=== PATIENT | male | born 1945 | race Caucasian/White ===

== ENCOUNTER 2016-02-04 08:58 | Outpatient (RCR) | payer MEDICARE, OTHER ==
--- OUTSIDE RECORDS SUMMARY | 2016-01-24 09:27 | XMS REPORT | Continuity of Care Document ---
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 Medications Medication Dose Route Sig Days/Qty Instructions Order Date Discontinued Date Status Omeprazole 20 Mg PO DAILY 07/16/13 Active Promethazine Hcl 1 Tab PO FOUR TIMES DAILY PRN NAUSEA/VOMITING 10 Qty 07/16/13 Active Social History Social History Problem Response Recorded Date/Time Alcohol Use Occasionally Uses 07/16/2013 8:17am Recreational Drug Use No 07/16/2013 8:17am Recent Foreign Travel No 07/16/2013 8:17am Hospital Discharge Instructions No hospital discharge instructions. Plan of Care No plan of care. Functional Status No functional status results. Allergies, Adverse Reactions, Alerts Allergen Type Severity Reaction Status Last Updated No Known Drug Allergies Active 01/06/11 Immunizations No immunization records. Vital Signs No known vital signs results. Results Laboratory Results Test Name Result Units Flags Reference Collection Date/Time Result Date/ Time Comments White Blood Count 4.0 10^3/uL L 4.3-11.0 03/14/2014 10:am 03/14/2014 10 :43am Red Blood Count 4.44 10^6/uL 4.35-5.85 03/14/2014 10:am 03/14/2014 10 :43am Hemoglobin 14.8 G/DL 13.3-17.7 03/14/2014 10:03/14/2014 10:43am Hematocrit 42 % 40-54 03/14/2014 10:03/14/2014 10:43am Mean Corpuscular Volume 94 FL 80-99 03/14/2014 10:03/14/2014 10: 43am Mean Corpuscular Hemoglobin 33 PG 25-34 03/14/2014 10:03/14/2014 10:43am Mean Corpuscular Hemoglobin Concent 36 G/DL 32-36 03/14/2014 10: 10:43am Red Cell Distribution Width 14.8 % H 10.0-14.5 03/14/2014 10:am 2013 10:43am Platelet Count 94 10^3/uL L 130-400 03/14/2014 10:03/14/2014 10: 43am Mean Platelet Volume 8.9 FL 7.4-10.4 03/14/2014 10:03/14/2014 10: 43am Neutrophils (%) (Auto) 68 % 42-75 03/14/2014 10:03/14/2014 10: 43am Lymphocytes (%) (Auto) 21 % 12-44 03/14/2014 10:03/14/2014 10: 43am Monocytes (%) (Auto) 10 % 0-12 03/14/2014 10:03/14/2014 10:43am Eosinophils (%) (Auto) 1 % 0-10 03/14/2014 10:03/14/2014 10:43am Basophils (%) (Auto) 0 % 0-10 03/14/2014 10:03/14/2014 10:43am Neutrophils # (Auto) 2.7 X 10^3 1.8-7.8 03/14/2014 10:am 03/14/2014 10:43am Lymphocytes # (Auto) 0.8 X 10^3 L 1.0-4.0 03/14/2014 10:22am 03/14/2014 10:43am Monocytes # (Auto) 0.4 X 10^3 0.0-1.0 03/14/2014 10:22am 03/14/2014 10: 43am Eosinophils # (Auto) 0.1 10^3/uL 0.0-0.3 03/14/2014 10:22am 03/14/2014 10:43am Basophils # (Auto) 0.0 10^3/uL 0.0-0.1 03/14/2014 10:22am 03/14/2014 10 :43am Sodium Level 142 MMOL/L 135-145 02/09/2014 9:20am 02/09/2014 10:01am Potassium Level 3.9 MMOL/L 3.6-5.0 02/09/2014 9:20am 02/09/2014 10: 01am Chloride Level 110 MMOL/L H 98-107 02/09/2014 9:20am 02/09/2014 10:01am Carbon Dioxide Level 23 MMOL/L 21-32 02/09/2014 9:20am 02/09/2014 10: 01am Blood Urea Nitrogen 13 MG/DL 7-18 02/09/2014 9:20am 02/09/2014 10:01am Creatinine 0.98 MG/DL 0.60-1.30 02/09/2014 9:20am 02/09/2014 10:01am BUN/Creatinine Ratio 13 02/09/2014 9:20am 02/09/2014 10:01am Estimat Glomerular Filtration Rate > 60 02/09/2014 9:20am 2013 10:01am GFR INTERPRETIVE DATA UNITS FOR ESTIMATED GFR (eGFR): mL/min/1.73 M2 REFERENCE RANGE FOR ESTIMATED GFR (eGFR) eGFR NORMAL eGFR >60 MODERATELY DECREASED eGFR 30-59 SEVERLY DECREASED eGFR 15-29 KIDNEY FAILURE <15 (OR DIALYSIS) Glucose Level 110 MG/DL H 70-105 02/09/2014 9:20am 02/09/2014 10:01am Calcium Level 8.7 MG/DL 8.5-10.1 02/09/2014 9:20am 02/09/2014 10:01am Total Bilirubin 1.4 MG/DL H 0.1-1.0 02/09/2014 9:20am 02/09/2014 10:01am Alkaline Phosphatase 62 U/L 40-136 02/09/2014 9:20am 02/09/2014 10: 01am Aspartate Amino Transf (AST/SGOT) 18 U/L 5-34 02/09/2014 9:20am 2013 10:01am Alanine Aminotransferase (ALT/SGPT) 14 U/L 0-55 02/09/2014 9:20am 02/09 10:01am Total Protein 7.1 G/DL 6.4-8.2 02/09/2014 9:20am 02/09/2014 10:01am Albumin 4.4 G/DL 3.2-4.5 02/09/2014 9:20am 02/09/2014 10:01am Ferritin 93 NG/ML 25-300 03/14/2014 10:22am 03/15/2014 7:01am Procedures No known history of procedures. Encounters Encounter Location Date/Time Discharged Recurring [facility] 03/14/14 10:00am
[2016-01-24 09:38] LABS: BASOPHILS % (AUTO) 0 % (0-10); EOSINOPHILS # (AUTO) 0.1 10^3/uL (0.0-0.3); EOSINOPHILS % (AUTO) 3 % (0-10); LYMPHOCYTES # (AUTO) 0.7 X 10^3 (1.0-4.0); LYMPHOCYTES % (AUTO) 24 % (12-44); MEAN CORPUSCULAR HEMOGLOBIN 27 PG (25-34); MEAN CORPUSCULAR HGB CONC 33 G/DL (32-36); MEAN CORPUSCULAR VOLUME 85 FL (80-99); MONOCYTES # (AUTO) 0.3 X 10^3 (0.0-1.0); MONOCYTES % (AUTO) 10 % (0-12); NEUTROPHILS # (AUTO) 1.8 X 10^3 (1.8-7.8); NEUTROPHILS % (AUTO) 63 % (42-75); PLATELET COUNT 115 10^3/uL (130-400); RED BLOOD COUNT 4.08 10^6/uL (4.35-5.85); RED CELL DISTRIBUTION WIDTH 13.4 % (10.0-14.5); WHITE BLOOD COUNT 2.9 10^3/uL (4.3-11.0)
[2016-01-24 10:10] LABS: ALANINE AMINOTRANSFERASE 17 U/L (0-55); ANION GAP 8 MMOL/L (5-14); ASPARTATE AMINO TRANSFERASE 14 U/L (5-34); BILIRUBIN,TOTAL 0.8 MG/DL (0.1-1.0); BLOOD UREA NITROGEN 15 MG/DL (7-18); BUN/CREATININE RATIO 15; CALCIUM 8.8 MG/DL (8.5-10.1); CARBON DIOXIDE 26 MMOL/L (21-32); CHLORIDE 109 MMOL/L (98-107); CREATININE SERUM 1.03 MG/DL (0.60-1.30); GFR ESTIMATED > 60; GLUCOSE 143 MG/DL (70-105); POTASSIUM 4.4 MMOL/L (3.6-5.0); SODIUM 143 MMOL/L (135-145); TOTAL PROTEIN 6.2 G/DL (6.4-8.2)
[~2016-02-04 08:58] MED LIST: FERRIC CARBOXYMALTOSE (CANCER) 750 MG in NS (IVPB) CANCER CENTER 250 ML IV SCH; OMEP20TA2 PO; PRM25T PO
== END 2016-04-23 | disposition home or self-care (01) ==
LOC: ONC 08:58
PROVIDERS: ATTEND Internal Medicine Hematology & Oncology
DX: C85.90 Non-Hodgkin lymphoma, unspecified, unspecified site (principal); I78.0 Hereditary hemorrhagic telangiectasia; D50.8 Other iron deficiency anemias; D69.6 Thrombocytopenia, unspecified; Z79.899 Other long term (current) drug therapy
CPT/HCPCS: 36415; 80053; 82728; 85025; 96365; 99213

== ENCOUNTER 2016-05-05 10:21 | Outpatient (RCR) | payer MEDICARE, OTHER ==
--- OUTSIDE RECORDS SUMMARY | 2016-04-24 09:19 | XMS REPORT | Continuity of Care Document ---
Author Author [facility] Organization [facility] Address Unknown Phone Unavailable Care Team Providers Care Development Technologist Name Role Phone BRIAN SÁNCHEZ DO PCP Insurance Providers Payer Name Policy Number Subscriber Name Relationship Wps Medicare [id number] Darci Mistry 18 Self / Same As Patient Enter Insurance Name [id number] Darci Mistry 18 Self / Same As Patient Advance Directives Directive Response Recorded Date/Time Advance Directives Yes 02/08/15 5:16pm Health Care Power of Triage Clinician No 02/08/15 5:16pm Organ Donor No 02/08/15 5:16pm Problems Active Problems Medical Problem Onset Date Status Well adult exam Unknown Acute Medications Current Home Medications Medication Dose Units Route Directions Days/Qty Instructions Start Date Omeprazole 20 Mg 20 Mg Oral Daily 07/16/13 Promethazine Hcl 25 Mg 1 Tab Oral Four Times Daily as needed for Nausea/ Vomiting 10 07/16/13 Social History Social History Problem Response Recorded Date/Time Alcohol Use Occasionally Uses 02/08/2015 5:16pm Recreational Drug Use No 02/08/2015 5:16pm Recent Foreign Travel No 07/16/2013 8:17am Hospital Discharge Instructions No hospital discharge instructions. Plan of Care Prescriptions See Medication Section Functional Status No functional status results. Allergies, Adverse Reactions, Alerts No known allergies. Immunizations No immunization records. Vital Signs No known vital signs results. Results Laboratory Results Test Name Result Units Flags Reference Collection Date/Time Result Date/ Time Comments White Blood Count 2.9 10^3/uL L 4.3-11.0 01/24/2016 9:35am 01/24/2016 9: 39am Red Blood Count 4.08 10^6/uL L 4.35-5.85 01/24/2016 9:35am 01/24/2016 9: 39am Hemoglobin 11.2 G/DL L 13.3-17.7 01/24/2016 9:35am 01/24/2016 9:39am Hematocrit 35 % L 40-54 01/24/2016 9:35am 01/24/2016 9:39am Mean Corpuscular Volume 85 FL 80-99 01/24/2016 9:35am 01/24/2016 9: 39am Mean Corpuscular Hemoglobin 27 PG 25-34 01/24/2016 9:35am 01/24/2016 9: 39am Mean Corpuscular Hemoglobin Concent 33 G/DL 32-36 01/24/2016 9:35am 05/2015 9:39am Red Cell Distribution Width 13.4 % 10.0-14.5 01/24/2016 9:35am 2015 9:39am Platelet Count 115 10^3/uL L 130-400 01/24/2016 9:35am 01/24/2016 9:39am Mean Platelet Volume 9.0 FL 7.4-10.4 01/24/2016 9:35am 01/24/2016 9: 39am Neutrophils (%) (Auto) 63 % 42-75 01/24/2016 9:35am 01/24/2016 9:39am Lymphocytes (%) (Auto) 24 % 12-44 01/24/2016 9:35am 01/24/2016 9:39am Monocytes (%) (Auto) 10 % 0-12 01/24/2016 9:35am 01/24/2016 9:39am Eosinophils (%) (Auto) 3 % 0-10 01/24/2016 9:35am 01/24/2016 9:39am Basophils (%) (Auto) 0 % 0-10 01/24/2016 9:35am 01/24/2016 9:39am Neutrophils # (Auto) 1.8 X 10^3 1.8-7.8 01/24/2016 9:35am 01/24/2016 9: 39am Lymphocytes # (Auto) 0.7 X 10^3 L 1.0-4.0 01/24/2016 9:35am 01/24/2016 9: 39am Monocytes # (Auto) 0.3 X 10^3 0.0-1.0 01/24/2016 9:35am 01/24/2016 9: 39am Eosinophils # (Auto) 0.1 10^3/uL 0.0-0.3 01/24/2016 9:35am 01/24/2016 9 :39am Basophils # (Auto) 0.0 10^3/uL 0.0-0.1 01/24/2016 9:35am 01/24/2016 9: 39am Sodium Level 143 MMOL/L 135-145 01/24/2016 9:35am 01/24/2016 10:14am Potassium Level 4.4 MMOL/L 3.6-5.0 01/24/2016 9:35am 01/24/2016 10: 14am Chloride Level 109 MMOL/L H 98-107 01/24/2016 9:35am 01/24/2016 10:14am Carbon Dioxide Level 26 MMOL/L 21-32 01/24/2016 9:35am 01/24/2016 10: 14am Anion Gap 8 MMOL/L 5-14 01/24/2016 9:35am 01/24/2016 10:14am Blood Urea Nitrogen 15 MG/DL 7-18 01/24/2016 9:35am 01/24/2016 10:14am Creatinine 1.03 MG/DL 0.60-1.30 01/24/2016 9:35am 01/24/2016 10:14am BUN/Creatinine Ratio 15 01/24/2016 9:35am 01/24/2016 10:14am Estimat Glomerular Filtration Rate > 60 01/24/2016 9:35am 2015 10:14am GFR INTERPRETIVE DATA UNITS FOR ESTIMATED GFR (eGFR): mL/min/1.73 M2 REFERENCE RANGE FOR ESTIMATED GFR (eGFR) eGFR NORMAL eGFR >60 MODERATELY DECREASED eGFR 30-59 SEVERLY DECREASED eGFR 15-29 KIDNEY FAILURE <15 (OR DIALYSIS) Glucose Level 143 MG/DL H 70-105 01/24/2016 9:35am 01/24/2016 10:14am Calcium Level 8.8 MG/DL 8.5-10.1 01/24/2016 9:35am 01/24/2016 10:14am Total Bilirubin 0.8 MG/DL 0.1-1.0 01/24/2016 9:35am 01/24/2016 10:14am Alkaline Phosphatase 62 U/L 40-136 01/24/2016 9:35am 01/24/2016 10: 14am Aspartate Amino Transf (AST/SGOT) 14 U/L 5-34 01/24/2016 9:35am 2015 10:14am Alanine Aminotransferase (ALT/SGPT) 17 U/L 0-55 01/24/2016 9:35am 01/23 10:14am Total Protein 6.2 G/DL L 6.4-8.2 01/24/2016 9:35am 01/24/2016 10:14am Albumin 4.0 G/DL 3.2-4.5 01/24/2016 9:35am 01/24/2016 10:14am Ferritin 13 L NG/ML 25-300 01/24/2016 9:35am 01/25/2016 7:21am Procedures No known history of procedures. Encounters Encounter Location Arrival/Admit Date Discharge/Depart Date Attending Provider Discharged Recurring [facility] 02/04/16 8:58am 11:59pm LAURA MCWILLIAMS
[2016-04-24 09:34] LABS: BASOPHILS % (AUTO) 0 % (0-10); EOSINOPHILS # (AUTO) 0.1 10^3/uL (0.0-0.3); EOSINOPHILS % (AUTO) 2 % (0-10); LYMPHOCYTES # (AUTO) 0.6 X 10^3 (1.0-4.0); LYMPHOCYTES % (AUTO) 20 % (12-44); MEAN CORPUSCULAR HEMOGLOBIN 27 PG (25-34); MEAN CORPUSCULAR HGB CONC 33 G/DL (32-36); MEAN CORPUSCULAR VOLUME 84 FL (80-99); MEAN PLATELET VOLUME 9.3 FL (7.4-10.4); MONOCYTES # (AUTO) 0.2 X 10^3 (0.0-1.0); MONOCYTES % (AUTO) 6 % (0-12); NEUTROPHILS % (AUTO) 72 % (42-75); PLATELET COUNT 121 10^3/uL (130-400); RED BLOOD COUNT 4.05 10^6/uL (4.35-5.85); RED CELL DISTRIBUTION WIDTH 14.4 % (10.0-14.5); WHITE BLOOD COUNT 2.8 10^3/uL (4.3-11.0)
[2016-04-24 10:15] LABS: ALANINE AMINOTRANSFERASE 16 U/L (0-55); ALBUMIN 4.1 G/DL (3.2-4.5); ANION GAP 9 MMOL/L (5-14); ASPARTATE AMINO TRANSFERASE 24 U/L (5-34); BLOOD UREA NITROGEN 14 MG/DL (7-18); BUN/CREATININE RATIO 13; CALCIUM 8.5 MG/DL (8.5-10.1); CARBON DIOXIDE 24 MMOL/L (21-32); CHLORIDE 108 MMOL/L (98-107); CREATININE SERUM 1.11 MG/DL (0.60-1.30); GFR ESTIMATED > 60; GLUCOSE 153 MG/DL (70-105); LACTATE DEHYDROGENASE 260 U/L (125-220); SODIUM 141 MMOL/L (135-145); TOTAL PROTEIN 6.5 G/DL (6.4-8.2)
[2016-04-24 10:18] LABS: POTASSIUM 4.2 MMOL/L (3.6-5.0)
== END 2016-07-23 | disposition home or self-care (01) ==
LOC: ONC 10:21
PROVIDERS: ATTEND Internal Medicine Hematology & Oncology
DX: C85.90 Non-Hodgkin lymphoma, unspecified, unspecified site (principal); I78.0 Hereditary hemorrhagic telangiectasia; D50.8 Other iron deficiency anemias; D69.6 Thrombocytopenia, unspecified; Z79.899 Other long term (current) drug therapy
CPT/HCPCS: 36415; 80053; 82728; 83615; 85025; 96365; 99213

== ENCOUNTER → 2016-07-30 | Outpatient (CLI) | payer MEDICARE, OTHER ==
[~2016-07-30] MED LIST changes: -FERRIC CARBOXYMALTOSE (CANCER) 750 MG in NS (IVPB) CANCER CENTER 250 ML IV SCH
--- NOTE | 2016-07-31 07:15 | ECHOCARDIOGRAPHY REPORT ---
DATE OF SERVICE: 07/30/2016 TWO-DIMENSIONAL ECHOCARDIOGRAM REFERRING PHYSICIAN: Dr. Ballesteros MEASUREMENT: LVID end diastolic 4.4. IVS thickness 1.3. LVPW thickness 1.3. Left atrial diameter 3.2. Ejection fraction 60%. FINDINGS: 1. Technical quality is good. 2. The left ventricle is normal in size with mild left ventricular hypertrophy noted diffusely. Systolic function appeared to be normal, estimated ejection fraction is 60%. 3. The left atrium is normal in size. No clot or thrombus were seen within the left atrium. 4. The right atrium and right ventricle are normal in size. No clot or thrombus were seen within the right side. 5. Mitral valve is normal in morphology with mild mitral regurgitation noted by color Doppler flow. No mitral valve prolapse. No mitral valve stenosis. 6. Aortic valve is trileaflet with normal opening and closing pattern. No significant aortic stenosis or regurgitation was seen. 7. Tricuspid valve is normal in morphology with mild tricuspid regurgitation noted by color Doppler flow. Doppler across the tricuspid valve estimated pulmonary artery pressure of 17+ right atrial pressure. 8. Pulmonic valve is functioning normally. 9. No pericardial effusion. IN CONCLUSION: 1. Normal left ventricular size and systolic function, estimated ejection fraction is 60%. 2. Mild mitral and tricuspid regurgitation. 3. Estimated pulmonary artery pressure of 25 mmHg. Job ID: [id number] DocumentID: [id number] Dictated Date: 07/30/2016 14:46:25 Supervisor [employer] Date: 07/30/2016 15:28:12 Dictated By: VIDAL BELTRAN MD
== END ==
LOC: CARD 13:15
PROVIDERS: ATTEND Internal Medicine Cardiovascular Disease
DX: R00.2 Palpitations (principal); C85.90 Non-Hodgkin lymphoma, unspecified, unspecified site; D50.0 Iron deficiency anemia secondary to blood loss (chronic); K21.9 Gastro-esophageal reflux disease without esophagitis; R11.0 Nausea; E66.9 Obesity, unspecified
CPT/HCPCS: 93017; 93306

== ENCOUNTER 2016-08-01 09:31 | Outpatient (RCR) | payer MEDICARE, OTHER ==
[2016-07-24 09:41] LABS: BASOPHILS % (AUTO) 0 % (0-10); EOSINOPHILS # (AUTO) 0.1 10^3/uL (0.0-0.3); EOSINOPHILS % (AUTO) 2 % (0-10); LYMPHOCYTES # (AUTO) 0.5 X 10^3 (1.0-4.0); LYMPHOCYTES % (AUTO) 19 % (12-44); MEAN CORPUSCULAR HEMOGLOBIN 24 PG (25-34); MEAN CORPUSCULAR HGB CONC 30 G/DL (32-36); MEAN CORPUSCULAR VOLUME 80 FL (80-99); MEAN PLATELET VOLUME 9.1 FL (7.4-10.4); MONOCYTES # (AUTO) 0.2 X 10^3 (0.0-1.0); MONOCYTES % (AUTO) 8 % (0-12); NEUTROPHILS # (AUTO) 1.8 X 10^3 (1.8-7.8); NEUTROPHILS % (AUTO) 71 % (42-75); PLATELET COUNT 121 10^3/uL (130-400); RED CELL DISTRIBUTION WIDTH 15.2 % (10.0-14.5); WHITE BLOOD COUNT 2.5 10^3/uL (4.3-11.0)
[2016-07-24 10:26] LABS: ALANINE AMINOTRANSFERASE 12 U/L (0-55); ALBUMIN 4.2 G/DL (3.2-4.5); ANION GAP 6 MMOL/L (5-14); ASPARTATE AMINO TRANSFERASE 15 U/L (5-34); BILIRUBIN,TOTAL 0.9 MG/DL (0.1-1.0); BLOOD UREA NITROGEN 12 MG/DL (7-18); BUN/CREATININE RATIO 11; CALCIUM 8.8 MG/DL (8.5-10.1); CARBON DIOXIDE 28 MMOL/L (21-32); CHLORIDE 109 MMOL/L (98-107); CREATININE SERUM 1.08 MG/DL (0.60-1.30); GFR ESTIMATED > 60; GLUCOSE 139 MG/DL (70-105); LACTATE DEHYDROGENASE 152 U/L (125-220); SODIUM 143 MMOL/L (135-145); TOTAL PROTEIN 6.4 G/DL (6.4-8.2)
[~2016-08-01 09:31] MED LIST changes: +FERRIC CARBOXYMALTOSE (CANCER) 750 MG in NS (IVPB) CANCER CENTER 250 ML IV SCH
== END 2016-10-22 | disposition home or self-care (01) ==
LOC: ONC 09:31
PROVIDERS: ATTEND Internal Medicine Hematology & Oncology
DX: C85.90 Non-Hodgkin lymphoma, unspecified, unspecified site (principal); I78.0 Hereditary hemorrhagic telangiectasia; D50.8 Other iron deficiency anemias; D69.6 Thrombocytopenia, unspecified; Z79.899 Other long term (current) drug therapy
CPT/HCPCS: 36415; 80053; 82728; 83615; 85025; 96365; 99213

== ENCOUNTER 2016-12-18 08:41 | Outpatient (RCR) | payer MEDICARE, OTHER ==
[2016-11-06 10:25] LABS: BASOPHILS % (AUTO) 0 % (0-10); EOSINOPHILS # (AUTO) 0.1 10^3/uL (0.0-0.3); EOSINOPHILS % (AUTO) 4 % (0-10); LYMPHOCYTES # (AUTO) 0.6 X 10^3 (1.0-4.0); LYMPHOCYTES % (AUTO) 19 % (12-44); MEAN CORPUSCULAR HEMOGLOBIN 28 PG (25-34); MEAN CORPUSCULAR HGB CONC 33 G/DL (32-36); MEAN CORPUSCULAR VOLUME 83 FL (80-99); MEAN PLATELET VOLUME 8.6 FL (7.4-10.4); MONOCYTES # (AUTO) 0.4 X 10^3 (0.0-1.0); MONOCYTES % (AUTO) 13 % (0-12); NEUTROPHILS # (AUTO) 2.2 X 10^3 (1.8-7.8); NEUTROPHILS % (AUTO) 65 % (42-75); PLATELET COUNT 93 10^3/uL (130-400); RED BLOOD COUNT 4.55 10^6/uL (4.35-5.85); RED CELL DISTRIBUTION WIDTH 14.3 % (10.0-14.5); WHITE BLOOD COUNT 3.4 10^3/uL (4.3-11.0)
[2016-11-06 11:00] LABS: ALANINE AMINOTRANSFERASE 17 U/L (0-55); ANION GAP 7 MMOL/L (5-14); ASPARTATE AMINO TRANSFERASE 21 U/L (5-34); BILIRUBIN,TOTAL 1.1 MG/DL (0.1-1.0); BLOOD UREA NITROGEN 13 MG/DL (7-18); BUN/CREATININE RATIO 12; CARBON DIOXIDE 29 MMOL/L (21-32); CHLORIDE 104 MMOL/L (98-107); CREATININE SERUM 1.12 MG/DL (0.60-1.30); GFR ESTIMATED > 60; GLUCOSE 101 MG/DL (70-105); POTASSIUM 4.3 MMOL/L (3.6-5.0); SODIUM 140 MMOL/L (135-145); TOTAL PROTEIN 6.6 GM/DL (6.4-8.2)
[2016-12-18 08:57] LABS: BASOPHILS % (AUTO) 0 % (0-10); EOSINOPHILS # (AUTO) 0.1 10^3/uL (0.0-0.3); EOSINOPHILS % (AUTO) 2 % (0-10); LYMPHOCYTES # (AUTO) 0.7 X 10^3 (1.0-4.0); LYMPHOCYTES % (AUTO) 17 % (12-44); MEAN CORPUSCULAR HEMOGLOBIN 30 PG (25-34); MEAN CORPUSCULAR HGB CONC 35 G/DL (32-36); MEAN CORPUSCULAR VOLUME 88 FL (80-99); MEAN PLATELET VOLUME 9.2 FL (7.4-10.4); MONOCYTES # (AUTO) 0.3 X 10^3 (0.0-1.0); MONOCYTES % (AUTO) 8 % (0-12); NEUTROPHILS # (AUTO) 2.8 X 10^3 (1.8-7.8); NEUTROPHILS % (AUTO) 72 % (42-75); PLATELET COUNT 85 10^3/uL (130-400); RED BLOOD COUNT 4.96 10^6/uL (4.35-5.85); RED CELL DISTRIBUTION WIDTH 19.4 % (10.0-14.5); WHITE BLOOD COUNT 3.9 10^3/uL (4.3-11.0)
== END 2016-12-20 | disposition home or self-care (01) ==
LOC: ONC 08:41
PROVIDERS: ATTEND Internal Medicine Hematology & Oncology
DX: C85.90 Non-Hodgkin lymphoma, unspecified, unspecified site (principal); I78.0 Hereditary hemorrhagic telangiectasia; D50.8 Other iron deficiency anemias; D69.6 Thrombocytopenia, unspecified; Z79.899 Other long term (current) drug therapy
CPT/HCPCS: 36415; 80053; 82728; 85025; 96365; 99213

== ENCOUNTER 2017-04-21 08:55 | Outpatient (RCR) | payer MEDICARE, OTHER ==
[2017-04-01 10:21] LABS: BASOPHILS % (AUTO) 0 % (0-10); EOSINOPHILS # (AUTO) 0.1 10^3/uL (0.0-0.3); EOSINOPHILS % (AUTO) 1 % (0-10); HEMATOCRIT 38 % (40-54); HEMOGLOBIN 12.8 G/DL (13.3-17.7); LYMPHOCYTES # (AUTO) 0.7 X 10^3 (1.0-4.0); LYMPHOCYTES % (AUTO) 15 % (12-44); MEAN CORPUSCULAR HEMOGLOBIN 29 PG (25-34); MEAN CORPUSCULAR HGB CONC 34 G/DL (32-36); MEAN CORPUSCULAR VOLUME 85 FL (80-99); MEAN PLATELET VOLUME 9.6 FL (7.4-10.4); MONOCYTES # (AUTO) 0.4 X 10^3 (0.0-1.0); MONOCYTES % (AUTO) 9 % (0-12); NEUTROPHILS # (AUTO) 3.3 X 10^3 (1.8-7.8); NEUTROPHILS % (AUTO) 75 % (42-75); PLATELET COUNT 121 10^3/uL (130-400); RED BLOOD COUNT 4.42 10^6/uL (4.35-5.85); WHITE BLOOD COUNT 4.4 10^3/uL (4.3-11.0)
== END 2017-05-17 | disposition home or self-care (01) ==
LOC: ONC 08:55
PROVIDERS: ATTEND Internal Medicine Hematology & Oncology
DX: C85.90 Non-Hodgkin lymphoma, unspecified, unspecified site (principal); I78.0 Hereditary hemorrhagic telangiectasia; D50.8 Other iron deficiency anemias; D69.6 Thrombocytopenia, unspecified; Z79.899 Other long term (current) drug therapy
CPT/HCPCS: 82728; 85025; 96365; 99213

== ENCOUNTER → 2017-06-09 | Outpatient (CLI) | payer MEDICARE, OTHER ==
[~2017-06-09] MED LIST changes: -FERRIC CARBOXYMALTOSE (CANCER) 750 MG in NS (IVPB) CANCER CENTER 250 ML IV SCH
--- NOTE | 2017-06-09 13:14 | Diagnostic Imaging Report ---
PROCEDURE: MRI lumbar spine. TECHNIQUE: Multiplanar, multisequence MRI of the lumbar spine was performed without contrast. INDICATION: Back pain. COMPARISON: Comparison made with prior examination from 08/17/2013. FINDINGS: There are postsurgical changes of an L5-S1 posterior instrumentation with bilateral pedicle screws and rods. There is grade 2 spondylolisthesis of L5 on S1. The vertebral body heights are well-maintained. Conus medullaris is seen at L1 and is normal in appearance. T11-12 disc is unremarkable. T12-L1 disc is unremarkable. L1-2 and L2-3: There is slight loss of disc height and signal intensity and mild annular bulging. There is some facet disease. There is mild central spinal stenosis. There is [id number] bilateral neural foraminal encroachment. The L3-4 disc is normal in height, signal intensity and morphology. There is some facet disease at this level. At L4-5, there is no disc extrusion. There appears to be mild bilateral neural foraminal encroachment. There has been a laminectomy at L5. Spinal canal is adequately decompressed. There does appear to be moderately severe spinal stenosis bilaterally right greater than left. There is no new focal disc extrusion. The abdominal aorta is nonaneurysmal. There is a large cyst in the right kidney. IMPRESSION: 1. Diffuse lumbar spondylosis and multilevel degenerative disc disease as detailed above. 2. Postsurgical changes at L5-S1. 3. Right renal cyst. 4. There is slight loss of disc height and signal intensity and mild hypertrophic degenerative facet disease. There is moderate bilateral neural foraminal encroachment. Dictated by: Dictated on workstation # [id number]
== END ==
LOC: RAD 11:11
PROVIDERS: ATTEND Physician Assistant
DX: M48.061 Spinal stenosis, lumbar region without neurogenic claudication (principal); M47.816 Spondylosis without myelopathy or radiculopathy, lumbar region; M43.17 Spondylolisthesis, lumbosacral region; M51.26 Other intervertebral disc displacement, lumbar region; N28.1 Cyst of kidney, acquired; Z98.1 Arthrodesis status; Z98.890 Other specified postprocedural states
CPT/HCPCS: 72148

== ENCOUNTER 2017-09-22 08:51 | Outpatient (RCR) | payer MEDICARE, OTHER ==
[~2017-09-22 08:51] MED LIST changes: +FERRIC CARBOXYMALTOSE (CANCER) 750 MG in NS (IVPB) CANCER CENTER 250 ML IV SCH
[2017-12-07 09:03] LABS: BASOPHILS % (AUTO) 0 % (0-10); EOSINOPHILS # (AUTO) 0.1 10^3/uL (0.0-0.3); EOSINOPHILS % (AUTO) 2 % (0-10); HEMATOCRIT 33 % (40-54); HEMOGLOBIN 10.8 G/DL (13.3-17.7); LYMPHOCYTES # (AUTO) 0.6 X 10^3 (1.0-4.0); LYMPHOCYTES % (AUTO) 17 % (12-44); MEAN CORPUSCULAR HEMOGLOBIN 26 PG (25-34); MEAN CORPUSCULAR HGB CONC 33 G/DL (32-36); MEAN CORPUSCULAR VOLUME 79 FL (80-99); MONOCYTES # (AUTO) 0.4 X 10^3 (0.0-1.0); MONOCYTES % (AUTO) 10 % (0-12); NEUTROPHILS # (AUTO) 2.5 X 10^3 (1.8-7.8); NEUTROPHILS % (AUTO) 71 % (42-75); PLATELET COUNT 129 10^3/uL (130-400); RED BLOOD COUNT 4.19 10^6/uL (4.35-5.85); RED CELL DISTRIBUTION WIDTH 14.5 % (10.0-14.5); WHITE BLOOD COUNT 3.5 10^3/uL (4.3-11.0)
[2017-12-07 09:26] LABS: ALANINE AMINOTRANSFERASE 12 U/L (0-55); ALBUMIN 4.2 GM/DL (3.2-4.5); ALKALINE PHOSPHATASE 66 U/L (40-136); BUN/CREATININE RATIO 11; CALCIUM 8.8 MG/DL (8.5-10.1); CARBON DIOXIDE 26 MMOL/L (21-32); CHLORIDE 107 MMOL/L (98-107); CREATININE SERUM 0.96 MG/DL (0.60-1.30); GFR ESTIMATED > 60; GLUCOSE 104 MG/DL (70-105); POTASSIUM 4.5 MMOL/L (3.6-5.0); SODIUM 138 MMOL/L (135-145); TOTAL PROTEIN 6.1 GM/DL (6.4-8.2)
== END 2017-12-07 08:59 | disposition home or self-care (01) ==
LOC: ONC 08:51
PROVIDERS: ATTEND Internal Medicine Hematology & Oncology
DX: C85.90 Non-Hodgkin lymphoma, unspecified, unspecified site (principal); I78.0 Hereditary hemorrhagic telangiectasia; D50.8 Other iron deficiency anemias; D69.6 Thrombocytopenia, unspecified; Z79.899 Other long term (current) drug therapy
CPT/HCPCS: 36415; 80053; 82728; 83615; 85025; 96365

== ENCOUNTER 2017-12-07 09:09 | Outpatient (RCR) | payer MEDICARE, OTHER ==
[~2017-12-07 09:09] MED LIST changes: -FERRIC CARBOXYMALTOSE (CANCER) 750 MG in NS (IVPB) CANCER CENTER 250 ML IV SCH
== END 2017-12-10 16:16 | disposition home or self-care (01) ==
LOC: ONC 09:09
PROVIDERS: ATTEND Internal Medicine Hematology & Oncology
DX: C85.90 Non-Hodgkin lymphoma, unspecified, unspecified site (principal); I78.0 Hereditary hemorrhagic telangiectasia; D50.8 Other iron deficiency anemias; D69.6 Thrombocytopenia, unspecified; Z79.899 Other long term (current) drug therapy

== ENCOUNTER 2017-12-18 08:48 | Outpatient (RCR) | payer MEDICARE, OTHER ==
[~2017-12-18 08:48] MED LIST changes: +FERRIC CARBOXYMALTOSE (CANCER) 750 MG in NS (IVPB) CANCER CENTER 250 ML IV SCH
== END 2017-12-20 | disposition home or self-care (01) ==
LOC: ONC 08:48
PROVIDERS: ATTEND Internal Medicine Hematology & Oncology
DX: C85.90 Non-Hodgkin lymphoma, unspecified, unspecified site (principal); I78.0 Hereditary hemorrhagic telangiectasia; D50.8 Other iron deficiency anemias; D69.6 Thrombocytopenia, unspecified; Z79.899 Other long term (current) drug therapy
CPT/HCPCS: 96365

== ENCOUNTER 2018-04-08 11:00 | Outpatient (RCR) | payer MEDICARE, OTHER ==
[2018-03-08 09:24] LABS: BASOPHILS % (AUTO) 0 % (0-10); EOSINOPHILS # (AUTO) 0.1 10^3/uL (0.0-0.3); EOSINOPHILS % (AUTO) 3 % (0-10); HEMATOCRIT 36 % (40-54); HEMOGLOBIN 11.9 G/DL (13.3-17.7); LYMPHOCYTES # (AUTO) 0.6 X 10^3 (1.0-4.0); LYMPHOCYTES % (AUTO) 17 % (12-44); MEAN CORPUSCULAR HEMOGLOBIN 27 PG (25-34); MEAN CORPUSCULAR HGB CONC 33 G/DL (32-36); MEAN CORPUSCULAR VOLUME 83 FL (80-99); MEAN PLATELET VOLUME 9.6 FL (7.4-10.4); MONOCYTES # (AUTO) 0.4 X 10^3 (0.0-1.0); MONOCYTES % (AUTO) 12 % (0-12); NEUTROPHILS # (AUTO) 2.2 X 10^3 (1.8-7.8); NEUTROPHILS % (AUTO) 68 % (42-75); PLATELET COUNT 123 10^3/uL (130-400); RED CELL DISTRIBUTION WIDTH 14.7 % (10.0-14.5); WHITE BLOOD COUNT 3.2 10^3/uL (4.3-11.0)
[2018-03-08 09:45] LABS: ALANINE AMINOTRANSFERASE 14 U/L (0-55); ALBUMIN 4.4 GM/DL (3.2-4.5); ALKALINE PHOSPHATASE 75 U/L (40-136); BILIRUBIN,TOTAL 1.1 MG/DL (0.1-1.0); BUN/CREATININE RATIO 13; CALCIUM 9.1 MG/DL (8.5-10.1); CARBON DIOXIDE 25 MMOL/L (21-32); CHLORIDE 106 MMOL/L (98-107); CREATININE SERUM 1.02 MG/DL (0.60-1.30); GFR ESTIMATED > 60; GLUCOSE 102 MG/DL (70-105); SODIUM 141 MMOL/L (135-145); TOTAL PROTEIN 6.9 GM/DL (6.4-8.2)
[2018-04-08 11:30] LABS: BUN/CREATININE RATIO 11; CALCIUM 8.7 MG/DL (8.5-10.1); CARBON DIOXIDE 27 MMOL/L (21-32); CHLORIDE 105 MMOL/L (98-107); CREATININE SERUM 1.02 MG/DL (0.60-1.30); GFR ESTIMATED > 60; GLUCOSE 74 MG/DL (70-105); SODIUM 139 MMOL/L (135-145)
== END 2018-06-06 | disposition home or self-care (01) ==
LOC: ONC 11:00
PROVIDERS: ATTEND Internal Medicine Hematology & Oncology
DX: C85.90 Non-Hodgkin lymphoma, unspecified, unspecified site (principal); I78.0 Hereditary hemorrhagic telangiectasia; D50.8 Other iron deficiency anemias; D69.6 Thrombocytopenia, unspecified; Z79.899 Other long term (current) drug therapy
CPT/HCPCS: 36415; 80048; 80053; 82728; 83615; 85025; 96365

== ENCOUNTER → 2018-04-29 | Outpatient (CLI) | payer MEDICARE, OTHER ==
[~2018-04-29] MED LIST changes: +BARIUM SUSPENSION 2.1% (VANILLA SILQ) 450 ML PO ONE; -FERRIC CARBOXYMALTOSE (CANCER) 750 MG in NS (IVPB) CANCER CENTER 250 ML IV SCH; +IOHEXOL 350 MG/ML 100 ML (OMNIPAQUE 350) VIAL IV ONE; +NS 100 ML (IVPB) BAG IV ONE; +RECEIVED CONTRAST (Hold Metformin) IV SCH
--- NOTE | 2018-04-29 13:03 | Diagnostic Imaging Report ---
INDICATION: Anemia, history of myeloproliferative disorder. TECHNIQUE: CT chest, abdomen, and pelvis obtained with IV contrast bolus. COMPARISON: Comparison made to prior study of 12/31/2010. CT chest findings: There were no enlarged mediastinal or hilar nodes. There is a calcified granuloma in the right hilum, unchanged from the prior study. There is no pleural or pericardial fluid. There are no enlarged axillary nodes or chest wall lesions. Bony windows in the chest were unremarkable. Lung parenchymal windows demonstrate a calcified granuloma in the right upper lobe which is unchanged compared to the previous study. There is no new nodule or infiltrate in the lung parenchyma. CT abdomen and pelvis findings: The liver shows no focal lesions. The gallbladder appears unremarkable except for a questionable tiny stone in the gallbladder neck. The spleen was not enlarged and shows a few scattered calcified granuloma but no discrete mass lesion. The adrenals and pancreas appear normal. Kidneys bilaterally showed no hydronephrosis. There are multiple cysts in the right kidney, the largest of which measured about 5.7 cm, slightly larger than on 12/31/2010. There is no ascites or abnormal fluid collection. There is some increased density in the mesenteric fat which appeared similar on the prior study, may be due to post-treatment change. There are few scattered mildly prominent lymph nodes in the mesentery which also appeared similar on the prior study, the largest node measured about 2.3 x 1.2 cm. Visualized bowel loops demonstrate uncomplicated sigmoid diverticula. There is no sign of bowel obstruction or focal bowel wall thickening. Bony windows demonstrate degenerative changes in both hips and postsurgical changes in the lower lumbar spine. There are degenerative changes in the SI joints. IMPRESSION: 1. CT chest demonstrates old granulomatous changes with no acute abnormality or acute change from 12/31/2010. 2. CT abdomen and pelvis demonstrates increased density in the mesenteric fat which may due to post-treatment change but is unchanged compared to the previous study. There are a few scattered mildly prominent lymph nodes in the mesentery which also appeared similar on the prior study. There is no definite new lesion. There are uncomplicated sigmoid diverticula. There are cysts in the right kidney, the largest being slightly increased in size compared to the prior study. There is a questionable tiny stone in the gallbladder neck. Dictated by: Dictated on workstation # [id number]
--- NOTE | 2018-04-29 16:20 | Diagnostic Imaging Report ---
INDICATION: Chronic back pain. Patient also has history of myeloproliferative disorder. TECHNIQUE: Patient was administered 26.6 mCi of technetium-99m MDP intravenously, and whole body imaging was performed after a three-hour delay. COMPARISON: No prior studies are available for comparison. FINDINGS: Normal uptake of activity by the axial and appendicular skeleton is seen. There is uptake by both kidneys with excretion into the urinary bladder. Photopenia over the left knee is noted consistent with patient's known left total knee replacement. No abnormal foci of tracer accumulation are seen to suggest osseous metastatic disease. IMPRESSION: No scintigraphic evidence of osseous metastatic disease. Dictated by: Dictated on workstation # [id number]
== END ==
LOC: RAD 10:07
PROVIDERS: ATTEND Nurse Practitioner Adult Health
DX: Z01.89 Encounter for other specified special examinations (principal); C85.90 Non-Hodgkin lymphoma, unspecified, unspecified site; M54.5 Low back pain; M25.559 Pain in unspecified hip; D64.9 Anemia, unspecified
CPT/HCPCS: 71260; 74177; 78306

== ENCOUNTER 2018-06-17 09:01 | Outpatient (RCR) | payer MEDICARE, OTHER ==
[2018-06-07 09:10] LABS: BASOPHILS % (AUTO) 0 % (0-10); EOSINOPHILS # (AUTO) 0.1 10^3/uL (0.0-0.3); EOSINOPHILS % (AUTO) 2 % (0-10); HEMATOCRIT 29 % (40-54); HEMOGLOBIN 8.5 G/DL (13.3-17.7); LYMPHOCYTES # (AUTO) 0.5 X 10^3 (1.0-4.0); LYMPHOCYTES % (AUTO) 19 % (12-44); MEAN CORPUSCULAR HEMOGLOBIN 22 PG (25-34); MEAN CORPUSCULAR HGB CONC 30 G/DL (32-36); MEAN CORPUSCULAR VOLUME 73 FL (80-99); MEAN PLATELET VOLUME 10.8 FL (7.4-10.4); MONOCYTES # (AUTO) 0.2 X 10^3 (0.0-1.0); MONOCYTES % (AUTO) 10 % (0-12); NEUTROPHILS # (AUTO) 1.6 X 10^3 (1.8-7.8); NEUTROPHILS % (AUTO) 69 % (42-75); PLATELET COUNT 120 10^3/uL (130-400); RED CELL DISTRIBUTION WIDTH 16.8 % (10.0-14.5); WHITE BLOOD COUNT 2.4 10^3/uL (4.3-11.0)
[2018-06-07 09:31] LABS: ALANINE AMINOTRANSFERASE 13 U/L (0-55); ALBUMIN 4.3 GM/DL (3.2-4.5); ALKALINE PHOSPHATASE 58 U/L (40-136); BILIRUBIN,TOTAL 1.1 MG/DL (0.1-1.0); BUN/CREATININE RATIO 14; CALCIUM 8.9 MG/DL (8.5-10.1); CARBON DIOXIDE 24 MMOL/L (21-32); CHLORIDE 106 MMOL/L (98-107); CREATININE SERUM 1.02 MG/DL (0.60-1.30); GFR ESTIMATED > 60; GLUCOSE 96 MG/DL (70-105); POTASSIUM 3.9 MMOL/L (3.6-5.0); SODIUM 139 MMOL/L (135-145); TOTAL PROTEIN 6.4 GM/DL (6.4-8.2)
[~2018-06-17 09:01] MED LIST changes: -BARIUM SUSPENSION 2.1% (VANILLA SILQ) 450 ML PO ONE; +FERRIC CARBOXYMALTOSE (CANCER) 750 MG in NS (IVPB) CANCER CENTER 250 ML IV SCH; -IOHEXOL 350 MG/ML 100 ML (OMNIPAQUE 350) VIAL IV ONE; -NS 100 ML (IVPB) BAG IV ONE; -RECEIVED CONTRAST (Hold Metformin) IV SCH
[2018-08-09] MEDS ORDERED: ESCI5TAB12 PO (13:19)
[2018-08-09] MEDS ORDERED: MULT-1056 PO (13:19)
[2018-08-09] MEDS ORDERED: HYDR25TA4 PO (13:19)
[2018-08-09] MEDS ORDERED: CHOL10003 PO (13:19)
[2018-08-09] MEDS ORDERED: ESCI10TA55 PO (13:19)
== END 2018-09-05 | disposition home or self-care (01) ==
LOC: ONC 09:01
PROVIDERS: ATTEND Internal Medicine Hematology & Oncology
DX: C85.90 Non-Hodgkin lymphoma, unspecified, unspecified site (principal); I78.0 Hereditary hemorrhagic telangiectasia; D50.8 Other iron deficiency anemias; D69.6 Thrombocytopenia, unspecified; Z79.899 Other long term (current) drug therapy
CPT/HCPCS: 36415; 80053; 82728; 83615; 85025; 96365

== ENCOUNTER 2018-08-09 07:05 | Outpatient (CLI) | payer MEDICARE, OTHER ==
[~2018-08-09] VITALS: Ht 177.8 cm; Wt 86.6 kg
[~2018-08-09 07:05] MED LIST changes: -FERRIC CARBOXYMALTOSE (CANCER) 750 MG in NS (IVPB) CANCER CENTER 250 ML IV SCH
[2018-08-09] MEDS ORDERED: HYDR25TA4 PO (13:19)
[2018-08-09] MEDS ORDERED: CHOL10003 PO (13:19)
[2018-08-09] MEDS ORDERED: ESCI10TA55 PO (13:19)
[2018-08-09] MEDS ORDERED: ESCI5TAB12 PO (13:19)
[2018-08-09] MEDS ORDERED: MULT-1056 PO (13:19)
== END 2018-08-09 13:21 | disposition home or self-care (01) ==
LOC: PREOP 07:05
PROVIDERS: ATTEND Surgery
DX: Z01.818 Encounter for other preprocedural examination (principal)

== ENCOUNTER 2018-08-11 09:37 | Day surgery (SDC) | payer MEDICARE, OTHER ==
[~2018-08-11] VITALS: Ht 177.8 cm; Wt 86.6 kg
[~2018-08-11 09:37] MED LIST changes: +CHOL10003 PO; +ESCI10TA55 PO; +ESCI5TAB12 PO; +HYDR25TA4 PO; +MULT-1056 PO; +NS IV 500 ML 500 ML ONE
--- OUTSIDE RECORDS SUMMARY | 2018-08-11 09:43 | XMS REPORT | Continuity of Care Document ---
Author Organization Unknown Address Unknown Allergies Active Description Code Type Severity Reaction Onset Reported/Identified Relationship to Patient Clinical Status Yes No Known Drug Allergies [id number] Drug Allergy Unknown N/A 01/06/2011 Medications There is no data. 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 LAURA MCWILLIAMS Ot Z79.899 OTHER GROUP HOME (CURRENT) DRUG THERAPY 07/07/2012 Ot 202.80 OTH LYMPHOMAS EXTRANODAL SOLID ORGAN U 07/07/2012 Ot 280.9 IRON DEFIC ANEMIA NOS 07/07/2012 Ot 284.19 OTHER PANCYTOPENIA 07/07/2012 Ot 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 07/07/2012 Ot 585.3 CHRONIC KIDNEY DISEASE, STAGE III (MODER 10/12/2012 LAURA MCWILLIAMS Ot 238.79 OTHER LYMPHATIC AND HEMATOPOIETIC TISSUE 10/12/2012 LAURA MCWILLIAMS Ot 280.9 IRON DEFIC ANEMIA NOS 01/11/2013 LAURA MCWILLIAMS Ot 238.79 OTHER LYMPHATIC AND HEMATOPOIETIC TISSUE 01/11/2013 LAURA MCWILLIAMS Ot 280.9 IRON DEFIC ANEMIA NOS 04/19/2013 LAURA MCWILLIAMS Ot 238.79 OTHER LYMPHATIC AND HEMATOPOIETIC TISSUE 04/19/2013 LAURA MCWILLIAMS Ot 280.9 IRON DEFIC ANEMIA NOS 07/16/2013 ARMINDA MIRAMONTES, PATTI Garvin Ot 558.9 NONINF GASTROENTERIT NEC 07/16/2013 PATTI HILLIARD MD Ot 787.01 NAUSEA WITH VOMITING 07/31/2013 OJ, BOBAN N Ot 238.79 OTHER LYMPHATIC AND HEMATOPOIETIC TISSUE 07/31/2013 OJ, BOBAN N Ot 280.9 IRON DEFIC ANEMIA NOS 07/31/2013 OJ, BOBAN N Ot V58.69 OTH MED,LT,CURRENT USE 11/01/2013 OJ, BOBAN N Ot 238.79 OTHER LYMPHATIC AND HEMATOPOIETIC TISSUE 11/01/2013 OJ, BOBAN N Ot 280.9 IRON DEFIC ANEMIA NOS 11/01/2013 OJ BOBAN N Ot V58.69 OTH MED,LT,CURRENT USE 01/31/2014 OJ, BOBAN N Ot 238.79 OTHER LYMPHATIC AND HEMATOPOIETIC TISSUE 01/31/2014 OJ, BOBAN N Ot 280.9 IRON DEFIC ANEMIA NOS 01/31/2014 OJ, BOBAN N Ot V58.69 OTH MED,LT,CURRENT USE 02/02/2014 OJ, BOBAN N Ot 238.79 02/02/2014 OJ, BOBAN N Ot 280.9 02/02/2014 OJ, BOBAN N Ot V58.69 02/02/2014 OJ, BOBAN N Ot 238.79 02/02/2014 OJ, BOBAN N Ot 280.9 02/02/2014 OJ, BOBAN N Ot V58.69 02/03/2014 OJ, BOBAN N Ot 238.79 02/03/2014 OJ, BOBAN N Ot 280.9 02/03/2014 OJ, BOBAN N Ot V58.69 02/23/2014 TYOA ALLISON TUTORIAL LABORATORY SUPERVISOR Ot 238.79 02/23/2014 TOYA ALLISON TUTORIAL LABORATORY SUPERVISOR Ot 280.9 02/23/2014 TOYA ALLISON TUTORIAL LABORATORY SUPERVISOR Ot V58.69 04/20/2014 OJ, BOBAN N Ot 238.79 04/20/2014 OJ, BOBAN N Ot 280.9 04/20/2014 OJ, BOBAN N Ot V58.69 05/03/2014 OJ, BOBAN N Ot 238.79 OTHER LYMPHATIC AND HEMATOPOIETIC TISSUE 05/03/2014 OJ, BOBAN N Ot 280.9 IRON DEFIC ANEMIA NOS 05/03/2014 OJ BOBAN N Ot V58.69 OTH MED,LT,CURRENT USE 05/04/2014 OJ, BOBAN N Ot 238.79 05/04/2014 OJ, BOBAN N Ot 280.9 05/04/2014 OJ, BOBAN N Ot V58.69 05/04/2014 OJ, BOBAN N Ot 238.79 05/04/2014 OJ, BOBAN N Ot 280.9 05/04/2014 OJ, BOBAN N Ot V58.69 05/04/2014 OJ, BOBAN N Ot 238.79 05/04/2014 OJ, BOBAN N Ot 280.9 05/04/2014 OJ, BOBAN N Ot V58.69 05/05/2014 OJ, BOBAN N Ot 238.79 05/05/2014 OJ, BOBAN N Ot 280.9 05/05/2014 OJ, BOBAN N Ot V58.69 05/17/2014 ORENDER DO, BRIAN S Ot 272.4 05/17/2014 [facility] Ot 780.79 05/17/2014 [facility] S Ot 790.29 05/17/2014 OREND DO, BRIAN S Ot V72.62 05/17/2014 OREND DO, BRIAN S Ot 272.4 05/17/2014 ORENDER DO, BRIAN S Ot 780.79 05/17/2014 [facility] S Ot 790.29 05/17/2014 ORENDER DO, BRIAN S Ot V72.62 05/17/2014 ORENDER DO, BRIAN S Ot 272.4 05/17/2014 ORENDER DO, BRIAN S Ot 780.79 05/17/2014 [facility] S Ot 790.29 05/17/2014 [facility]RIAN S Ot V72.62 08/02/2014 OJ, BOBAN N Ot 238.79 OTHER LYMPHATIC AND HEMATOPOIETIC TISSUE 08/02/2014 OJ, BOBAN N Ot 280.9 IRON DEFIC ANEMIA NOS 08/02/2014 ELHAM MCWILLIAMSAN N Ot V58.69 OTH MED,LT,CURRENT USE 08/03/2014 OJ, BOBAN N Ot 238.79 08/03/2014 OJ, BOBAN N Ot 280.9 08/03/2014 OJ, BOBAN N Ot V58.69 08/04/2014 LAURA MCWILLIAMS N Ot 238.79 08/04/2014 LAURA MCWILLIAMS N Ot 280.9 08/04/2014 OJLAURA DIAMOND N Ot V58.69 08/04/2014 OJ BOBAN N Ot 238.79 08/04/2014 OJ BOBAN N Ot 280.9 08/04/2014 OJ, BOBAN N Ot V58.69 08/21/2014 ALLISONTOYA Walls S TUTORIAL LABORATORY SUPERVISOR Ot 238.79 08/21/2014 TOYA ALLISON S TUTORIAL LABORATORY SUPERVISOR Ot 280.9 08/21/2014 TOYA ALLISON S TUTORIAL LABORATORY SUPERVISOR Ot V58.69 11/01/2014 LAURA MCWILLIAMS N Ot 238.79 OTHER LYMPHATIC AND HEMATOPOIETIC TISSUE 11/01/2014 LAURA MCWILLIAMS N Ot 280.9 IRON DEFIC ANEMIA NOS 11/01/2014 LAURA MCWILLIAMS N Ot V58.69 OTH MED,LT,CURRENT USE 11/07/2014 TOYA ALLISON S TUTORIAL LABORATORY SUPERVISOR Ot 202.80 11/07/2014 TOYA ALLISON S TUTORIAL LABORATORY SUPERVISOR Ot 280.9 11/07/2014 TOYA ALLISON S TUTORIAL LABORATORY SUPERVISOR Ot 448.0 11/07/2014 ALLISONTOYA Walls S TUTORIAL LABORATORY SUPERVISOR Ot V58.69 11/17/2014 TOYA ALLISON S TUTORIAL LABORATORY SUPERVISOR Ot 202.80 11/17/2014 ALLISONTOYA Walls S TUTORIAL LABORATORY SUPERVISOR Ot 280.9 11/17/2014 ALLISON, JONATHANBRENDA S TUTORIAL LABORATORY SUPERVISOR Ot 448.0 11/17/2014 ALLISONTOYA Walls S TUTORIAL LABORATORY SUPERVISOR Ot V58.69 02/08/2015 ALEJANDRO LOCKHART Ot I78.8 OTHER DISEASES OF CAPILLARIES 02/08/2015 ALEJANDRO LOCKHART Ot R03.0 ELEVATED BLOOD-PRESSURE READING, W/O SANDRO 02/08/2015 ALEJANDRO LOCKHART Ot R04.0 EPISTAXIS 02/08/2015 ALEJANDRO LOCKHART Ot Z96.652 PRESENCE OF LEFT ARTIFICIAL KNEE JOINT 03/09/2015 LAURA MCWILLIAMS N Ot 238.79 03/09/2015 LAURA MCWILLIAMS N Ot 280.9 03/09/2015 LAURA MCWILLIAMS N Ot V58.69 04/03/2015 LAURA MCWILLIAMS N Ot C85.90 04/03/2015 LAURA MCWILLIAMS N Ot D50.8 04/03/2015 LAURA MCWILLIAMS N Ot D69.6 04/03/2015 LAURA MCWILLIAMS N Ot I78.0 04/03/2015 LAURA MCWILLIAMS N Ot Z79.899 04/24/2015 LAURA MCWILLIAMS N Ot C85.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, UNSPECIFIED, UNSPE 04/24/2015 LAURA MCWILLIAMS Ot D50.8 OTHER IRON DEFICIENCY ANEMIAS 04/24/2015 LAURA MCWILLIAMS N Ot D69.6 THROMBOCYTOPENIA, UNSPECIFIED 04/24/2015 LAURA MCWILLIAMS Ot 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 04/24/2015 LAURA MCWILLIAMS N Ot Z79.899 OTHER GROUP HOME (CURRENT) DRUG THERAPY 05/25/2015 LAURA MCWILLIAMS N Ot C85.90 05/25/2015 LAURA MCWILLIAMS N Ot D50.8 05/25/2015 LAURA MCWILLIAMS N Ot D69.6 05/25/2015 LAURA MCWILLIAMS N Ot I78.0 05/25/2015 LAURA MCWILLIAMS N Ot Z79.899 06/18/2015 TYOA ALLISON TUTORIAL LABORATORY SUPERVISOR Ot C85.90 06/18/2015 TOYA ALLISON S TUTORIAL LABORATORY SUPERVISOR Ot D50.8 06/18/2015 TYOA ALLISON S TUTORIAL LABORATORY SUPERVISOR Ot D69.6 06/18/2015 TOYA ALLISON S TUTORIAL LABORATORY SUPERVISOR Ot I78.0 06/18/2015 TOYA ALLISON S TUTORIAL LABORATORY SUPERVISOR Ot Z79.899 06/25/2015 TOYA ALLISON S TUTORIAL LABORATORY SUPERVISOR Ot C85.90 06/25/2015 TOYA ALLISON S TUTORIAL LABORATORY SUPERVISOR Ot D50.8 06/25/2015 TOYA ALLISON S TUTORIAL LABORATORY SUPERVISOR Ot D69.6 06/25/2015 TOYA ALLISON TUTORIAL LABORATORY SUPERVISOR Ot I78.0 06/25/2015 TOYA ALLISON S TUTORIAL LABORATORY SUPERVISOR Ot Z79.899 08/22/2015 LAURA MCWILLIAMS N Ot C85.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, UNSPECIFIED, UNSPE 08/22/2015 LAURA MCWILLIAMS N Ot D50.8 OTHER IRON DEFICIENCY ANEMIAS 08/22/2015 LAURA MCWILLIAMS N Ot D69.6 THROMBOCYTOPENIA, UNSPECIFIED 08/22/2015 OJLAURA N Ot 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 08/22/2015 OJ BOBAN N Ot 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 08/22/2015 TOYA ALLISON TUTORIAL LABORATORY SUPERVISOR Ot C85.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, UNSPECIFIED, UNSPE 08/22/2015 TOYA ALLISON S TUTORIAL LABORATORY SUPERVISOR Ot D50.8 OTHER IRON DEFICIENCY ANEMIAS 08/22/2015 TOYA ALLISON S TUTORIAL LABORATORY SUPERVISOR Ot D69.6 THROMBOCYTOPENIA, UNSPECIFIED 08/22/2015 TOYA ALLISON TUTORIAL LABORATORY SUPERVISOR Ot 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 08/22/2015 ALLISONTOYA Walls S TUTORIAL LABORATORY SUPERVISOR Ot Z79.899 OTHER GROUP HOME (CURRENT) DRUG THERAPY 08/29/2015 OJLAURA DIAMOND N Ot C85.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, UNSPECIFIED, UNSPE 08/29/2015 OJ, BOBAN N Ot D50.8 OTHER IRON DEFICIENCY ANEMIAS 08/29/2015 OJ, BOBAN N Ot D69.6 THROMBOCYTOPENIA, UNSPECIFIED 08/29/2015 OJ, BOBAN N Ot 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 08/29/2015 OJ, BOBAN N Ot 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 09/20/2015 OJ, BOBAN N Ot C85.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, UNSPECIFIED, UNSPE 09/20/2015 OJ, BOBAN N Ot D50.8 OTHER IRON DEFICIENCY ANEMIAS 09/20/2015 OJ BOBAN N Ot D69.6 THROMBOCYTOPENIA, UNSPECIFIED 09/20/2015 OJ, BOBELVIRA N Ot 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 09/20/2015 OJ, BOBAN N Ot Z79.899 OTHER GROUP HOME (CURRENT) DRUG THERAPY 09/21/2015 OJ, BOBAN N Ot C85.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, UNSPECIFIED, UNSPE 09/21/2015 OJ, BOBAN N Ot D50.8 OTHER IRON DEFICIENCY ANEMIAS 09/21/2015 OJ, BOBAN N Ot D69.6 THROMBOCYTOPENIA, UNSPECIFIED 09/21/2015 OJ, BOBAN N Ot 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 09/21/2015 OJ, BOBAN N Ot 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 10/02/2015 OJ, BOBAN N Ot C85.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, UNSPECIFIED, UNSPE 10/02/2015 OJ, BOBAN N Ot D50.8 OTHER IRON DEFICIENCY ANEMIAS 10/02/2015 OJ, BOBAN N Ot D69.6 THROMBOCYTOPENIA, UNSPECIFIED 10/02/2015 OJ, BOBAN N Ot 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 10/02/2015 OJ, BOBAN N Ot 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 12/19/2015 OJ, BOBAN N Ot C85.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, UNSPECIFIED, UNSPE 12/19/2015 OJ, BOBAN N Ot D50.8 OTHER IRON DEFICIENCY ANEMIAS 12/19/2015 OJ, BOBAN N Ot D69.6 THROMBOCYTOPENIA, UNSPECIFIED 12/19/2015 OJ, BOBAN N Ot 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 12/19/2015 OJ, BOBAN N Ot 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 12/20/2015 OJ, BOBAN N Ot C85.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, UNSPECIFIED, UNSPE 12/20/2015 OJ, BOBAN N Ot D50.8 OTHER IRON DEFICIENCY ANEMIAS 12/20/2015 OJ, BOBAN N Ot D69.6 THROMBOCYTOPENIA, UNSPECIFIED 12/20/2015 OJ, BOBAN N Ot 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 12/20/2015 OJ, BOBAN N Ot 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 03/25/2016 OJ, BOBAN N Ot C85.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, UNSPECIFIED, UNSPE 03/25/2016 OJ, BOBAN N Ot D50.8 OTHER IRON DEFICIENCY ANEMIAS 03/25/2016 OJ, BOBAN N Ot D69.6 THROMBOCYTOPENIA, UNSPECIFIED 03/25/2016 OJ, BOBAN N Ot 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 03/25/2016 OJ, BOBAN N Ot 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 04/23/2016 OJ, BOBAN N Ot C85.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, UNSPECIFIED, UNSPE 04/23/2016 OJ, BOBAN N Ot D50.8 OTHER IRON DEFICIENCY ANEMIAS 04/23/2016 OJ, BOBAN N Ot D69.6 THROMBOCYTOPENIA, UNSPECIFIED 04/23/2016 OJ, BOBAN N Ot 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 04/23/2016 OJ, BOBAN N Ot 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 04/24/2016 OJ, BOBAN N Ot C85.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, UNSPECIFIED, UNSPE 04/24/2016 OJ, BOBAN N Ot D50.8 OTHER IRON DEFICIENCY ANEMIAS 04/24/2016 OJ, BOBAN N Ot D69.6 THROMBOCYTOPENIA, UNSPECIFIED 04/24/2016 OJ, BOBAN N Ot 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 04/24/2016 OJ, BOBAN N Ot 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 04/25/2016 OJ, BOBAN N Ot C85.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, UNSPECIFIED, UNSPE 04/25/2016 OJ, BOBAN N Ot D50.8 OTHER IRON DEFICIENCY ANEMIAS 04/25/2016 OJ, BOBAN N Ot D69.6 THROMBOCYTOPENIA, UNSPECIFIED 04/25/2016 OJ, BOBAN N Ot 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 04/25/2016 OJ, BOBAN N Ot Z79.899 OTHER GROUP HOME (CURRENT) DRUG THERAPY 06/23/2016 OJ, BOBAN N Ot C85.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, UNSPECIFIED, UNSPE 06/23/2016 OJ, BOBAN N Ot D50.8 OTHER IRON DEFICIENCY ANEMIAS 06/23/2016 OJ, BOBAN N Ot D69.6 THROMBOCYTOPENIA, UNSPECIFIED 06/23/2016 OJ, BOBAN N Ot 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 06/23/2016 OJ, BOBAN N Ot 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 07/23/2016 OJ, BOBAN N Ot C85.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, UNSPECIFIED, UNSPE 07/23/2016 OJ, BOBAN N Ot D50.8 OTHER IRON DEFICIENCY ANEMIAS 07/23/2016 OJ, BOBAN N Ot D69.6 THROMBOCYTOPENIA, UNSPECIFIED 07/23/2016 OJ, BOBAN N Ot 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 07/23/2016 OJ, BOBAN N Ot Z79.899 OTHER GROUP HOME (CURRENT) DRUG THERAPY 07/24/2016 LAURA MCWILLIAMS N Ot C85.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, UNSPECIFIED, UNSPE 07/24/2016 LAURA MCWILLIAMS N Ot D50.8 OTHER IRON DEFICIENCY ANEMIAS 07/24/2016 LAURA MCWILLIAMS N Ot D69.6 THROMBOCYTOPENIA, UNSPECIFIED 07/24/2016 LAURA MCWILLIAMS N Ot 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 07/24/2016 LAURA MCWILLIAMS N Ot Z79.899 OTHER GROUP HOME (CURRENT) DRUG THERAPY 07/25/2016 LAURA MCWILLIAMS N Ot C85.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, UNSPECIFIED, UNSPE 07/25/2016 LAURA MCWILLIAMS N Ot D50.8 OTHER IRON DEFICIENCY ANEMIAS 07/25/2016 LAURA MCWILLIAMS N Ot D69.6 THROMBOCYTOPENIA, UNSPECIFIED 07/25/2016 LAURA MCWILLIAMS Ot 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 07/25/2016 LAURA MCWILLIAMS N Ot 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 07/28/2016 VIDAL BELTRAN MD Ot R00.2 PALPITATIONS 07/28/2016 VIDAL BELTRAN MD Ot R00.2 PALPITATIONS 07/29/2016 VIDAL BELTRAN MD Ot R00.2 PALPITATIONS 07/31/2016 VIDAL BELTRAN MD Ot C85.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, UNSPECIFIED, UNSPE 07/31/2016 VIDAL BELTRAN MD Ot D50.0 IRON DEFICIENCY ANEMIA SECONDARY TO BLOO 07/31/2016 VIDAL BELTRAN MD Ot E66.9 OBESITY, UNSPECIFIED 07/31/2016 VIDAL BELTRAN MD Ot K21.9 GASTRO-ESOPHAGEAL REFLUX DISEASE WITHOUT 07/31/2016 VIDAL BELTRAN MD Ot R00.2 PALPITATIONS 07/31/2016 VIDAL BELTRAN MD Ot R11.0 NAUSEA 07/31/2016 VIDAL BELTRAN MD Ot C85.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, UNSPECIFIED, UNSPE 07/31/2016 VIDAL BELTRAN MD Ot D50.0 IRON DEFICIENCY ANEMIA SECONDARY TO BLOO 07/31/2016 VIDAL BELTRAN MD Ot E66.9 OBESITY, UNSPECIFIED 07/31/2016 VIDAL BELTRAN MD Ot K21.9 GASTRO-ESOPHAGEAL REFLUX DISEASE WITHOUT 07/31/2016 VIDAL BELTRAN MD Ot R00.2 PALPITATIONS 07/31/2016 VIDAL BELTRAN MD Ot R11.0 NAUSEA 07/31/2016 VIDAL BELTRAN MD Ot C85.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, UNSPECIFIED, UNSPE 07/31/2016 VIDAL BELTRAN MD Ot D50.0 IRON DEFICIENCY ANEMIA SECONDARY TO BLOO 07/31/2016 VIDAL BELTRAN MD Ot E66.9 OBESITY, UNSPECIFIED 07/31/2016 VIDAL BELTRAN MD Ot K21.9 GASTRO-ESOPHAGEAL REFLUX DISEASE WITHOUT 07/31/2016 VIDAL BELTRAN MD Ot R00.2 PALPITATIONS 07/31/2016 VIDAL BELTRAN MD Ot R11.0 NAUSEA 08/05/2016 VIDAL BELTRAN MD Ot C85.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, UNSPECIFIED, UNSPE 08/05/2016 VIDAL BELTRAN MD Ot D50.0 IRON DEFICIENCY ANEMIA SECONDARY TO BLOO 08/05/2016 VIDAL BELTRAN MD Ot E66.9 OBESITY, UNSPECIFIED 08/05/2016 VIDAL BELTRAN MD Ot K21.9 GASTRO-ESOPHAGEAL REFLUX DISEASE WITHOUT 08/05/2016 VIDAL BELTRAN MD Ot R00.2 PALPITATIONS 08/05/2016 VIDAL BELTRAN MD Ot R11.0 NAUSEA 09/01/2016 VIDAL BELTRAN MD Ot C85.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, UNSPECIFIED, UNSPE 09/01/2016 VIDAL BELTRAN MD Ot D50.0 IRON DEFICIENCY ANEMIA SECONDARY TO BLOO 09/01/2016 VIDAL BELTRAN MD Ot E66.9 OBESITY, UNSPECIFIED 09/01/2016 VIDAL BELTRAN MD Ot K21.9 GASTRO-ESOPHAGEAL REFLUX DISEASE WITHOUT 09/01/2016 VIDAL BELTRAN MD Ot R00.2 PALPITATIONS 09/01/2016 VIDAL BELTRAN MD Ot R11.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 09/18/2016 OJ, BOBAN N Ot Z79.899 OTHER GROUP HOME (CURRENT) DRUG THERAPY 10/22/2016 OJ, BOBAN N Ot C85.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, UNSPECIFIED, UNSPE 10/22/2016 OJ, BOBAN N Ot D50.8 OTHER IRON DEFICIENCY ANEMIAS 10/22/2016 OJ, BOBAN N Ot D69.6 THROMBOCYTOPENIA, UNSPECIFIED 10/22/2016 OJ, BOBAN N Ot 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 10/22/2016 OJ, BOBAN N Ot Z79.899 OTHER GROUP HOME (CURRENT) DRUG THERAPY 11/04/2016 OJ, BOBAN N Ot C85.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, UNSPECIFIED, UNSPE 11/04/2016 OJ, BOBAN N Ot D50.8 OTHER IRON DEFICIENCY ANEMIAS 11/04/2016 OJ, BOBAN N Ot D69.6 THROMBOCYTOPENIA, UNSPECIFIED 11/04/2016 OJ, BOBAN N Ot 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 11/04/2016 OJ, BOBAN N Ot Z79.899 OTHER GROUP HOME (CURRENT) DRUG THERAPY 11/07/2016 OJ, BOBAN N Ot C85.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, UNSPECIFIED, UNSPE 11/07/2016 OJ, BOBAN N Ot D50.8 OTHER IRON DEFICIENCY ANEMIAS 11/07/2016 OJ, BOBAN N Ot D69.6 THROMBOCYTOPENIA, UNSPECIFIED 11/07/2016 OJ, BOBAN N Ot 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 11/07/2016 OJ, BOBAN N Ot Z79.899 OTHER GROUP HOME (CURRENT) DRUG THERAPY 12/12/2016 OJ, BOBAN N Ot C85.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, UNSPECIFIED, UNSPE 12/12/2016 OJ, BOBAN N Ot D50.8 OTHER IRON DEFICIENCY ANEMIAS 12/12/2016 OJ, BOBAN N Ot D69.6 THROMBOCYTOPENIA, UNSPECIFIED 12/12/2016 OJ, BOBAN N Ot 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 12/12/2016 OJ, BOBAN N Ot 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 12/20/2016 OJ, BOBAN N Ot C85.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, UNSPECIFIED, UNSPE 12/20/2016 OJ, BOBAN N Ot D50.8 OTHER IRON DEFICIENCY ANEMIAS 12/20/2016 OJ, BOBAN N Ot D69.6 THROMBOCYTOPENIA, UNSPECIFIED 12/20/2016 OJ, BOBAN N Ot 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 12/20/2016 OJ, BOBAN N Ot 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 02/17/2017 OJ, BOBAN N Ot C85.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, UNSPECIFIED, UNSPE 02/17/2017 OJ, BOBAN N Ot D50.8 OTHER IRON DEFICIENCY ANEMIAS 02/17/2017 OJ, BOBAN N Ot D69.6 THROMBOCYTOPENIA, UNSPECIFIED 02/17/2017 OJ, BOBAN N Ot 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 02/17/2017 OJ, BOBAN N Ot 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 03/17/2017 OJ, BOBAN N Ot C85.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, UNSPECIFIED, UNSPE 03/17/2017 OJ, BOBAN N Ot D50.8 OTHER IRON DEFICIENCY ANEMIAS 03/17/2017 OJ, BOBAN N Ot D69.6 THROMBOCYTOPENIA, UNSPECIFIED 03/17/2017 OJ, BOBAN N Ot 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 03/17/2017 OJ, BOBAN N Ot 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 05/15/2017 OJ, BOBAN N Ot C85.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, UNSPECIFIED, UNSPE 05/15/2017 OJ, BOBAN N Ot D50.8 OTHER IRON DEFICIENCY ANEMIAS 05/15/2017 OJ, BOBAN N Ot D69.6 THROMBOCYTOPENIA, UNSPECIFIED 05/15/2017 OJ, BOBAN N Ot 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 05/15/2017 OJ, BOBAN N Ot 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 05/17/2017 OJ, BOBAN N Ot C85.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, UNSPECIFIED, UNSPE 05/17/2017 OJ, BOBAN N Ot D50.8 OTHER IRON DEFICIENCY ANEMIAS 05/17/2017 OJ, ELHAMAN N Ot D69.6 THROMBOCYTOPENIA, UNSPECIFIED 05/17/2017 OJLAURA DIAMOND N Ot 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 05/17/2017 OJ, BOBAN N Ot 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 05/18/2017 OJLAURA DIAMOND N Ot C85.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, UNSPECIFIED, UNSPE 05/18/2017 OJ, BOBAN N Ot D50.8 OTHER IRON DEFICIENCY ANEMIAS 05/18/2017 OJ, ELHAMAN N Ot D69.6 THROMBOCYTOPENIA, UNSPECIFIED 05/18/2017 OJ, ELHAMAN N Ot 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 05/18/2017 OJ, BOBAN N Ot 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 06/10/2017 GUANACO CHAN Ot M43.17 SPONDYLOLISTHESIS, LUMBOSACRAL REGION 06/10/2017 GUANACO CHAN Ot M47.816 SPONDYLOSIS W/O MYELOPATHY OR RADICULOPA 06/10/2017 GUANACO CHAN Ot M48.061 SPINAL STENOSIS, LUMBAR REGION WITHOUT N 06/10/2017 GUANACO CHAN Ot M51.26 OTHER INTERVERTEBRAL DISC DISPLACEMENT, 06/10/2017 GUANACO CHAN Ot N28.1 CYST OF KIDNEY, ACQUIRED 06/10/2017 GUANACO CHAN Ot Z98.1 ARTHRODESIS STATUS 06/10/2017 GUANACO CHAN Ot Z98.890 OTHER SPECIFIED POSTPROCEDURAL STATES 06/17/2017 OJLAURA DIAMOND N Ot C85.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, UNSPECIFIED, UNSPE 06/17/2017 LAURA MCWILLIAMS N Ot D50.8 OTHER IRON DEFICIENCY ANEMIAS 06/17/2017 LAURA MCWILLIAMS N Ot D69.6 THROMBOCYTOPENIA, UNSPECIFIED 06/17/2017 OJ, BOBELVIRA N Ot 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 06/17/2017 OJ, BOBAN N Ot Z79.899 OTHER GROUP HOME (CURRENT) DRUG THERAPY 07/15/2017 OJ, BOBAN N Ot C85.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, UNSPECIFIED, UNSPE 07/15/2017 OJ, BOBAN N Ot D50.8 OTHER IRON DEFICIENCY ANEMIAS 07/15/2017 OJ, BOBAN N Ot D69.6 THROMBOCYTOPENIA, UNSPECIFIED 07/15/2017 OJ, BOBAN N Ot 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 07/15/2017 OJ, BOBAN N Ot 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 09/14/2017 OJ, BOBAN N Ot C85.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, UNSPECIFIED, UNSPE 09/14/2017 OJ, BOBAN N Ot D50.8 OTHER IRON DEFICIENCY ANEMIAS 09/14/2017 OJ, BOBAN N Ot D69.6 THROMBOCYTOPENIA, UNSPECIFIED 09/14/2017 OJ, BOBAN N Ot 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 09/14/2017 OJ, BOBAN N Ot 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 09/15/2017 OJ, BOBAN N Ot C85.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, UNSPECIFIED, UNSPE 09/15/2017 OJ, BOBAN N Ot D50.8 OTHER IRON DEFICIENCY ANEMIAS 09/15/2017 OJ, BOBAN N Ot D69.6 THROMBOCYTOPENIA, UNSPECIFIED 09/15/2017 JO, BOBAN N Ot 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 09/15/2017 OJ, BOBAN N Ot Z79.899 OTHER GROUP HOME (CURRENT) DRUG THERAPY 10/11/2017 OJ, BOBAN N Ot C85.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, UNSPECIFIED, UNSPE 10/11/2017 OJ, BOBAN N Ot D50.8 OTHER IRON DEFICIENCY ANEMIAS 10/11/2017 OJ, BOBAN N Ot D69.6 THROMBOCYTOPENIA, UNSPECIFIED 10/11/2017 OJ, BOBAN N Ot 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 10/11/2017 OJ, BOBAN N Ot Z79.899 OTHER GROUP HOME (CURRENT) DRUG THERAPY 12/07/2017 OJ, BOBAN N Ot C85.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, UNSPECIFIED, UNSPE 12/07/2017 OJ, BOBAN N Ot D50.8 OTHER IRON DEFICIENCY ANEMIAS 12/07/2017 OJ, BOBAN N Ot D69.6 THROMBOCYTOPENIA, UNSPECIFIED 12/07/2017 OJ, BOBAN N Ot 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 12/07/2017 LAURA MCWILLIAMS N Ot 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 12/08/2017 LAURA MCWILLIAMS N Ot C85.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, UNSPECIFIED, UNSPE 12/08/2017 LAURA MCWILLIAMS N Ot D50.8 OTHER IRON DEFICIENCY ANEMIAS 12/08/2017 LAURA MCWILLIAMS N Ot D69.6 THROMBOCYTOPENIA, UNSPECIFIED 12/08/2017 LAURA MCWILLIAMS N Ot 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 12/08/2017 LAURA MCWILLIAMS N Ot Z79.899 OTHER GROUP HOME (CURRENT) DRUG THERAPY 12/10/2017 LAURA MCWILLIAMS N Ot C85.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, UNSPECIFIED, UNSPE 12/10/2017 LAURA MCWILLIAMS N Ot D50.8 OTHER IRON DEFICIENCY ANEMIAS 12/10/2017 LAURA MCWILLIAMS N Ot D69.6 THROMBOCYTOPENIA, UNSPECIFIED 12/10/2017 LAURA MCWILLIAMS N Ot 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 12/10/2017 LAURA MCWILLIAMS N Ot 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 12/10/2017 MICHELLE MIRAMONTES, PATSY Ot C85.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, UNSPECIFIED, UNSPE 12/10/2017 MICHELLE MIRAMONTES, PATSY Ot D50.8 OTHER IRON DEFICIENCY ANEMIAS 12/10/2017 MICHELLE MIRAMONTES, PATSY Ot D69.6 THROMBOCYTOPENIA, UNSPECIFIED 12/10/2017 MICHELLE MIRAMONTES, PATSY Ot 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 12/10/2017 MICHELLE MIRAMONTES, PATSY Ot 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 12/10/2017 TOYA ALLISON TUTORIAL LABORATORY SUPERVISOR Ot 202.80 OTH LYMPHOMAS EXTRANODAL SOLID ORGAN U 12/10/2017 TOYA ALLISON TUTORIAL LABORATORY SUPERVISOR Ot 280.9 IRON DEFIC ANEMIA NOS 12/10/2017 TOYA ALLISON TUTORIAL LABORATORY SUPERVISOR Ot 284.19 OTHER PANCYTOPENIA 12/10/2017 TOYA ALLISON TUTORIAL LABORATORY SUPERVISOR Ot 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 12/10/2017 TOYA ALLISON TUTORIAL LABORATORY SUPERVISOR Ot 585.3 CHRONIC KIDNEY DISEASE, STAGE III (MODER 12/10/2017 TOYA ALLISON TUTORIAL LABORATORY SUPERVISOR Ot 202.80 OTH LYMPHOMAS EXTRANODAL SOLID ORGAN U 12/10/2017 TOYA ALLISON TUTORIAL LABORATORY SUPERVISOR Ot 280.9 IRON DEFIC ANEMIA NOS 12/10/2017 TOYA ALLISON TUTORIAL LABORATORY SUPERVISOR Ot 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 12/10/2017 TOYA ALLISON TUTORIAL LABORATORY SUPERVISOR Ot V58.69 OTH MED,LT,CURRENT USE 12/10/2017 ORENDER DO, BRIAN S Ot 722.52 LUMB/LUMBOSAC DISC DEGEN 12/10/2017 ORENDER DO, BRIAN S Ot 756.12 SPONDYLOLISTHESIS 12/10/2017 ORENDER DO, BRIAN S Ot 787.02 NAUSEA ALONE 12/10/2017 ORENDER DO, BRIAN S Ot 789.00 ABDOMINAL PAIN, UNSPECIFIED SITE 12/10/2017 ORENDER DO, BRIAN S Ot V45.4 ARTHRODESIS STATUS 12/10/2017 TOYA ALLISON TUTORIAL LABORATORY SUPERVISOR Ot 202.80 OTH LYMPHOMAS EXTRANODAL SOLID ORGAN U 12/10/2017 TOYA ALLISON TUTORIAL LABORATORY SUPERVISOR Ot 280.9 IRON DEFIC ANEMIA NOS 12/10/2017 TOYA ALLISONP Ot 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 12/10/2017 TOYA ALLISON Ot V58.69 OTH MED,LT,CURRENT USE 12/10/2017 TOYA ALLISON TUTORIAL LABORATORY SUPERVISOR Ot 238.79 OTHER LYMPHATIC AND HEMATOPOIETIC TISSUE 12/10/2017 TOYA ALLISON TUTORIAL LABORATORY SUPERVISOR Ot 280.9 IRON DEFIC ANEMIA NOS 12/10/2017 TOYA ALLISON TUTORIAL LABORATORY SUPERVISOR Ot V58.69 OTH MED,LT,CURRENT USE 12/10/2017 ORENDER DO, BRIAN S Ot 272.4 HYPERLIPIDEMIA NEC/NOS 12/10/2017 ORENDER DO, BRIAN S Ot 780.79 OTH MALAISE FATIGUE 12/10/2017 YAHAIRANDER DO, BRIAN S Ot 790.29 OTHER ABNORMAL GLUCOSE 12/10/2017 YAHAIRANDER DO, BRIAN S Ot V72.62 LAB EXAM ORDERED PART OF A ROUTINE GE 12/10/2017 TOYA ALLISON TUTORIAL LABORATORY SUPERVISOR Ot 238.79 OTHER LYMPHATIC AND HEMATOPOIETIC TISSUE 12/10/2017 TOYA ALLISON TUTORIAL LABORATORY SUPERVISOR Ot 280.9 IRON DEFIC ANEMIA NOS 12/10/2017 TOYA ALLISON TUTORIAL LABORATORY SUPERVISOR Ot V58.69 OTH MED,LT,CURRENT USE 12/10/2017 TOYA ALLISON TUTORIAL LABORATORY SUPERVISOR Ot 202.80 OTH LYMPHOMAS EXTRANODAL SOLID ORGAN U 12/10/2017 TOYA ALLISON TUTORIAL LABORATORY SUPERVISOR Ot 280.9 IRON DEFIC ANEMIA NOS 12/10/2017 TOYA ALLISON TUTORIAL LABORATORY SUPERVISOR Ot 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 12/10/2017 TOYA ALLISON TUTORIAL LABORATORY SUPERVISOR Ot V58.69 OTH MED,LT,CURRENT USE 12/10/2017 TOYA ALLISON TUTORIAL LABORATORY SUPERVISOR Ot C85.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, UNSPECIFIED, UNSPE 12/10/2017 TOYA ALLISON TUTORIAL LABORATORY SUPERVISOR Ot D50.8 OTHER IRON DEFICIENCY ANEMIAS 12/10/2017 TOYA ALLISON TUTORIAL LABORATORY SUPERVISOR Ot D69.6 THROMBOCYTOPENIA, UNSPECIFIED 12/10/2017 TOYA ALLISON TUTORIAL LABORATORY SUPERVISOR Ot 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 12/10/2017 TOYA ALLISON TUTORIAL LABORATORY SUPERVISOR Ot Z79.899 OTHER GROUP HOME (CURRENT) DRUG THERAPY 12/10/2017 LAURA MCWILLIAMS Ot C85.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, UNSPECIFIED, UNSPE 12/10/2017 LAURA MCWILLIAMS Ot D50.8 OTHER IRON DEFICIENCY ANEMIAS 12/10/2017 LAURA MCWILLIAMS Ot D69.6 THROMBOCYTOPENIA, UNSPECIFIED 12/10/2017 OJLAURA Ot 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 12/10/2017 LAURA MCWILLIAMS Ot 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 12/10/2017 VIDAL BELTRAN MD Ot C85.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, UNSPECIFIED, UNSPE 12/10/2017 VIDAL BELTRAN MD Ot D50.0 IRON DEFICIENCY ANEMIA SECONDARY TO BLOO 12/10/2017 VIDAL BELTRAN MD Ot E66.9 OBESITY, UNSPECIFIED 12/10/2017 VIDAL BELTRAN MD Ot K21.9 GASTRO-ESOPHAGEAL REFLUX DISEASE WITHOUT 12/10/2017 VIDAL BELTRAN MD Ot R00.2 PALPITATIONS 12/10/2017 VIDAL BELTRAN MD Ot R11.0 NAUSEA 12/10/2017 BILLY ANNA GUANACO Dimas Ot M43.17 SPONDYLOLISTHESIS, LUMBOSACRAL REGION 12/10/2017 BILLY ANNA GUANACO Dimas Ot M47.816 SPONDYLOSIS W/O MYELOPATHY OR RADICULOPA 12/10/2017 BILLY ANNA GUANACO Dimas Ot M48.061 SPINAL STENOSIS, LUMBAR REGION WITHOUT N 12/10/2017 BILLY ANNA GUANACO Dimas Ot M51.26 OTHER INTERVERTEBRAL DISC DISPLACEMENT, 12/10/2017 BILLY ANNA GUANACO Judie Ot N28.1 CYST OF KIDNEY, ACQUIRED 12/10/2017 BILLY ANNA GUANACO Dimas Ot Z98.1 ARTHRODESIS STATUS 12/10/2017 BILLY ANNA GUANACO Judie Ot Z98.890 OTHER SPECIFIED POSTPROCEDURAL STATES 12/10/2017 PATSY MARTINEZ MD Ot C85.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, UNSPECIFIED, UNSPE 12/10/2017 PATSY MARTINEZ MD Ot D50.8 OTHER IRON DEFICIENCY ANEMIAS 12/10/2017 PATSY MARTINEZ MD Ot D69.6 THROMBOCYTOPENIA, UNSPECIFIED 12/10/2017 PATSY MARTINEZ MD Ot 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 12/10/2017 PATSY MARTINEZ MD Ot Z79.899 OTHER GROUP HOME (CURRENT) DRUG THERAPY 12/15/2017 PATSY MARTINEZ MD Ot C85.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, UNSPECIFIED, UNSPE 12/15/2017 PATSY MARTINEZ MD Ot D50.8 OTHER IRON DEFICIENCY ANEMIAS 12/15/2017 PATSY MARTINEZ MD Ot D69.6 THROMBOCYTOPENIA, UNSPECIFIED 12/15/2017 PATSY MARTINEZ MD Ot 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 12/15/2017 PATSY MARTINEZ MD Ot 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 12/20/2017 PATSY MARTINEZ MD Ot C85.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, UNSPECIFIED, UNSPE 12/20/2017 PATSY MARTINEZ MD Ot D50.8 OTHER IRON DEFICIENCY ANEMIAS 12/20/2017 PATSY MARTINEZ MD Ot D69.6 THROMBOCYTOPENIA, UNSPECIFIED 12/20/2017 PATSY MARTINEZ MD Ot 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 12/20/2017 PATSY MARTINEZ MD Ot 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 12/22/2017 PATSY MARTINEZ MD Ot C85.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, UNSPECIFIED, UNSPE 12/22/2017 MICHELLE MIRAMONTES, PATSY Ot D50.8 OTHER IRON DEFICIENCY ANEMIAS 12/22/2017 MICHELLE MIRAMONTES, PATSY Ot D69.6 THROMBOCYTOPENIA, UNSPECIFIED 12/22/2017 MICHELLE MIRAMONTES, PATSY Ot 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 12/22/2017 MICHELLE MIRAMONTES, PATSY Ot 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 12/26/2017 MICHELLE MIRAMONTES, PATSY Ot C85.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, UNSPECIFIED, UNSPE 12/26/2017 MICHELLE MIRAMONTES, PATSY Ot D50.8 OTHER IRON DEFICIENCY ANEMIAS 12/26/2017 MICHELLE MIRAMONTES, PATSY Ot D69.6 THROMBOCYTOPENIA, UNSPECIFIED 12/26/2017 MICHELLE MIRAMONTES, PATSY Ot 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 12/26/2017 MICHELLE MIRAMONTES, PATSY Ot 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 04/19/2018 LAURA MCWILLIAMS N Ot C85.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, UNSPECIFIED, UNSPE 04/19/2018 OJLAURA N Ot D50.8 OTHER IRON DEFICIENCY ANEMIAS 04/19/2018 OJ, LAURA N Ot D69.6 THROMBOCYTOPENIA, UNSPECIFIED 04/19/2018 OJ LAURA N Ot 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 04/19/2018 OJLAURA N Ot 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 04/30/2018 TOYA ALLISON TUTORIAL LABORATORY SUPERVISOR Ot C85.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, UNSPECIFIED, UNSPE 04/30/2018 TOYA ALLISON TUTORIAL LABORATORY SUPERVISOR Ot D64.9 ANEMIA, UNSPECIFIED 04/30/2018 TOYA ALLISON TUTORIAL LABORATORY SUPERVISOR Ot M25.559 PAIN IN UNSPECIFIED HIP 04/30/2018 TOYA ALLISON TUTORIAL LABORATORY SUPERVISOR Ot M54.5 LOW BACK PAIN 04/30/2018 TOYA ALLISON TUTORIAL LABORATORY SUPERVISOR Ot Z01.89 ENCOUNTER FOR OTHER SPECIFIED SPECIAL EX 05/24/2018 TOYA ALLISON TUTORIAL LABORATORY SUPERVISOR Ot C85.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, UNSPECIFIED, UNSPE 05/24/2018 TOYA ALLISON TUTORIAL LABORATORY SUPERVISOR Ot D64.9 ANEMIA, UNSPECIFIED 05/24/2018 TOYA ALLISON TUTORIAL LABORATORY SUPERVISOR Ot M25.559 PAIN IN UNSPECIFIED HIP 05/24/2018 TOYA ALLISON TUTORIAL LABORATORY SUPERVISOR Ot M54.5 LOW BACK PAIN 05/24/2018 TOYA ALLISON TUTORIAL LABORATORY SUPERVISOR Ot Z01.89 ENCOUNTER FOR OTHER SPECIFIED SPECIAL EX 06/06/2018 OJ, BOBAN N Ot C85.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, UNSPECIFIED, UNSPE 06/06/2018 OJ, BOBAN N Ot D50.8 OTHER IRON DEFICIENCY ANEMIAS 06/06/2018 OJ, BOBAN N Ot D69.6 THROMBOCYTOPENIA, UNSPECIFIED 06/06/2018 OJ, BOBAN N Ot 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 06/06/2018 OJ, BOBAN N Ot 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 06/07/2018 OJ, BOBAN N Ot C85.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, UNSPECIFIED, UNSPE 06/07/2018 OJ, BOBAN N Ot D50.8 OTHER IRON DEFICIENCY ANEMIAS 06/07/2018 OJ, BOBAN N Ot D69.6 THROMBOCYTOPENIA, UNSPECIFIED 06/07/2018 OJ, BOBAN N Ot 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 06/07/2018 OJ, BOBAN N Ot 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 06/08/2018 OJ, BOBAN N Ot C85.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, UNSPECIFIED, UNSPE 06/08/2018 OJ, BOBAN N Ot D50.8 OTHER IRON DEFICIENCY ANEMIAS 06/08/2018 OJ, BOBAN N Ot D69.6 THROMBOCYTOPENIA, UNSPECIFIED 06/08/2018 OJ, BOBAN N Ot 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 Results There is no data. Encounters ACCT No. Visit Date/Time Discharge Status Pt. Type Provider Facility Loc./Unit Complaint [id number] 08/09/2018 07:05:00 08/09/2018 13:21:00 DIS Outpatient LUIS CARLOS OBRIEN MD Via [facility] PREOP COLONOSCOPY [id number] 06/17/2018 09:01:00 06/17/2018 23:59:59 CLS Outpatient LAURA MCWILLIAMS [facility] ONC [id number] 04/08/2018 11:00:00 06/06/2018 00:01:00 DIS Outpatient LAURA MCWILLIAMS [facility] ONC [id number] 04/29/2018 10:07:00 04/29/2018 23:59:59 CLS Outpatient TOYA ALLISON [facility] RAD IMAGING STUDY TO RESTAGE NEOPLASM [id number] 12/18/2017 08:48:00 12/20/2017 00:01:00 DIS Outpatient PATSY MARTINEZ MD [facility] ONC [id number] 12/07/2017 09:09:00 12/10/2017 16:16:00 DIS Outpatient LAURA MCWILLIAMS [facility] ONC [id number] 09/22/2017 08:51:00 12/07/2017 08:59:00 DIS Outpatient LAURA MCWILLIAMS [facility] ONC [id number] 09/14/2017 08:20:00 09/14/2017 00:01:00 DIS Outpatient LAURA MCWILLIAMS [facility] ONC [id number] 06/09/2017 11:11:00 06/09/2017 23:59:59 CLS Outpatient GUANACO CHAN [facility] RAD BACK PAIN [id number] 04/21/2017 08:55:00 05/17/2017 00:01:00 DIS Outpatient LAURA MCWILLIAMS [facility] ONC [id number] 12/18/2016 08:41:00 12/20/2016 00:01:00 DIS Outpatient LAURA MCWILLIAMS [facility] ONC [id number] 08/01/2016 09:31:00 10/22/2016 00:01:00 DIS Outpatient LAURA MCWILLIAMS [facility] ONC [id number] 07/30/2016 13:15:00 07/30/2016 23:59:59 CLS Outpatient VIDAL BELTRAN MD [facility] CARD PALPITATION,NON-HODGKINS LYMPHOMA,GERD, R00.2 [id number] 05/05/2016 10:21:00 07/23/2016 00:01:00 DIS Outpatient LAURA MCWILLIAMS [facility] ONC [id number] 02/04/2016 08:58:00 04/23/2016 00:01:00 DIS Outpatient LAURA MCWILLIAMS [facility] ONC [id number] 12/20/2015 00:08:00 12/20/2015 23:59:59 CLS Preadmit LAURA MCWILLIAMS [facility] ONC [id number] 10/25/2015 09:05:00 12/19/2015 00:01:00 DIS Outpatient LAURA MCWILLIAMS [facility] ONC [id number] 06/04/2015 09:27:00 08/22/2015 00:01:00 DIS Outpatient LAURA MCWILLIAMS [facility] ONC [id number] 05/28/2015 08:49:00 05/28/2015 23:59:59 CLS Outpatient TOYA ALLISON [facility] ONC [id number] 03/06/2015 10:15:00 03/06/2015 23:59:59 CLS Outpatient LAURA MCWILLIAMS [facility] ONC [id number] 02/08/2015 17:04:00 02/08/2015 19:42:00 DIS Emergency ALEJANDRO LOCKHART [facility] ER HI BP W/NOSE BLEED [id number] 10/31/2014 08:28:00 11/01/2014 00:01:00 DIS Outpatient LAURA MCWILLIAMS [facility] ONC [id number] 10/24/2014 13:47:00 10/24/2014 23:59:59 CLS Outpatient TOYA ALLISON TUTORIAL LABORATORY SUPERVISOR [facility] ONC [id number] 07/27/2014 11:04:00 08/02/2014 00:01:00 DIS Outpatient LAURA MCWILLIAMS [facility] ONC [id number] 07/24/2014 10:21:00 07/24/2014 23:59:59 CLS Outpatient TOYA ALLISON TUTORIAL LABORATORY SUPERVISOR [facility] ONC [id number] 05/10/2014 09:55:00 05/10/2014 23:59:59 CLS Outpatient YAHAIRANDER THOMAS CARBRIAN S [facility] LAB [id number] 03/14/2014 10:00:00 05/03/2014 00:01:00 DIS Outpatient LAURA MCWILLIAMS [facility] ONC [id number] 02/02/2014 09:34:00 02/02/2014 23:59:59 CLS Outpatient TOYA ALLISON TUTORIAL LABORATORY SUPERVISOR [facility] ONC [id number] 01/26/2014 09:38:00 01/31/2014 00:01:00 DIS Outpatient LAURA MCWILLIAMS [facility] ONC [id number] 11/02/2013 09:53:00 11/02/2013 23:59:59 CLS Outpatient TOYA ALLISON TUTORIAL LABORATORY SUPERVISOR [facility] ONC [id number] 10/27/2013 09:19:00 11/01/2013 00:01:00 DIS Outpatient LAURA MCWILLIAMS [facility] ONC [id number] 08/17/2013 06:58:00 08/17/2013 23:59:59 CLS Outpatient YAHAIRANDER DOSHIVABRIAN S [facility] RAD ABD PAIN,NAUSEA,DJD LUMBAR [id number] 08/03/2013 10:20:00 08/03/2013 23:59:59 CLS Outpatient TOYA ALLIOSN TUTORIAL LABORATORY SUPERVISOR [facility] ONC [id number] 07/25/2013 09:35:00 07/31/2013 00:01:00 DIS Outpatient LAURA MCWILLIAMS [facility] ONC [id number] 07/16/2013 08:03:00 07/16/2013 09:40:00 DIS Emergency PATTI HILLIARD MD [facility] ER ABD PAIN NAUSEA [id number] 03/14/2013 14:29:00 04/19/2013 00:01:00 DIS Outpatient LAURA MCWILLIAMS [facility] ONC [id number] 01/25/2013 09:31:00 01/25/2013 23:59:59 CLS Outpatient TOYA ALLISON [facility] ONC [id number] 11/03/2012 09:22:00 01/11/2013 00:01:00 DIS Outpatient LAURA MCWILLIAMS [facility] ONC [id number] 10/11/2012 08:51:00 10/12/2012 00:01:00 DIS Outpatient LAURA MCWILLIAMS [facility] ONC [id number] 08/11/2018 11:00:00 PEN Preadmit LUIS CARLOS OBRIEN MD [facility] ENDO SCREENING/HX POLYPS [id number] 07/07/2012 13:19:00 Document Registration [email or web address] 10/31/2014 08:29:15 ACT Document Registration
[2018-08-11] MEDS ORDERED: NS IV 500 ML 500 ML IV PRN (09:47)
[2018-08-11] MEDS ORDERED: MIDAZOLAM 2 MG/2 ML (VERSED) VIAL IVP ONE (10:00)
[2018-08-11] MEDS ORDERED: fentaNYL INJECTION 100 MCG/2 ML AMP IVP ONE (10:00)
[2018-08-11] MEDS ORDERED: LIDOCAINE JELLY 2% 6 ML SYRINGE MM PRN (10:00)
[2018-08-11 10:13] VITALS: BP 165/76
--- NOTE | 2018-08-11 10:44 | Discharge Inst-Surgical ---
D/C Lap Instructions-MICAH Follow Up Activity as tolerated High Fiber Diet 25g or more per day Avoid Alcohol, Caffeine, Spicy Goff and Acid foods. Drink 64 fluid oz or more of fluids per day. Symptoms to Report: Fever over 101 degree F, Nausea/Vomiting If any problems/questions: Contact your physician or go to Emergency Room LUIS CARLOS OBRIEN MD August 11, 2018 10:44
[2018-08-11] MEDS ORDERED: ACETAMINOPHEN 325 MG TABLET PO PRN (10:45)
[2018-08-11] MEDS ORDERED: HYDROcodone/APAP 5 MG/325 MG (LORTAB) TAB PO PRN (10:45)
[2018-08-11] MEDS ORDERED: morphine INJ 10 MG/ML 1ML (SYR OR VIAL) IV PRN (10:45)
[2018-08-11] MEDS ORDERED: ONDANSETRON 4 MG/2 ML (SDV) Z0FRAN IV PRN (10:45)
--- NOTE | 2018-08-11 11:19 | Conscious Sedation/ASA ---
Conscious Sedation Pre-Proced Time 11:00 ASA Score 2 For ASA 3 and 4: Consider anesthesia and medical clearance. Also, for patients with a history of failed moderate sedation consider anesthesia. Airway Lungs Heart ASA score ASA 1: a normal healthy patient ASA 2: a patient with a mild systemic disease (mid diabetes, controlled hypertension, obesity ASA 3: a patient with a severe systemic disease that limits activity (angina, COPD, prior Myocardial infarction) ASA 4: a patient with an incapacitating disease that is a constant threat to life (CHF, renal failure) ASA 5: a moribund patient not expected to survive 24 hrs. (ruptured aneurysm) ASA 6: a declared brain- patient whose organs are being harvested. For emergent operations, add the letter E after the classification Mallampati Classification Grade 2 Sedation Plan Analgesia, Amnesia, Plan communicated to team members, Discussed options with patient/fam, Discussed risks with patient/fam The patient is an appropriate candidate to undergo the planned procedure, sedation, and anesthesia. The patient immediately re-assessed prior to indication. LUIS CARLOS OBRIEN MD August 11, 2018 11:19
--- NOTE | 2018-08-11 11:20 | Progress Note-Pre Operative ---
Pre-Operative Progress Note H&P Reviewed The H&P was reviewed, patient examined and no changes noted. Date Seen by Provider: August 11, 2018 Time Seen by Provider: 11:00 Date H&P Reviewed: August 11, 2018 Time H&P Reviewed: 11:00 Pre-Operative Diagnosis: hx polyp, wt loss LUIS CARLOS OBRIEN MD August 11, 2018 11:19
[2018-08-11] MEDS ORDERED: fentaNYL INJECTION 100 MCG/2 ML AMP ONE (11:22)
[2018-08-11] MEDS ORDERED: MIDAZOLAM 2 MG/2 ML (VERSED) VIAL ONE ×4 (11:22→12:42)
[2018-08-11] MEDS ORDERED: LIDOCAINE JELLY 2% 6 ML SYRINGE ONE (11:23)
[2018-08-11 13:05] VITALS: BP 105/57
--- NOTE | 2018-08-11 13:09 | Progress Note-Post Operative ---
Post-Operative Progess Note Surgeon (s)/Voice And Data Technician (s) Surgeon LUIS CARLOS OBRIEN MD Voice And Data Technician: none Pre-Operative Diagnosis hx polyp, wt loss Post-Operative Diagnosis chronic stage 2 ext and int hemorrhoids, mild-mod sigmoid diverticulosis. Procedure & Operative Findings Date of Procedure 08/11/18 Procedure Performed/Findings colonoscopy Anesthesia Type cs Estimated Blood Loss Estimated blood loss (mL): none Specimens/Packing Specimens Removed none LUIS CARLOS OBRIEN MD August 11, 2018 13:09
[2018-08-11 13:35] VITALS: BP 161/77
--- NOTE | 2018-08-11 16:11 | OPERATIVE REPORT ---
DATE OF SERVICE: 08/11/2018 ATTENDING PRIMARY CARE PHYSICIAN: Dr. Ballesteros. PREOPERATIVE DIAGNOSIS: History of colon polyp, weight loss. POSTOPERATIVE DIAGNOSES: Chronic stage II external and internal hemorrhoids, mild to moderate sigmoid diverticulosis. Remainder of the colon was normal. There were no polyps or any neoplasms identified as well as no hemangiomas or AV malformations. PROCEDURE: Colonoscopy. SURGEON: Luis Carlos Obrien MD ANESTHESIA: Conscious sedation. ESTIMATED BLOOD LOSS: Minimal. FINDINGS: Chronic stage II external and internal hemorrhoids, mild to moderate sigmoid diverticulosis. Remainder of the colon was normal. There were no polyps or any neoplasms identified as well as no hemangiomas or AV malformations. DISPOSITION: The patient tolerated the procedure well. INDICATIONS: The patient is a 73-year-old male known to us. In 2014, we had seen him for gastroesophageal reflux disease as well as history of polyps. At that time, his last endoscopies were done in 2011 by another surgeon and a very small polyp was identified in the transverse colon, which was benign and inflammatory polyp. The EGD showed mild gastritis as well as a chronic reflux esophagitis. He was referred over to us for weight loss of approximately 50 pounds; however, states that he has been exercising 2 times a week for 1 hour. 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 He does not report any red blood per rectum nor any dark tarry stools. He also does not report any recurrent issues with reflux. DESCRIPTION OF PROCEDURE: The patient was brought to the endoscopy suite, laid in the left lateral decubitus position. After adequate IV pain and sedating medications and conscious sedation anesthesia, a digital rectal examination was performed. Mild stage II chronic external and internal hemorrhoids were identified, which are not actively edematous nor inflamed and no bleeding. Normal sphincter tone was felt and there were no palpable masses. Prostate gland was palpable and appeared normal. The endoscope was then intubated and the anus and rectum was gently insufflated. The endoscope was then advanced to the valves of [place] of the rectum with no polyps or any neoplasms identified. We then proceeded through the sigmoid colon where mild to moderate sigmoid diverticulosis was identified. There were no mucosal inflammatory changes to indicate any active diverticulitis. The endoscope was then advanced to the remainder of the descending, transverse, ascending colon and cecum. These segments were normal. There were no hemangiomas or AV malformations identified throughout the colon or rectum or as well as no active bleeding sources. The endoscope was then slowly withdrawn while taking a second look and suctioning of residual air with no additional findings. The patient tolerated the procedure well. No polyps were identified, only diverticulosis and our recommendation is to proceed with a high fiber diet with at least 30 grams of fiber per day to promote soft stools on a daily basis. No polyps were identified and he does not have any family history of colon cancer and he may wait another 10 years; however, sooner if he becomes symptomatic. Job ID: [id number] DocumentID: [id number] Dictated Date: 08/11/2018 12:56:48 Shredding Floor Equipment Operator Date: 08/11/2018 16:10:49 Dictated By: LUIS CARLOS OBRIEN MD
== END 2018-08-11 13:45 | disposition home or self-care (01) ==
LOC: ENDO 09:37
PROVIDERS: ATTEND Surgery
DX: Z12.11 Encounter for screening for malignant neoplasm of colon (principal); K57.30 Diverticulosis of large intestine without perforation or abscess without bleeding; K64.1 Second degree hemorrhoids; K21.9 Gastro-esophageal reflux disease without esophagitis; Z86.010 Personal history of colon polyps; Z79.899 Other long term (current) drug therapy

== ENCOUNTER 2018-12-07 08:45 | Outpatient (RCR) | payer MEDICARE, OTHER ==
[2018-09-13 11:47] LABS: BASOPHILS % (AUTO) 0 % (0-10); EOSINOPHILS # (AUTO) 0.1 10^3/uL (0.0-0.3); EOSINOPHILS % (AUTO) 2 % (0-10); HEMATOCRIT 39 % (40-54); HEMOGLOBIN 13.9 G/DL (13.3-17.7); LYMPHOCYTES # (AUTO) 0.7 X 10^3 (1.0-4.0); LYMPHOCYTES % (AUTO) 15 % (12-44); MEAN CORPUSCULAR HEMOGLOBIN 30 PG (25-34); MEAN CORPUSCULAR HGB CONC 36 G/DL (32-36); MEAN CORPUSCULAR VOLUME 84 FL (80-99); MEAN PLATELET VOLUME 8.1 FL (7.4-10.4); MONOCYTES # (AUTO) 0.6 X 10^3 (0.0-1.0); MONOCYTES % (AUTO) 12 % (0-12); NEUTROPHILS # (AUTO) 3.6 X 10^3 (1.8-7.8); NEUTROPHILS % (AUTO) 72 % (42-75); PLATELET COUNT 131 10^3/uL (130-400); RED CELL DISTRIBUTION WIDTH 14.6 % (10.0-14.5); WHITE BLOOD COUNT 5.1 10^3/uL (4.3-11.0)
[2018-09-13 12:09] LABS: ALANINE AMINOTRANSFERASE 16 U/L (0-55); ALBUMIN 4.5 GM/DL (3.2-4.5); ALKALINE PHOSPHATASE 66 U/L (40-136); BILIRUBIN,TOTAL 1.4 MG/DL (0.1-1.0); BUN/CREATININE RATIO 13; CALCIUM 9.4 MG/DL (8.5-10.1); CARBON DIOXIDE 25 MMOL/L (21-32); CHLORIDE 98 MMOL/L (98-107); CREATININE SERUM 0.87 MG/DL (0.60-1.30); GFR ESTIMATED > 60; GLUCOSE 97 MG/DL (70-105); POTASSIUM 3.6 MMOL/L (3.6-5.0); SODIUM 132 MMOL/L (135-145); TOTAL PROTEIN 6.8 GM/DL (6.4-8.2)
[2018-11-02 09:21] LABS: BASOPHILS % (AUTO) 0 % (0-10); EOSINOPHILS # (AUTO) 0.1 10^3/uL (0.0-0.3); EOSINOPHILS % (AUTO) 2 % (0-10); HEMATOCRIT 38 % (40-54); HEMOGLOBIN 13.3 G/DL (13.3-17.7); LYMPHOCYTES # (AUTO) 0.7 X 10^3 (1.0-4.0); LYMPHOCYTES % (AUTO) 22 % (12-44); MEAN CORPUSCULAR HEMOGLOBIN 28 PG (25-34); MEAN CORPUSCULAR HGB CONC 35 G/DL (32-36); MEAN CORPUSCULAR VOLUME 81 FL (80-99); MONOCYTES # (AUTO) 0.3 X 10^3 (0.0-1.0); MONOCYTES % (AUTO) 10 % (0-12); NEUTROPHILS # (AUTO) 2.2 X 10^3 (1.8-7.8); NEUTROPHILS % (AUTO) 66 % (42-75); PLATELET COUNT 112 10^3/uL (130-400); WHITE BLOOD COUNT 3.3 10^3/uL (4.3-11.0)
[2018-11-23 11:14] LABS: BASOPHILS % (AUTO) 0 % (0-10); EOSINOPHILS % (AUTO) 1 % (0-10); HEMATOCRIT 39 % (40-54); HEMOGLOBIN 13.6 G/DL (13.3-17.7); LYMPHOCYTES # (AUTO) 0.5 X 10^3 (1.0-4.0); LYMPHOCYTES % (AUTO) 12 % (12-44); MEAN CORPUSCULAR HEMOGLOBIN 28 PG (25-34); MEAN CORPUSCULAR HGB CONC 35 G/DL (32-36); MEAN CORPUSCULAR VOLUME 79 FL (80-99); MEAN PLATELET VOLUME 9.1 FL (7.4-10.4); MONOCYTES # (AUTO) 0.3 X 10^3 (0.0-1.0); MONOCYTES % (AUTO) 7 % (0-12); NEUTROPHILS # (AUTO) 3.4 X 10^3 (1.8-7.8); NEUTROPHILS % (AUTO) 80 % (42-75); PLATELET COUNT 111 10^3/uL (130-400); RED CELL DISTRIBUTION WIDTH 13.2 % (10.0-14.5); WHITE BLOOD COUNT 4.2 10^3/uL (4.3-11.0)
[~2018-12-07 08:45] MED LIST changes: +FERRIC CARBOXYMALTOSE (CANCER) 750 MG in NS (IVPB) CANCER CENTER 250 ML IV SCH; -NS IV 500 ML 500 ML ONE
[2018-12-07 09:12] LABS: BASOPHILS % (AUTO) 0 % (0-10); EOSINOPHILS % (AUTO) 1 % (0-10); HEMATOCRIT 39 % (40-54); HEMOGLOBIN 14.5 G/DL (13.3-17.7); LYMPHOCYTES # (AUTO) 0.5 X 10^3 (1.0-4.0); LYMPHOCYTES % (AUTO) 11 % (12-44); MEAN CORPUSCULAR HEMOGLOBIN 29 PG (25-34); MEAN CORPUSCULAR HGB CONC 38 G/DL (32-36); MEAN CORPUSCULAR VOLUME 77 FL (80-99); MEAN PLATELET VOLUME 8.7 FL (7.4-10.4); MONOCYTES # (AUTO) 0.4 X 10^3 (0.0-1.0); MONOCYTES % (AUTO) 8 % (0-12); NEUTROPHILS % (AUTO) 80 % (42-75); PLATELET COUNT 117 10^3/uL (130-400); RED CELL DISTRIBUTION WIDTH 15.5 % (10.0-14.5); WHITE BLOOD COUNT 4.9 10^3/uL (4.3-11.0)
[2018-12-07 09:48] LABS: ALANINE AMINOTRANSFERASE 16 U/L (0-55); ALBUMIN 4.6 GM/DL (3.2-4.5); ALKALINE PHOSPHATASE 64 U/L (40-136); BUN/CREATININE RATIO 6; CARBON DIOXIDE 24 MMOL/L (21-32); CHLORIDE 91 MMOL/L (98-107); CREATININE SERUM 0.78 MG/DL (0.60-1.30); GFR ESTIMATED > 60; GLUCOSE 109 MG/DL (70-105); POTASSIUM 3.4 MMOL/L (3.6-5.0)
[2018-12-07 09:52] LABS: SODIUM 125 MMOL/L (135-145)
== END 2018-12-12 | disposition home or self-care (01) ==
LOC: ONC 08:45
PROVIDERS: ATTEND Internal Medicine Hematology & Oncology
DX: C85.90 Non-Hodgkin lymphoma, unspecified, unspecified site (principal); D50.8 Other iron deficiency anemias; I78.0 Hereditary hemorrhagic telangiectasia; D69.6 Thrombocytopenia, unspecified; Z79.899 Other long term (current) drug therapy
CPT/HCPCS: 36415; 80053; 82728; 83615; 85025; 96365; 99213

== ENCOUNTER → 2018-12-08 | Outpatient (CLI) | payer MEDICARE, OTHER ==
[~2018-12-08] MED LIST changes: -FERRIC CARBOXYMALTOSE (CANCER) 750 MG in NS (IVPB) CANCER CENTER 250 ML IV SCH
--- NOTE | 2018-12-08 13:37 | Diagnostic Imaging Report ---
PROCEDURE: CT abdomen and pelvis without contrast. TECHNIQUE: Multiple contiguous axial images were obtained through the abdomen and pelvis without the use of intravenous contrast. Auto Exposure Controls were utilized during the CT exam to meet ALARA standards for radiation dose reduction. INDICATION: Abdominal pain and weight loss. Comparison made with prior examination 04/29/2018. FINDINGS: The heart size is normal. The lung bases are clear. The liver is normal in size without focal lesions. There is an unchanged stone near the gallbladder neck. There is no biliary ductal dilatation. Spleen is normal. The pancreas and adrenal glands are grossly unremarkable. There is a large cyst in the superior aspect of the right kidney. Abdominal aorta is nonaneurysmal. There is some focal sclerosis in the central mesentery where there also appear to be a few mildly enlarged lymph nodes which are unchanged. Largest measures 2 cm. There is no free air. There is no ascites. There is diverticular disease without evidence of diverticulitis. Bladder is normal. There is no pelvic mass or adenopathy. There are degenerative and postsurgical changes in the spine. IMPRESSION: Unchanged sclerosis in the central mesentery with some underlying lymph nodes. This is nonspecific and may reflect previous post therapeutic change or possibly mesenteric sclerosis. Recommend clinical correlation. Diverticular disease without evidence of diverticulitis. Unchanged small stone in the neck of the gallbladder. Right renal cyst. Dictated by: Dictated on workstation # [id number]
== END ==
LOC: RAD 11:57
PROVIDERS: ATTEND Family Medicine
DX: R10.13 Epigastric pain (principal); R63.4 Abnormal weight loss
CPT/HCPCS: 74176

== ENCOUNTER 2019-01-04 09:05 | Outpatient (RCR) | payer MEDICARE, OTHER ==
[2019-01-04 09:30] LABS: BASOPHILS % (AUTO) 0 % (0-10); EOSINOPHILS % (AUTO) 1 % (0-10); HEMATOCRIT 37 % (40-54); HEMOGLOBIN 13.2 G/DL (13.3-17.7); LYMPHOCYTES # (AUTO) 0.6 X 10^3 (1.0-4.0); LYMPHOCYTES % (AUTO) 17 % (12-44); MEAN CORPUSCULAR HEMOGLOBIN 31 PG (25-34); MEAN CORPUSCULAR HGB CONC 36 G/DL (32-36); MEAN CORPUSCULAR VOLUME 87 FL (80-99); MEAN PLATELET VOLUME 8.8 FL (7.4-10.4); MONOCYTES # (AUTO) 0.3 X 10^3 (0.0-1.0); MONOCYTES % (AUTO) 9 % (0-12); NEUTROPHILS # (AUTO) 2.6 X 10^3 (1.8-7.8); NEUTROPHILS % (AUTO) 73 % (42-75); PLATELET COUNT 93 10^3/uL (130-400); RED CELL DISTRIBUTION WIDTH 19.5 % (10.0-14.5); WHITE BLOOD COUNT 3.5 10^3/uL (4.3-11.0)
[2019-01-04 09:51] LABS: ALANINE AMINOTRANSFERASE 18 U/L (0-55); ALBUMIN 4.2 GM/DL (3.2-4.5); ALKALINE PHOSPHATASE 65 U/L (40-136); BUN/CREATININE RATIO 11; CALCIUM 8.6 MG/DL (8.5-10.1); CARBON DIOXIDE 27 MMOL/L (21-32); CHLORIDE 98 MMOL/L (98-107); CREATININE SERUM 0.87 MG/DL (0.60-1.30); GFR ESTIMATED > 60; GLUCOSE 99 MG/DL (70-105); POTASSIUM 4.1 MMOL/L (3.6-5.0); SODIUM 130 MMOL/L (135-145); TOTAL PROTEIN 6.2 GM/DL (6.4-8.2)
== END 2019-03-03 16:41 | disposition home or self-care (01) ==
LOC: ONC 09:05
PROVIDERS: ATTEND Internal Medicine Hematology & Oncology
DX: C85.90 Non-Hodgkin lymphoma, unspecified, unspecified site (principal); D50.8 Other iron deficiency anemias; I78.0 Hereditary hemorrhagic telangiectasia; D69.6 Thrombocytopenia, unspecified; Z79.899 Other long term (current) drug therapy
CPT/HCPCS: 36415; 80053; 85025; 99213

== ENCOUNTER 2019-03-17 08:49 | Outpatient (RCR) | payer MEDICARE, OTHER ==
[2019-03-07 10:08] LABS: BASOPHILS % (AUTO) 0 % (0-10); EOSINOPHILS # (AUTO) 0.1 10^3/uL (0.0-0.3); EOSINOPHILS % (AUTO) 2 % (0-10); HEMATOCRIT 37 % (40-54); HEMOGLOBIN 12.4 G/DL (13.3-17.7); LYMPHOCYTES # (AUTO) 0.7 X 10^3 (1.0-4.0); LYMPHOCYTES % (AUTO) 17 % (12-44); MEAN CORPUSCULAR HEMOGLOBIN 29 PG (25-34); MEAN CORPUSCULAR HGB CONC 33 G/DL (32-36); MEAN CORPUSCULAR VOLUME 86 FL (80-99); MONOCYTES # (AUTO) 0.3 X 10^3 (0.0-1.0); MONOCYTES % (AUTO) 7 % (0-12); NEUTROPHILS # (AUTO) 3.1 X 10^3 (1.8-7.8); NEUTROPHILS % (AUTO) 75 % (42-75); PLATELET COUNT 129 10^3/uL (130-400); RED CELL DISTRIBUTION WIDTH 12.6 % (10.0-14.5); WHITE BLOOD COUNT 4.1 10^3/uL (4.3-11.0)
[2019-03-07 10:35] LABS: ALANINE AMINOTRANSFERASE 22 U/L (0-55); ALBUMIN 4.4 GM/DL (3.2-4.5); ALKALINE PHOSPHATASE 62 U/L (40-136); BILIRUBIN,TOTAL 1.3 MG/DL (0.1-1.0); BUN/CREATININE RATIO 12; CARBON DIOXIDE 26 MMOL/L (21-32); CHLORIDE 104 MMOL/L (98-107); CREATININE SERUM 0.99 MG/DL (0.60-1.30); GFR ESTIMATED > 60; GLUCOSE 112 MG/DL (70-105); POTASSIUM 4.2 MMOL/L (3.6-5.0); SODIUM 139 MMOL/L (135-145); TOTAL PROTEIN 6.8 GM/DL (6.4-8.2)
[~2019-03-17 08:49] MED LIST changes: +FERRIC CARBOXYMALTOSE (CANCER) 750 MG in NS (IVPB) CANCER CENTER 250 ML IV SCH
== END 2019-06-03 16:15 | disposition home or self-care (01) ==
LOC: ONC 08:49
PROVIDERS: ATTEND Internal Medicine Hematology & Oncology
DX: C85.90 Non-Hodgkin lymphoma, unspecified, unspecified site (principal); D50.8 Other iron deficiency anemias; I78.0 Hereditary hemorrhagic telangiectasia; D69.6 Thrombocytopenia, unspecified; M19.90 Unspecified osteoarthritis, unspecified site; N18.3 Chronic kidney disease, stage 3 (moderate); Z79.899 Other long term (current) drug therapy
CPT/HCPCS: 80053; 82728; 85025; 96365

== ENCOUNTER 2019-06-08 22:50 | Emergency (ER) | payer MEDICARE, OTHER ==
[~2019-06-08] VITALS: Ht 177.8 cm; Wt 87.1 kg
[~2019-06-08 22:50] MED LIST changes: -FERRIC CARBOXYMALTOSE (CANCER) 750 MG in NS (IVPB) CANCER CENTER 250 ML IV SCH
--- NOTE | 2019-06-08 23:14 | ED General ---
General Chief Complaint: Nasal Problems Stated Complaint: NOSE BLEED Nursing Triage Note: intermittant left nare nose bleed since 1100am. denies injury. Nursing Sepsis Screen: No Definite Risk Source of Information: Patient, Old Records Exam Limitations: No Limitations History of Present Illness Date Seen by Provider: Jun 08, 2019 Time Seen by Provider: 22:58 Initial Comments This 74-year-old gentleman presents to the emergency room for nose bleed. He did a lot of work in his shop today and then this evening noted some bleeding out of the left nostril. External bleeding seemed to stop but he was still having some drainage down the back of his throat. He does not appear to be actively bleeding on initial assessment. There is clotting blood in the left nostril and some blood and mucus coating the posterior oropharynx. I do not see active bleeding. He has had problems with gastrointestinal hemangiomas and a tiny hemangiomas on his skin. He has concerned that this may be contributing to his bleeding. He seems to think he saw an ENT provider in the remote past but he cannot recall if anything was done for nose bleeding. He hasn't appointment with the [facility] tomorrow due to history of anemia. He had recent labs performed a few days ago which were reviewed and seemed to be relatively unremarkable. Platelet count was 113,000 and he was not anemic. This value is stable from prior labs. He appears anxious and is significantly hypertensive. His filling record shows prior prescription for hydrochlorothiazide but he is a poor historian regarding what medications he takes. He appears to also take Lexapro. Doctor GONZALO is his primary care provider. Allergies and Home Medications Allergies Coded Allergies: No Known Drug Allergies (Unverified , 01/06/11) Home Medications Amlodipine Besylate 5 Mg Tablet, 5 MG PO DAILY Prescribed by: VIKAS FRAZIER on 06/08/19 8836 Patient Home Medication List Home Medication List Reviewed: Yes Review of Systems Review of Systems Constitutional: no symptoms reported EENTM: see HPI Respiratory: no symptoms reported Cardiovascular: see HPI Gastrointestinal: no symptoms reported Genitourinary: no symptoms reported Musculoskeletal: no symptoms reported Skin: no symptoms reported Psychiatric/Neurological: See HPI Hematologic/Lymphatic: See HPI Immunological/Allergic: no symptoms reported Past Iyqigkv-Booqnb-Juythd Hx Patient Social History Alcohol Use: Occasionally Uses Number of Drinks Today: Alcohol Beverage of Choice: Beer, Wine Recreational Drug Use: No Smoking Status: Former Smoker Type Used: Cigarettes Former Smoker, Quit: August 09, 1989 2nd Hand Smoke Exposure: No Recent Foreign Travel: No Contact w/Someone Who Travel: No Recent Infectious Disease Expo: No Recent Hopitalizations: No Physical Abuse: No Sexual Abuse: No Mistreated: No Fear: No Immunizations Up To Date Tetanus Booster (TDap): Unknown Date of Pneumonia Vaccine: Apr 13, 2018 Seasonal Allergies Seasonal Allergies: No Past Medical History Surgeries: Yes (knee sx, BACK, LT TOTAL KNEE, foot sx) Adenoidectomy, Orthopedic, Tonsillectomy Respiratory: No Currently Using CPAP: No Currently Using BIPAP: No Cardiac: Yes Hypertension Neurological: No Reproductive Disorders: No Sexually Transmitted Disease: No HIV/AIDS: No Genitourinary: No Gastrointestinal: Yes (COLON POLYPS, hemangiomas of the small intestines) Polyps Musculoskeletal: Yes Back Injury Endocrine: No HEENT: No Cancer: No Psychosocial: Yes Anxiety Integumentary: No Blood Disorders: Yes (chronic leukemia) Family Medical History Reviewed and Corrections made Hypertension, Vascular Disease (hemangiomas) Physical Exam Vital Signs Vital Signs - First Documented 06/08/19 22:53 Temp 36.5 Pulse 98 Resp 20 B/P (MAP) 188/118 (141) Pulse Ox 99 O2 Delivery Room Air Capillary Refill : Less Than 3 Seconds Height, Weight, BMI Height: 5'10.00" Weight: 191lbs. 0.0oz. 86.129795pb; 27.00 BMI Method:Stated General Appearance: No Apparent Distress, WD/WN HEENT: PERRL/EOMI, TMs Normal, Pharynx Normal, Other (blood clot in the left nostril. Mucus and blood on the posterior pharynx) Neck: Normal Inspection Respiratory: Lungs Clear, Normal Breath Sounds, No Accessory Muscle Use, No Respiratory Distress Cardiovascular: Regular Rate, Rhythm, No Edema, No Murmur Extremity: Normal Inspection Neurologic/Psychiatric: Alert, Oriented x3, No Motor/Sensory Deficits, developer advisor II- XII Norm as Tested, Other (anxious) Skin: Normal Color, Warm/Dry Progress/Results/Core Measures Suspected Sepsis Recent Fever Within 48 Hours: No Infection Criteria Present: None New/Unexplained Altered Menta: No Sepsis Screen: No Definite Risk SIRS Temperature: Pulse: 98 Respiratory Rate: 20 Blood Pressure 188 /118 Mean: 141 Results/Orders My Orders Orders - VIKAS PEREZ MD Amlodipine Tablet (Norvasc Tablet) (06/08/19 23:30) Oxymetazoline 0.05% Nasal [place] (Afrin 0. (06/09/19 09:00) Oxymetazoline 0.05% Nasal [place] (Afrin 0. (06/08/19 23:47) Tranexamic Acid Injection (Cyklokapron I (06/09/19 00:45) Amlodipine Tablet (Norvasc Tablet) (06/09/19 01:00) Medications Given in ED Current Medications Medications Dose Ordered Sig/Ra Route Start Time Stop Time Status Last Admin Dose Admin Amlodipine Besylate 5 mg ONCE ONCE PO 06/08/19 23:30 06/08/19 23:31 DC 06/08/19 23:33 5 MG Amlodipine Besylate 5 mg ONCE ONCE PO 06/09/19 01:00 06/09/19 01:01 DC 06/09/19 00:55 5 MG Tranexamic Acid Topical for epistaxis ONCE ONCE IV 06/09/19 00:45 06/09/19 00:46 DC 06/09/19 00:37 1,000 MG Vital Signs/I&O 06/08/19 22:53 Temp 36.5 Pulse 98 Resp 20 B/P (MAP) 188/118 (141) Pulse Ox 99 O2 Delivery Room Air Capillary Refill : Less Than 3 Seconds Blood Pressure Mean: 141 Progress Note #1: Time: 23:56 Progress Note Patient was given amlodipine to help control his blood pressure. He was prepared for discharge. However, as he was getting ready to leave he began actively bleeding. Afrin 2 sprays in each nostril was administered. Nasal clamp was applied. We will monitor him for about 15 minutes and see what happens. Progress Note #2: Time: 00:50 Progress Note Afrin and nasal clamping initially seemed to work well. He did not bleed for about 10 minutes. However, he then began to bleed again. He also tries to clear his throat frequently which seems to disrupt the clotting. I attempted to pass a marrow cell packing but his anatomy was prohibitive. He has a curved and narrow nasal passage. I trimmed down a second Merocel packing and applied antibiotic ointment for lubrication prior to attempt to insert. It was still not able to pass the packing. As an alternative I squirted some tranexamic acid into the nostril and reapplied the clamp. He is still hypertensive. A second dose of amlodipine is being given. We will monitor him for a a while after these interventions and reassess. Progress Note #3: Time: 01:07 Progress Note Patient is no longer feeling any bleeding or drainage down the back of his throat. Clamp was removed. Clot has been evacuated from the nose and there is no active bleeding. Patient is ready for discharge. Departure Impression Primary Impression: Epistaxis Additional Impression: Hypertension Qualified Codes: I10 - Essential (primary) hypertension Disposition: 01 HOME, SELF-CARE Condition: Improved Departure-Patient Inst. Decision time for Depature: 23:33 Referrals: DAHLIA CRANDALL MD, JACQUELINE S DO (PCP/Family) Primary Care Physician Patient Instructions: High Blood Pressure (DC), Nosebleeds (DC) Add. Discharge Instructions: Sleep with your head in an elevated position this evening by sleeping with multiple pillows or in a recliner. To clear blood and mucus from your throat you may drink or gargle some ice water. This should encourage clotting of the blood as well. Avoid the temptation to rub or blow your nose as this may disrupt the clot that is controlling the bleeding. Keep your appointment with the Cancer Center tomorrow and discuss if any further blood work is needed. Have them also check your blood pressure. If the Norvasc (amlodipine) you were given in the emergency room is well- tolerated and helps with your blood pressure, fill the prescriptions sent to [facility]. Please see Dr. Ballesteros within the next week. Consider evaluation by an ENT provider such as Dr. Crandall to determine if there are any areas of your nose that need cauterized. Discussed the use of Lexapro with Dr. Ballesteros. This medication can increase risk of bleeding. If uncontrolled bleeding resumes, apply 2 sprays of Afrin (oxymetazoline) in each nostril and apply direct pressure by pinching your nose for 20 minutes. Remain in an upright position. If bleeding does not stop after that, return to the emergency room. Return to the emergency room if you have any further problems or concerns. All discharge instructions reviewed with patient and/or family. Voiced understanding. Scripts Amlodipine Besylate (Norvasc) 5 Mg Tablet 5 MG PO DAILY, #30 TAB Prov: VIKAS PEREZ MD 06/08/19 Copy Copies To 1: DAHLIA CRANDALL MD Copies To 2: BRIAN BALLESTEROS JOSHUA T MD Jun 08, 2019 23:14
[2019-06-08] MEDS ORDERED: amLODIPine 5 MG (NORVASC) TAB PO ONE (23:30)
[2019-06-08] MEDS ORDERED: AMLO5TAB4 PO (23:33)
[2019-06-08] MEDS ORDERED: OXYMETAZOLINE (AFRIN) 0.05% NA 30 ML BTL ONE (23:47)
[2019-06-09] MEDS ORDERED: TRANEXAMIC ACID 100 MG/ML 10 ML INJECTION IV ONE (00:45)
[2019-06-09] MEDS ORDERED: amLODIPine 5 MG (NORVASC) TAB PO ONE (01:00)
[2019-06-09 01:08] VITALS: BP 179/114
[2019-06-09] MEDS ORDERED: OXYMETAZOLINE (AFRIN) 0.05% NA 30 ML BTL SCH (09:00)
== END 2019-06-09 01:09 | disposition home or self-care (01) ==
LOC: EDUNIT# 22:50 → ER 22:52
DX: R04.0 Epistaxis (principal); I10 Essential (primary) hypertension; F41.9 Anxiety disorder, unspecified; Z87.891 Personal history of nicotine dependence; Z86.010 Personal history of colon polyps; Z85.6 Personal history of leukemia; Z82.49 Family history of ischemic heart disease and other diseases of the circulatory system

== ENCOUNTER 2019-06-16 08:54 | Outpatient (RCR) | payer OTHER ==
[2019-06-06 09:25] LABS: BASOPHILS % (AUTO) 0 % (0-10); EOSINOPHILS # (AUTO) 0.1 10^3/uL (0.0-0.3); EOSINOPHILS % (AUTO) 2 % (0-10); HEMATOCRIT 40 % (40-54); HEMOGLOBIN 13.7 G/DL (13.3-17.7); LYMPHOCYTES # (AUTO) 0.7 X 10^3 (1.0-4.0); LYMPHOCYTES % (AUTO) 21 % (12-44); MEAN CORPUSCULAR HEMOGLOBIN 30 PG (25-34); MEAN CORPUSCULAR HGB CONC 34 G/DL (32-36); MEAN CORPUSCULAR VOLUME 88 FL (80-99); MEAN PLATELET VOLUME 8.7 FL (7.4-10.4); MONOCYTES # (AUTO) 0.4 X 10^3 (0.0-1.0); MONOCYTES % (AUTO) 11 % (0-12); NEUTROPHILS # (AUTO) 2.3 X 10^3 (1.8-7.8); NEUTROPHILS % (AUTO) 65 % (42-75); PLATELET COUNT 113 10^3/uL (130-400); RED CELL DISTRIBUTION WIDTH 13.8 % (10.0-14.5); WHITE BLOOD COUNT 3.5 10^3/uL (4.3-11.0)
[2019-06-06 09:46] LABS: ALANINE AMINOTRANSFERASE 14 U/L (0-55); ALBUMIN 4.4 GM/DL (3.2-4.5); ALKALINE PHOSPHATASE 71 U/L (40-136); BILIRUBIN,TOTAL 1.4 MG/DL (0.1-1.0); BUN/CREATININE RATIO 14; CALCIUM 8.9 MG/DL (8.5-10.1); CARBON DIOXIDE 27 MMOL/L (21-32); CHLORIDE 103 MMOL/L (98-107); CREATININE SERUM 1.01 MG/DL (0.60-1.30); GFR ESTIMATED > 60; GLUCOSE 98 MG/DL (70-105); POTASSIUM 4.3 MMOL/L (3.6-5.0); SODIUM 138 MMOL/L (135-145); TOTAL PROTEIN 6.8 GM/DL (6.4-8.2)
[~2019-06-16 08:54] MED LIST changes: +AMLO5TAB4 PO; +FERRIC CARBOXYMALTOSE (CANCER) 750 MG in NS (IVPB) CANCER CENTER 250 ML IV SCH
== END 2019-09-04 | disposition home or self-care (01) ==
LOC: ONC 08:54
PROVIDERS: ATTEND Internal Medicine Hematology & Oncology
DX: C85.90 Non-Hodgkin lymphoma, unspecified, unspecified site (principal); D50.0 Iron deficiency anemia secondary to blood loss (chronic); I78.0 Hereditary hemorrhagic telangiectasia; D69.6 Thrombocytopenia, unspecified; I12.9 Hypertensive chronic kidney disease with stage 1 through stage 4 chronic kidney disease, or unspecified chronic kidney disease; N18.3 Chronic kidney disease, stage 3 (moderate); M19.90 Unspecified osteoarthritis, unspecified site; Z79.899 Other long term (current) drug therapy
CPT/HCPCS: 80053; 82728; 85025; 96365

== ENCOUNTER 2019-09-17 13:09 | Emergency (ER) | payer MEDICARE, OTHER ==
[~2019-09-17] VITALS: Ht 177.8 cm; Wt 80.2 kg
[~2019-09-17 13:09] MED LIST changes: -FERRIC CARBOXYMALTOSE (CANCER) 750 MG in NS (IVPB) CANCER CENTER 250 ML IV SCH
--- OUTSIDE RECORDS SUMMARY | 2019-09-17 13:19 | XMS REPORT | Encounter Summary ---
Author Author Department of [facility] CASIE martinez Department of [facility] Address [address] [place] [address] Phone Unavailable Care Team Providers Care Windows Administrator Name Role Phone DAHLIA CHAVEZ PCP Unavailable Insurance Providers: All historical and current Section Date Range: From patient's date of to the date document was create d. This section includes the names of all active insurance providers for the mayte kimball Insurance Provider Type of Coverage Plan Name Start of Policy [place] End of Policy Coverage Group Number Member ID Insurance Provider's Telephone N umber Policy Jimenez's Name Patient's Relationship to Policy Jimenez MEDICARE (WNR) MEDICARE (M) PART A Apr 23, 2001 PART A [id number] [phone] DARCI POZO PATIENT MEDICARE (WNR) MEDICARE (M) PART B Apr 23, 2001 PART B [id number] [phone] DRACI POZO PATIENT [employer] PLAN C MEDICARE SUPPLEMENT July 21, 2002 PLAN C [id number] [phone] CASIE POZO PATIENT [employer] LOCAL 23 PREFERRED PROVIDER ORGANIZATIO N (PPO) [employer] Mar 23, 1995 LOCAL 23 [id number] JALEEL POZO PATIENT Selected Encounter This section includes the information on record at [place] for the Encounter. Date/Time Encounter Type Encounter Description Reason Provider Source Feb 15, 2019 11:42 AM Outpatient Encounter ADMIN PAT ACTIVTIES (MASNO NCT) [facility] IHE Encounter Template Text not used by [facility] Assessments - Encounter Diagnoses No Data Provided for This Section Plan of Treatment: Future Appointments (+ 6 months) and Future Tests (+/- 45 day s) The Plan of Treatment section includes future care activities for the patient fr om all [place] treatment facilities. This section includes future appointments and fu ture orders which are active, pending or scheduled. Future Appointments This section includes appointments that were scheduled t o occur 6 months from the date of the Encounter, up to a maximum of 20 appointme nts. The data comes from all [place] treatment facilities. Appointment Date/Time Appointment Type Appointment Facili ty Name Apr 13, 2019 09:30 AM AMBULATORY - NONE [facility] Surgical Procedures: All associated to the encounter No Data Provided for This Section Lab Results: +/- 30 days of the encounter This section includes the Chemistry and Hematology Lab R esults on record with [place] for the patient. Radiology Reports and Pathology Report s are provided separately, in subsequent sections. Lab Results This section contains the Chemistry/Hematology Results [place] t were resulted 30 days before or 30 days after the date of the Encounter. Date/Time Source Result Type Result - Unit Interpretation Reference Range Comment Feb 01, 2019 09:00 AM [facility] CBC & DIFF Specimen Type: BLOOD No comment entered. WBC 3.5 K/cmm L 3.60-11.20 RBC 4.41 M/ul 4.1-5.7 HGB 14.1 g/dl 13.1-16.8 HCT 39.4 % 38.2-48.4 MCV 89.3 fl 80.1-98.5 MCH 32.0 pg 27.0-34.0 MCHC 35.8 g/dl 33.0-36.0 PLATELET COUNT 113 K/cmm L 150-400 MPV 9.4 fl 7.5-11.2 RDW 14.4 % 11.8-15.1 LYMPHOCYTES, AUTO% 18.2 % NEUTROPHILS, AUTO % 70.1 % MONOCYTES, AUTO% 8.8 % MONOCYTES, ABSOLUTE 0.3 K/cmm 0.19-0.80 NEUTROPHILS, ABSOLUTE 2.5 K/cmm 2.10-8.0 0 EOSINOPHILS, ABSOLUTE 0.1 K/cmm 0.00-0.6 0 BASOPHILS, ABSOLUTE 0.0 K/cmm 0.00-0.20 EOSINOPHILS, AUTO% 2.0 % BASOPHILS, AUTO% 0.6 % LYMPHOCYTES, ABSOLUTE 0.6 K/cmm L 0.77-4.5 0 IMMATURE GRANS, ABSOLUTE 0.01 K/cmm 0.00 -0.05 IMMATURE GRANS, AUTO % 0.3 % Feb 01, 2019 09:00 AM [facility] COMPREHENSIVE METABOLIC PA CESAR Specimen Type: PLASMA Comment: For eGFR: eGFR results >60 are imprecise. Many variables affect the calculated result. Interpretation of eGFR results >60 must be monitored over time. *CREATININE 0.85 mg/dL 0.7-1.3 UREA NITROGEN mg/dL 10 mg/dL 9-25 GLUCOSE 101 mg/dL H 72-99 SODIUM 133 mEq/L L 136-145 POTASSIUM 3.8 mEq/L 3.5-5.0 CALCIUM (mg/dL) 8.8 mg/dL 8.4-10.4 PROTEIN,TOTAL 6.7 g/dL 6.0-8.6 ALBUMIN 4.5 g/dl 3.4-5.0 TOTAL BILIRUBIN 1.7 mg/dL H 0.2-1.2 ASPARTATE TRANSAMINASE 22 U/L 5-34 ALANINE AMINOTRANSFERASE 17 U/L 8-40 ANION GAP 6.1 L 8-16 CHLORIDE 96 mEq/L L 98-107 CO2 30.9 mEq/L 22-31 ALKALINE PHOSPHATASE 65 U/L 40-150 EGFR >60 Feb 01, 2019 09:00 AM [facility] LIPID PROFILE(HDL,TRIG,CHO L,LDL) Specimen Type: PLASMA Comment: For eGFR: eGFR results >60 are imprecise. Many variables affect the calculated result. Interpretation of eGFR results >60 must be monitored over time. CHOLESTEROL 176 mg/dL 0-200 TRIGS 47 mg/dL 0-150 HDL-CHOLESTEROL 94 mg/dL >40 LDL (CALC) 73 mg/dL 0-99.9 Feb 01, 2019 09:00 AM [facility] TSH Specimen Type: SERUM No comment entered. TSH 1.24 uIU/mL 0.47-5.00 Feb 01, 2019 09:00 AM [facility] PROSTATIC SPECIFIC ANTIGEN (TOTAL) Specimen Type: SERUM No comment entered. PROSTATIC SPECIFIC ANTIGEN(TOTAL) 0.7 ng/mL 0-4 Feb 01, 2019 09:00 AM [facility] VITAMIN D (25-OH) Specimen Type: SERUM No comment entered. VITAMIN D (25-OH) 34.6 ng/mL 30.0-96.0 Vital Signs: All taken on the encounter date No Data Provided for This Section Immunizations: All administered on the encounter date No Data Provided for This Section Social History: Smoking Status (Most current) and Tobacco Use (All prior to enco unter date) This section includes the most current, and the historical, smoking and tobacco- related health factors from the [place] facility where the Encounter took place. Current Smoking Status This section includes the most current smoking, or tobacco -related health factor, from the [place] facility where the Encounter took place. Date/Time Current Smoking Status Comment Facility Feb 10, 2018 02:30 PM CURRENT NON-SMOKER [facility] Tobacco Use History This section includes a history of the smoking, or tobacco -related health factors, that were collected on or before the date of the Encoun ter. The data comes from the [place] facility where the Encounter took place. Date/Time Smoking Status/Tobacco Use Comment [facility] it Feb 10, 2018 02:30 PM LIFETIME NON-TOBACCO USER [facility] Feb 05, 2017 09:30 AM NON-TOBACCO USER [facility] Jan 14, 2016 08:43 AM NON-TOBACCO USER [facility] Feb 07, 2015 10:08 AM NON-TOBACCO USER [facility] Dec 21, 2013 08:59 AM NON-TOBACCO USER [facility] Nov 30, 2012 09:09 AM NON-TOBACCO USER [facility] Nov 28, 2011 09:20 AM NON-TOBACCO USER [facility] July 24, 2010 09:03 AM CURRENT NON-SMOKER [facility] July 24, 2010 09:03 AM LIFETIME NON-TOBACCO USER [facility] July 24, 2009 09:50 AM CURRENT NON-SMOKER [facility] July 24, 2009 09:50 AM LIFETIME NON-TOBACCO USER [facility] August 07, 2008 08:50 AM CURRENT NON-SMOKER [facility] August 07, 2008 08:50 AM LIFETIME NON-TOBACCO USER [facility] August 07, 2008 08:50 AM NON-TOBACCO USER [facility] August 10, 2007 08:22 AM CURRENT NON-SMOKER [facility] August 10, 2007 08:22 AM LIFETIME NON-TOBACCO USER [facility] August 10, 2007 08:22 AM NON-TOBACCO USER [facility] May 25, 2006 10:14 AM CURRENT NON-SMOKER [facility] May 25, 2006 10:14 AM LIFETIME NON-TOBACCO USER [facility] May 25, 2006 10:14 AM NON-TOBACCO USER [facility] Mar 28, 2005 10:52 AM CURRENT NON-SMOKER [facility] Mar 28, 2005 10:52 AM LIFETIME NON-SMOKER [facility] Mar 28, 2005 10:52 AM LIFETIME NON-TOBACCO USER [facility] Mar 28, 2005 10:52 AM NON-SMOKER [facility] Mar 28, 2005 10:52 AM NON-TOBACCO USER [facility] Apr 04, 2004 09:12 AM CURRENT NON-SMOKER [facility] Apr 04, 2004 09:12 AM LIFETIME NON-SMOKER [facility] Apr 04, 2004 09:12 AM LIFETIME NON-TOBACCO USER [facility] Apr 04, 2004 09:12 AM NON-SMOKER [facility] Apr 04, 2004 09:12 AM NON-TOBACCO USER [facility] Jan 23, 2003 01:52 PM NON-SMOKER [facility] Jan 23, 2003 01:52 PM NON-TOBACCO USER [facility] Jun 08, 2001 10:44 AM CURRENT NON-SMOKER [facility] Jun 08, 2001 10:44 AM LIFETIME NON-SMOKER [facility] Jun 08, 2001 10:44 AM LIFETIME NON-TOBACCO USER [facility] Jun 08, 2001 10:44 AM NON-SMOKER [facility] Jun 08, 2001 10:44 AM NON-TOBACCO USER [facility] Dec 18, 2000 08:40 AM CURRENT NON-SMOKER [facility] Dec 18, 2000 08:40 AM LIFETIME NON-SMOKER [facility] Dec 18, 2000 08:40 AM LIFETIME NON-TOBACCO USER [facility] Dec 18, 2000 08:40 AM NON-SMOKER [facility] Dec 18, 2000 08:40 AM NON-TOBACCO USER [facility] Advance Directives: All historical and current No Data Provided for This Section Allergies and Adverse Reactions (ADRs): All historical and current Section Date Range: From patient's date of to the date document was create d. This section includes Allergies and Adverse Reactions (ADR s) on record with [facility] for the [facility]. The data comes from a [facility] treatment facilities. It does not list Allergies/ADRs that were removed or entered in error. Some allergies/ADRs may be reported in t he Immunization section. Allergen Event Date Event Type Reaction(s) Severity Source No Known Allergies [facility], V[facility] 15 Medications: VA dispensed (-15 months) and Non-VA Documented (Obtained Outside A) Section Date Range: 1) prescriptions processed by a VA pharmacy in the last 15 m [facility], and 2) all medications recorded in the VA medical record as "non-VA medic ations". Pharmacy terms refer to VA pharmacy's work on prescriptions. VA patient s are advised to take their medications as instructed by their health care team. The data comes from all [place] treatment facilities. Glossary of Pharmacy Terms:Active = A prescription that can be filled at the local VA pharmacy.Active: On Hold = An active prescription that will not be filled until pharmacy resolves the issue.Active: Susp = An active prescription that is not scheduled to be filled yet.Clinic Order = A medication received during a visit to a [place] clinic or emergency department (currently not available).Discontinued = A prescription stopped by a VA provider. It is no longer available to be filled. = A prescription which is too old to fill. This does not refer to the expiration date of the medication in the container. Non-VA = A medication that came from someplace other than a VA pharmacy. This may be a prescription from either the [facility] or other providers that was filled outside the [place]. Or, it may be an over the counter (OTC), herbal, dietary supplement or sample medication.Pending = This prescription order has been sent to the Pharmacy for review and is not ready yet. Medication Name and Strength Pharmacy Term Instructions Quantity Or dered Prescription Expires Prescription Number Last Dispense Date Ordering Provider Facility CHOLECALCIFEROL 1000UNT TAB Non-VA TAKE ONE TABLET BY MOUTH ONCE A DAY Non-VA Documented by: ANDREW WILKERSON Docume nted at: [facility] ESCITALOPRAM OXALATE 10MG TAB TAKE ONE-H CHRISTINE TABLET BY MOUTH ONCE A DAY FOR MOOD. 45 Jul 14, 2019 [id number] Jul 17, 2018 DAHLIA CHAVEZ HYDROCHLOROTHIAZIDE 25MG TAB TAKE ONE-LAWSON LF TABLET BY MOUTH EVERY MORNING FOR BLOOD PRESSURE Jul 14, 2019 [id number] Jul 15, 2018 SUKUMAR CHAVEZ IBUPROFEN 400MG TAB Non- [facility] TAKE ONE TABLET BY MOUTH TWO TIMES A DAY NEEDED Non-VA Documented by: DAHLIA CHAVEZ Docume nted at: [facility] OMEPRAZOLE 20MG CAP,EC N on-VA TAKE 1 CAPSULE BY MOUTH EVERY MORNING Non-VA Documented by: ANDREW WILKERSON nted at: [facility] Problems (Conditions): All historical and current Section Date Range: From patient's date of to the date document was create d. This section includes a list of Problems (Conditions) know n to [place] for the patient. It includes both active and inacti ve problems (conditions). The data comes from all [place] treatment facilities. Problem Status Problem Code Date of Onset Date of Resolution Comm ent(s) Provider Source Arthritis (SNOMED CT 9247511) Active [id number] DAHLIA FISHER [facility] Back Pain (ICD-9-CM 724.5) Active 724.5 DAHLIA WATKINS [facility] Benign prostatic hyperplasia Active 600. [place] [facility] Depression Active 300.4 [place] Depression * (ICD-9-CM 300.4/311.) Active 311. DAHLIA CHAVEZ [facility] Esophageal Reflux Active 530.81 DEMETRIO CARDONA [facility] H/O: hypertension (SNOMED CT 095914856) Active V12.59 DAHLIA CHAVEZ [facility] Hyperlipidemia * (ICD-9-CM 272.4) Active 272.[address] [facility] LBP * (ICD-9-CM 724.2) Active 724.2 Dana CARDONA [facility] Osteoarthos NOS Unspec Active 715.90 Dana CARDONA [facility] Other acquired deformities of knee (ICD-9-CM 736.6) Active 736.6 DAHLIA CHAVEZ [facility] Rosacea * (ICD-9-CM 695.3) Active 695.[address] [facility] Unspecified leukemia in remission (ICD-9-CM 208.91) Active 208.91 DAHLIA CHAVEZ [facility] Radiology Reports: +/- 30 days of the encounter No Data Provided for This Section Pathology Reports: +/- 30 days of the encounter No Data Provided for This Section Encounter Notes: All associated encounter notes This section contains the clinical notes associated to the Encounter. Date/Time Encounter Note(s) Provider Source Feb 15, 2019 11:42 AM ADMINISTRATIVE NOTE: LOCAL TITLE: [place]-ADMIN [facility]SA STANDARD TITLE: ADMINISTRATIVE NOTE DATE OF NOTE: FEB 15, 2019@11:42 ENTRY DATE: FEB 15, 2019@11:42:31 AUTHOR: AMBER ROWAN EXP COSIGNER: URGENCY: STATUS: COMPLETED MSA Administrative Note: Scheduling: ANSWERING MACHINE MESSAGE On Jan@11:42 an attempt was made contact [place] to schedule appointment in :[facility] 04/13/19. A message including the purpose of the call and a call back number was left on an answering machine. /[email or web address]/ AMBER ROWAN [facility] Signed: 02/15/2019 11:43 AMBER ROWAN [facility]
--- OUTSIDE RECORDS SUMMARY | 2019-09-17 13:19 | XMS REPORT | Continuity of Care Document ---
Author Author [facility] Organization [facility] Address Unknown Phone Unavailable Care Team Providers Care Airport Engineer Name Role Phone [facility] Unavailable Unavailable Problems Combined list of all problems from all Department of [facility] and [facility]. It does not include entries that were removed or entered in error. Problem Status Onset Date Problem Type Date of Resolution Comments Source Arthritis (SNOMED CT 9288708) Active Condition [facility] Back Pain (ICD-9-CM 724.5) Active Condition [facility] Benign prostatic hyperplasia Active Condition [place] [place] [facility] Depression Active Condition [place] [place] [facility] Depression * (ICD-9-CM 300.4/311.) Active Condition [facility] Esophageal Reflux Active Condition [facility] H/O: hypertension (SNOMED CT 374548472) Active Condition [facility] Hyperlipidemia * (ICD-9-CM 272.4) Active Condition [facility] LBP * (ICD-9-CM 724.2) Active Condition [facility] Osteoarthos NOS Unspec Active Condition [facility] Other acquired deformities of knee (ICD-9-CM 736.6) Active Condition [facility] Rosacea * (ICD-9-CM 695.3) Active Condition 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 ICD-10-CM Z71.89 Other specified genetic counsellor ing with Provider Comments: Other specified counseling active Diagnosis [facility] ICD-10-CM Z23. Encounter for immunizatio n with Provider Comments: Encounter for Immunization active Diagnosis [facility] Medications Combined list of all outpatient medications recorded within the last 15 months b y all Department of Defense and Veterans Affairs facilities, and also all patien t-reported medications. Medication Details Route Status Patient Instructions Prescription Expires Prescript ion Number Last Dispense Date Ordering Pr ovider Order Date Source CHOLECALCIFEROL 1000UNT TAB TA KE ONE TABLET BY MOUTH ONCE A DAY ACTIVE OSTERBUHR,TAMATHA S 12/06/2018 [facility] ESCITALOPRAM OXALATE 10MG TAB TAKE ONE-HALF TABLET BY MOUTH ONCE A DAY FOR MOOD. 07/14/2019 [id number] 07/17/2018 DAHLIA CHAVEZ 07/17/2018 [facility] HYDROCHLOROTHIAZIDE 25MG TAB T DORA ONE-HALF TABLET BY MOUTH EVERY MORNING FOR BLOOD PRESSURE [id number] 07/15/2018 DAHLIA CHAVEZ 07/15/2018 [facility] IBUPROFEN 400MG TAB TAKE ONE T ABLET BY MOUTH TWO TIMES A DAY NEEDED ACTIVE SCOTTDAHLIA De Los Santos 11/28/2011 [facility] OMEPRAZOLE 20MG CAP,EC TAKE 1 CAPSULE BY MOUTH EVERY MORNING ACTIVE OSTERBUHR,TAMATHA S 12/06/2018 [facility] Allergies, Adverse Reactions, Alerts No Known Medication Allergies Immunizations Combined list of: 1) all immunizations on record at all [facility] ies, and 2) all available immunizations on record at Department of Defense (Do D) facilities. Some immunizations on record at [facility] may not be included. Immunization Series Date Given Administered By Site Reaction Lot Number CVX Code Drug Veneer Gluer Status Comments Source INFLUENZA, UNSPECIFIED FORMULATION 12/21/[address] [facility] PNEUMOCOCCAL POLYSACCHARIDE [id number] 06/16/2018 33 completed [facility] INFLUENZA, UNSPECIFIED FORMULATION 12/01/[address] [facility] INFLUENZA, UNSPECIFIED FORMULATION 12/30/[address] [facility] INFLUENZA, UNSPECIFIED FORMULATION 12/24/2015 88 completed [facility] 15 PNEUMOCOCCAL CONJUGATE PCV 13 02/07/2015 133 completed [facility] INFLUENZA, UNSPECIFIED FORMULATION 01/05/2015 88 completed [facility], [facility] 15 INFLUENZA, UNSPECIFIED FORMULATION 12/19/2013 88 completed [facility] 15 TD(ADULT) UNSPECIFIED FORMULATION 08/04/2010 139 completed [facility], [facility] 15 INFLUENZA, UNSPECIFIED FORMULATION 02/08/2010 88 completed [facility] NOVEL [id number], ALL FORMULATIONS 02/08/2010 NAE AYALA 128 completed [facility] INFLUENZA, UNSPECIFIED FORMULATION 01/05/2009 88 completed [facility] INFLUENZA, UNSPECIFIED FORMULATION 01/27/2008 88 completed SONYA STEPHEN [facility] INFLUENZA, UNSPECIFIED FORMULATION 12/28/2005 88 [facility] INFLUENZA, UNSPECIFIED FORMULATION 03/10/2005 88 completed [facility] INFLUENZA, UNSPECIFIED FORMULATION 04/04/2004 88 completed [facility] INFLUENZA, UNSPECIFIED FORMULATION 01/04/2003 88 completed [facility] INFLUENZA, UNSPECIFIED FORMULATION 02/03/2002 88 completed [facility] INFLUENZA, WHOLE 01/25/1999 [facility] 16 completed [place] [place] [facility] TD(ADULT) UNSPECIFIED FORMULATION 05/17/1998 [facility] 139 completed [place] [place] [facility] INFLUENZA (HISTORICAL) 12/18/1997 [place] MENA 88 completed [place] [place] [facility] Results Combined list of recent chemistry, hematology and other laboratory results going back no more than 15 months from the Department of Defense and Veterans Affairs facilities. Order Name Results Value Reference Range Date Interpretation Specimen Comments Source CBC & DIFF LEUKOCYTES [#/VOLUM E] IN BLOOD BY AUTOMATED COUNT 4.2 K/cmm 3.60 - 11.20 04/13/2019 Specimen Type: BLOOD No comment entered. [facility] CBC & DIFF ERYTHROCYTES [#/VOL UME] IN BLOOD BY AUTOMATED COUNT 4.98 M/ul 4.1 - 5.7 04/13/2019 Specimen Type: BLOOD [facility]FF HEMOGLOBIN [MASS/VOLUME] IN BLOOD 15.3 g/dl 13.1 - 16.8 04/13/2019 Specimen T ype: BLOOD No comment entered. [facility] CBC & DIFF HEMATOCRIT [VOLUME FRACTION] OF BLOOD BY AUTOMATED COUNT 44.2 % 38.2 - 48.4 04/13/2019 Specimen Type: BLOOD No comment entered. [facility] CBC & DIFF MCV [ENTITIC VOLUME] BY A UTOMATED COUNT 88.8 fl 80.1 - 98.5 04/13/2019 Specimen Type: BLOOD No comment entered. [facility] CBC & DIFF MCH [ENTITIC MASS] BY AUT OMATED COUNT 30.7 pg 27.0 - 34.0 04/13/2019 Specimen T ype: BLOOD No comment entered. [facility] CBC & DIFF MCHC [MASS/VOLUME] BY AUT OMATED COUNT 34.6 g/dl 33.0 - 36.0 04/13/2019 Specimen Type: BLOOD No comment entered. [facility] CBC & DIFF PLATELETS [#/VOLUME ] IN BLOOD BY AUTOMATED COUNT 91 K/cmm 150 - 400 04/13/2019 L Specimen Type: BLOOD No comment entered. [facility] CBC & DIFF PLATELET MEAN VOLUM E [ENTITIC VOLUME] IN BLOOD BY AUTOMATED COUNT 11.0 fl 7.5 - 11.2 04/13/2019 Specimen Type: BLOOD No comment entered. [facility] CBC & DIFF ERYTHROCYTE DISTRIB UTION WIDTH [RATIO] BY AUTOMATED COUNT 16.8 % 11.8 - 15.1 04/13/2019 H Specimen Type: BLOOD No comment entered. [facility] CBC & DIFF LYMPHOCYTES/100 TONY KOCYTES IN BLOOD BY AUTOMATED COUNT 17.1 % 04/13/2019 Specimen Type: BLOOD No comment entered. [facility] CBC & DIFF NEUTROPHILS/100 TONY KOCYTES IN BLOOD BY AUTOMATED COUNT 73.5 % 04/13/2019 Specimen Type: BLOOD No comment entered. [facility] CBC & DIFF MONOCYTES/100 LEUKO CYTES IN BLOOD BY AUTOMATED COUNT 7.6 % 04/13/2019 Specimen Type: BLOOD No comment entered. [facility] CBC & DIFF MONOCYTES [#/VOLUME ] IN BLOOD BY AUTOMATED COUNT 0.3 K/cmm 0.19 - 0.80 04/13/2019 Specimen Type: BLOOD No comment entered. [facility] CBC & DIFF NEUTROPHILS [#/VOLU ME] IN BLOOD BY AUTOMATED COUNT 3.1 K/cmm 2.10 - 8.00 04/13/2019 Specimen Type: BLOOD No comment entered. [facility] CBC & DIFF EOSINOPHILS [#/VOLU ME] IN BLOOD BY AUTOMATED COUNT 0.1 K/cmm 0.00 - 0.60 04/13/2019 Specimen Type: BLOOD No comment entered. [facility] CBC & DIFF BASOPHILS [#/VOLUME ] IN BLOOD BY AUTOMATED COUNT 0.0 K/cmm 0.00 - 0.20 04/13/2019 Specimen Type: BLOOD No comment entered. [facility] CBC & DIFF EOSINOPHILS/100 TONY KOCYTES IN BLOOD BY AUTOMATED COUNT 1.4 % 04/13/2019 Specimen Type: BLOOD No comment entered. [facility] CBC & DIFF BASOPHILS/100 LEUKO CYTES IN BLOOD BY AUTOMATED COUNT 0.2 % 04/13/2019 Specimen Type: BLOOD No comment entered. [facility] CBC & DIFF LYMPHOCYTES [#/VOLU ME] IN BLOOD BY AUTOMATED COUNT 0.7 K/cmm 0.77 - 4.50 04/13/2019 L Specimen Type: BLOOD No comment entered. [facility] CBC & DIFF IMMATURE GRANULOCYT ES [#/VOLUME] IN BLOOD BY AUTOMATED COUNT 0.01 K/cmm 0.00 - 0.05 04/13/2019 Specimen Type: BLOOD No comment entered. [facility] CBC & DIFF IMMATURE GRANULOCYT ES/100 LEUKOCYTES IN BLOOD BY AUTOMATED COUNT 0.2 % 04/13/2019 Specimen Type: BLOOD No comment entered. [facility] BASIC METABOLIC PANEL CREATINI NE [MASS/VOLUME] IN SERUM OR PLASMA 0.93 mg/dL 0.7 - 1.3 04/13/2019 Specimen Type: PLASMA Comment: For eGFR: eGFR results >60 are imprecise. Many variables affect the calculated result. Interpretation of eGFR results >60 must be monitored over time. [facility] BASIC METABOLIC PANEL UREA NIT ROGEN [MASS/VOLUME] IN SERUM OR PLASMA 11 mg/dL 9 - 25 04/13/2019 Specimen Type: PLASMA Comment: For eGFR: eGFR results >60 are imprecise. Many variables affect the calculated result. Interpretation of eGFR results >60 must be monitored over time. [facility] BASIC METABOLIC PANEL GLUCOSE [MASS/VOLUME] IN SERUM OR PLASMA 80 mg/dL 72 - 99 04/13/2019 Specimen Type: PLASMA Comment: For eGFR: eGFR results >60 are imprecise. Many variables affect the calculated result. Interpretation of eGFR results >60 must be monitored over time. [facility] BASIC METABOLIC PANEL SODIUM [ MOLES/VOLUME] IN SERUM OR PLASMA 137 mEq/L 136 - 145 04/13/2019 Specimen Type: PLASMA Comment: For eGFR: eGFR results >60 are imprecise. Many variables affect the calculated result. Interpretation of eGFR results >60 must be monitored over time. [facility] BASIC METABOLIC PANEL POTASSIU M [MOLES/VOLUME] IN SERUM OR PLASMA 4.2 mEq/L 3.5 - 5.0 04/13/2019 Specimen Type: PLASMA Comment: For eGFR: eGFR results >60 are imprecise. Many variables affect the calculated result. Interpretation of eGFR results >60 must be monitored over time. [facility] BASIC METABOLIC PANEL CALCIUM [MASS/VOLUME] IN SERUM OR PLASMA 8.8 mg/dL 8.4 - 10.4 04/13/2019 Specimen Type: PLASMA Comment: For eGFR: eGFR results >60 are imprecise. Many variables affect the calculated result. Interpretation of eGFR results >60 must be monitored over time. [facility] BASIC METABOLIC PANEL ANION GAP IN S VINCENT OR PLASMA 7.4 04/13/2019 L Specimen Type: PLASMA Comment: For eGFR: eGFR results >60 are imprecise. Many variables affect the calculated result. Interpretation of eGFR results >60 must be monitored over time. [facility] BASIC METABOLIC PANEL CHLORIDE [MOLES/VOLUME] IN SERUM OR PLASMA 103 mEq/L 98 - 107 04/13/2019 Specimen Type: PLASMA Comment: For eGFR: eGFR results >60 are imprecise. Many variables affect the calculated result. Interpretation of eGFR results >60 must be monitored over time. [facility] BASIC METABOLIC PANEL "CARBON DIOXIDE, TOTAL [MOLES/VOLUME] IN SERUM OR PLASMA" 26.6 mEq/L 22 - 31 04/13/2019 Specimen Type: PLASMA Comment: For eGFR: eGFR results >60 are imprecise. Many variables affect the calculated result. Interpretation of eGFR results >60 must be monitored over time. [facility] BASIC METABOLIC PANEL GLOMERUL AR FILTRATION RATE/1.73 SQ M.PREDICTED [VOLUME RATE/AREA] IN SERUM OR PLASMA BY CREATININE-BASED FORMULA (MDRD) >60 2019 Specimen T ype: PLASMA Comment: For eGFR: eGFR results >60 are imprecise. Many variables affect the calculated result. Interpretation of eGFR results >60 must be monitored over time. [facility] ERYTHROCYTE SEDIMENTATION RATE ERYTHROCYTE SEDIMENTATION RATE BY WESTERGREN METHOD 1 mm/hr 0 - 20 04/13/2019 Specimen Type: BLOOD No comment entered. [facility] URINALYSIS COLOR OF URINE Yello w 04/13/2019 Specimen Type: URINE No comment entered. [facility] URINALYSIS SPECIFIC GRAVITY OF URINE 1.013 04/13/2019 Specimen Type: URINE No comment entered. [facility] URINALYSIS UROBILINOGEN [MASS/VOLUME ] IN URINE Negativemg/dL 0.1 - 1.0 04/13/2019 Specimen Type: URINE No comment entered. [facility] URINALYSIS BILIRUBIN.TOTAL [CT ESENCE] IN URINE BY TEST STRIP Negative 0 04/13/2019 Specimen Type: URINE No comment entered. [facility] URINALYSIS KETONES [MASS/VOLUME] IN URINE BY TEST STRIP Negativemg/dl 04/13/2019 Specimen Type: URINE No comment entered. [facility] URINALYSIS GLUCOSE [MASS/VOLUME] IN URINE BY TEST STRIP Negativemg/dL 04/13/2019 Specimen Type: URINE No comment entered. [facility] URINALYSIS PROTEIN [MASS/VOLUME] IN URINE BY TEST STRIP Negativemg/dl - Trace" 04/13/2019 Specimen Type: URINE No comment entered. [facility] URINALYSIS PH OF URINE BY TEST STRIP 6.0 04/13/2019 Specimen Type: URINE No comment entered. [facility] URINALYSIS APPEARANCE OF URINE Clear 04/13/2019 Specimen Type: URINE No comment entered. [facility] URINALYSIS HEMOGLOBIN [PRESENCE] IN URINE Negative 04/13/2019 Specimen Type: URINE No comment entered. [facility] URINALYSIS NITRITE [PRESENCE] IN URI NE BY TEST STRIP Negative 04/13/2019 Specimen T ype: URINE No comment entered. [facility] URINALYSIS LEUKOCYTE ESTERASE [PRESENCE] IN URINE BY TEST STRIP Negative 0 04/13/2019 Specimen Type: URINE No comment entered. [facility] CBC & DIFF LEUKOCYTES [#/VOLUM E] IN BLOOD BY AUTOMATED COUNT 3.5 K/cmm 3.60 - 11.20 02/01/2019 L Specimen Type: BLOOD No comment entered. [facility] CBC & DIFF ERYTHROCYTES [#/VOL UME] IN BLOOD BY AUTOMATED COUNT 4.41 M/ul 4.1 - 5.7 02/01/2019 Specimen Type: BLOOD No comment entered. [facility] CBC & DIFF HEMOGLOBIN [MASS/VOLUME] IN BLOOD 14.1 g/dl 13.1 - 16.8 02/01/2019 Specimen T ype: BLOOD No comment entered. [facility] CBC & DIFF HEMATOCRIT [VOLUME FRACTION] OF BLOOD BY AUTOMATED COUNT 39.4 % 38.2 - 48.4 02/01/2019 Specimen Type: BLOOD No comment entered. [facility] CBC & DIFF MCV [ENTITIC VOLUME] BY A UTOMATED COUNT 89.3 fl 80.1 - 98.5 02/01/2019 Specimen Type: BLOOD No comment entered. [facility] CBC & DIFF MCH [ENTITIC MASS] BY AUT OMATED COUNT 32.0 pg 27.0 - 34.0 02/01/2019 Specimen T ype: BLOOD No comment entered. [facility] CBC & DIFF MCHC [MASS/VOLUME] BY AUT OMATED COUNT 35.8 g/dl 33.0 - 36.0 02/01/2019 Specimen Type: BLOOD No comment entered. [facility] CBC & DIFF PLATELETS [#/VOLUME ] IN BLOOD BY AUTOMATED COUNT 113 K/cmm 150 - 400 02/01/2019 L Specimen Type: BLOOD No comment entered. [facility] CBC & DIFF PLATELET MEAN VOLUM E [ENTITIC VOLUME] IN BLOOD BY AUTOMATED COUNT 9.4 fl 7.5 - 11.2 02/01/2019 Specimen Type: BLOOD No comment entered. [facility] CBC & DIFF ERYTHROCYTE DISTRIB UTION WIDTH [RATIO] BY AUTOMATED COUNT 14.4 % 11.8 - 15.1 02/01/2019 Specimen Type: BLOOD No comment entered. [facility] CBC & DIFF LYMPHOCYTES/100 TONY KOCYTES IN BLOOD BY AUTOMATED COUNT 18.2 % 02/01/2019 Specimen Type: BLOOD No comment entered. [facility] CBC & DIFF NEUTROPHILS/100 TONY KOCYTES IN BLOOD BY AUTOMATED COUNT 70.1 % 02/01/2019 Specimen Type: BLOOD No comment entered. [facility] CBC & DIFF MONOCYTES/100 LEUKO CYTES IN BLOOD BY AUTOMATED COUNT 8.8 % 02/01/2019 Specimen Type: BLOOD No comment entered. [facility] CBC & DIFF MONOCYTES [#/VOLUME ] IN BLOOD BY AUTOMATED COUNT 0.3 K/cmm 0.19 - 0.80 02/01/2019 Specimen Type: BLOOD No comment entered. [facility] CBC & DIFF NEUTROPHILS [#/VOLU ME] IN BLOOD BY AUTOMATED COUNT 2.5 K/cmm 2.10 - 8.00 02/01/2019 Specimen Type: BLOOD No comment entered. [facility] CBC & DIFF EOSINOPHILS [#/VOLU ME] IN BLOOD BY AUTOMATED COUNT 0.1 K/cmm 0.00 - 0.60 02/01/2019 Specimen Type: BLOOD No comment entered. [facility] CBC & DIFF BASOPHILS [#/VOLUME ] IN BLOOD BY AUTOMATED COUNT 0.0 K/cmm 0.00 - 0.20 02/01/2019 Specimen Type: BLOOD No comment entered. [facility] CBC & DIFF EOSINOPHILS/100 TONY KOCYTES IN BLOOD BY AUTOMATED COUNT 2.0 % 02/01/2019 Specimen Type: BLOOD No comment entered. [facility] CBC & DIFF BASOPHILS/100 LEUKO CYTES IN BLOOD BY AUTOMATED COUNT 0.6 % 02/01/2019 Specimen Type: BLOOD No comment entered. [facility] CBC & DIFF LYMPHOCYTES [#/VOLU ME] IN BLOOD BY AUTOMATED COUNT 0.6 K/cmm 0.77 - 4.50 02/01/2019 L Specimen Type: BLOOD No comment entered. [facility] CBC & DIFF IMMATURE GRANULOCYT ES [#/VOLUME] IN BLOOD BY AUTOMATED COUNT 0.01 K/cmm 0.00 - 0.05 02/01/2019 Specimen Type: BLOOD No comment entered. [facility] CBC & DIFF IMMATURE GRANULOCYT ES/100 LEUKOCYTES IN BLOOD BY AUTOMATED COUNT 0.3 % 02/01/2019 Specimen Type: BLOOD No comment entered. [facility] COMPREHENSIVE METABOLIC PANEL CREATININE [MASS/VOLUME] IN SERUM OR PLASMA 0.85 mg/dL 0.7 - 1.3 02/01/2019 Specimen Type: PLASMA Comment: For eGFR: eGFR results >60 are imprecise. Many variables affect the calculated result. Interpretation of eGFR results >60 must be monitored over time. [facility] COMPREHENSIVE METABOLIC PANEL UREA NITROGEN [MASS/VOLUME] IN SERUM OR PLASMA 10 mg/dL 9 - 25 02/01/2019 Specimen Type: PLASMA Comment: For eGFR: eGFR results >60 are imprecise. Many variables affect the calculated result. Interpretation of eGFR results >60 must be monitored over time. [facility] COMPREHENSIVE METABOLIC PANEL GLUCOSE [MASS/VOLUME] IN SERUM OR PLASMA 101 mg/dL 72 - 99 02/01/2019 H Specimen Type: PLASMA Comment: For eGFR: eGFR results >60 are imprecise. Many variables affect the calculated result. Interpretation of eGFR results >60 must be monitored over time. [facility] COMPREHENSIVE METABOLIC PANEL SODIUM [MOLES/VOLUME] IN SERUM OR PLASMA 133 mEq/L 136 - 145 02/01/2019 L Specimen Type: PLASMA Comment: For eGFR: eGFR results >60 are imprecise. Many variables affect the calculated result. Interpretation of eGFR results >60 must be monitored over time. [facility] COMPREHENSIVE METABOLIC PANEL POTASSIUM [MOLES/VOLUME] IN SERUM OR PLASMA 3.8 mEq/L 3.5 - 5.0 02/01/2019 Specimen Type: PLASMA Comment: For eGFR: eGFR results >60 are imprecise. Many variables affect the calculated result. Interpretation of eGFR results >60 must be monitored over time. [facility] COMPREHENSIVE METABOLIC PANEL CALCIUM [MASS/VOLUME] IN SERUM OR PLASMA 8.8 mg/dL 8.4 - 10.4 02/01/2019 Specimen Type: PLASMA Comment: For eGFR: eGFR results >60 are imprecise. Many variables affect the calculated result. Interpretation of eGFR results >60 must be monitored over time. [facility] COMPREHENSIVE METABOLIC PANEL PROTEIN [MASS/VOLUME] IN SERUM OR PLASMA 6.7 g/dL 6.0 - 8.6 02/01/2019 Specimen Type: PLASMA Comment: For eGFR: eGFR results >60 are imprecise. Many variables affect the calculated result. Interpretation of eGFR results >60 must be monitored over time. [facility] COMPREHENSIVE METABOLIC PANEL ALBUMIN [MASS/VOLUME] IN SERUM OR PLASMA 4.5 g/dl 3.4 - 5.0 02/01/2019 Specimen Type: PLASMA Comment: For eGFR: eGFR results >60 are imprecise. Many variables affect the calculated result. Interpretation of eGFR results >60 must be monitored over time. [facility] COMPREHENSIVE METABOLIC PANEL BILIRUBIN.TOTAL [MASS/VOLUME] IN SERUM OR PLASMA 1.7 mg/dL 0.2 - 1.2 02/01/2019 H Specimen Type: PLASMA Comment: For eGFR: eGFR results >60 are imprecise. Many variables affect the calculated result. Interpretation of eGFR results >60 must be monitored over time. [facility] COMPREHENSIVE METABOLIC PANEL ASPARTATE AMINOTRANSFERASE [ENZYMATIC ACTIVITY/VOLUME] IN SERUM OR PLASMA 22 U/L 5 - 34 02/01/2019 Specimen Type: PLASMA Comment: For eGFR: eGFR results >60 are imprecise. Many variables affect the calculated result. Interpretation of eGFR results >60 must be monitored over time. [facility] COMPREHENSIVE METABOLIC PANEL ALANINE AMINOTRANSFERASE [ENZYMATIC ACTIVITY/VOLUME] IN SERUM OR PLASMA 17 U/L 8 - 40 02/01/2019 Specimen Type: PLASMA Comment: For eGFR: eGFR results >60 are imprecise. Many variables affect the calculated result. Interpretation of eGFR results >60 must be monitored over time. [facility] COMPREHENSIVE METABOLIC PANEL ANION GAP IN SERUM OR PLASMA 6.1 2018 L Specimen Type: PLASMA Comment: For eGFR: eGFR results >60 are imprecise. Many variables affect the calculated result. Interpretation of eGFR results >60 must be monitored over time. [facility] COMPREHENSIVE METABOLIC PANEL CHLORIDE [MOLES/VOLUME] IN SERUM OR PLASMA 96 mEq/L 98 - 107 02/01/2019 L Specimen Type: PLASMA Comment: For eGFR: eGFR results >60 are imprecise. Many variables affect the calculated result. Interpretation of eGFR results >60 must be monitored over time. [facility] COMPREHENSIVE METABOLIC PANEL "CARBON DIOXIDE, TOTAL [MOLES/VOLUME] IN SERUM OR PLASMA" 30.9 mEq/L 22 - 31 02/01/2019 Specimen Type: PLASMA Comment: For eGFR: eGFR results >60 are imprecise. Many variables affect the calculated result. Interpretation of eGFR results >60 must be monitored over time. [facility] COMPREHENSIVE METABOLIC PANEL ALKALINE PHOSPHATASE [ENZYMATIC ACTIVITY/VOLUME] IN SERUM OR PLASMA 65 U/L 40 - 150 02/01/2019 Specimen Type: PLASMA Comment: For eGFR: eGFR results >60 are imprecise. Many variables affect the calculated result. Interpretation of eGFR results >60 must be monitored over time. [facility] COMPREHENSIVE METABOLIC PANEL GLOMERULAR FILTRATION RATE/1.73 SQ M.PREDICTED [VOLUME RATE/AREA] IN SERUM OR PLASMA BY CREATININE- BASED FORMULA (MDRD) >60 02/01/2019 Specimen Type: PLASMA Comment: For eGFR: eGFR results >60 are imprecise. Many variables affect the calculated result. Interpretation of eGFR results >60 must be monitored over time. [facility] LIPID PROFILE(HDL,TRIG,CHOL,LDL) CHOLESTEROL [MASS/VOLUME] IN SERUM OR PLASMA 176 mg/dL 0 - 200 02/01/2019 Specimen Type: PLASMA Comment: For eGFR: eGFR results >60 are imprecise. Many variables affect the calculated result. Interpretation of eGFR results >60 must be monitored over time. [facility] LIPID PROFILE(HDL,TRIG,CHOL,LDL) TRIGLYCERIDE [MASS/VOLUME] IN SERUM OR PLASMA 47 mg/dL 0 - 150 02/01/2019 Specimen Type: PLASMA Comment: For eGFR: eGFR results >60 are imprecise. Many variables affect the calculated result. Interpretation of eGFR results >60 must be monitored over time. [facility] LIPID PROFILE(HDL,TRIG,CHOL,LDL) CHOLESTEROL IN HDL [MASS/VOLUME] IN SERUM OR PLASMA 94 mg/dL 02/01/2019 Specimen Type: PLASMA Comment: For eGFR: eGFR results >60 are imprecise. Many variables affect the calculated result. Interpretation of eGFR results >60 must be monitored over time. [facility] LIPID PROFILE(HDL,TRIG,CHOL,LDL) CHOLESTEROL IN LDL [MASS/VOLUME] IN SERUM OR PLASMA BY CALCULATION 73 mg/dL 0 - 99.9 02/01/2019 Specimen Type: PLASMA Comment: For eGFR: eGFR results >60 are imprecise. Many variables affect the calculated result. Interpretation of eGFR results >60 must be monitored over time. [facility] TSH THYROTROPIN [UNITS/VOLUME] IN SE RUM OR PLASMA 1.24 uIU/mL 0.47 - 5.00 02/01/2019 Specimen Type: SERUM No comment entered. [facility] PROSTATIC SPECIFIC ANTIGEN(TOTAL) PROSTATE SPECIFIC AG [MASS/VOLUME] IN SERUM OR PLASMA 0.7 ng/mL 0 - 4 02/01/2019 Specimen Type: SERUM No comment entered. [facility] VITAMIN D (25-OH) CALCIDIOL [M ASS/VOLUME] IN SERUM OR PLASMA 34.6 ng/mL 30.0 - 96.0 02/01/2019 Specimen Type: SERUM No comment entered. [facility] Vital Signs Combined list of inpatient and outpatient Vital Signs from all [facility] and/or [facility] medical facilities within the last 15 months. The included entries comply with the patient's data sharing authorizations. Vital Sign Value Date Comments Source SYSTOLIC BLOOD PRESSURE 132mm[ Hg] 02/01/2019 09:17:35 [facility] DIASTOLIC BLOOD PRESSURE 80mm[ Hg] 02/01/2019 09:17:35 [facility] PULSE OXIMETRY 96% 02/01/2019 09:17:35 [facility] WEIGHT 182.4[lb_av] 02/01/2019 09:17:35 [facility] [facility] BMI 25kg/m2 02/01/2019 09:17:35 [facility] TEMPERATURE 97.8[degF] 02/01/2019 09:17:35 [facility] PULSE 70/min 02/01/2019 09:17:35 [facility] RESPIRATION 16/min 02/01/2019 09:17:35 [facility] Encounters Combined list of encounters at [facility] of Defense and/or [facility] ([facility] ) for the last 15 months. Not all VA inpatient encounters are included. The incl uded entries comply with the patient's data sharing authorizations. Location Location Details Encounter Type Encounter Number Reason For Visit Attending Provider ADM Date DC Date Status Disposition Source Outpatient Encounter [id number] _MAPID:[id number] 06/11/2018 [facility] Encounter [id number] ICD-10 -CM Z23. Encounter for immunization with Provider Comments: Encounter for Immunization FELECIA ELLIS 06/16/2018 [facility] Outpatient Encounter [id number] _MAPID:e [id number] 07/06/2018 [facility] 15 Outpatient Encounter [id number] _MAPID:[id number] [facility] [id number] _MAPID:[id number] 12/06/2018 [facility] Outpatient Encounter [id number] _MAPID:[id number] 12/15/2018 [facility] Outpatient Encounter [id number] _MAPID:endReason9 12/21/[address] [facility] Outpatient Encounter [id number] _MAPID:e ndReason8 02/01/2019 [facility] 15 OFFICE/OUT PATIENT VISIT EST [id number] _MAPID:endReason7 DAHLIA [facility]AVEZ [facility] [id number] _MAPID :endReason6 [facility] [id number] _MAPID :endReason5 [facility] [id number] _MAPID:e ndReason4 02/25/2019 [facility] Out[facility] Encounter [id number] _MAPID :endReason3 04/14/2019 [facility] Outpatient Encounter [id number] _MAPID :endReason2 04/14/2019 [facility] Outpatient Encounter [id number] ICD-10 -CM Z71.89 Other specified counseling with Provider Comments: Other specified counseling ANDREW WILKERSON 04/19/2019 [facility] Procedures No Data Provided for This Section Social History Combined list of available smoking, tobacco, and other social history on record at [facility] of Defense and/or Veterans Affairs facilities. The included entrie s comply with the patient's data sharing authorizations. Social History Type Response Date Comment Source Tobacco smoking status NCIS CURRENT NON-SMOKER 02/10/2018 [facility] History of tobacco use LIFET NALLELY NON-TOBACCO USER 02/10/2018 [facility] History of tobacco use NON-T OBACCO USER 02/05/2017 [facility] History of tobacco use NON-T OBACCO USER 01/14/2016 [facility] History of tobacco use NON-T OBACCO USER 02/07/2015 [facility] History of tobacco use NON-T OBACCO USER 12/21/2013 [facility] History of tobacco use NON-T OBACCO USER 11/30/2012 [facility] History of tobacco use NON-T OBACCO USER 11/28/2011 [facility] History of tobacco use CURRE NT NON-SMOKER 07/24/2010 [facility] History of tobacco use LIFET NALLELY NON-TOBACCO USER 07/24/2010 [facility] History of tobacco use CURRE NT NON-SMOKER 07/24/2009 [facility] History of tobacco use LIFET NALLELY NON-TOBACCO USER 07/24/2009 [facility] History of tobacco use NON-T OBACCO USER 08/07/2008 [facility] History of tobacco use CURRE NT NON-SMOKER 08/07/2008 [facility] History of tobacco use LIFET NALLELY NON-TOBACCO USER 08/07/2008 [facility] History of tobacco use NON-T OBACCO USER 08/10/2007 [facility] History of tobacco use CURRE NT NON-SMOKER 08/10/2007 [facility] History of tobacco use LIFET NALLELY NON-TOBACCO USER 08/10/2007 [facility] History of tobacco use NON-T OBACCO USER 05/25/2006 [facility] History of tobacco use CURRE NT NON-SMOKER 05/25/2006 [facility] History of tobacco use LIFET NALLELY NON-TOBACCO USER 05/25/2006 [facility] History of tobacco use NON-T OBACCO USER 03/28/2005 [facility] History of tobacco use CURRE NT NON-SMOKER 03/28/2005 [facility] History of tobacco use LIFET NALLELY NON-SMOKER 03/28/2005 [facility] History of tobacco use LIFET NALLELY NON-TOBACCO USER 03/28/2005 [facility] History of tobacco use NON-S MOKER 03/28/2005 [facility] History of tobacco use NON-T OBACCO USER 04/04/2004 [facility] History of tobacco use CURRE NT NON-SMOKER 04/04/2004 [facility] History of tobacco use LIFET NALLELY NON-SMOKER 04/04/2004 [facility] History of tobacco use LIFET NALLELY NON-TOBACCO USER 04/04/2004 [facility] History of tobacco use NON-S MOKER 04/04/2004 [facility] History of tobacco use NON-T OBACCO USER 01/23/2003 [facility] History of tobacco use NON-S MOKER 01/23/2003 [facility] History of tobacco use NON-T OBACCO USER 06/08/2001 [facility] History of tobacco use CURRE NT NON-SMOKER 06/08/2001 [facility] History of tobacco use LIFET NALLELY NON-SMOKER 06/08/2001 [facility] History of tobacco use LIFET NALLELY NON-TOBACCO USER 06/08/2001 [facility] History of tobacco use NON-S MOKER 06/08/2001 [facility] History of tobacco use NON-T OBACCO USER 12/18/2000 [facility] History of tobacco use CURRE NT NON-SMOKER 12/18/2000 [facility] History of tobacco use LIFET NALLELY NON-SMOKER 12/18/2000 [facility] History of tobacco use LIFET NALLELY NON-TOBACCO USER 12/18/2000 [facility] History of tobacco use NON-S MOKER 12/18/2000 [facility] Assessment and Plan No Data Provided for This Section Plan of Care Date/Time Care Activity Care Activity Detail Facility 09/29/2019 AMBULATORY - MEDICI NE [facility] - [facility]ICINE [facility] Family History No Data Provided for This Section Advance Directives No Data Provided for This Section Functional Status No Data Provided for This Section
--- OUTSIDE RECORDS SUMMARY | 2019-09-17 13:19 | XMS REPORT | Encounter Summary ---
Author Author [facility] CASIE martinez [facility] Address [address] [place] [address] Phone Unavailable Care Team Providers Care Cell Manager Name Role Phone DAHLIA CHAVEZ PCP Unavailable [...] PART A Apr 23, 2001 PART A [id number] [phone] DARCI POZO PATIENT MEDICARE (WNR) MEDICARE (M) PART B Apr 23, 2001 PART B [id number] [phone] DARCI POZO PATIENT [employer] MEDIGAP PLAN C MEDICARE SUPPLEMENT July 21, 2002 PLAN C [id number] [phone] CASIE POZO PATIENT [employer] LOCAL 23 PREFERRED PROVIDER ORGANIZATIO N (PPO) [employer] Mar 23, 1995 LOCAL 23 [id number] [phone] CARLEY POZOE PATIENT Selected Encounter This section includes the [place] for the [place]counter. Date/Time Encounter Type Encounter Description Reason Provider Source Apr 19, 2019 01:35 PM Outpatient Encounter TELEPHONE PRIMARY CAR E ICD-10-CM Z71.89 Other specified counseling with Provider Comments: Other specified counseling ANDREW WILKERSON [facility] Encounter Template Text not used by VA Assessments - Encounter Diagnoses This section includes the primary and secondary diag noses documented for the Encounter. Date/Time Primary/Secondary Diagnosis Diagnosis Name Provider Source Apr 19, 2019 01:35 PM PRIMARY Other specified counseling ANDREW TURNER [facility] Plan of Treatment: Future Appointments (+ 6 months) and Future Tests (+/- 45 day s) The Plan of Treatment section includes future care activities for the patient fr om all [place] treatment facilities. This section includes future appointments and fu ture orders which are active, pending or scheduled. Future Appointments This section includes appointments that were scheduled t o occur 6 months from the date of the Encounter, up to a maximum of 20 appointme nts. The data comes from all [place] treatment facilities. Appointment Date/Time Appointment Type Appointment Facili ty Name Sep 29, 2019 10:00 AM [facility] - [facility]ICINE [facility] Surgical Procedures: All associated to the encounter No Data Provided for This Section Lab Results: +/- 30 days of the encounter This section includes the Chemistry and Hematology Lab R esults on record with [place] for the patient. Radiology Reports and Pathology Report s are provided separately, in subsequent sections. Lab Results This section contains the Chemistry/Hematology Results [place] t were resulted 30 days before or 30 days after the date of the Encounter. Date/Time Source Result Type Result - Unit Interpretation Reference Range Comment Apr 13, 2019 09:25 AM [facility] CBC & DIFF Specimen Type: BLOOD No comment entered. WBC 4.2 K/cmm 3.60-11.20 RBC 4.98 M/ul 4.1-5.7 HGB 15.3 g/dl 13.1-16.8 HCT 44.2 % 38.2-48.4 MCV 88.8 fl 80.1-98.5 MCH 30.7 pg 27.0-34.0 MCHC 34.6 g/dl 33.0-36.0 PLATELET COUNT 91 K/cmm L 150-400 MPV 11.0 fl 7.5-11.2 RDW 16.8 % H 11.8-15.1 LYMPHOCYTES, AUTO% 17.1 % NEUTROPHILS, AUTO % 73.5 % MONOCYTES, AUTO% 7.6 % MONOCYTES, ABSOLUTE 0.3 K/cmm 0.19-0.80 NEUTROPHILS, ABSOLUTE 3.1 K/cmm 2.10-8.0 0 EOSINOPHILS, ABSOLUTE 0.1 K/cmm 0.00-0.6 0 BASOPHILS, ABSOLUTE 0.0 K/cmm 0.00-0.20 EOSINOPHILS, AUTO% 1.4 % BASOPHILS, AUTO% 0.2 % LYMPHOCYTES, ABSOLUTE 0.7 K/cmm L 0.77-4.5 0 IMMATURE GRANS, ABSOLUTE 0.01 K/cmm 0.00 -0.05 IMMATURE GRANS, AUTO % 0.2 % Apr 13, 2019 09:25 AM [facility] BASIC METABOLIC PANEL Specimen Type: PLASMA Comment: For eGFR: eGFR results >60 are imprecise. Many variables affect the calculated result. Interpretation of eGFR results >60 must be monitored over time. *CREATININE 0.93 mg/dL 0.7-1.3 UREA NITROGEN mg/dL 11 mg/dL 9-25 GLUCOSE 80 mg/dL 72-99 SODIUM 137 mEq/L 136-145 POTASSIUM 4.2 mEq/L 3.5-5.0 CALCIUM (mg/dL) 8.8 mg/dL 8.4-10.4 ANION GAP 7.4 L 8-16 CHLORIDE 103 mEq/L 98-107 CO2 26.6 mEq/L 22-31 EGFR >60 Apr 13, 2019 09:25 AM [facility] ERYTHROCYTE SEDIMENTATION RATE Specimen Type: BLOOD No comment entered. ERYTHROCYTE SEDIMENTATION RATE 1 mm/hr 0-20 Apr 13, 2019 09:25 AM [facility] URINALYSIS Specimen Type: URINE No comment entered. URINE COLOR Yellow SPECIFIC GRAVITY 1.013 1.005-1.030 UROBILINOGEN Negative mg/dL 0.1-1.0 URINE BILIRUBIN Negative Negative URINE KETONES Negative mg/dl Negative URINE GLUCOSE Negative mg/dL Negative URINE PROTEIN Negative mg/dl Negative-Tr [place] URINE PH 6.0 5-8 APPEARANCE,URINE Clear Clear URINE BLOOD Negative Negative URINE NITRITE Negative Negative LEUKOCYTE ESTERASE Negative Negative Vital Signs: All taken on the encounter date No Data Provided for This Section Immunizations: All administered on the encounter date No Data Provided for This Section Social History: Smoking Status (Most current) and Tobacco Use (All prior to enco unter date) This section includes the most current, and the historical, smoking and tobacco- related health factors from the [place] facility where the [place]counter took place. Current Smoking Status This section includes the most current smoking, or tobacco -related health factor, from the [place] facility where the [place]counter took place. Date/Time Current Smoking Status Comment Facility Feb 10, 2018 02:30 PM CURRENT NON-SMOKER [facility] Tobacco Use History This section includes a history of the smoking, or tobacco -related health factors, that were collected on or before the date of the Encoun ter. The data comes from the [place] facility where the Encounter took place. Date/Time Smoking Status/Tobacco Use Comment Fatimah baldwin Feb 10, 2018 02:30 PM LIFETIME NON-TOBACCO USER [facility] Feb 05, 2017 09:30 AM NON-TOBACCO USER [facility] Jan 14, 2016 08:43 AM NON-TOBACCO USER [facility] Feb 07, 2015 10:08 AM NON-TOBACCO USER [facility] Dec 21, 2013 08:59 AM NON-TOBACCO USER [facility] Nov 30, 2012 09:09 AM NON-TOBACCO USER [facility] Nov 28, 2011 09:20 AM NON-TOBACCO USER [facility] July 24, 2010 09:03 AM CURRENT NON-SMOKER [facility] July 24, 2010 09:03 AM LIFETIME NON-TOBACCO USER [facility] July 24, 2009 09:50 AM CURRENT NON-SMOKER [facility] July 24, 2009 09:50 AM LIFETIME NON-TOBACCO USER [facility] August 07, 2008 08:50 AM CURRENT NON-SMOKER [facility] August 07, 2008 08:50 AM LIFETIME NON-TOBACCO USER [facility] August 07, 2008 08:50 AM NON-TOBACCO USER [facility] August 10, 2007 08:22 AM CURRENT NON-SMOKER [facility] August 10, 2007 08:22 AM LIFETIME NON-TOBACCO USER [facility] August 10, 2007 08:22 AM NON-TOBACCO USER [facility] May 25, 2006 10:14 AM CURRENT NON-SMOKER [facility] May 25, 2006 10:14 AM LIFETIME NON-TOBACCO USER [facility] May 25, 2006 10:14 AM NON-TOBACCO USER [facility] Mar 28, 2005 10:52 AM CURRENT NON-SMOKER [...] the patient. The data comes from a ll [place] treatment facilities. It does not list Allergies/ADRs that were removed or entered in error. Some allergies/ADRs may be reported in t Immunization section. Allergen Event Date Event Type Reaction(s) Severity Source No Known Allergies [facility], [facility] 15 Medications: VA dispensed (-15 months) and Non-VA Documented (Obtained Outside A) Section Date Range: 1) prescriptions processed by a VA pharmacy in the last 15 m ont, and 2) all medications recorded in the [place] medical record as "non-VA medic ations". Pharmacy terms refer to VA pharmacy's work on prescriptions. VA patient s are advised to take their medications as instructed by their health care team. The data comes from all [place] treatment facilities. Glossary of Pharmacy Terms:Active = A prescription that can be filled at the local [place] pharmacy.Active: On Hold = An active prescription that will not be filled until pharmacy resolves the issue.Active: Susp = An active prescription that is not scheduled to be filled yet.Clinic Order = A medication received during a visit to a VA clinic or emergency department (currently not available).Discontinued [...] other providers that was filled outside the VA. Or, it may be an over the [...] A DAY Non-VA Documented by: ANDREW WILKERSON nted at: [facility] ESCITALOPRAM OXALATE 10MG TAB TAKE ONE-H CHRISTINE TABLET BY MOUTH ONCE A DAY FOR MOOD. 45 Jul 14, 2019 [id number] Jul 17, 2018 DAHLIA CHAVEZ HYDROCHLOROTHIAZIDE 25MG TAB TAKE ONE-LAWSON LF TABLET BY MOUTH EVERY MORNING FOR BLOOD PRESSURE 45 Jul 14, 2019 [id number] Jul 15, 2018 SUKUMAR CHAVEZ IBUPROFEN 400MG TAB Non- VA TAKE ONE TABLET BY MOUTH TWO TIMES A DAY NEEDED Non-VA Documented by: DAHLIA CHAVEZ nted at: [facility] OMEPRAZOLE 20MG CAP,EC N on-VA TAKE 1 CAPSULE BY MOUTH EVERY MORNING Non-VA Documented by: ANDREW WILKERSON nted at: [facility] Problems (Conditions): All historical and current Section Date Range: From patient's date of to the date document was create d. This section includes a list of Problems (Conditions) know n to [facility] for the patient. It includes both active and inacti ve problems (conditions). The data comes from all [place] treatment facilities. Problem Status Problem Code Date of Onset Date of Resolution Comm ent(s) Provider Source Arthritis (SNOMED CT 9279283) Active [id number] DAHLIA FISHER [facility] Back Pain (ICD-9-CM 724.5) Active 724.5 [facility] Benign prostatic hyperplasia Active 600. CAMERON TONYDEANN [place] [facility] Depression Active 300.4 DEANN [place] [facility] Depression * (ICD-9-CM 300.4/311.) Active 311. [facility] Esophageal Reflux Active 530.81 DEMETRIO CARDONA [facility] H/O: hypertension (SNOMED CT 828107980) Active V12.59 [facility] Hyperlipidemia * (ICD-9-CM 272.4) Active 272.4 [facility] LBP * (ICD-9-CM 724.2) Active 724.2 Dana CARDONA [facility] Osteoarthos NOS Unspec Active 715.90 Dana CARDONA [facility] Other acquired deformities of knee (ICD-9-CM 736.6) Active 736.6 [facility] Rosacea * (ICD-9-CM 695.3) Active 695.3 [facility]HLIA 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
--- OUTSIDE RECORDS SUMMARY | 2019-09-17 13:19 | XMS REPORT | Encounter Summary ---
Author Author Department of [facility] Aff CASIE martinez Department [facility] Address [address] [place] [phone] Phone Unavailable Care Team Providers Care Special Education Math Teacher Name Role Phone DAHLIA CHAVEZ PCP Unavailable [...] PART A Apr 23, 2001 PART A [id number] DARCI POZO PATIENT MEDICARE (WNR) MEDICARE (M) PART B Apr 23, 2001 PART B [id number] DARCI POZO PATIENT [employer] MEDIGAP PLAN C MEDICARE SUPPLEMENT July 21, 2002 PLAN C [id number] NOHELIACASIE PATIENT [employer] LOCAL 23 PREFERRED PROVIDER ORGANIZATIO N (PPO) [employer] Mar 23, 1995 LOCAL 23 [id number] [phone] NOHELIAJALEEL PATIENT Selected Encounter This section includes the information on record at [place] for the Encounter. Date/Time Encounter Type Encounter Description Reason Provider Source Apr 14, 2019 10:35 AM Outpatient Encounter PRIMARY CARE/MEDICINE [facility] IHE Encounter Template Text not used by [facility] Assessments - Encounter Diagnoses No Data Provided for This Section Plan of Treatment: Future Appointments (+ 6 months) and Future Tests (+/- 45 day s) The Plan of Treatment section includes future care activities for the patient fr om all [place] treatment facilities. This section includes future appointments and fu ture orders which are active, pending or scheduled. Future Appointments This section includes appointments that were scheduled t o occur 6 months from the date of the Encounter, up to a maximum of 20 appointme nts. The data comes from all [place] treatment facilities. Appointment Date/Time Appointment Type Appointment Facili ty Name Sep 29, 2019 10:00 AM AMBULATORY - MEDICINE [facility] Surgical Procedures: All associated to the encounter No Data Provided for This Section Lab Results: +/- 30 days of the encounter This section includes the Chemistry and Hematology Lab R esults on record with [place] for the patient. Radiology Reports and Pathology Report s are provided separately, in subsequent sections. Lab Results This section contains the Chemistry/Hematology Results [place] t were resulted 30 days before or 30 days after the date of the Encounter. Date/Time Source Result Type Result - Unit Interpretation Reference Range Comment Apr 13, 2019 09:25 AM [facility] CBC & DIFF Specimen Type: BLOOD No [...] 0.2 % Apr 13, 2019 09:25 AM [facility] BASIC METABOLIC PANEL Specimen Type: PLASMA Comment: [...] EGFR >60 Apr 13, 2019 09:25 AM [facility] ERYTHROCYTE SEDIMENTATION RATE Specimen Type: BLOOD No comment entered. ERYTHROCYTE SEDIMENTATION RATE 1 mm/hr 0-20 Apr 13, 2019 09:25 AM [facility] URINALYSIS Specimen Type: URINE No comment entered. [...] and tobacco- related health factors from the [place] facility where the Encounter took place. Current Smoking Status This section includes the most current smoking, or tobacco -related health factor, from the [place] facility where the Encounter took place. Date/Time Current Smoking Status Comment Facility Feb 10, 2018 02:30 PM CURRENT NON-SMOKER [facility] Tobacco Use History This section includes a history of the smoking, or tobacco -related health factors, that were collected on or before the date of the Encoun ter. The data comes from the [place] facility where the Encounter took place. Date/Time Smoking Status/Tobacco Use Comment [facility] Feb 10, 2018 02:30 PM LIFETIME NON-TOBACCO [...] 07, 2008 08:50 AM CURRENT NON-SMOKER [facility] August 07, 2008 08:50 AM LIFETIME NON-TOBACCO USER [facility] August 07, 2008 08:50 AM NON-TOBACCO USER [facility] August 10, 2007 08:22 AM CURRENT NON-SMOKER [facility] August 10, 2007 08:22 AM LIFETIME NON-TOBACCO [...] patient. The data comes from a ll [place] treatment facilities. It does not list Allergies/ADRs that were removed or entered in error. Some allergies/ADRs may be reported in t he Immunization section. Allergen Event Date Event Type Reaction(s) Severity Source No Known Allergies [facility], VIS 15 Medications: VA dispensed (-15 months) and Non-VA Documented (Obtained Outside V A) Section Date Range: 1) prescriptions processed by a [place] pharmacy in the last 15 m [facility], and 2) all medications recorded in the [place] medical record as "non-VA medic ations". Pharmacy terms refer to [place] pharmacy's work on prescriptions. [place] patient s are advised to take their medications as instructed by their health care team. The data comes from all [place] treatment facilities. Glossary of Pharmacy Terms:Active = A prescription that can be filled at the local [place] pharmacy.Active: On Hold = An active prescription that will not be filled until pharmacy resolves the issue.Active: Susp = An active prescription that is not scheduled to be filled yet.Clinic Order = A medication received during a visit to a [place] clinic or emergency department (currently not available).Discontinued [...] other providers that was filled outside the [place]. Or, it may be an over the [...] TELLEZ ESCITALOPRAM OXALATE 10MG TAB TAKE ONE-H DETENTION TABLET BY MOUTH ONCE A DAY FOR MOOD. 45 Jul 14, 2019 [id number] Jul 17, 2018 DAHLIA CHAVEZ HYDROCHLOROTHIAZIDE 25MG TAB TAKE ONE-LAWSON LF TABLET BY MOUTH EVERY MORNING FOR BLOOD PRESSURE 45 Jul 14, 2019 [id number] Jul 15, 2018 SUKUMAR CHAVEZ IBUPROFEN 400MG TAB Non- [place] TAKE ONE TABLET BY MOUTH TWO TIMES A DAY NEEDED Non-VA Documented by: DAHLIA CHAVEZ nted at: CHRISTIANO TELLEZ OMEPRAZOLE 20MG CAP,EC N on-VA TAKE 1 CAPSULE BY MOUTH EVERY MORNING Non-VA Documented by: ANDREW WILKERSONed at: [facility]STIAN[facility] TELLEZ Problems (Conditions): All historical and current Section Date Range: From patient's date of to the date document was create d. This section includes a list of Problems (Conditions) know n to [place] for the patient. It includes both active and inacti ve problems (conditions). The data comes from all [place] treatment facilities. Problem Status Problem Code Date of Onset Date of Resolution Comm ent(s) Provider Source Arthritis (SNOMED CT 6199846) Active [id number] DAHLIA FISHER [facility] Back Pain (ICD-9-CM 724.5) Active 724.5 DAHLIA WATKINS [facility] Benign prostatic hyperplasia Active 600. DEANN BABIN [place], [place] OPC Depression Active 300.4 DEANN PA [place], [place] O[facility] Depression * (ICD-9-CM 300.4/311.) Active 311. DAHLIA CHAVEZ [facility] Esophageal Reflux Active 530.81 DEMETRIO CARDONA [facility] H/O: hypertension (SNOMED CT 344616125) Active V12.59 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 Date/Time Encounter Note(s) Provider Source Apr 14, 2019 10:35 AM ADMINISTRATIVE NOTE: LOCAL TITLE: [place]-ADMINISTRATIVE NOTE (BP,O) STANDARD TITLE: ADMINISTRATIVE NOTE DATE OF NOTE: APR 14, 2019@10:35 ENTRY DATE: APR 14, 2019@10:35:39 AUTHOR: DAHLIA CHAVEZ EXP COSIGNER: URGENCY: STATUS: COMPLETED reviewed recent lab- ua is normal, cbc is good, plt. count is low at 91, howeever, i reviewed pt. lab for cbc and plt. count and the plt. count has remained almost the same between 75 and 125 over the past 13 years, i know pt. was getting tx. at [facility] in [place] at one time, however, the plt. count has remained about the same, recommend cont. monitoring plt. count monthly, if taking aspirin or nsaids stope these as these will drop plt. count, the rest of the lab is normal, rtc one month for plt. count, please call and inform pt., thank you /funmilayo/ DAHLIA CARUSO Signed: 04/14/2019 10:41 Receipt Acknowledged By: * AWAITING SIGNATURE * ANDREW WILKERSON,DAHLIA [facility]
--- OUTSIDE RECORDS SUMMARY | 2019-09-17 13:19 | XMS REPORT | Encounter Summary ---
Author Author [facility] CASIE martinez [facility] Address [address] [place] [address] Phone Unavailable Care Team Providers Care Travel Coordinator Name Role Phone DAHLIA CHAVEZ PCP Unavailable [...] PART A Apr 23, 2001 PART A [id number] [phone] DARCI POZO PATIENT MEDICARE (WNR) MEDICARE (M) PART B Apr 23, 2001 PART B [id number] DARCI POZO PATIENT [employer] MEDIGAP PLAN C MEDICARE SUPPLEMENT July 21, 2002 PLAN C [id number] CASIE POZO PATIENT [employer] LOCAL 23 PREFERRED PROVIDER ORGANIZATIO N (PPO) [employer] Mar 23, 1995 LOCAL 23 [id number] [phone] JALEEL POZO PATIENT Selected Encounter This section includes the information on record at [place] for the Encounter. Date/Time Encounter Type Encounter Description Reason Provider Source Dec 15, 2018 11:48 AM Outpatient Encounter ADMIN PAT ACTIVTIES (MASNO NCT) [facility] IHE Encounter Template Text not used by VA Assessments - Encounter Diagnoses No Data Provided for This Section Plan of Treatment: Future Appointments (+ 6 months) and Future Tests (+/- 45 day s) The Plan of Treatment section includes future care activities for the patient fr om all [place] treatment facilities. This section includes future appointments and fu ture orders which are active, pending or scheduled. Future Appointments This section includes appointments that were scheduled t o occur 6 months from the date of the Encounter, up to a maximum of 20 appointme nts. The data comes from all [place] treatment facilities. Appointment Date/Time Appointment Type Appointment Facili ty Name Feb 01, 2019 09:30 AM AMBULATORY - MEDICINE [facility] Apr 13, 2019 09:30 AM AMBULATORY - NONE [facility] Surgical Procedures: All associated to the encounter No Data Provided for This Section Lab Results: +/- 30 days of the encounter No Data Provided for This Section Vital Signs: All taken on the encounter date No Data Provided for This Section Immunizations: All administered on the encounter date No Data Provided for This Section Social History: Smoking Status (Most current) and Tobacco Use (All prior to enco unter date) This section includes the most current, and the historical, smoking and tobacco- related health factors from the [place] facility where the Encounter took place. Current Smoking Status This section includes the most current smoking, or tobacco -related health factor, from the [place] facility where the Encounter took place. Date/Time Current Smoking Status Comment Facility Feb 10, 2018 02:30 PM CURRENT NON-SMOKER [facility] Tobacco Use History This section includes a history of the smoking, or tobacco -related health factors, that were collected on or before the date of the Encoun ter. The data comes from the [place] facility where the Encounter took place. Date/Time Smoking Status/Tobacco Use Comment [facility] it Feb 10, 2018 02:30 PM LIFETIME [...] Apr 04, 2004 09:12 AM LIFETIME NON-SMOKER [facility] Apr 04, 2004 09:12 AM LIFETIME [...] Dec 18, 2000 08:40 AM NON-TOBACCO USER [facility] Advance Directives: All historical and current No Data Provided for This Section Allergies and Adverse Reactions (ADRs): All historical and current Section Date Range: From patient's date of to the date document was create d. This section includes Allergies and Adverse Reactions (ADR s) on record with [place] for the patient. The data comes from a ll [place] treatment facilities. It does not list Allergies/ADRs that were removed or entered in error. Some allergies/ADRs may be reported in t he Immunization section. Allergen Event Date Event Type Reaction(s) Severity Source No Known Allergies [facility], VISN 15 Medications: VA dispensed (-15 months) and Non-VA Documented (Obtained Outside A) Section Date Range: 1) prescriptions processed by a [place] pharmacy in the last 15 m [facility], and 2) all medications recorded in the [place] medical record as "non-VA medic ations". Pharmacy terms refer to [place] pharmacy's work on prescriptions. [place] patient s are advised to take their medications as instructed by their health care team. The data comes from all [place] treatment facilities. Glossary of Pharmacy Terms:Active = A prescription that can be filled at the local [place] pharmacy.Active: On Hold = An active prescription that will not be filled until pharmacy resolves the issue.Active: Susp = An active prescription that is not scheduled to be filled yet.Clinic Order = A medication received during a visit to a [place] clinic or emergency department (currently not available).Discontinued [...] MOUTH ONCE A DAY Non-VA Documented by: OSTEASUNCIONUHR,TAMATHA S Docume nted at: CHRISTIANO TELLEZ ESCITALOPRAM OXALATE 10MG TAB TAKE ONE-H SENIOR CARE TABLET BY MOUTH ONCE A DAY FOR MOOD. 45 Jul 14, 2019 [id number] Jul 17, 2018 DAHLIA CHAVEZ HYDROCHLOROTHIAZIDE 25MG TAB TAKE ONE-LAWSON LF TABLET BY MOUTH EVERY MORNING FOR BLOOD PRESSURE 45 Jul 14, 2019 [id number] Jul 15, 2018 SUKUMAR CHAVEZ CBESHA IBUPROFEN 400MG TAB Non- [place] TAKE ONE TABLET BY MOUTH TWO TIMES A DAY NEEDED Non-VA Documented by: DAHLIA CHAVEZume nted at: CHRISTIANO TELLEZ OMEPRAZOLE 20MG CAP,EC [...] problems (conditions). The data comes from all [place] treatment facilities. Problem Status Problem Code Date of Onset Date of Resolution Comm ent(s) Provider Source Arthritis (SNOMED CT 8077235) Active 8603429 DAHLIA FISHER [facility] Back Pain (ICD-9-CM 724.5) Active 724.5 DAHLIA WATKINS [facility] Benign prostatic hyperplasia Active 600. CAMERON DEANN JIMENEZ [place], [place] OPC Depression Active 300.4 DEANN PA [place], [place] O[facility] Depression * (ICD-9-CM 300.4/311.) Active 311. DAHLIA CHAVEZ [facility] Esophageal Reflux Active 530.81 DEMETRIO CARDONA [facility] H/O: hypertension (SNOMED CT 284922220) Active V12.59 DAHLIA CHAVEZ [facility] Hyperlipidemia * (ICD-9-CM 272.4) Active 272.4 DAHLIA CHAVEZ [facility] LBP * (ICD-9-CM 724.2) Active 724.2 Dana CARDONA [facility] Osteoarthos NOS Unspec Active 715.90 Dana [facility] Other acquired deformities of knee (ICD-9-CM 736.6) Active 736.6 [facility] Rosacea * (ICD-9-CM 695.3) Active 695.3 [facility]INS [facility] 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 Date/Time Encounter Note(s) Provider Source Dec 15, 2018 11:48 AM ADMINISTRATIVE NOTE: LOCAL TITLE: [place]-ADMIN [facility] STANDARD TITLE: ADMINISTRATIVE NOTE DATE OF NOTE: DEC 15, 2018@11:48 ENTRY DATE: DEC 15, 2018@11:48:39 AUTHOR: BEATRIZ RAMIRES EXP COSIGNER: URGENCY: STATUS: COMPLETED GRIS Administrative Note: RECORDS RECEIVED TODAY by: Fax Nature of report:oncology progress note Date(s) of record(s):12/14/2018 Sending libertarian:[place] [facility] /funmilayo/ BEATRIZ [facility] Signed: 12/15/2018 11:49 BEATRIZ RAMIRES [facility]
--- OUTSIDE RECORDS SUMMARY | 2019-09-17 13:19 | XMS REPORT | Encounter Summary ---
Author Author [facility] CASIE martinez [facility] Address [address] [place] [address] Phone Unavailable Care Team Providers Care Die Drawing Checker Name Role Phone DAHLIA CHAVEZ PCP Unavailable [...] PART A Apr 23, 2001 PART A [id number] DARCI POZO PATIENT MEDICARE (WNR) MEDICARE (M) PART B Apr 23, 2001 PART B [id number] DARCI POZO PATIENT [employer] MEDIGAP PLAN C MEDICARE SUPPLEMENT July 21, 2002 PLAN C [id number] CASIE POZO PATIENT [employer] LOCAL 23 PREFERRED PROVIDER ORGANIZATIO N (PPO) [employer] Mar 23, 1995 LOCAL 23 [id number] [phone] JALEEL POZO PATIENT Selected Encounter This section includes the information on record at [place] for the Encounter. Date/Time Encounter Type Encounter Description Reason Provider Source Feb 25, 2019 10:30 AM Outpatient Encounter PRIMARY CARE/MEDICINE [facility], [facility] 15 IHE Encounter Template Text not used by [place] Assessments - Encounter Diagnoses No Data Provided for This Section Plan of Treatment: Future Appointments (+ 6 months) and Future Tests (+/- 45 day s) The Plan of Treatment section includes future care activities for the patient fr om all [place] treatment facilities. This section includes future appointments and fu ture orders which are active, pending or scheduled. Future Appointments This section includes appointments that were scheduled t o occur 6 months from the date of the Encounter, up to a maximum of 20 appointme nts. The data comes from all [place] treatment facilities. Appointment Date/Time Appointment Type Appointment Facili ty Name Apr 13, 2019 09:30 AM AMBULATORY - NONE [facility] Surgical Procedures: All associated to the encounter No Data Provided for This Section Lab Results: +/- 30 days of the encounter This section includes the Chemistry and Hematology Lab R esults on record with [place] for the patient. Radiology Reports and Pathology Report s are provided separately, in subsequent sections. Lab Results This section contains the Chemistry/Hematology Results [place] t were resulted 30 days before or 30 days after the date of the Encounter. Date/Time Source Result Type Result - Unit Interpretation Reference Range Comment Feb 01, 2019 09:00 AM [facility] CBC & DIFF Specimen Type: BLOOD No [...] % Feb 01, 2019 09:00 AM [facility] COMPREHENSIVE METABOLIC PA CESAR Specimen Type: [...] >60 Feb 01, 2019 09:00 AM [facility] LIPID PROFILE(HDL,TRIG,CHO L,LDL) Specimen Type: PLASMA Comment: For eGFR: eGFR results >60 are imprecise. Many variables affect the calculated result. Interpretation of eGFR results >60 must be monitored over time. CHOLESTEROL 176 mg/dL 0-200 TRIGS 47 mg/dL 0-150 HDL-CHOLESTEROL 94 mg/dL >40 LDL (CALC) 73 mg/dL 0-99.9 Feb 01, 2019 09:00 AM [facility] TSH Specimen Type: SERUM No comment entered. TSH 1.24 uIU/mL 0.47-5.00 Feb 01, 2019 09:00 AM [facility] PROSTATIC SPECIFIC ANTIGEN (TOTAL) Specimen Type: SERUM No comment entered. PROSTATIC SPECIFIC ANTIGEN(TOTAL) 0.7 ng/mL 0-4 Feb 01, 2019 09:00 AM [facility] VITAMIN D (25-OH) Specimen Type: SERUM No comment entered. VITAMIN D (25-OH) 34.6 ng/mL 30.0-96.0 Vital Signs: All taken on the encounter date No Data Provided for This Section Immunizations: All administered on the encounter date No Data Provided for This Section Social History: Smoking Status (Most current) and Tobacco Use (All prior to enco unter date) No Data Provided for This Section Advance Directives: All historical and current No Data Provided for This Section Allergies and Adverse Reactions (ADRs): All historical and current Section Date Range: From patient's date of to the date document was create d. This section includes Allergies and Adverse Reactions (ADR s) on record with [place] for the patient. The data comes from a ll [place] treatment facilities. It does not list Allergies/ADRs that were removed or entered in error. Some allergies/ADRs may be reported in t he Immunization section. Allergen Event Date Event Type Reaction(s) Severity Source No Known Allergies [facility], [facility] 15 Medications: VA dispensed (-15 months) and Non-VA Documented (Obtained Outside A) Section Date Range: 1) prescriptions processed by a [place] pharmacy in the last 15 m [facility], and 2) all medications recorded in the [place] medical record as "non-VA medic ations". Pharmacy terms refer to [place] pharmacy's work on prescriptions. [place] patient s are advised to take their medications as instructed by their health care team. The data comes from all [place] treatment facilities. Glossary of Pharmacy Terms:Active = A prescription that can be filled at the local [place] pharmacy.Active: On Hold = An active prescription that will not be filled until pharmacy resolves the issue.Active: Susp = An active prescription that is not scheduled to be filled yet.Clinic Order = A medication received during a visit to a [place] clinic or emergency department (currently not available).Discontinued [...] ONCE A DAY Non-VA Documented by: ANDREW WILKERSONume nted at: CHRISTIANO TELLEZ ESCITALOPRAM OXALATE 10MG TAB TAKE ONE-H SNF TABLET BY MOUTH ONCE A DAY FOR MOOD. 45 Jul 14, 2019 [id number] Jul 17, 2018 DAHLIA CHAVEZ HYDROCHLOROTHIAZIDE 25MG TAB TAKE ONE-LAWSON LF TABLET BY MOUTH EVERY MORNING FOR BLOOD PRESSURE 45 Jul 14, 2019 [id number] Jul 15, 2018 SUKUMAR CHAVEZ CBESHA IBUPROFEN 400MG TAB Non- [place] TAKE ONE TABLET BY MOUTH TWO TIMES A DAY NEEDED Non-VA Documented by: DAHLIA CHAVEZume nted at: CHRISTIANO TELLEZ OMEPRAZOLE 20MG CAP,EC N on-VA TAKE 1 CAPSULE BY MOUTH EVERY MORNING Non-VA Documented by: ANDREW WILKERSONume nted at: CHRISTIANO TELLEZ Problems (Conditions): All historical and current Section Date Range: From patient's date of to the date document was create d. This section includes a list of Problems (Conditions) know n to [place] for the patient. It includes both active and inacti ve problems (conditions). The data comes from all [place] treatment facilities. Problem Status Problem Code Date of Onset Date of Resolution Comm ent(s) Provider Source Arthritis (SNOMED CT 5816478) Active 1728148 DAHLIA FISHER [facility] Back Pain (ICD-9-CM 724.5) Active 724.5 DAHLIA WATKINS [facility] Benign prostatic hyperplasia Active 600. CAMERON DEANN JIMENEZ [place], [place] O[facility] Depression Active 300.4 [facility] [place] [facility] Depression * (ICD-9-CM 300.4/311.) Active 311. DAHLIA CHAVEZ [facility] Esophageal Reflux Active 530.81 DEMETRIO CARDONA [facility] H/O: hypertension (SNOMED CT 968750423) Active V12.59 DAHLIA CHAVEZ [facility] Hyperlipidemia * (ICD-9-CM 272.4) Active 272.4 DAHLIA CHAVEZ [facility] LBP * (ICD-9-CM 724.2) Active 724.2 Dana [facility]ONA [facility] Osteoarthos NOS Unspec Active 715.90 Dana CARDONA [facility] Other acquired deformities of knee (ICD-9-CM 736.6) Active 736.6 DAHLIA CHAVEZ [facility] Rosacea * (ICD-9-CM 695.3) Active 695.3 DAHLIA WATKINS [facility] 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
--- OUTSIDE RECORDS SUMMARY | 2019-09-17 13:20 | XMS REPORT | Encounter Summary ---
Author Author [facility] CASIE martinez Department of [facility] Address [address] [place] [id number] Phone Unavailable Care Team Providers Care Frame Tender Name Role Phone DAHLIA CHAVEZ PCP Unavailable [...] PART A Apr 23, 2001 PART A [id number] [phone] DARCI POZO PATIENT MEDICARE (WNR) MEDICARE (M) PART B Apr 23, 2001 PART B [id number] [phone] DARCI POZO PATIENT [employer] PLAN C MEDICARE SUPPLEMENT July 21, 2002 PLAN C [id number] CASIE POZO PATIENT [employer] LOCAL 23 PREFERRED PROVIDER ORGANIZATIO N (PPO) [employer] Mar 23, 1995 LOCAL 23 [id number] [phone] JALEEL POZO PATIENT Selected Encounter This section includes the information on record at [facility] for the Encounter. Date/Time Encounter Type Encounter Description Reason Provider Source Feb 01, 2019 12:00 AM Outpatient Encounter EVENT (HISTORICAL) [facility] IHE Encounter Template Text not used by [facility] Assessments - Encounter Diagnoses No Data Provided for This Section Plan of Treatment: Future Appointments (+ 6 months) and Future Tests (+/- 45 day s) The Plan of Treatment section includes future care activities for the patient fr om all [place] treatment facilities. This section includes future appointments and fu ture orders which are active, pending or scheduled. Future Appointments This section includes appointments that were scheduled t o occur 6 months from the date of the Encounter, up to a maximum of 20 appointme nts. The data comes from all [place] treatment facilities. Appointment Date/Time Appointment Type Appointment Facili ty Name Apr 13, 2019 09:30 AM AMBULATORY - NONE [facility] Surgical Procedures: All associated to the encounter No Data Provided for This Section Lab Results: +/- 30 days of the encounter This section includes the Chemistry and Hematology Lab R esults on record with [facility] for the patient. Radiology Reports and Pathology [...] % Feb 01, 2019 09:00 AM [facility] COMPREHENSIVE METABOLIC PA CESAR Specimen Type: PLASMA [...] >60 Feb 01, 2019 09:00 AM [facility] LIPID PROFILE(HDL,TRIG,CHO L,LDL) Specimen Type: PLASMA Comment: For eGFR: eGFR results >60 are imprecise. Many variables affect the calculated result. Interpretation of eGFR results >60 must be monitored over time. CHOLESTEROL 176 mg/dL 0-200 TRIGS 47 mg/dL 0-150 HDL-CHOLESTEROL 94 mg/dL >40 LDL (CALC) 73 mg/dL 0-99.9 Feb 01, 2019 09:00 AM [facility] TSH Specimen Type: SERUM No comment entered. TSH 1.24 uIU/mL 0.47-5.00 Feb 01, 2019 09:00 AM [facility] PROSTATIC SPECIFIC ANTIGEN (TOTAL) Specimen Type: SERUM No comment entered. PROSTATIC SPECIFIC ANTIGEN(TOTAL) 0.7 ng/mL 0-4 Feb 01, 2019 09:00 AM [facility] VITAMIN D (25-OH) Specimen Type: SERUM No [...] Adverse Reactions (ADR s) on record with NE for the patient. The data comes from a ll [place] treatment facilities. It does not list Allergies/ADRs that were removed or entered in error. Some allergies/ADRs may be reported in t he Immunization section. Allergen Event Date Event Type Reaction(s) Severity Source No Known Allergies [facility] Medications: [facility] dispensed (-15 months) and Non-VA Documented (Obtained Outside A) Section Date Range: 1) prescriptions processed by a NE pharmacy in the last 15 m [facility], and 2) all medications recorded in the [facility] medical record as "non-VA medic ations". Pharmacy terms refer to NE pharmacy's work on prescriptions. [facility] patient s are advised to take their medications as instructed by their health care team. The data comes from all [place] treatment facilities. Glossary of Pharmacy Terms:Active = A prescription that can be filled at the local [place] pharmacy.Active: On Hold = An active prescription that will not be filled until pharmacy resolves the issue.Active: Susp = An active prescription that is not scheduled to be filled yet.Clinic Order = A medication received during a visit to a NE clinic or emergency department (currently not available).Discontinued [...] DAY FOR MOOD. 45 Jul 14, 2019 [id number] Jul 17, 2018 DAHLIA CHAVEZ HYDROCHLOROTHIAZIDE 25MG TAB TAKE ONE-LAWSON LF TABLET BY MOUTH EVERY MORNING FOR BLOOD PRESSURE 45 Jul 14, 2019 [id number] Jul 15, 2018 SUKUMAR CHAVEZ CBESHA IBUPROFEN [...] problems (conditions). The data comes from all [place] treatment facilities. Problem Status Problem Code Date of Onset Date of Resolution Comm ent(s) Provider Source Arthritis (SNOMED CT 3432453) Active [id number] DAHLIA FISHER [facility] Back Pain (ICD-9-CM 724.5) Active 724.5 DAHLIA WATKINS [facility] Benign prostatic hyperplasia Active 600. CAMERON DEANN [place] [place] [facility] Depression [facility] 300.4 [facility] [place] [facility] Depression * (ICD-9-CM 300.4/311.) Active 311. DAHLIA CHAVEZ [facility] Esophageal Reflux Active 530.81 DEMETRIO CARDONA [facility] H/O: hypertension (SNOMED CT 408649597) Active V12.59 DAHLIA CHAVEZ [facility] Hyperlipidemia * (ICD-9-CM 272.4) Active 272.4 DAHLIA CHAVEZ [facility] LBP * (ICD-9-CM 724.2) Active 724.2 [facility] Osteoarthos NOS Unspec Active 715.90 Dana CARDONA [facility] Other acquired deformities of knee (ICD-9-CM 736.6) Active 736.6 DAHLIA CHAVEZ [facility] Rosacea * (ICD-9-CM 695.3) Active 695.3 DAHLIA WATKINS [facility] 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
--- OUTSIDE RECORDS SUMMARY | 2019-09-17 13:20 | XMS REPORT | Encounter Summary ---
Author Author Department of [facility] CASIE martinez Department of [facility] Address [address] [place] [id number] Phone Unavailable Care Team Providers Care Telephone Station Installer Name Role Phone DAHLIA CHAVEZ PCP Unavailable [...] PART A Apr 23, 2001 PART A [id number] DARCI POZO PATIENT MEDICARE (WNR) MEDICARE (M) PART B Apr 23, 2001 PART B [id number] DARCI POZO PATIENT [employer] MEDIGAP PLAN C MEDICARE SUPPLEMENT July 21, 2002 PLAN C [id number] [phone] NOHELIACASIE PATIENT [employer] LOCAL 23 PREFERRED PROVIDER ORGANIZATIO N (PPO) [employer] Mar 23, 1995 LOCAL 23 [id number] [phone] NOHELIAJALEEL PATIENT Selected Encounter This section includes the information on record at [facility] for the Encounter. Date/Time Encounter Type Encounter Description Reason Provider Source Feb 01, 2019 09:30 AM OFFICE/OUTPATIENT VISIT EST PRIMARY CARE/MEDI CINE DAHLIA CHAVEZ [facility] IHE Encounter Template Text not used by [facility] Assessments - Encounter Diagnoses No Data Provided for This Section Plan of Treatment: Future Appointments (+ 6 months) and Future Tests (+/- 45 day s) The Plan of Treatment section includes future care activities for the patient fr om all [facility] treatment facilities. This section includes future appointments and fu ture orders which are active, pending or scheduled. Future Appointments This section includes appointments that were scheduled t o occur 6 months from the date of the Encounter, up to a maximum of 20 appointme nts. The data comes from all [facility] treatment facilities. Appointment Date/Time Appointment Type Appointment Facili ty Name Apr 13, 2019 09:30 AM AMBULATORY - NONE [facility] Surgical Procedures: All associated to the encounter No Data Provided for This Section Lab Results: +/- 30 days of the encounter This section includes the Chemistry and Hematology Lab R esults on record with [facility] for the patient. Radiology Reports and Pathology Report s are provided separately, in subsequent sections. Lab Results This section contains the Chemistry/Hematology Results [place] t were resulted 30 days before or 30 days after the date of the Encounter. Date/Time Source Result Type Result - Unit Interpretation Reference Range Comment Feb 01, 2019 09:00 AM [facility] CBC & DIFF Specimen Type: [...] % Feb 01, 2019 09:00 AM [facility] COMPREHENSIVE METABOLIC PA CESAR Specimen Type: [...] >60 Feb 01, 2019 09:00 AM [facility] LIPID PROFILE(HDL,TRIG,CHO L,LDL) Specimen Type: PLASMA Comment: For eGFR: eGFR results >60 are imprecise. Many variables affect the calculated result. Interpretation of eGFR results >60 must be monitored over time. CHOLESTEROL 176 mg/dL 0-200 TRIGS 47 mg/dL 0-150 HDL-CHOLESTEROL 94 mg/dL >40 LDL (CALC) 73 mg/dL 0-99.9 Feb 01, 2019 09:00 AM [facility] TSH Specimen Type: SERUM No comment entered. TSH 1.24 uIU/mL 0.47-5.00 Feb 01, 2019 09:00 AM [facility] PROSTATIC SPECIFIC ANTIGEN (TOTAL) Specimen Type: SERUM No comment entered. PROSTATIC SPECIFIC ANTIGEN(TOTAL) 0.7 ng/mL 0-4 Feb 01, 2019 09:00 AM [facility] VITAMIN D (25-OH) Specimen Type: SERUM No comment entered. VITAMIN D (25-OH) 34.6 ng/mL 30.0-96.0 Vital Signs: All taken on the encounter date This section contains inpatient and outpatient Vital Signs collected on the date of the Encounter. Date/Time Temperature Pulse Blood Pressure Respiratory Rate SP02 Pa in Height Weight Body Mass Index Source Feb 01, 2019 09:17 AM 97.8 F 70 /min 132/80 mm[Hg] 16 /min 96 % 182.4 lb 25 [facility] Feb 01, 2019 09:13 AM 3 [facility] Immunizations: All administered on the encounter date No Data Provided for This Section Social History: Smoking Status (Most current) and Tobacco Use (All prior to enco unter date) This section includes the most current, and the historical, smoking and tobacco- related health factors from the [facility] facility where the Encounter took place. Current Smoking Status This section includes the most current smoking, or tobacco -related health factor, from the [facility] facility where the Encounter took place. Date/Time Current Smoking Status Comment Facility Feb 10, 2018 02:30 PM CURRENT NON-SMOKER [facility] Tobacco Use History This section includes a history of the smoking, or tobacco -related health factors, that were collected on or before the date of the Encoun ter. The data comes from the [facility] facility where the Encounter took place. Date/Time Smoking Status/Tobacco Use Comment [facility] Feb 10, 2018 02:30 PM LIFETIME NON-TOBACCO USER [facility] Feb 05, 2017 09:30 AM NON-TOBACCO USER [facility] Jan 14, 2016 08:43 AM NON-TOBACCO USER [facility] Feb 07, 2015 10:08 AM NON-TOBACCO USER [facility] Dec 21, 2013 08:59 AM NON-TOBACCO USER [facility] Nov 30, 2012 09:09 AM NON-TOBACCO USER [facility] Nov 28, 2011 09:20 AM NON-TOBACCO USER [facility] July 24, 2010 09:03 AM CURRENT NON-SMOKER [facility] July 24, 2010 09:03 AM LIFETIME NON-TOBACCO USER [facility] July 24, 2009 09:50 AM CURRENT NON-SMOKER [facility] July 24, 2009 09:50 AM LIFETIME NON-TOBACCO USER [facility] August 07, 2008 08:50 AM CURRENT NON-SMOKER [facility] August 07, 2008 08:50 AM LIFETIME NON-TOBACCO USER [facility] August 07, 2008 08:50 AM NON-TOBACCO USER [facility] August 10, 2007 08:22 AM CURRENT NON-SMOKER [facility] August 10, 2007 08:22 AM LIFETIME NON-TOBACCO [...] the patient. The data comes from a [facility] treatment facilities. It does not list Allergies/ADRs that were removed or entered in error. Some allergies/ADRs may be reported in t he Immunization section. Allergen Event Date Event Type Reaction(s) Severity Source No Known Allergies [facility], VIS 15 Medications: VA dispensed (-15 months) and Non-VA Documented (Obtained Outside V A) Section Date Range: 1) prescriptions processed by a VA pharmacy in the last 15 m [facility], and 2) all medications recorded in the [facility] medical record as "non-VA medic ations". Pharmacy terms refer to [facility] pharmacy's work on prescriptions. VA patient s are advised to take their medications as instructed by their health care team. The data comes from all [facility] treatment facilities. Glossary of Pharmacy Terms:Active = A prescription that can be filled at the local [facility] pharmacy.Active: On Hold = An active prescription that will not be filled until pharmacy resolves the issue.Active: Susp = An active prescription that is not scheduled to be filled yet.Clinic Order = A medication received during a visit to a [facility] clinic or emergency department (currently not available).Discontinued [...] other providers that was filled outside the [facility]. Or, it may be an over the [...] Non-VA Documented by: ANDREW WILKERSON nted at: [facility] ESCITALOPRAM OXALATE 10MG TAB TAKE ONE-H CHRISTINE TABLET BY MOUTH ONCE A DAY FOR MOOD. 45 Jul 14, 2019 [id number] Jul 17, 2018 DHALIA CHAVEZ [facility] HYDROCHLOROTHIAZIDE 25MG TAB TAKE ONE-LAWSON LF TABLET BY MOUTH EVERY MORNING FOR BLOOD PRESSURE 45 Jul 14, 2019 [id number] Jul 15, 2018 ROSETTE CHAVEZ IBUPROFEN 400MG TAB Non- VA TAKE ONE TABLET BY MOUTH TWO TIMES A DAY NEEDED Non-VA Documented by: DAHLIA CHAVEZ Docume nted at: [facility] OMEPRAZOLE 20MG CAP,EC N on-VA TAKE 1 CAPSULE BY MOUTH EVERY MORNING Non-VA Documented by: ANDREW WILKERSON nted at: [facility] Problems (Conditions): All historical and current Section Date Range: From patient's date of to the date document was create d. This section includes a list of Problems (Conditions) know n to [facility] for the patient. It includes both active and inacti ve problems (conditions). The data comes from all [facility] treatment facilities. Problem Status Problem Code Date of Onset Date of Resolution Comm ent(s) Provider Source Arthritis (SNOMED CT 7521164) Active [id number] [facility] Back Pain (ICD-9-CM 724.5) Active 724.5 [facility] Benign prostatic hyperplasia Active 600. CAMERON DEANN JIMENEZ [place] [facility] Depression Active 300.4 [place] [facility] Depression * (ICD-9-CM 300.4/311.) Active 311. [facility] Esophageal Reflux Active 530.81 [facility] H/O: hypertension (SNOMED CT 627789853) Active V12.59 [facility] Hyperlipidemia * (ICD-9-CM 272.4) Active 272.4 [facility] LBP * (ICD-9-CM 724.2) Active 724.2 Dana [facility] Osteoarthos NOS Unspec Active 715.90 Dana [facility] Other acquired deformities of knee (ICD-9-CM 736.6) Active 736.6 [facility] Rosacea * (ICD-9-CM 695.3) Active 695.3 [facility] 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 Date/Time Encounter Note(s) Provider Source Feb 11, 2019 09:15 AM ADMINISTRATIVE NOTE: LOCAL TITLE: WI-ADMINISTRATIVE NOTE (BP,O) STANDARD TITLE: ADMINISTRATIVE NOTE DATE OF NOTE: FEB 11, 2019@09:15 ENTRY DATE: FEB 11, 2019@09:15:06 AUTHOR: DAHLIA CHAVEZ EXP COSIGNER: URGENCY: STATUS: COMPLETED reviewed recent lab- sodium sl. low at 133, suggest fluid restriction to 1000ml daily, repeat lab/lytes in 2 months, fbs is good at 101, choldired is good at 96, not clinical to tx., this will come up when sodium comes up, plt. count sl. low at 113, hgb is good at 14.1, wbc sl. low at 3.5, lab looks pretty good, suggest as above, repeat lytes in 2 months, repeat cbc with plt. count in 2 months, please call or send letter, thank you /[email or web address]/ DAHLIA CHAVEZ [facility]- Signed: 02/11/2019 09:19 Receipt Acknowledged By: 02/11/2019 10:13 /[email or web address]/ ANDREW Salmon [facility] STAFF NURSE DAHLIA CHAVEZ [facility] Feb 01, 2019 10:05 AM MEDICATION MGT NOTE: LOCAL TITLE: WI-MEDICATION RECONCILIATION (BP,O) STANDARD TITLE: MEDICATION MGT NOTE DATE OF NOTE: FEB 01, 2019@10:05 ENTRY DATE: FEB 01, 2019@10:05:05 AUTHOR: DAHLIA CHAVEZ EXP COSIGNER: URGENCY: STATUS: COMPLETED MEDICATION RECONCILIATION Allergies: Patient has answered NKA Allergies reviewed, edited in CPRS as appropriate and confirmed by patient: Yes Active Outpatient Medications (including Supplies): Outpatient Medications Status = 1) ESCITALOPRAM OXALATE 10MG TAB TAKE ONE-HALF TABLET BY ACTIVE MOUTH ONCE A DAY FOR MOOD. 2) HYDROCHLOROTHIAZIDE 25MG TAB TAKE ONE-HALF TABLET BY ACTIVE MOUTH EVERY MORNING FOR BLOOD PRESSURE Non-VA Medications Status = 1) Non-VA CHOLECALCIFEROL (VIT D3) 1,000UNIT TAB ACTIVE 1000UNIT MOUTH ONCE A DAY 2) Non-VA IBUPROFEN 400MG TAB 400MG MOUTH TWICE A DAY ACTIVE NEEDED 3) Non-VA OMEPRAZOLE 20MG EC CAP 20MG MOUTH EVERY ACTIVE MORNING 5 Total Medications Compared newly ordered medications and medication changes to active medications and non-VA medications, and then reviewed medications with patient and/or caregiver. All discrepancies noted and reconciled. Patients, or caregivers, was provided with reconciled medications list and advised to provide to all non VA providers. Potential adverse reactions of new medications were discussed with the patient. Patient/family/caregiver educated and evaluated for understanding on Medications. The list was reviewed with and given to the patient/family/caregiver who were also educated on importance of sharing medication list with all [facility] providers and non-VA providers. For questions, please call your team nurse. Pertinent lab reviewed: Yes. Level of Understanding: Good Comments: /funmilayo/ DAHLIA CHAVEZ [facility]- Signed: 02/01/2019 10:05 DAHLIA CHAVEZ [facility] Feb 01, 2019 09:50 AM PRIMARY CARE PHYSICIAN OUTPA TIENT NOTE: LOCAL TITLE: [place]-GENERAL/PRIMARY CARE STANDARD TITLE: PRIMARY CARE PHYSICIAN OUTPATIENT NOTE DATE OF NOTE: FEB 01, 2019@09:50 ENTRY DATE: FEB 01, 2019@09:50:26 AUTHOR: DAHLIA CHAVEZ EXP COSIGNER: URGENCY: STATUS: COMPLETED Depression Screening: PHQ-2+I9 Depression Screening Score: 0 The score on this administration is 0, which indicates a negative screen on the Depression Scale over the past two weeks. Suicide Screening Score: 0 The results of this administration indicates a NEGATIVE primary screen for Risk of Suicide over the last 2 weeks. Over the past two weeks, how often have you been bothered by the following problems? 1. Little interest or pleasure in doing things Not at all 2. Feeling down, depressed, or hopeless Not at all 3. Thoughts that you would be better off or of hurting yourself in some way Not at all Diagnostic Colonoscopy: (+) FIT/FOBT identified. A diagnostic Colonoscopy is due based on information available to this reminder. Prior/outside colonoscopy results: normal Date: February 02, 2018 Due to patient's age, risk level, and/or co-morbid conditions, discontinuation of asymptomatic colorectal cancer screening/surveillance is recommended. s. pt. [facility] cont. medical care, he states he is doing pretty good, he states he cont. to see dr. kumar form pmd, pt. states he cont. to have the iron infusions, he states he is going to talk to pmd about the iron infusions if they need to cont., vs stable, hx. unchanged, fasting lab today, to review and update meds. o. affect=pleasant skin=w/d, afebrile general appearance is good, no acute distress no edema noted lower ext. bilat. neuro grossly intact assessment/plan: htn, cont. with hctz as directed fasting lab today, meds. reviewed, updated rtc 12 months for annual exam /funmilayo/ DAHLIA CHAVEZ [facility] Signed: 02/01/2019 10:04 DAHLIA CHAVEZ [facility] Feb 01, 2019 09:05 AM NURSING OUTPATIENT NOTE: LOCAL TITLE: [place]-NURSE/[facility] STANDARD TITLE: NURSING OUTPATIENT NOTE DATE OF NOTE: FEB 01, 2019@09:05 ENTRY DATE: FEB 01, 2019@09:06:41 AUTHOR: ANDREW WILKERSON COSIGNER: URGENCY: STATUS: COMPLETED Reason for appointment: PCP Appointment Reason for appointment: Other: annual Is the patient diabetic? No - patient is not a diabetic What is your goal for today's visit? *Required Is there anything in your life that worries or stresses you that we may assist you with today? *Required No Are you registered for [facility] [employer])? No - Are you interested in registering? No If 'yes' please hand [place] [facility] brochure. WI-TOBACCO SCREENING/COUNSELING: Tobacco Screening/Counseling: Prior screening history- --STATUS-- --DUE DATE-- --LAST DONE-- P:Tobacco Cessation Intervention DUE NOW DUE NOW unknown Frequency: Due every 1 year for all ages. Patient states he/she is a non-user of tobacco products for the last 30 days and advised to continue with abstinence. Tobacco Cessation Consult Offered:*(Required) Patient has not used tobacco products in the last 12 months. VISN 15-INFLUENZA IMMUNIZATION : INFLUENZA IMMUNIZATION V1.0 Vaccine not given: Patient indicated influenza vaccination was received at another facility. Date: December, Exact date is unknown Location: [facility] WI-ABUSE/NEGLECT SCREENING: Abuse/Neglect Questions Does the patient feel safe in their current living arrangement? Yes Does the patient show any signs of abuse or neglect? No REPORT OF SUSPECTED ABUSE OR NEGLECT SOCIAL WORK CONSULTS: WI-DIAG RESULT (PERSON OR PHONE): Results will be mailed or phoned to patient when available. WI-PAIN: Pain Reassessment-Patient's updated pain score after intervention is: PAIN Score 3 Pain Documentation: Pain level 3 or less. WI-FALL RISK OP: MILAN FALL SCALE The [place] Fall scale was performed and score was 0. This is indicative of low risk of falls. History of falling in past 3 months? No Secondary diagnosis: No Ambulatory aid: None/bedrest/nurse assist Intravenous therapy/Heparin lock: No Gait/Transferring: Normal/bed rest/immobile Mental Status: Oriented to own ability/knows own limitations OTHER RISK FACTORS No history of falls and no secondary diagnosis. Patient risk for falling: Low Risk pamphlet given to patient/family Is patient at risk for falling? Patient is NOT at risk for falling Is the patient 75 years of age or older? No Depression Screening: PHQ-2+I9 Depression Screening Score: 0 The score on this administration is 0, which indicates a negative screen on the Depression Scale over the past two weeks. Suicide Screening Score: 0 The results of this administration indicates a NEGATIVE primary screen for Risk of Suicide over the last 2 weeks. Over the past two weeks, how often have you been bothered by the following problems? 1. Little interest or pleasure in doing things Not at all 2. Feeling down, depressed, or hopeless Not at all 3. Thoughts that you would be better off or of hurting yourself in some way Not at all Alcohol Use Screen (AUDIT-C): Alcohol Screen: SCREEN FOR ALCOHOL (AUDIT-C) An alcohol screening test (AUDIT-C) was positive (score=5). 1. How often did you have a drink containing alcohol in the past year? Four or more times a week 2. How many drinks containing alcohol did you have on a typical day when you were drinking in the past year? 3 or 4 3. How often did you have six or more drinks on one occasion in the past year? Never /funmilayo/ ANDREW WILKERSON STAFF NURSE Signed: 02/01/2019 09:16 ANDREW WILKERSON [facility]
--- OUTSIDE RECORDS SUMMARY | 2019-09-17 13:20 | XMS REPORT | Encounter Summary ---
Author Author Department of [facility] CASIE martinez Department of [facility] Address [address] [place] [address] Phone Unavailable Care Team Providers Care Pan Washer Name Role Phone DAHLIA CHAVEZ PCP Unavailable [...] PART A Apr 23, 2001 PART A [id number] DARCI POZO PATIENT MEDICARE (WNR) MEDICARE (M) PART B Apr 23, 2001 PART B [id number] DARCI POZO PATIENT [employer] MEDIGAP PLAN C MEDICARE SUPPLEMENT July 21, 2002 PLAN C [id number] [phone] CASIE POZO PATIENT [employer] LOCAL 23 PREFERRED PROVIDER ORGANIZATIO N (PPO) [employer] Mar 23, 1995 LOCAL 23 [id number] [phone] JALEEL POZO PATIENT Selected Encounter This section includes the information on record at [place] for the Encounter. Date/Time Encounter Type Encounter Description Reason Provider Source Feb 11, 2019 10:11 AM Outpatient Encounter ADMIN PAT ACTIVTIES (MASNO NCT) [facility] IHE Encounter Template Text not used by [facility] Assessments - Encounter Diagnoses No Data Provided for This Section Plan of Treatment: Future Appointments (+ 6 months) and Future Tests (+/- 45 day s) The Plan of Treatment section includes future care activities for the patient fr om all [place] treatment facilities. This section includes future appointments and fu ture orders which are active, pending or scheduled. Future Appointments This section includes appointments that were scheduled t o occur 6 months from the date of the Encounter, up to a maximum of 20 appointme nts. The data comes from all [place] treatment facilities. Appointment Date/Time Appointment Type Appointment Facili ty Name Apr 13, 2019 09:30 AM AMBULATORY - NONE [facility] Surgical Procedures: All associated to the encounter No Data Provided for This Section Lab Results: +/- 30 days of the encounter This section includes the Chemistry and Hematology Lab R esults on record with [place] for the patient. Radiology Reports and Pathology Report s are provided separately, in subsequent sections. Lab Results This section contains the Chemistry/Hematology Results [place] t were resulted 30 days before or 30 days after the date of the Encounter. Date/Time Source Result Type Result - Unit Interpretation Reference Range Comment Feb 01, 2019 09:00 AM [facility] CBC & DIFF Specimen Type: BLOOD [...] % Feb 01, 2019 09:[address] AM [facility] COMPREHENSIVE METABOLIC PA CESAR Specimen Type: [...] >60 Feb 01, 2019 09:[address] [facility] LIPID PROFILE(HDL,TRIG,CHO L,LDL) Specimen Type: PLASMA Comment: For eGFR: eGFR results >60 are imprecise. Many variables affect the calculated result. Interpretation of eGFR results >60 must be monitored over time. CHOLESTEROL 176 mg/dL 0-200 TRIGS 47 mg/dL 0-150 HDL-CHOLESTEROL 94 mg/dL >40 LDL (CALC) 73 mg/dL 0-99.9 Feb 01, 2019 09:[address] [facility] TSH Specimen Type: SERUM No comment entered. TSH 1.24 uIU/mL 0.47-5.00 Feb 01, 2019 09:[address] [facility] PROSTATIC SPECIFIC ANTIGEN (TOTAL) Specimen Type: SERUM No comment entered. PROSTATIC SPECIFIC ANTIGEN(TOTAL) 0.7 ng/mL 0-4 Feb 01, 2019 09:[address] [facility] VITAMIN D (25-OH) Specimen Type: SERUM [...] and tobacco- related health factors from the [place] facility where the Encounter took place. Current Smoking Status This section includes the most current smoking, or tobacco -related health factor, from the [place] facility where the Encounter took place. Date/Time Current Smoking Status Comment Facility Feb 10, 2018 02:30 PM CURRENT NON-SMOKER [facility] Tobacco Use History This section includes a history of the smoking, or tobacco -related health factors, that were collected on or before the date of the Encoun ter. The data comes from the [place] facility where the Encounter took place. Date/Time Smoking Status/Tobacco Use Comment [facility] it Feb 10, 2018 02:30 PM LIFETIME NON-TOBACCO USER [facility] Feb 05, 2017 09:30 AM NON-TOBACCO USER [facility] Jan 14, 2016 08:43 AM NON-TOBACCO USER [facility] Feb 07, 2015 10:08 AM NON-TOBACCO USER [facility] Dec 21, 2013 08:59 AM NON-TOBACCO USER [facility] Nov 30, 2012 09:09 AM NON-TOBACCO USER [facility] Nov 28, 2011 09:20 AM NON-TOBACCO USER [facility] July 24, 2010 09:03 AM CURRENT NON-SMOKER [facility] July 24, 2010 09:03 AM LIFETIME NON-TOBACCO USER [facility] July 24, 2009 09:50 AM CURRENT NON-SMOKER [facility] July 24, 2009 09:50 AM LIFETIME NON-TOBACCO USER [facility] August 07, 2008 08:50 AM CURRENT NON-SMOKER [facility] August 07, 2008 08:50 AM LIFETIME NON-TOBACCO USER [facility] August 07, 2008 08:50 AM NON-TOBACCO USER [facility] August 10, 2007 08:22 AM CURRENT NON-SMOKER [facility] August 10, 2007 08:22 AM LIFETIME NON-TOBACCO USER [facility] August 10, 2007 08:22 AM NON-TOBACCO USER [facility] May 25, 2006 10:14 AM CURRENT NON-SMOKER [facility] May 25, 2006 10:14 AM LIFETIME NON-TOBACCO USER [facility] May 25, 2006 10:14 AM NON-TOBACCO USER [facility] Mar 28, 2005 10:52 AM CURRENT [...] the patient. The data comes from a [facility] treatment facilities. It does not list Allergies/ADRs that were removed or entered in error. Some allergies/ADRs may be reported in t he Immunization section. Allergen Event Date Event Type Reaction(s) Severity Source No Known Allergies [facility], VIS[facility] 15 Medications: VA dispensed (-15 months) and Non-VA Documented (Obtained Outside A) Section Date Range: 1) prescriptions processed by a VA pharmacy in the last 15 m [facility], and 2) all medications recorded in the VA medical record as "non-VA medic ations". Pharmacy terms refer to VA pharmacy's work on prescriptions. VA patient s are advised to take their medications as instructed by their health care team. The data comes from all [place] treatment facilities. Glossary of Pharmacy Terms:Active = A prescription that can be filled at the local VA pharmacy.Active: On Hold = An active prescription that will not be filled until pharmacy resolves the issue.Active: Susp = An active prescription that is not scheduled to be filled yet.Clinic Order = A medication received during a visit to a [place] clinic or emergency department (currently not available).Discontinued [...] other providers that was filled outside the [place]. Or, it may be an over the [...] Documented by: ANDREW WILKERSON Docume nted at: [facility] ESCITALOPRAM OXALATE 10MG TAB TAKE ONE-H CHRISTINE TABLET BY MOUTH ONCE A DAY FOR MOOD. 45 Jul 14, 2019 [id number] Jul 17, 2018 DAHLIA CHAVEZ HYDROCHLOROTHIAZIDE 25MG TAB TAKE ONE-LAWSON LF TABLET BY MOUTH EVERY MORNING FOR BLOOD PRESSURE Jul 14, 2019 [id number] Jul 15, 2018 SUKUMAR CHAVEZ IBUPROFEN 400MG TAB Non- VA TAKE ONE TABLET BY MOUTH TWO TIMES A DAY NEEDED Non-VA Documented by: DAHLIA CHAVEZ Docume nted at: [facility] OMEPRAZOLE 20MG CAP,EC N on-VA TAKE 1 CAPSULE BY MOUTH EVERY MORNING Non-VA Documented by: ANDREW WILKERSON nted at: [facility] Problems (Conditions): All historical and current Section Date Range: From patient's date of to the date document was create d. This section includes a list of Problems (Conditions) know n to [place] for the patient. It includes both active and inacti ve problems (conditions). The data comes from all [place] treatment facilities. Problem Status Problem Code Date of Onset Date of Resolution Comm ent(s) Provider Source Arthritis (SNOMED CT 9023785) Active 9524038 DAHLIA FISHER [facility] Back Pain (ICD-9-CM 724.5) Active 724.5 DAHLIA WATKINS [facility] Benign prostatic hyperplasia Active 600. [facility] [place] [facility] Depression Active 300.4 [place] [facility] Depression * (ICD-9-CM 300.4/311.) Active 311. DAHLIA CHAVEZ [facility] Esophageal Reflux Active 530.81 DEMETRIO CARDONA [facility] H/O: hypertension (SNOMED CT 686495929) Active V12.59 DAHLIA CHAVEZ [facility] Hyperlipidemia * (ICD-9-CM 272.4) Active 272.4 DAHLIA CHAVEZ [facility] LBP * (ICD-9-CM 724.2) Active 724.2 Dana CARDONA [facility] Osteoarthos NOS Unspec Active 715.90 Dana [facility] Other acquired deformities of knee (ICD-9-CM 736.6) Active 736.6 DAHLIA CHAVEZ [facility] Rosacea * (ICD-9-CM 695.3) Active 695.3 DAHLIA WATKINS [facility] 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 Date/Time Encounter Note(s) Provider Source Feb 11, 2019 10:11 AM DIAGNOSTIC STUDY REPORT: LOCAL TITLE: WI-FORM LETTER DIAGNOSTIC RESULTS STANDARD TITLE: DIAGNOSTIC STUDY REPORT DATE OF NOTE: FEB 11, 2019@10:11 ENTRY DATE: FEB 11, 2019@10:11:15 AUTHOR: ANDREW WILKERSON EXP COSIGNER: URGENCY: STATUS: COMPLETED [facility] Kirt Minor [facility] [address] [place] [address] CASIE POZO [address] [place], [place], [address] Jan Dear CASIE POZO, The purpose of this letter is to inform you of your test results done recently at the [facility],[place], [place]. LABORATORY Comments: Your sodium level is low at 133. Recommend fluid restriction to 1 quart a day. We will recheck in 2 months. Your glucose is good at 101. Your platelet count is slightly low at 113, hemoglobin is good at 14.1. Your wbc is slightly low at 3.5. Lab looks pretty good, recomment repeating electrolytes and cbc in 2 months. All other lab is normal. [facility]
--- OUTSIDE RECORDS SUMMARY | 2019-09-17 13:20 | XMS REPORT | Encounter Summary ---
Author Author Department of [facility] CASIE martinez Department of [facility] Address [address] [place] [address] Phone Unavailable Care Team Providers Care Brokerage Manager Name Role Phone DAHLIA CHAVEZ PCP [...] PART A Apr 23, 2001 PART A [id number] DARCI POZO PATIENT MEDICARE (WNR) MEDICARE (M) PART B Apr 23, 2001 PART B [id number] DARCI POZO PATIENT [employer] MEDIGAP PLAN C MEDICARE SUPPLEMENT July 21, 2002 PLAN C [id number] CASIE POZO PATIENT [employer] LOCAL 23 PREFERRED PROVIDER ORGANIZATIO N (PPO) [employer] Mar 23, 1995 LOCAL [id number] [phone] JALEEL POZO PATIENT Selected Encounter This section includes the information on record at [place] for the Encounter. Date/Time Encounter Type Encounter Description Reason Provider Source Dec 21, 2018 12:00 AM Outpatient Encounter EVENT (HISTORICAL) [facility] IHE Encounter Template Text not used by VA Assessments - Encounter Diagnoses No Data Provided for This Section Plan of Treatment: Future Appointments (+ 6 months) and Future Tests (+/- 45 day s) The Plan of Treatment section includes future care activities for the patient fr om all [place] treatment facilities. This section includes future appointments and fu ture orders which are active, pending or scheduled. Future Appointments This section includes appointments that were scheduled t o occur 6 months from the date of the Encounter, up to a maximum of 20 appointme nts. The data comes from all [place] treatment facilities. Appointment Date/Time Appointment Type Appointment Facili ty Name Feb 01, 2019 09:30 AM AMBULATORY - MEDICINE [facility] Apr 13, 2019 09:30 AM AMBULATORY - NONE [facility] Surgical Procedures: All associated to the encounter No Data Provided for This Section Lab Results: +/- 30 days of the encounter No Data Provided for This Section Vital Signs: All taken on the encounter date No Data Provided for This Section Immunizations: All administered on the encounter date This section contains immunizations associated to the Encounter. Immunization Series Date Issued Reaction Comments INFLUENZA, UNSPECIFIED FORMULATION Dec 21, 2018 Social History: Smoking Status (Most current) and [...] patient. The data comes from a ll [place] treatment facilities. It does not list Allergies/ADRs that were removed or entered in error. Some allergies/ADRs may be reported in t he Immunization section. Allergen Event Date Event Type Reaction(s) Severity Source No Known Allergies [facility], [facility] 15 Medications: VA dispensed (-15 months) and Non-VA Documented (Obtained Outside A) Section Date Range: 1) prescriptions processed by a VA pharmacy in the last 15 m [facility], and 2) all medications recorded in the [place] medical record as "non-VA medic ations". Pharmacy terms refer to [place] pharmacy's work on prescriptions. [place] patient s are advised to take their medications as instructed by their health care team. The data comes from all [place] treatment facilities. Glossary of Pharmacy Terms:Active = A prescription that can be filled at the local [place] pharmacy.Active: On Hold = An active prescription [...] other providers that was filled outside the [place]. Or, it may be an over the [...] DAY FOR MOOD. 45 Jul 14, 2019 [id number] Jul 17, 2018 DAHLIA CHAVEZ HYDROCHLOROTHIAZIDE 25MG TAB TAKE ONE-LAWSON LF TABLET BY MOUTH EVERY MORNING FOR BLOOD PRESSURE 45 Jul 14, 2019 [id number] Jul 15, 2018 SUKUMAR CHAVEZ IBUPROFEN 400MG [...] problems (conditions). The data comes from all [place] treatment facilities. Problem Status Problem Code Date of Onset Date of Resolution Comm ent(s) Provider Source Arthritis (SNOMED CT 1594472) Active 2802035 [facility] Back Pain (ICD-9-CM 724.5) Active 724.5 [facility] Benign prostatic hyperplasia Active 600. [place] [facility] Depression Active 300.4 DEANN PA [place], [place] O[facility] Depression * (ICD-9-CM 300.4/311.) Active 311. [facility] Esophageal Reflux Active 530.81 [facility] H/O: hypertension (SNOMED CT 835299727) Active V12.59 [facility] Hyperlipidemia * (ICD-9-CM 272.4) Active 272.4 [facility] LBP * (ICD-9-CM 724.2) Active 724.2 [facility] Osteoarthos NOS Unspec Active 715.90 [facility] Other acquired deformities of knee (ICD-9-CM 736.6) Active 736.6 [facility] Rosacea * (ICD-9-CM 695.3) Active 695.3 [facility] 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
--- OUTSIDE RECORDS SUMMARY | 2019-09-17 13:20 | XMS REPORT | Encounter Summary ---
Author Author Department of [facility] CASIE martinez Department of [facility] Address [address] [place] [address] Phone Unavailable Care Team Providers Care Lean Coach Name Role Phone DAHLIA CHAVEZ PCP Unavailable [...] PART A Apr 23, 2001 PART A [id number] DARCI POZO PATIENT MEDICARE (WNR) MEDICARE (M) PART B Apr 23, 2001 PART B [id number] DARCI POZO PATIENT [employer] MEDIGAP PLAN C MEDICARE SUPPLEMENT July 21, 2002 PLAN C [id number] CASIE POZO PATIENT [employer] LOCAL 23 PREFERRED PROVIDER ORGANIZATIO N (PPO) PLUM[employer]ERS PIPEFITTERS Mar 23, 1995 LOCAL 23 [id number] [phone] JALEEL POZO PATIENT Selected Encounter This section includes the information on record at [place] for the Encounter. Date/Time Encounter Type Encounter Description Reason Provider Source Apr 14, 2019 11:14 AM Outpatient Encounter ADMIN PAT ACTIVTIES (MASNO NCT) [facility] IHE Encounter Template Text not used by [facility] Assessments - Encounter Diagnoses No Data Provided for This Section Plan of Treatment: Future Appointments (+ 6 months) and Future Tests (+/- 45 day s) The Plan of Treatment section includes future care activities for the patient fr om all [place] treatment facilities. This section includes future appointments and fu ture orders which are active, pending or scheduled. Future Appointments This section includes appointments that were scheduled t o occur 6 months from the date of the Encounter, up to a maximum of 20 appointme nts. The data comes from all [place] treatment facilities. Appointment Date/Time Appointment Type Appointment Facili ty Name Sep 29, 2019 10:00 AM AMBULATORY - MEDICINE [facility] Surgical Procedures: All associated to the encounter No Data Provided for This Section Lab Results: +/- 30 days of the encounter This section includes the Chemistry and Hematology Lab R esults on record with [place] for the patient. Radiology Reports and Pathology Report s are provided separately, in subsequent sections. Lab Results This section contains the Chemistry/Hematology Results [place] t were resulted 30 days before or 30 days after the date of the Encounter. Date/Time Source Result Type Result - Unit Interpretation Reference Range Comment Apr 13, 2019 09:25 AM [facility] CBC & DIFF Specimen Type: BLOOD [...] 0.2 % Apr 13, 2019 09:25 AM [facility] BASIC METABOLIC PANEL Specimen Type: PLASMA Comment: [...] EGFR >60 Apr 13, 2019 09:25 AM [facility] ERYTHROCYTE SEDIMENTATION RATE Specimen Type: BLOOD No comment entered. ERYTHROCYTE SEDIMENTATION RATE 1 mm/hr 0-20 Apr 13, 2019 09:25 AM [facility] URINALYSIS Specimen Type: URINE No comment entered. [...] and tobacco- related health factors from the [place] facility where the Encounter took place. Current Smoking Status This section includes the most current smoking, or tobacco -related health factor, from the [place] facility where the Encounter took place. Date/Time Current Smoking Status Comment Facility Feb 10, 2018 02:30 PM CURRENT NON-SMOKER [facility] Tobacco Use History This section includes a history of the smoking, or tobacco -related health factors, that were collected on or before the date of the Encoun ter. The data comes from the [place] facility where the Encounter took place. Date/Time Smoking Status/Tobacco Use Comment Facil ity Feb 10, 2018 02:30 PM LIFETIME NON-TOBACCO [...] 2008 08:50 AM LIFETIME NON-TOBACCO USER [facility] August 07, 2008 08:50 AM NON-TOBACCO USER [facility] August 10, 2007 08:22 AM CURRENT NON-SMOKER [facility] August 10, 2007 08:22 AM LIFETIME NON-TOBACCO USER [facility] August 10, 2007 08:22 AM NON-TOBACCO USER [facility] May 25, 2006 10:14 AM CURRENT NON-SMOKER [facility] May 25, 2006 10:14 AM LIFETIME NON-TOBACCO [...] 04, 2004 09:12 AM LIFETIME NON-SMOKER [facility] Apr 04, 2004 09:12 AM LIFETIME NON-TOBACCO [...] patient. The data comes from a ll [place] treatment facilities. It does not list Allergies/ADRs that were removed or entered in error. Some allergies/ADRs may be reported in t he Immunization section. Allergen Event Date Event Type Reaction(s) Severity Source No Known Allergies [facility], VISN 15 Medications: VA dispensed (-15 months) and Non-VA Documented (Obtained Outside A) Section Date Range: 1) prescriptions processed by a [place] pharmacy in the last 15 m [facility], and 2) all medications recorded in the [place] medical record as "non-VA medic ations". Pharmacy terms refer to [place] pharmacy's work on prescriptions. [facility] patient s are advised to take their medications as instructed by their health care team. The data comes from all [place] treatment facilities. Glossary of Pharmacy Terms:Active = A prescription that can be filled at the local [place] pharmacy.Active: On Hold = An active prescription that will not be filled until pharmacy resolves the issue.Active: Susp = An active prescription that is not scheduled to be filled yet.Clinic Order = A medication received during a visit to a [place] clinic or emergency department (currently not available).Discontinued [...] other providers that was filled outside the [place]. Or, it may be an over the [...] ONCE A DAY Non-VA Documented by: ANDREW WILKERSONed at: [facility] ESCITALOPRAM OXALATE 10MG TAB TAKE ONE-H CHRISTINE TABLET BY MOUTH ONCE A DAY FOR MOOD. 45 Jul 14, 2019 [id number] Jul 17, 2018 DAHLIA CHAVEZ HYDROCHLOROTHIAZIDE 25MG TAB TAKE ONE-LAWSON LF TABLET BY MOUTH EVERY MORNING FOR BLOOD PRESSURE 45 Jul 14, 2019 [id number] Jul 15, 2018 SUKUMAR CHAVEZ IBUPROFEN 400MG TAB Non- VA TAKE ONE TABLET BY MOUTH TWO TIMES A DAY NEEDED Non-VA Documented by: DAHLIA CHAVEZed at: [facility] OMEPRAZOLE 20MG CAP,EC N [...] problems (conditions). The data comes from all [place] treatment facilities. Problem Status Problem Code Date of Onset Date of Resolution Comm ent(s) Provider Source Arthritis (SNOMED CT 1932401) Active [id number] DAHLIA FISHER [facility] Back Pain (ICD-9-CM 724.5) Active 724.5 DAHLIA WATKINS [facility] Benign prostatic hyperplasia Active 600. CAMERON DEANN JIMENEZ [place], [place] O[facility] Depression Active 300.4 DEANN AP [place], [place] O[facility] Depression * (ICD-9-CM 300.4/311.) Active 311. DAHLIA CHAVEZ [facility] Esophageal Reflux Active 530.81 DEMETRIO CARDONA [facility] H/O: hypertension (SNOMED CT 823219684) Active V12.59 [facility] Hyperlipidemia * (ICD-9-CM 272.4) Active 272.4 [facility] LBP * (ICD-9-CM 724.2) Active 724.2 Dana CARDONA [facility] Osteoarthos NOS Unspec Active 715.90 Dana CARDONA [facility] Other acquired deformities of knee (ICD-9-CM 736.6) [facility] 736.6 [facility] Rosacea * (ICD-9-CM 695.3) Active 695.3 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 Radiology Reports: +/- 30 days of the encounter No Data Provided for This Section Pathology Reports: +/- 30 days of the encounter No Data Provided for This Section Encounter Notes: All associated encounter notes This section contains the clinical notes associated to the Encounter. Date/Time Encounter Note(s) Provider Source Apr 14, 2019 11:14 AM DIAGNOSTIC STUDY REPORT: LOCAL TITLE: WI-FORM LETTER DIAGNOSTIC RESULTS STANDARD TITLE: DIAGNOSTIC STUDY REPORT DATE OF NOTE: APR 14, 2019@11:14 ENTRY DATE: APR 14, 2019@11:14:14 AUTHOR: ANDREW WILKERSON COSIGNER: URGENCY: STATUS: COMPLETED WI-FORM LETTER DIAGNOSTIC RESULTS Has ADDENDA Department of [facility] Sonya Butterfield [address] [place] [address] CASIE POZO [address] [place], [address] Mar Dear CASIE POZO, The purpose of this letter is to inform you of your test results done recently at the [facility],[place], [place]. LABORATORY Comments: Your cbc is good, your platelet count is low at 91. I reviewed lab and platelet count has remained almost the same between 75-125 over the past 13 years. If taking aspirin or nsaids stop these. The rest of lab is normal, we will recheck lab in 1 month. REGI Peralta 04/19/2019 ADDENDUM STATUS: COMPLETED Patient calls to express frustration with repeat lab. Patient reports that he will be going to cancer center in May and will have repeat lab then. Patient states that he does not know why he would need to come back in Apr. if he is going in May. Informed patient Chelsy Chavez was unaware of appt in May and wanted to make sure he had proper follow up. Reassured patient that we would cancel Apr. lab appt. /funmilayo/ ANDREW WILKERSON STAFF NURSE Signed: 04/19/2019 13:42 Receipt Acknowledged By: * AWAITING SIGNATURE * DAHLIA CHAVEZ [facility]
--- OUTSIDE RECORDS SUMMARY | 2019-09-17 13:20 | XMS REPORT | Encounter Summary ---
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 Date/Time Encounter Type Encounter Description Reason Provider Source Dec 06, 2018 02:09 PM Outpatient Encounter ADMIN PAT ACTIVTIES (MASNO NCT) [facility] Encounter Template Text not used by [facility] Assessments - Encounter Diagnoses No Data Provided for This Section Plan of Treatment: Future Appointments (+ 6 months) and Future Tests (+/- 45 day s) The Plan of Treatment section includes future care activities for the patient fr om all [place] treatment facilities. This section includes future appointments and fu ture orders which are active, pending or scheduled. Future Appointments This section includes appointments that were scheduled t o occur 6 months from the date of the Encounter, up to a maximum of 20 appointme nts. The data comes from all [place] treatment facilities. Appointment Date/Time Appointment Type Appointment [...] and tobacco- related health factors from the [place] facility where the Encounter took place. Current Smoking Status This section includes the most current smoking, or tobacco -related health factor, from the [facility] facility where the Encounter took place. Date/Time Current Smoking Status Comment Facility Feb 10, 2018 02:30 PM CURRENT NON-SMOKER [facility] Tobacco Use History This section includes a history of the smoking, or tobacco -related health factors, that were collected on or before the date of the Encoun ter. The data comes from the [place] facility where the Encounter took place. Date/Time Smoking Status/Tobacco Use Comment [facility] it Feb 10, 2018 02:30 PM LIFETIME [...] Dec 18, 2000 08:40 AM NON-TOBACCO USER [facility] Advance Directives: All historical and current No Data Provided for This Section Allergies and Adverse Reactions (ADRs): All historical and current Section Date Range: From patient's date of to the date document was create d. This section includes Allergies and Adverse Reactions (ADR s) on record with [place] for the patient. The data comes from a ll [place] treatment facilities. It does not list Allergies/ADRs [...] [facility] pharmacy in the last 15 m [facility], and 2) all medications recorded in the [place] medical record as "non-VA medic ations". Pharmacy terms refer to [place] pharmacy's work on prescriptions. [place] patient s are advised to take their medications as instructed by their health care team. The data comes from all [place] treatment facilities. Glossary of Pharmacy Terms:Active = A prescription that can be filled at the local [place] pharmacy.Active: On Hold = An active prescription that will not be filled until pharmacy resolves the issue.Active: Susp = An active prescription that is not scheduled to be filled yet.Clinic Order = A medication received during a visit to a [place] clinic or emergency department (currently not available).Discontinued [...] DAY FOR MOOD. 45 Jul 14, 2019 [id number] Jul 17, 2018 DAHLIA CHAVEZ HYDROCHLOROTHIAZIDE 25MG TAB TAKE ONE-LAWSON LF TABLET BY MOUTH EVERY MORNING FOR BLOOD PRESSURE 45 Jul 14, 2019 [id number] Jul 15, 2018 SUKUMAR CHAVEZ [facility] IBUPROFEN [...] problems (conditions). The data comes from all [place] treatment facilities. Problem Status Problem Code Date of Onset Date of Resolution Comm ent(s) Provider Source Arthritis (SNOMED CT 4269939) Active [id number] DAHLIA FISHER [facility] Back Pain (ICD-9-CM 724.5) Active 724.5 DAHLIA WATKINS [facility] Benign prostatic hyperplasia Active 600. CAMERON DEANN JIMENEZ [place], [place] O[facility] Depression Active 300.4 DEANN PA [place], [place] O[facility] Depression * (ICD-9-CM 300.4/311.) Active 311. DAHLIA CHAVEZ [facility] Esophageal Reflux Active 530.81 DEMETRIO CARDONA [facility] H/O: hypertension (SNOMED CT 115956268) Active V12.59 DAHLIA CHAVEZ [facility] Hyperlipidemia * (ICD-9-CM 272.4) Active 272.4 DAHLIA CHAVEZ [facility] LBP * (ICD-9-CM 724.2) Active 724.2 Dana CARDONA [facility] Osteoarthos NOS Unspec Active 715.90 Dana [facility] Other acquired deformities of knee (ICD-9-CM 736.6) Active 736.[address] [facility] Rosacea * (ICD-9-CM 695.3) Active 695.[address] 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 Date/Time Encounter Note(s) Provider Source Dec 06, 2018 02:09 PM ADMINISTRATIVE NOTE: LOCAL TITLE: WI-ADMIN MSA STANDARD TITLE: ADMINISTRATIVE NOTE DATE OF NOTE: DEC 06, 2018@14:09 ENTRY DATE: DEC 06, 2018@14:09:38 AUTHOR: BEATRIZ RAMIRES EXP COSIGNER: URGENCY: STATUS: COMPLETED MSA Administrative Note: RECORDS RECEIVED TODAY by: Fax Nature of report:office notes Date(s) of record(s):12/06/2018 Sending libertarian:Dominga Ballesteros DO /funmilayo/ BEATRIZ [facility] Signed: 12/06/2018 14:10 BEATRIZ RAMIRES [facility]
--- OUTSIDE RECORDS SUMMARY | 2019-09-17 13:21 | XMS REPORT | Continuity of Care Document ---
Author Organization Unknown Address Unknown Phone Unavailable Allergies Active Description Code Type Severity Reaction Onset Reported/Identified Relationship to Patient Clinical Status Yes No Known Drug Allergies [id number] Drug Allergy Unknown N/A 01/06/2011 Medications There is no data. 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 9 NONINF GASTROENTERIT NEC 07/16/2013 PATTI HILLIARD MD Ot 787. 01 NAUSEA WITH VOMITING 07/31/2013 OJ, BOBAN N [...] 02/03/2014 OJ, BOBAN N Ot V58.69 02/23/2014 TOYA ALLISON NEWSPAPER COLUMNIST Ot 238.79 02/23/2014 TOYA ALLISON NEWSPAPER COLUMNIST Ot 280.9 02/23/2014 TOYA ALLISON NEWSPAPER COLUMNIST Ot V58.69 04/20/2014 OJ, BOBAN N Ot [...] ORENDER DO, BRIAN S Ot 272.4 [facility]/17[facility]2014 [facility] 780.79 05/17[facility]2014 [facility] Ot 790.29 05/17/2014 OREND DO, BRIAN S Ot V72.62 05/17/2014 OREND DO, BRIAN S Ot 272.4 05/17/2014 ORENDER DO, BRIAN S Ot 780.79 05/17/2014 [facility] Ot 790.29 05/17/2014 ORENDER DO, BRIAN S Ot V72.62 05/17/2014 ORENDER DO, BRIAN S Ot 272.4 05/17/2014 ORENDER DO, BRIAN S Ot 780.79 05/17/2014 [facility] S Ot 790.29 05/17/2014 [facility]RIAN S Ot V72.62 08/02/2014 [...] N Ot V58.69 08/21/2014 ALLISONTOYA Walls S NEWSPAPER COLUMNIST Ot 238.79 08/21/2014 TOYA ALLISON S NEWSPAPER COLUMNIST Ot 280.9 08/21/2014 TOYA ALLISON S NEWSPAPER COLUMNIST Ot V58.69 11/01/2014 LAURA MCWILLIAMS N Ot 238.79 OTHER LYMPHATIC AND HEMATOPOIETIC TISSUE 11/01/2014 LAURA MCWILLIAMS N Ot 280.9 IRON DEFIC ANEMIA NOS 11/01/2014 LAURA MCWILLIAMS N Ot V58.69 OTH MED,LT,CURRENT USE 11/07/2014 TOYA ALLISON S NEWSPAPER COLUMNIST Ot 202.80 11/07/2014 TOYA ALLISON S NEWSPAPER COLUMNIST Ot 280.9 11/07/2014 TOYA ALLISON S NEWSPAPER COLUMNIST Ot 448.0 11/07/2014 ALLISONTOYA Walls S NEWSPAPER COLUMNIST Ot V58.69 11/17/2014 TOYA ALLISON S NEWSPAPER COLUMNIST Ot 202.80 11/17/2014 ALLISONTOYA Walls S NEWSPAPER COLUMNIST Ot 280.9 11/17/2014 ALLISON, JONATHANBRENDA S NEWSPAPER COLUMNIST Ot 448.0 11/17/2014 ALLISONTOYA Walls S NEWSPAPER COLUMNIST Ot V58.69 02/08/2015 ALEJANDRO LOCKHART Ot I78.8 [...] 04/24/2015 LAURA MCWILLIAMS N Ot Z79.899 OTHER DETENTION (CURRENT) DRUG THERAPY 05/25/2015 LAURA MCWILLIAMS N Ot C85.90 05/25/2015 LAURA MCWILLIAMS N Ot D50.8 05/25/2015 LAURA MCWILLIAMS N Ot D69.6 05/25/2015 LAURA MCWILLIAMS N Ot I78.0 05/25/2015 LAURA MCWILLIAMS N Ot Z79.899 06/18/2015 TOYA ALLISON NEWSPAPER COLUMNIST Ot C85.90 06/18/2015 TOYA ALLISON S NEWSPAPER COLUMNIST Ot D50.8 06/18/2015 TOYA ALLISON S NEWSPAPER COLUMNIST Ot D69.6 06/18/2015 TOYA ALLISON S NEWSPAPER COLUMNIST Ot I78.0 06/18/2015 TOYA ALLISON S NEWSPAPER COLUMNIST Ot Z79.899 06/25/2015 TOYA ALLISON S NEWSPAPER COLUMNIST Ot C85.90 06/25/2015 TOYA ALLISON S NEWSPAPER COLUMNIST Ot D50.8 06/25/2015 TOYA ALLISON S NEWSPAPER COLUMNIST Ot D69.6 06/25/2015 TOYA ALLISON NEWSPAPER COLUMNIST Ot I78.0 06/25/2015 TOYA ALLISON S NEWSPAPER COLUMNIST Ot Z79.899 08/22/2015 LAURA MCWILLIAMS N Ot C85.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, UNSPECIFIED, UNSPE 08/22/2015 LAURA MCWILLIAMS N Ot D50.8 OTHER IRON DEFICIENCY ANEMIAS 08/22/2015 LAURA MCWILLIAMS N Ot D69.6 THROMBOCYTOPENIA, UNSPECIFIED 08/22/2015 OJLAURA N Ot 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 08/22/2015 OJ BOBAN N Ot Z79.899 OTHER DETENTION (CURRENT) DRUG THERAPY 08/22/2015 TOYA ALILSON NEWSPAPER COLUMNIST Ot C85.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, UNSPECIFIED, UNSPE 08/22/2015 TOYA ALLISON S NEWSPAPER COLUMNIST Ot D50.8 OTHER IRON DEFICIENCY ANEMIAS 08/22/2015 TOYA ALLISON S NEWSPAPER COLUMNIST Ot D69.6 THROMBOCYTOPENIA, UNSPECIFIED 08/22/2015 TOYA ALLISON NEWSPAPER COLUMNIST Ot 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 08/22/2015 ALLISONTOYA Walls S NEWSPAPER COLUMNIST Ot Z79.899 OTHER HRIS MANAGER (CURRENT) DRUG THERAPY 08/29/2015 OJLAURA DIAMOND N Ot C85.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, UNSPECIFIED, UNSPE 08/29/2015 OJ, BOBAN N Ot D50.8 OTHER IRON DEFICIENCY ANEMIAS 08/29/2015 OJ, BOBAN N Ot D69.6 THROMBOCYTOPENIA, UNSPECIFIED 08/29/2015 OJ, BOBAN N Ot 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 08/29/2015 OJ, BOBAN N Ot Z79.899 OTHER HRIS MANAGER (CURRENT) DRUG THERAPY 09/20/2015 OJ, BOBAN N Ot C85.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, UNSPECIFIED, UNSPE 09/20/2015 OJ, BOBAN N Ot D50.8 OTHER IRON DEFICIENCY ANEMIAS 09/20/2015 OJ BOBAN N Ot D69.6 THROMBOCYTOPENIA, UNSPECIFIED 09/20/2015 OJ, BOBELVIRA N Ot 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 09/20/2015 OJ, BOBAN N Ot Z79.899 OTHER HRIS MANAGER (CURRENT) DRUG THERAPY 09/21/2015 OJ, BOBAN N Ot C85.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, UNSPECIFIED, UNSPE 09/21/2015 OJ, BOBAN N Ot D50.8 OTHER IRON DEFICIENCY ANEMIAS 09/21/2015 OJ, BOBAN N Ot D69.6 THROMBOCYTOPENIA, UNSPECIFIED 09/21/2015 OJ, BOBAN N Ot 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 09/21/2015 OJ, BOBAN N Ot Z79.899 OTHER DETENTION (CURRENT) DRUG THERAPY 10/02/2015 OJ, BOBAN N Ot C85.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, UNSPECIFIED, UNSPE 10/02/2015 OJ, BOBAN N Ot D50.8 OTHER IRON DEFICIENCY ANEMIAS 10/02/2015 OJ, BOBAN N Ot D69.6 THROMBOCYTOPENIA, UNSPECIFIED 10/02/2015 OJ, BOBAN N Ot 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 10/02/2015 OJ, BOBAN N Ot Z79.899 OTHER HRIS MANAGER (CURRENT) DRUG THERAPY 12/19/2015 OJ, BOBAN N Ot C85.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, UNSPECIFIED, UNSPE 12/19/2015 OJ, BOBAN N Ot D50.8 OTHER IRON DEFICIENCY ANEMIAS 12/19/2015 OJ, BOBAN N Ot D69.6 THROMBOCYTOPENIA, UNSPECIFIED 12/19/2015 OJ, BOBAN N Ot 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 12/19/2015 OJ, BOBAN N Ot Z79.899 OTHER DETENTION (CURRENT) DRUG THERAPY 12/20/2015 OJ, BOBAN N Ot C85.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, UNSPECIFIED, UNSPE 12/20/2015 OJ, BOBAN N Ot D50.8 OTHER IRON DEFICIENCY ANEMIAS 12/20/2015 OJ, BOBAN N Ot D69.6 THROMBOCYTOPENIA, UNSPECIFIED 12/20/2015 OJ, BOBAN N Ot 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 12/20/2015 OJ, BOBAN N Ot Z79.899 OTHER HRIS MANAGER (CURRENT) DRUG THERAPY 03/25/2016 OJ, BOBAN N Ot C85.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, UNSPECIFIED, UNSPE 03/25/2016 OJ, BOBAN N Ot D50.8 OTHER IRON DEFICIENCY ANEMIAS 03/25/2016 OJ, BOBAN N Ot D69.6 THROMBOCYTOPENIA, UNSPECIFIED 03/25/2016 OJ, BOBAN N Ot 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 03/25/2016 OJ, BOBAN N Ot Z79.899 OTHER HRIS MANAGER (CURRENT) DRUG THERAPY 04/23/2016 OJ, BOBAN N Ot C85.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, UNSPECIFIED, UNSPE 04/23/2016 OJ, BOBAN N Ot D50.8 OTHER IRON DEFICIENCY ANEMIAS 04/23/2016 OJ, BOBAN N Ot D69.6 THROMBOCYTOPENIA, UNSPECIFIED 04/23/2016 OJ, BOBAN N Ot 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 04/23/2016 OJ, BOBAN N Ot Z79.899 OTHER DETENTION (CURRENT) DRUG THERAPY 04/24/2016 OJ, BOBAN N Ot C85.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, UNSPECIFIED, UNSPE 04/24/2016 OJ, BOBAN N Ot D50.8 OTHER IRON DEFICIENCY ANEMIAS 04/24/2016 OJ, BOBAN N Ot D69.6 THROMBOCYTOPENIA, UNSPECIFIED 04/24/2016 OJ, BOBAN N Ot 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 04/24/2016 OJ, BOBAN N Ot Z79.899 OTHER DETENTION (CURRENT) DRUG THERAPY 04/25/2016 OJ, BOBAN N Ot C85.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, UNSPECIFIED, UNSPE 04/25/2016 OJ, BOBAN N Ot D50.8 OTHER IRON DEFICIENCY ANEMIAS 04/25/2016 OJ, BOBAN N Ot D69.6 THROMBOCYTOPENIA, UNSPECIFIED 04/25/2016 OJ, BOBAN N Ot 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 04/25/2016 OJ, BOBAN N Ot Z79.899 OTHER HRIS MANAGER (CURRENT) DRUG THERAPY 06/23/2016 OJ, BOBAN N Ot C85.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, UNSPECIFIED, UNSPE 06/23/2016 OJ, BOBAN N Ot D50.8 OTHER IRON DEFICIENCY ANEMIAS 06/23/2016 OJ, BOBAN N Ot D69.6 THROMBOCYTOPENIA, UNSPECIFIED 06/23/2016 OJ, BOBAN N Ot 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 06/23/2016 OJ, BOBAN N Ot Z79.899 OTHER DETENTION (CURRENT) DRUG THERAPY 07/23/2016 OJ, BOBAN N Ot C85.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, UNSPECIFIED, UNSPE 07/23/2016 OJ, BOBAN N Ot D50.8 OTHER IRON DEFICIENCY ANEMIAS 07/23/2016 OJ, BOBAN N Ot D69.6 THROMBOCYTOPENIA, UNSPECIFIED 07/23/2016 OJ, BOBAN N Ot 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 07/23/2016 OJ, BOBAN N Ot Z79.899 OTHER DETENTION (CURRENT) DRUG THERAPY 07/24/2016 LAURA MCWILLIAMS N Ot C85.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, UNSPECIFIED, UNSPE 07/24/2016 LAURA MCWILLIAMS N Ot D50.8 OTHER IRON DEFICIENCY ANEMIAS 07/24/2016 LAURA MCWILLIAMS N Ot D69.6 THROMBOCYTOPENIA, UNSPECIFIED 07/24/2016 LAURA MCWILLIAMS N Ot 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 2 PALPITATIONS 07/28/2016 VIDAL BELTRAN MD Ot R00. 2 PALPITATIONS 07/29/2016 VIDAL BELTRAN MD Ot R00. 2 PALPITATIONS 07/31/2016 VIDAL BELTRAN MD Ot C85. 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, UNSPECIFIED, UNSPE 07/31/2016 VIDAL BELTRAN MD Ot D50. 0 IRON DEFICIENCY ANEMIA SECONDARY TO BLOO 07/31/2016 VIDAL BELTRAN MD Ot E66. 9 OBESITY, UNSPECIFIED 07/31/2016 VIDAL BELTRAN MD Ot K21. 9 GASTRO-ESOPHAGEAL REFLUX DISEASE WITHOUT 07/31/2016 VIDAL BELTRAN MD Ot R00. 2 PALPITATIONS 07/31/2016 VIDAL BELTRAN MD Ot R11. 0 NAUSEA 07/31/2016 VIDAL BELTRAN MD Ot C85. 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, UNSPECIFIED, UNSPE 07/31/2016 VIDAL BELTRAN MD Ot D50. 0 IRON DEFICIENCY ANEMIA SECONDARY TO BLOO 07/31/2016 VIDAL BELTRAN MD Ot E66. 9 OBESITY, UNSPECIFIED 07/31/2016 VIDAL BELTRAN MD Ot K21. 9 GASTRO-ESOPHAGEAL REFLUX DISEASE WITHOUT 07/31/2016 VIDAL BELTRAN MD Ot R00. 2 PALPITATIONS 07/31/2016 VIDAL BELTRAN MD Ot R11. 0 NAUSEA 07/31/2016 VIDAL BELTRAN MD Ot C85. 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, UNSPECIFIED, UNSPE 07/31/2016 VIDAL BELTRAN MD Ot D50. 0 IRON DEFICIENCY ANEMIA SECONDARY TO BLOO 07/31/2016 VIDAL BELTRAN MD Ot E66. 9 OBESITY, UNSPECIFIED 07/31/2016 VIDAL BELTRAN MD Ot K21. 9 GASTRO-ESOPHAGEAL REFLUX DISEASE WITHOUT 07/31/2016 VIDAL BELTRAN MD Ot R00. 2 PALPITATIONS 07/31/2016 VIDAL BELTRAN MD Ot R11. 0 NAUSEA 08/05/2016 VIDAL BELTRAN MD Ot C85. 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, UNSPECIFIED, UNSPE 08/05/2016 VIDAL BELTRAN MD Ot D50. 0 IRON DEFICIENCY ANEMIA SECONDARY TO BLOO 08/05/2016 VIDAL BELTRAN MD Ot E66. 9 OBESITY, UNSPECIFIED 08/05/2016 VIDAL BELTRAN MD Ot K21. 9 GASTRO-ESOPHAGEAL REFLUX DISEASE WITHOUT 08/05/2016 VIDAL BELTRAN MD Ot R00. 2 PALPITATIONS 08/05/2016 VIDAL BELTRAN MD Ot R11. 0 NAUSEA 09/01/2016 VIDAL BELTRAN MD Ot C85. 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, UNSPECIFIED, UNSPE 09/01/2016 VIDAL BELTRAN MD Ot D50. 0 IRON DEFICIENCY ANEMIA SECONDARY TO BLOO 09/01/2016 VIDAL BELTRAN MD Ot E66. 9 OBESITY, UNSPECIFIED 09/01/2016 VIDAL BELTRAN MD Ot K21. 9 GASTRO-ESOPHAGEAL REFLUX DISEASE WITHOUT 09/01/2016 VIDAL BELTRAN MD Ot R00. 2 PALPITATIONS 09/01/2016 VIDAL BELTRAN MD Ot R11. 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 10/22/2016 OJ, BOBAN N Ot Z79.899 OTHER DETENTION (CURRENT) DRUG THERAPY 11/04/2016 OJ, BOBAN N Ot C85.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, UNSPECIFIED, UNSPE 11/04/2016 OJ, BOBAN N Ot D50.8 OTHER IRON DEFICIENCY ANEMIAS 11/04/2016 OJ, BOBAN N Ot D69.6 THROMBOCYTOPENIA, UNSPECIFIED 11/04/2016 OJ, BOBAN N Ot 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 11/04/2016 OJ, BOBAN N Ot Z79.899 OTHER HRIS MANAGER (CURRENT) DRUG THERAPY 11/07/2016 OJ, BOBAN N Ot C85.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, UNSPECIFIED, UNSPE 11/07/2016 OJ, BOBAN N Ot D50.8 OTHER IRON DEFICIENCY ANEMIAS 11/07/2016 OJ, BOBAN N Ot D69.6 THROMBOCYTOPENIA, UNSPECIFIED 11/07/2016 OJ, BOBAN N Ot 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 11/07/2016 OJ, BOBAN N Ot Z79.899 OTHER DETENTION (CURRENT) DRUG THERAPY 12/12/2016 OJ, BOBAN N Ot C85.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, UNSPECIFIED, UNSPE 12/12/2016 OJ, BOBAN N Ot D50.8 OTHER IRON DEFICIENCY ANEMIAS 12/12/2016 OJ, BOBAN N Ot D69.6 THROMBOCYTOPENIA, UNSPECIFIED 12/12/2016 OJ, BOBAN N Ot 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 12/12/2016 OJ, BOBAN N Ot Z79.899 OTHER HRIS MANAGER (CURRENT) DRUG THERAPY 12/20/2016 OJ, BOBAN N Ot C85.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, UNSPECIFIED, UNSPE 12/20/2016 OJ, BOBAN N Ot D50.8 OTHER IRON DEFICIENCY ANEMIAS 12/20/2016 OJ, BOBAN N Ot D69.6 THROMBOCYTOPENIA, UNSPECIFIED 12/20/2016 OJ, BOBAN N Ot 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 12/20/2016 OJ, BOBAN N Ot Z79.899 OTHER HRIS MANAGER (CURRENT) DRUG THERAPY 02/17/2017 OJ, BOBAN N Ot C85.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, UNSPECIFIED, UNSPE 02/17/2017 OJ, BOBAN N Ot D50.8 OTHER IRON DEFICIENCY ANEMIAS 02/17/2017 OJ, BOBAN N Ot D69.6 THROMBOCYTOPENIA, UNSPECIFIED 02/17/2017 OJ, BOBAN N Ot 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 02/17/2017 OJ, BOBAN N Ot Z79.899 OTHER HRIS MANAGER (CURRENT) DRUG THERAPY 03/17/2017 OJ, BOBAN N Ot C85.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, UNSPECIFIED, UNSPE 03/17/2017 OJ, BOBAN N Ot D50.8 OTHER IRON DEFICIENCY ANEMIAS 03/17/2017 OJ, BOBAN N Ot D69.6 THROMBOCYTOPENIA, UNSPECIFIED 03/17/2017 OJ, BOBAN N Ot 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 03/17/2017 OJ, BOBAN N Ot Z79.899 OTHER DETENTION (CURRENT) DRUG THERAPY 05/15/2017 OJ, BOBAN N Ot C85.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, UNSPECIFIED, UNSPE 05/15/2017 OJ, BOBAN N Ot D50.8 OTHER IRON DEFICIENCY ANEMIAS 05/15/2017 OJ, BOBAN N Ot D69.6 THROMBOCYTOPENIA, UNSPECIFIED 05/15/2017 OJ, BOBAN N Ot 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 05/15/2017 OJ, BOBAN N Ot Z79.899 OTHER DETENTION (CURRENT) DRUG THERAPY 05/17/2017 OJ, BOBAN N Ot C85.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, UNSPECIFIED, UNSPE 05/17/2017 OJ, BOBAN N Ot D50.8 OTHER IRON DEFICIENCY ANEMIAS 05/17/2017 OJ, ELHAMAN N Ot D69.6 THROMBOCYTOPENIA, UNSPECIFIED 05/17/2017 OJLAURA DIAMOND N Ot 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 05/17/2017 OJ, BOBAN N Ot Z79.899 OTHER DETENTION (CURRENT) DRUG THERAPY 05/18/2017 OJELHAM DIAMONDAN N Ot C85.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, UNSPECIFIED, UNSPE 05/18/2017 OJ, BOBAN N Ot D50.8 OTHER IRON DEFICIENCY ANEMIAS 05/18/2017 JO, BOBAN N Ot D69.6 THROMBOCYTOPENIA, UNSPECIFIED 05/18/2017 OJ, BOBAN N Ot 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 05/18/2017 OJ, BOBAN N Ot Z79.899 OTHER DETENTION (CURRENT) DRUG THERAPY 06/10/2017 GUANACO CHAN Ot M43.17 SPONDYLOLISTHESIS, LUMBOSACRAL REGION 06/10/2017 GUANACO CHAN Ot 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 OR RADICULOPA 06/10/2017 GUANACO CHAN Ot M48.06 1 SPINAL STENOSIS, LUMBAR REGION WITHOUT N 06/10/2017 GUANACO CHAN Ot M51.26 OTHER INTERVERTEBRAL DISC DISPLACEMENT, 06/10/2017 GUANACO CHAN Ot N28.1 CYST OF KIDNEY, ACQUIRED 06/10/2017 GUANACO CHAN Ot Z98.1 ARTHRODESIS STATUS 06/10/2017 GUANACO CHAN Ot Z98.89 0 OTHER SPECIFIED POSTPROCEDURAL STATES 06/17/2017 OJLAURA DIAMOND N Ot C85.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, UNSPECIFIED, UNSPE 06/17/2017 OJ, LAURA N Ot D50.8 OTHER IRON DEFICIENCY ANEMIAS 06/17/2017 OJLAURA DIAMOND N Ot D69.6 THROMBOCYTOPENIA, UNSPECIFIED 06/17/2017 OJ, BOBELVIRA N Ot 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 06/17/2017 OJ, BOBAN N Ot Z79.899 OTHER DETENTION (CURRENT) DRUG THERAPY 07/15/2017 OJ, BOBAN N Ot C85.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, UNSPECIFIED, UNSPE 07/15/2017 OJ, BOBAN N Ot D50.8 OTHER IRON DEFICIENCY ANEMIAS 07/15/2017 OJ, BOBAN N Ot D69.6 THROMBOCYTOPENIA, UNSPECIFIED 07/15/2017 OJ, BOBAN N Ot 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 07/15/2017 OJ, BOBAN N Ot Z79.899 OTHER HRIS MANAGER (CURRENT) DRUG THERAPY 09/14/2017 OJ, BOBAN N Ot C85.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, UNSPECIFIED, UNSPE 09/14/2017 OJ, BOBAN N Ot D50.8 OTHER IRON DEFICIENCY ANEMIAS 09/14/2017 OJ, BOBAN N Ot D69.6 THROMBOCYTOPENIA, UNSPECIFIED 09/14/2017 OJ, BOBAN N Ot 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 09/14/2017 OJ, BOBAN N Ot Z79.899 OTHER DETENTION (CURRENT) DRUG THERAPY 09/15/2017 OJ, BOBAN N Ot C85.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, UNSPECIFIED, UNSPE 09/15/2017 OJ, BOBAN N Ot D50.8 OTHER IRON DEFICIENCY ANEMIAS 09/15/2017 OJ, BOBAN N Ot D69.6 THROMBOCYTOPENIA, UNSPECIFIED 09/15/2017 OJ, BOBAN N Ot 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 09/15/2017 OJ, BOBAN N Ot Z79.899 OTHER DETENTION (CURRENT) DRUG THERAPY 10/11/2017 OJ, BOBAN N Ot C85.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, UNSPECIFIED, UNSPE 10/11/2017 OJ, BOBAN N Ot D50.8 OTHER IRON DEFICIENCY ANEMIAS 10/11/2017 OJ, BOBAN N Ot D69.6 THROMBOCYTOPENIA, UNSPECIFIED 10/11/2017 OJ, BOBAN N Ot 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 10/11/2017 OJ, BOBAN N Ot Z79.899 OTHER HRIS MANAGER (CURRENT) DRUG THERAPY 12/07/2017 OJ, BOBAN N Ot C85.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, UNSPECIFIED, UNSPE 12/07/2017 OJ, BOBAN N Ot D50.8 OTHER IRON DEFICIENCY ANEMIAS 12/07/2017 OJ, BOBAN N Ot D69.6 THROMBOCYTOPENIA, UNSPECIFIED 12/07/2017 OJ, BOBAN N Ot 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 12/07/2017 LAURA MCWILLIAMS N Ot Z79.899 OTHER HRIS MANAGER (CURRENT) DRUG THERAPY 12/08/2017 LAURA MCWILLIAMS N Ot C85.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, UNSPECIFIED, UNSPE 12/08/2017 LAURA MCWILLIAMS N Ot D50.8 OTHER IRON DEFICIENCY ANEMIAS 12/08/2017 LAURA MCWILLIAMS N Ot D69.6 THROMBOCYTOPENIA, UNSPECIFIED 12/08/2017 LAURA MCWILLIAMS N Ot 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 12/08/2017 LAURA MCWILLIAMS N Ot Z79.899 OTHER HRIS MANAGER (CURRENT) DRUG THERAPY 12/10/2017 LAURA MCWILLIAMS N Ot C85.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, UNSPECIFIED, UNSPE 12/10/2017 LAURA MCWILLIAMS N Ot D50.8 OTHER IRON DEFICIENCY ANEMIAS 12/10/2017 LAURA MCWILLIAMS N Ot D69.6 THROMBOCYTOPENIA, UNSPECIFIED 12/10/2017 LAURA MCWILLIAMS N Ot 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 12/10/2017 LAURA MCWILLIAMS N Ot Z79.899 OTHER HRIS MANAGER (CURRENT) DRUG THERAPY 12/10/2017 MICHELLE MIRAMONTES, PATSY Ot C85.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, UNSPECIFIED, UNSPE 12/10/2017 MICHELLE MIRAMONTES, PATSY Ot D50.8 OTHER IRON DEFICIENCY ANEMIAS 12/10/2017 MICHELLE MIRAMONTES, PATSY Ot D69.6 THROMBOCYTOPENIA, UNSPECIFIED 12/10/2017 MICHELLE MIRAMONTES, PATSY Ot 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 12/10/2017 MICHELLE MIRAMONTES, PATSY Ot Z79.899 OTHER HRIS MANAGER (CURRENT) DRUG THERAPY 12/10/2017 TOYA ALLISON NEWSPAPER COLUMNIST Ot 202.80 OTH LYMPHOMAS EXTRANODAL SOLID ORGAN U 12/10/2017 TOYA ALLISON NEWSPAPER COLUMNIST Ot 280.9 IRON DEFIC ANEMIA NOS 12/10/2017 TOYA ALLISON NEWSPAPER COLUMNIST Ot 284.19 OTHER PANCYTOPENIA 12/10/2017 TOYA ALLISON NEWSPAPER COLUMNIST Ot 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 12/10/2017 TOYA ALLISON NEWSPAPER COLUMNIST Ot 585.3 CHRONIC KIDNEY DISEASE, STAGE III (MODER 12/10/2017 TOYA ALLISON NEWSPAPER COLUMNIST Ot 202.80 OTH LYMPHOMAS EXTRANODAL SOLID ORGAN U 12/10/2017 TOYA ALLISON NEWSPAPER COLUMNIST Ot 280.9 IRON DEFIC ANEMIA NOS 12/10/2017 TOYA ALLISON NEWSPAPER COLUMNIST Ot 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 12/10/2017 TOYA ALLISON NEWSPAPER COLUMNIST Ot V58.69 OTH MED,LT,CURRENT USE 12/10/2017 ORENDER DO, BRIAN S Ot 722.52 LUMB/LUMBOSAC DISC DEGEN 12/10/2017 ORENDER DO, BRIAN S Ot 756.12 SPONDYLOLISTHESIS 12/10/2017 ORENDER DO, BRIAN S Ot 787.02 NAUSEA ALONE 12/10/2017 ORENDER DO, BRIAN S Ot 789.00 ABDOMINAL PAIN, UNSPECIFIED SITE 12/10/2017 ORENDER DO, BRIAN S Ot V45.4 ARTHRODESIS STATUS 12/10/2017 TOYA ALLISON NEWSPAPER COLUMNIST Ot 202.80 OTH LYMPHOMAS EXTRANODAL SOLID ORGAN U 12/10/2017 TOYA ALLISON NEWSPAPER COLUMNIST Ot 280.9 IRON DEFIC ANEMIA NOS 12/10/2017 TOYA ALLISONP Ot 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 12/10/2017 TOYA ALLISON Ot V58.69 OTH MED,LT,CURRENT USE 12/10/2017 TOYA ALLISON NEWSPAPER COLUMNIST Ot 238.79 OTHER LYMPHATIC AND HEMATOPOIETIC TISSUE 12/10/2017 TOYA ALLISON NEWSPAPER COLUMNIST Ot 280.9 IRON DEFIC ANEMIA NOS 12/10/2017 TOYA ALLISON NEWSPAPER COLUMNIST Ot V58.69 OTH MED,LT,CURRENT USE 12/10/2017 ORENDER DO, BRIAN S Ot 272.4 HYPERLIPIDEMIA NEC/NOS 12/10/2017 ORENDER DO, BRIAN S Ot 780.79 OTH MALAISE FATIGUE 12/10/2017 YAHAIRANDER DO, BRIAN S Ot 790.29 OTHER ABNORMAL GLUCOSE 12/10/2017 YAHAIRANDER DO, BRIAN S Ot V72.62 LAB EXAM ORDERED PART OF A ROUTINE GE 12/10/2017 TOYA ALLISON NEWSPAPER COLUMNIST Ot 238.79 OTHER LYMPHATIC AND HEMATOPOIETIC TISSUE 12/10/2017 TOYA ALLISON NEWSPAPER COLUMNIST Ot 280.9 IRON DEFIC ANEMIA NOS 12/10/2017 TOYA ALLISON NEWSPAPER COLUMNIST Ot V58.69 OTH MED,LT,CURRENT USE 12/10/2017 TOYA ALLISON NEWSPAPER COLUMNIST Ot 202.80 OTH LYMPHOMAS EXTRANODAL SOLID ORGAN U 12/10/2017 TOYA ALLISON NEWSPAPER COLUMNIST Ot 280.9 IRON DEFIC ANEMIA NOS 12/10/2017 TOYA ALLISON NEWSPAPER COLUMNIST Ot 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 12/10/2017 TOYA ALLISON NEWSPAPER COLUMNIST Ot V58.69 OTH MED,LT,CURRENT USE 12/10/2017 TOYA ALLISON NEWSPAPER COLUMNIST Ot C85.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, UNSPECIFIED, UNSPE 12/10/2017 TOYA ALLISON NEWSPAPER COLUMNIST Ot D50.8 OTHER IRON DEFICIENCY ANEMIAS 12/10/2017 TOYA ALLISON NEWSPAPER COLUMNIST Ot D69.6 THROMBOCYTOPENIA, UNSPECIFIED 12/10/2017 TOYA ALLISON NEWSPAPER COLUMNIST Ot 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, UNSPECIFIED, UNSPE 12/10/2017 VIDAL BELTRAN MD Ot D50. 0 IRON DEFICIENCY ANEMIA SECONDARY TO BLOO 12/10/2017 VIDAL BELTRAN MD Ot E66. 9 OBESITY, UNSPECIFIED 12/10/2017 VIDAL BELTRAN MD Ot K21. 9 GASTRO-ESOPHAGEAL REFLUX DISEASE WITHOUT 12/10/2017 VIDAL BELTRAN MD Ot R00. 2 PALPITATIONS 12/10/2017 VIDAL BELTRAN MD Ot R11. 0 NAUSEA 12/10/2017 BILLY ANNA GUANACO Dimas Ot M43.17 SPONDYLOLISTHESIS, LUMBOSACRAL REGION 12/10/2017 BILLY ANNA GUANACO Dimas Ot 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 OR RADICULOPA 12/10/2017 BILLY ANNA GUANACO Dimas Ot M48.06 1 SPINAL STENOSIS, LUMBAR REGION WITHOUT N 12/10/2017 BILLY ANNA GUANACO Judie Ot M51.26 OTHER INTERVERTEBRAL DISC DISPLACEMENT, 12/10/2017 BILLY ANNA GUANACO Judie Ot N28.1 CYST OF KIDNEY, ACQUIRED 12/10/2017 BILLY ANNA GUANACO Dimas Ot Z98.1 ARTHRODESIS STATUS 12/10/2017 BILLY ANNA GUANACO Judie Ot Z98.89 0 OTHER SPECIFIED POSTPROCEDURAL STATES 12/10/2017 PATSY MARTINEZ MD Ot C85.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, UNSPECIFIED, UNSPE 12/10/2017 PATSY MARTINEZ MD Ot D50.8 OTHER IRON DEFICIENCY ANEMIAS 12/10/2017 PATSY MARTINEZ MD Ot D69.6 THROMBOCYTOPENIA, UNSPECIFIED 12/10/2017 PATSY MARTINEZ MD Ot 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 12/10/2017 PATSY MARTINEZ MD Ot Z79.899 OTHER HRIS MANAGER (CURRENT) DRUG THERAPY 12/15/2017 PATSY MARTINEZ MD Ot C85.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, UNSPECIFIED, UNSPE 12/15/2017 PATSY MARTINEZ MD Ot D50.8 OTHER IRON DEFICIENCY ANEMIAS 12/15/2017 PATSY MARTINEZ MD Ot D69.6 THROMBOCYTOPENIA, UNSPECIFIED 12/15/2017 PATSY MARTINEZ MD Ot 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 12/15/2017 PATSY MARTINEZ MD Ot Z79.899 OTHER DETENTION (CURRENT) DRUG THERAPY 12/20/2017 PATSY MARTINEZ MD Ot C85.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, UNSPECIFIED, UNSPE 12/20/2017 PATSY MARTINEZ MD Ot D50.8 OTHER IRON DEFICIENCY ANEMIAS 12/20/2017 PATSY MARTINEZ MD Ot D69.6 THROMBOCYTOPENIA, UNSPECIFIED 12/20/2017 PATSY MARTINEZ MD Ot 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 12/20/2017 PATSY MARTINEZ MD Ot Z79.899 OTHER DETENTION (CURRENT) DRUG THERAPY 12/22/2017 PATSY MARTINEZ MD Ot C85.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, UNSPECIFIED, UNSPE 12/22/2017 MICHELLE MIRAMONTES, PATSY Ot D50.8 OTHER IRON DEFICIENCY ANEMIAS 12/22/2017 MICHELLE MIRAMONTES, PATSY Ot D69.6 THROMBOCYTOPENIA, UNSPECIFIED 12/22/2017 MICHELLE MIRAMONTES, PATSY Ot 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 12/22/2017 MICHELLE MIRAMONTES, PATSY Ot Z79.899 OTHER DETENTION (CURRENT) DRUG THERAPY 12/26/2017 MICHELLE MIRAMONTES, PATSY Ot C85.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, UNSPECIFIED, UNSPE 12/26/2017 MICHELLE MIRAMONTES, PATSY Ot D50.8 OTHER IRON DEFICIENCY ANEMIAS 12/26/2017 MICHELLE MIRAMONTES, PATSY Ot D69.6 THROMBOCYTOPENIA, UNSPECIFIED 12/26/2017 MICHELLE MIRAMONTES, PATSY Ot 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 12/26/2017 MICHELLE MIRAMONTES, PATSY Ot Z79.899 OTHER HRIS MANAGER (CURRENT) DRUG THERAPY 04/19/2018 LAURA MCWILLIAMS N Ot C85.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, UNSPECIFIED, UNSPE 04/19/2018 OJLAURA N Ot D50.8 OTHER IRON DEFICIENCY ANEMIAS 04/19/2018 OJ, LAURA N Ot D69.6 THROMBOCYTOPENIA, UNSPECIFIED 04/19/2018 OJ LAURA N Ot 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 04/19/2018 OJLAURA N Ot Z79.899 OTHER DETENTION (CURRENT) DRUG THERAPY 04/30/2018 TOYA ALLISON NEWSPAPER COLUMNIST Ot C85.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, UNSPECIFIED, UNSPE 04/30/2018 TOYA ALLISON NEWSPAPER COLUMNIST Ot D64.9 ANEMIA, UNSPECIFIED 04/30/2018 TOYA ALLISON NEWSPAPER COLUMNIST Ot M25.559 PAIN IN UNSPECIFIED HIP 04/30/2018 TOYA ALLISON NEWSPAPER COLUMNIST Ot M54.5 LOW BACK PAIN 04/30/2018 TOYA ALLISON NEWSPAPER COLUMNIST Ot Z01.89 ENCOUNTER FOR OTHER SPECIFIED SPECIAL EX 05/24/2018 TOYA ALLISON NEWSPAPER COLUMNIST Ot C85.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, UNSPECIFIED, UNSPE 05/24/2018 TOYA ALLISON NEWSPAPER COLUMNIST Ot D64.9 ANEMIA, UNSPECIFIED 05/24/2018 TOYA ALLISON NEWSPAPER COLUMNIST Ot M25.559 PAIN IN UNSPECIFIED HIP 05/24/2018 TOYA ALLISON NEWSPAPER COLUMNIST Ot M54.5 LOW BACK PAIN 05/24/2018 ALLISONTOYA Walls NEWSPAPER COLUMNIST Ot Z01.89 ENCOUNTER FOR OTHER SPECIFIED SPECIAL EX 06/06/2018 OJ, BOBAN N Ot C85.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, UNSPECIFIED, UNSPE 06/06/2018 OJ, BOBAN N Ot D50.8 OTHER IRON DEFICIENCY ANEMIAS 06/06/2018 OJ, BOBAN N Ot D69.6 THROMBOCYTOPENIA, UNSPECIFIED 06/06/2018 OJ, BOBAN N Ot 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 06/06/2018 OJ, BOBAN N Ot Z79.899 OTHER DETENTION (CURRENT) DRUG THERAPY 06/07/2018 OJ, BOBAN N Ot C85.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, UNSPECIFIED, UNSPE 06/07/2018 OJ, BOBAN N Ot D50.8 OTHER IRON DEFICIENCY ANEMIAS 06/07/2018 OJ, BOBAN N Ot D69.6 THROMBOCYTOPENIA, UNSPECIFIED 06/07/2018 OJ, BOBAN N Ot 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 06/07/2018 OJ, BOBAN N Ot Z79.899 OTHER HRIS MANAGER (CURRENT) DRUG THERAPY 06/08/2018 OJ, BOBAN N Ot C85.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, UNSPECIFIED, UNSPE 06/08/2018 OJ, BOBAN N Ot D50.8 OTHER IRON DEFICIENCY ANEMIAS 06/08/2018 OJ, BOBAN N Ot D69.6 THROMBOCYTOPENIA, UNSPECIFIED 06/08/2018 OJ, BOBAN N Ot 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 06/08/2018 OJ, BOBAN N Ot Z79.899 OTHER DETENTION (CURRENT) DRUG THERAPY 07/14/2018 OJ, BOBAN N Ot C85.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, UNSPECIFIED, UNSPE 07/14/2018 OJ, BOBAN N Ot D50.8 OTHER IRON DEFICIENCY ANEMIAS 07/14/2018 OJ, BOBAN N Ot D69.6 THROMBOCYTOPENIA, UNSPECIFIED 07/14/2018 OJ, BOBAN N Ot 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 07/14/2018 OJ, BOBAN N Ot Z79.899 OTHER HRIS MANAGER (CURRENT) DRUG THERAPY 08/09/2018 LUIS CARLOS OBRIEN MD, Ot Z01.81 8 ENCOUNTER FOR OTHER PREPROCEDURAL EXAMIN 08/11/2018 LUIS CARLOS OBRIEN MD, Ot K21.9 GASTRO-ESOPHAGEAL REFLUX DISEASE WITHOUT 08/11/2018 LUIS CARLOS OBRIEN MD, Ot K57.30 DVRTCLOS OF LG INT W/O PERFORATION OR AB 08/11/2018 LUIS CARLOS OBRIEN MD, Ot K64.1 SECOND DEGREE HEMORRHOIDS 08/11/2018 LUIS CARLOS OBRIEN MD, Ot Z12.11 ENCOUNTER FOR SCREENING FOR MALIGNANT NE 08/11/2018 LUIS CARLOS OBRIEN MD, Ot Z79.89 9 OTHER DETENTION (CURRENT) DRUG THERAPY 08/11/2018 LUIS CARLOS OBRIEN MD, Ot Z86.01 0 PERSONAL HISTORY OF COLONIC POLYPS 08/13/2018 LUIS CARLOS OBRIEN MD, Ot K21.9 GASTRO-ESOPHAGEAL REFLUX DISEASE WITHOUT 08/13/2018 LUIS CARLOS OBRIEN MD, Ot K57.30 DVRTCLOS OF LG INT W/O PERFORATION OR AB 08/13/2018 LUIS CARLOS OBRIEN MD, Ot K64.1 SECOND DEGREE HEMORRHOIDS 08/13/2018 LUIS CARLOS OBRIEN MD, Ot Z12.11 ENCOUNTER FOR SCREENING FOR MALIGNANT NE 08/13/2018 LUIS CARLOS OBRIEN MD, Ot Z79.89 9 OTHER HRIS MANAGER (CURRENT) DRUG THERAPY 08/13/2018 LUIS CARLOS OBRIEN MD, Ot Z86.01 0 PERSONAL HISTORY OF COLONIC POLYPS 09/05/2018 LAURA MCWILLIAMS Ot C85.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, UNSPECIFIED, UNSPE 09/05/2018 LAURA MCWILLIAMS Ot D50.8 OTHER IRON DEFICIENCY ANEMIAS 09/05/2018 LAURA MCWILLIAMS N Ot D69.6 THROMBOCYTOPENIA, UNSPECIFIED 09/05/2018 LAURA MCWILLIAMS Ot 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 09/05/2018 LAURA MCWILLIAMS Ot Z79.899 OTHER DETENTION (CURRENT) DRUG THERAPY 09/10/2018 LAURA MCWILLIAMS Ot C85.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, UNSPECIFIED, UNSPE 09/10/2018 LAURA MCWILLIAMS N Ot D50.8 OTHER IRON DEFICIENCY ANEMIAS 09/10/2018 LAURA MCWILLIAMS Ot D69.6 THROMBOCYTOPENIA, UNSPECIFIED 09/10/2018 OJ, BOBAN N Ot 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 09/10/2018 OJ, BOBAN N Ot Z79.899 OTHER HRIS MANAGER (CURRENT) DRUG THERAPY 09/11/2018 OJ, BOBAN N Ot C85.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, UNSPECIFIED, UNSPE 09/11/2018 OJ, BOBAN N Ot D50.8 OTHER IRON DEFICIENCY ANEMIAS 09/11/2018 OJ, BOBAN N Ot D69.6 THROMBOCYTOPENIA, UNSPECIFIED 09/11/2018 OJ, BOBELVIRA N Ot 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 09/11/2018 OJ, BOBAN N Ot Z79.899 OTHER DETENTION (CURRENT) DRUG THERAPY 09/14/2018 OJ, BOBAN N Ot C85.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, UNSPECIFIED, UNSPE 09/14/2018 OJ, BOBAN N Ot D50.8 OTHER IRON DEFICIENCY ANEMIAS 09/14/2018 OJ, BOBAN N Ot D69.6 THROMBOCYTOPENIA, UNSPECIFIED 09/14/2018 OJ, BOBAN N Ot 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 09/14/2018 OJ, BOBAN N Ot Z79.899 OTHER DETENTION (CURRENT) DRUG THERAPY 10/14/2018 OJ, BOBAN N Ot C85.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, UNSPECIFIED, UNSPE 10/14/2018 OJ, BOBAN N Ot D50.8 OTHER IRON DEFICIENCY ANEMIAS 10/14/2018 OJ, BOBAN N Ot D69.6 THROMBOCYTOPENIA, UNSPECIFIED 10/14/2018 OJ, BOBAN N Ot 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 10/14/2018 OJ, BOBAN N Ot Z79.899 OTHER DETENTION (CURRENT) DRUG THERAPY 12/07/2018 YAHAIRANDTHERESA CAR, BRIAN S Ot 722.52 LUMB/LUMBOSAC DISC DEGEN 12/07/2018 THOMAS SÁNCHEZ DOQUELINE S Ot 756.12 SPONDYLOLISTHESIS 12/07/2018 SHIVA SÁNCHEZ DOLINE S Ot 787.02 NAUSEA ALONE 12/07/2018 SHIVA SÁNCHEZ DOLINE S Ot 789.00 ABDOMINAL PAIN, UNSPECIFIED SITE 12/07/2018 BRIAN SÁNCHEZ DO S Ot V45.4 ARTHRODESIS STATUS 12/07/2018 GUANACO CHAN Ot M43.17 SPONDYLOLISTHESIS, LUMBOSACRAL REGION 12/07/2018 GUANACO CHAN Ot 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 OR RADICULOPA 12/07/2018 GUANACO CHAN Ot M48.06 1 SPINAL STENOSIS, LUMBAR REGION WITHOUT N 12/07/2018 GUANACO CHAN Ot M51.26 OTHER INTERVERTEBRAL DISC DISPLACEMENT, 12/07/2018 GUANACO CHAN Ot N28.1 CYST OF KIDNEY, ACQUIRED 12/07/2018 GUANACO CHAN Ot Z98.1 ARTHRODESIS STATUS 12/07/2018 GUANACO CHAN Ot Z98.89 0 OTHER SPECIFIED POSTPROCEDURAL STATES 12/07/2018 LAURA MCWILLIAMS Ot C85.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, UNSPECIFIED, UNSPE 12/07/2018 LAURA MCWILLIAMS N Ot D50.8 OTHER IRON DEFICIENCY ANEMIAS 12/07/2018 LAURA MCWILLIAMS N Ot D69.6 THROMBOCYTOPENIA, UNSPECIFIED 12/07/2018 LAURA MCWILLIAMS N Ot 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 12/07/2018 LAURA MCWILLIAMS N Ot Z79.899 OTHER HRIS MANAGER (CURRENT) DRUG THERAPY 12/10/2018 ORENDER DO, BRIAN S Ot R10.13 EPIGASTRIC PAIN 12/10/2018 GONZALO CAR, BRIAN S Ot R63.4 ABNORMAL WEIGHT LOSS 12/12/2018 LAURA MCWILLIAMS N Ot C85.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, UNSPECIFIED, UNSPE 12/12/2018 LAURA MCWILLIAMS N Ot D50.8 OTHER IRON DEFICIENCY ANEMIAS 12/12/2018 OJ BOBAN N Ot D69.6 THROMBOCYTOPENIA, UNSPECIFIED 12/12/2018 OJ BOBAN N Ot 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 12/12/2018 OJ, BOBAN N Ot Z79.899 OTHER DETENTION (CURRENT) DRUG THERAPY 12/13/2018 LAURA MCWILLIAMS N Ot C85.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, UNSPECIFIED, UNSPE 12/13/2018 ELHAM MCWILLIAMSAN N Ot D50.8 OTHER IRON DEFICIENCY ANEMIAS 12/13/2018 ELHAM MCWILLIAMSAN N Ot D69.6 THROMBOCYTOPENIA, UNSPECIFIED 12/13/2018 OJ, BOBAN N Ot 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 12/13/2018 OJ, BOBAN N Ot Z79.899 OTHER DETENTION (CURRENT) DRUG THERAPY 12/30/2018 OJ, BOBAN N Ot C85.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, UNSPECIFIED, UNSPE 12/30/2018 OJ, BOBAN N Ot D50.8 OTHER IRON DEFICIENCY ANEMIAS 12/30/2018 OJ, BOBAN N Ot D69.6 THROMBOCYTOPENIA, UNSPECIFIED 12/30/2018 OJ, BOBAN N Ot 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 12/30/2018 OJ, BOBAN N Ot Z79.899 OTHER HRIS MANAGER (CURRENT) DRUG THERAPY 12/31/2018 ORENDER DO, BRIAN S Ot R10.13 EPIGASTRIC PAIN 12/31/2018 ORENDER DO, BRIAN S Ot R63.4 ABNORMAL WEIGHT LOSS 01/17/2019 OJ, BOBAN N Ot C85.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, UNSPECIFIED, UNSPE 01/17/2019 OJ, BOBAN N Ot D50.8 OTHER IRON DEFICIENCY ANEMIAS 01/17/2019 OJ, BOBAN N Ot D69.6 THROMBOCYTOPENIA, UNSPECIFIED 01/17/2019 OJ, BOBAN N Ot 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 01/17/2019 OJ, BOBAN N Ot Z79.899 OTHER HRIS MANAGER (CURRENT) DRUG THERAPY 03/03/2019 OJ, BOBAN N Ot C85.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, UNSPECIFIED, UNSPE 03/03/2019 OJ, BOBAN N Ot D50.8 OTHER IRON DEFICIENCY ANEMIAS 03/03/2019 OJ, BOBAN N Ot D69.6 THROMBOCYTOPENIA, UNSPECIFIED 03/03/2019 OJ, BOBAN N Ot 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 03/03/2019 OJ, BOBAN N Ot Z79.899 OTHER HRIS MANAGER (CURRENT) DRUG THERAPY 03/03/2019 MICHELLE MIRAMONTES, PATSY Ot C85.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, UNSPECIFIED, UNSPE 03/03/2019 MICHELLE MIRAMONTES, PATSY Ot D50.8 OTHER IRON DEFICIENCY ANEMIAS 03/03/2019 MICHELLE MIRAMONTES, PATSY Ot D69.6 THROMBOCYTOPENIA, UNSPECIFIED 03/03/2019 MICHELLE MIRAMONTES, PATSY Ot 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 03/03/2019 MICHELLE MIRAMONTES, PATSY Ot Z79.899 OTHER DETENTION (CURRENT) DRUG THERAPY 03/03/2019 TOYA ALLISON NEWSPAPER COLUMNIST Ot 202.80 OTH LYMPHOMAS EXTRANODAL SOLID ORGAN U 03/03/2019 TOYA ALLISON NEWSPAPER COLUMNIST Ot 280.9 IRON DEFIC ANEMIA NOS 03/03/2019 TOYA ALLISON NEWSPAPER COLUMNIST Ot 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 03/03/2019 TOYA ALLISON NEWSPAPER COLUMNIST Ot V58.69 OTH MED,LT,CURRENT USE 03/03/2019 TOYA ALLISON NEWSPAPER COLUMNIST Ot 238.79 OTHER LYMPHATIC AND HEMATOPOIETIC TISSUE 03/03/2019 TOYA ALLISON NEWSPAPER COLUMNIST Ot 280.9 IRON DEFIC ANEMIA NOS 03/03/2019 TOYA ALLISON NEWSPAPER COLUMNIST Ot V58.69 OTH MED,LT,CURRENT USE 03/03/2019 ORENDER DO, BRIAN S Ot 272.4 HYPERLIPIDEMIA NEC/NOS 03/03/2019 ORENDER DO, BRIAN S Ot 780.79 OTH MALAISE FATIGUE 03/03/2019 ORENDER DO, BRIAN S Ot 790.29 OTHER ABNORMAL GLUCOSE 03/03/2019 ORENDER DO, BRIAN S Ot V72.62 LAB EXAM ORDERED PART OF A ROUTINE GE 03/03/2019 TOYA ALLISON NEWSPAPER COLUMNIST Ot 238.79 OTHER LYMPHATIC AND HEMATOPOIETIC TISSUE 03/03/2019 TOYA ALLISON NEWSPAPER COLUMNIST Ot 280.9 IRON DEFIC ANEMIA NOS 03/03/2019 TOYA ALLISON NEWSPAPER COLUMNIST Ot V58.69 OTH MED,LT,CURRENT USE 03/03/2019 TOYA ALLISON NEWSPAPER COLUMNIST Ot 202.80 OTH LYMPHOMAS EXTRANODAL SOLID ORGAN U 03/03/2019 TOYA ALLISON NEWSPAPER COLUMNIST Ot 280.9 IRON DEFIC ANEMIA NOS 03/03/2019 TOYA ALLISON NEWSPAPER COLUMNIST Ot 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 03/03/2019 TOYA ALLISONP Ot V58.69 OTH MED,LT,CURRENT USE 03/03/2019 TOYA ALLISON NEWSPAPER COLUMNIST Ot C85.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, UNSPECIFIED, UNSPE 03/03/2019 TOYA ALLISON NEWSPAPER COLUMNIST Ot D50.8 OTHER IRON DEFICIENCY ANEMIAS 03/03/2019 TOYA ALLISON NEWSPAPER COLUMNIST Ot D69.6 THROMBOCYTOPENIA, UNSPECIFIED 03/03/2019 TOYA ALLISON NEWSPAPER COLUMNIST Ot 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, UNSPECIFIED, UNSPE 03/03/2019 VIDAL BELTRAN MD Ot D50. 0 IRON DEFICIENCY ANEMIA SECONDARY TO BLOO 03/03/2019 VIDAL BELTRAN MD Ot E66. 9 OBESITY, UNSPECIFIED 03/03/2019 VIDAL BELTRAN MD Ot K21. 9 GASTRO-ESOPHAGEAL REFLUX DISEASE WITHOUT 03/03/2019 VIDAL BELTRAN MD Ot R00. 2 PALPITATIONS 03/03/2019 VIDAL BELTRAN MD Ot R11. 0 NAUSEA 03/03/2019 GUANACO CHAN Ot M43.17 SPONDYLOLISTHESIS, LUMBOSACRAL REGION 03/03/2019 GUANACO CHAN Ot 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 OR RADICULOPA 03/03/2019 GUANACO CHAN Ot M48.06 1 SPINAL STENOSIS, LUMBAR REGION WITHOUT N 03/03/2019 GUANACO CHAN Ot M51.26 OTHER INTERVERTEBRAL DISC DISPLACEMENT, 03/03/2019 GUANACO CHAN Ot N28.1 CYST OF KIDNEY, ACQUIRED 03/03/2019 GUANACO CHAN Ot Z98.1 ARTHRODESIS STATUS 03/03/2019 GUANACO CHAN Ot Z98.89 0 OTHER SPECIFIED POSTPROCEDURAL STATES 03/03/2019 TOYA ALLISON NEWSPAPER COLUMNIST Ot C85.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, UNSPECIFIED, UNSPE 03/03/2019 TOYA ALLISON NEWSPAPER COLUMNIST Ot D64.9 ANEMIA, UNSPECIFIED 03/03/2019 TOYA ALLISON NEWSPAPER COLUMNIST Ot M25.559 PAIN IN UNSPECIFIED HIP 03/03/2019 TOYA ALLISON NEWSPAPER COLUMNIST Ot M54.5 LOW BACK PAIN 03/03/2019 TOYA ALLISON NEWSPAPER COLUMNIST Ot Z01.89 ENCOUNTER FOR OTHER SPECIFIED SPECIAL EX 03/03/2019 ORENDER DO, BRIAN S Ot R10.13 EPIGASTRIC PAIN 03/03/2019 ORENDER DO, BRIAN S Ot R63.4 ABNORMAL WEIGHT LOSS 03/03/2019 PATSY MARTINEZ MD Ot C85.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, UNSPECIFIED, UNSPE 03/03/2019 PATSY MARTINEZ MD Ot D50.8 OTHER IRON DEFICIENCY ANEMIAS 03/03/2019 PATSY MARTINEZ MD Ot D69.6 THROMBOCYTOPENIA, UNSPECIFIED 03/03/2019 PATSY MARTINEZ MD Ot 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 03/03/2019 PATSY MARTINEZ MD Ot Z79.899 OTHER HRIS MANAGER (CURRENT) DRUG THERAPY 03/30/2019 PATSY MARTINEZ MD Ot C85.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, UNSPECIFIED, UNSPE 03/30/2019 PATSY MARTINEZ MD Ot D50.8 OTHER IRON DEFICIENCY ANEMIAS 03/30/2019 PATSY MARTINEZ MD Ot D69.6 THROMBOCYTOPENIA, UNSPECIFIED 03/30/2019 PATSY MARTINEZ MD Ot 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 03/30/2019 PATSY MARTINEZ MD Ot M19.90 UNSPECIFIED OSTEOARTHRITIS, UNSPECIFIED 03/30/2019 PATSY MARTINEZ MD Ot N18.3 CHRONIC KIDNEY DISEASE, STAGE 3 (MODERAT 03/30/2019 PATSY MARTINEZ MD Ot Z79.899 OTHER DETENTION (CURRENT) DRUG THERAPY 04/18/2019 PATSY MARTINEZ MD Ot C85.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, UNSPECIFIED, UNSPE 04/18/2019 PATSY MARTINEZ MD Ot D50.8 OTHER IRON DEFICIENCY ANEMIAS 04/18/2019 PATSY MARTINEZ MD Ot D69.6 THROMBOCYTOPENIA, UNSPECIFIED 04/18/2019 PATSY MARTINEZ MD Ot 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 04/18/2019 MICHELLE MIRAMONTES, GARNER Ot M19.90 UNSPECIFIED OSTEOARTHRITIS, UNSPECIFIED 04/18/2019 MICHELLE MIRAMONTES, PATSY Ot N18.3 CHRONIC KIDNEY DISEASE, STAGE 3 (MODERAT 04/18/2019 MICHELLE MIRAMONTES, GARNER Ot Z79.899 OTHER HRIS MANAGER (CURRENT) DRUG THERAPY 06/03/2019 MICHELLE MIRAMONTES, PATSY Ot C85.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, UNSPECIFIED, UNSPE 06/03/2019 MICHELLE MIRAMONTES, PATSY Ot D50.8 OTHER IRON DEFICIENCY ANEMIAS 06/03/2019 MICHELLE MIRAMONTES, GARNER Ot D69.6 THROMBOCYTOPENIA, UNSPECIFIED 06/03/2019 MICHELLE MIRAMONTES, GARNER Ot 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 06/03/2019 MICHELLE MIRAMONTES, GARNER Ot M19.90 UNSPECIFIED OSTEOARTHRITIS, UNSPECIFIED 06/03/2019 MICHELLE MIRAMONTES, PATSY Ot N18.3 CHRONIC KIDNEY DISEASE, STAGE 3 (MODERAT 06/03/2019 MICHELLE MIRAMONTES, PATSY Ot Z79.899 OTHER HRIS MANAGER (CURRENT) DRUG THERAPY 06/09/2019 VIKAS PEREZ MD T Ot F41.9 ANXIETY DISORDER, UNSPECIFIED 06/09/2019 VIKAS PEREZ MD T Ot I10 ESSENTIAL (PRIMARY) HYPERTENSION 06/09/2019 VIKAS PEREZ MD Ot R04.0 EPISTAXIS 06/09/2019 VIKAS PEREZ MD T Ot Z82.49 FAMILY HX OF ISCHEM HEART DIS AND OTH DI 06/09/2019 VIKAS PEREZ MD T Ot Z85.6 PERSONAL HISTORY OF LEUKEMIA 06/09/2019 VIKAS PEREZ MD T Ot Z86.010 PERSONAL HISTORY OF COLONIC POLYPS 06/09/2019 VIKAS PEREZ MD Ot Z87.891 PERSONAL HISTORY OF NICOTINE DEPENDENCE 06/13/2019 VIKAS PEREZ MD Ot F41.9 ANXIETY DISORDER, UNSPECIFIED 06/13/2019 VIKAS PEREZ MD T Ot I10 ESSENTIAL (PRIMARY) HYPERTENSION 06/13/2019 VIKAS PEREZ MD Ot R04.0 EPISTAXIS 06/13/2019 VIKAS PEREZ MD T Ot Z82.49 FAMILY HX OF ISCHEM HEART DIS AND OTH DI 06/13/2019 ANA MIRAMONTES, VIKAS Hay Ot Z85.6 PERSONAL HISTORY OF LEUKEMIA 06/13/2019 VIKAS PEREZ MD Ot Z86.010 PERSONAL HISTORY OF COLONIC POLYPS 06/13/2019 VIKAS PEREZ MD Ot Z87.891 PERSONAL HISTORY OF NICOTINE DEPENDENCE 06/23/2019 VIKAS PEREZ MD Ot F41.9 ANXIETY DISORDER, UNSPECIFIED 06/23/2019 VIKAS PEREZ MD Ot I10 ESSENTIAL (PRIMARY) HYPERTENSION 06/23/2019 VIKAS PEREZ MD Ot R04.0 EPISTAXIS 06/23/2019 VIKAS PEREZ MD Ot Z82.49 FAMILY HX OF ISCHEM HEART DIS AND OTH DI 06/23/2019 VIKAS PEREZ MD Ot Z85.6 PERSONAL HISTORY OF LEUKEMIA 06/23/2019 VIKAS PEREZ MD Ot Z86.010 PERSONAL HISTORY OF COLONIC POLYPS 06/23/2019 VIKAS PEREZ MD Ot Z87.891 PERSONAL HISTORY OF NICOTINE DEPENDENCE 06/29/2019 LAURA MCWILLIAMS N Ot C85.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, UNSPECIFIED, UNSPE 06/29/2019 LAURA MCWILLIAMS N Ot D50.8 OTHER IRON DEFICIENCY ANEMIAS 06/29/2019 LAURA MCWILLIAMS N Ot D69.6 THROMBOCYTOPENIA, UNSPECIFIED 06/29/2019 LAURA MCWILLIAMS N Ot 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 06/29/2019 LAURA MCWILLIAMS Ot M19.90 UNSPECIFIED OSTEOARTHRITIS, UNSPECIFIED 06/29/2019 LAURA MCWILLIAMS N Ot N18.3 CHRONIC KIDNEY DISEASE, STAGE 3 (MODERAT 06/29/2019 LAURA MCWILLIAMS N Ot Z79.899 OTHER DETENTION (CURRENT) DRUG THERAPY 06/30/2019 LAURA MCWILLIAMS Ot C85.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, UNSPECIFIED, UNSPE 06/30/2019 LAURA MCWILLIAMS N Ot D50.0 IRON DEFICIENCY ANEMIA SECONDARY TO BLOO 06/30/2019 LAURA MCWILLIAMS N Ot D69.6 THROMBOCYTOPENIA, UNSPECIFIED 06/30/2019 LAURA MCWILLIAMS N Ot I12.9 HYPERTENSIVE CHRONIC KIDNEY DISEASE W ST 06/30/2019 LAURA MCWILLIAMS Ot 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 06/30/2019 LAURA MCWILLIAMS Coy Ot M19.90 UNSPECIFIED OSTEOARTHRITIS, UNSPECIFIED 06/30/2019 LAURA MCWILLIAMS Coy Ot N18.3 CHRONIC KIDNEY DISEASE, STAGE 3 (MODERAT 06/30/2019 LAURA MCWILLIAMS Coy Ot Z79.899 OTHER DETENTION (CURRENT) DRUG THERAPY 06/30/2019 ORENDER DO, BRIAN S Ot 722.52 LUMB/LUMBOSAC DISC DEGEN 06/30/2019 ORENDER DO, BRIAN S Ot 756.12 SPONDYLOLISTHESIS 06/30/2019 ORENDER DO, BRIAN S Ot 787.02 NAUSEA ALONE 06/30/2019 ORENDER DO, BRIAN S Ot 789.00 ABDOMINAL PAIN, UNSPECIFIED SITE 06/30/2019 ORENDER DO, BRIAN S Ot V45.4 ARTHRODESIS STATUS 06/30/2019 OJ LAURA Coy Ot C85.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, UNSPECIFIED, UNSPE 06/30/2019 LAURA MCWILLIAMS Coy Ot D50.8 OTHER IRON DEFICIENCY ANEMIAS 06/30/2019 OJ LAURA Coy Ot D69.6 THROMBOCYTOPENIA, UNSPECIFIED 06/30/2019 LAURA MCWILLIAMS Coy Ot 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 06/30/2019 LAURA MCWILLIAMS Coy Ot Z79.899 OTHER DETENTION (CURRENT) DRUG THERAPY 06/30/2019 GUAANCO CHAN Ot M43.17 SPONDYLOLISTHESIS, LUMBOSACRAL REGION 06/30/2019 GUANACO CHAN Ot 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 OR RADICULOPA 06/30/2019 GUANACO CHAN Ot M48.06 1 SPINAL STENOSIS, LUMBAR REGION WITHOUT N 06/30/2019 GUANACO CHAN Ot M51.26 OTHER INTERVERTEBRAL DISC DISPLACEMENT, 06/30/2019 GUANACO CHAN Ot N28.1 CYST OF KIDNEY, ACQUIRED 06/30/2019 GUANACO CHAN Ot Z98.1 ARTHRODESIS STATUS 06/30/2019 GUANACO CHAN Ot Z98.89 0 OTHER SPECIFIED POSTPROCEDURAL STATES 06/30/2019 LAURA MCWILLIAMS N Ot C85.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, UNSPECIFIED, UNSPE 06/30/2019 OJ, LAURA N Ot D50.0 IRON DEFICIENCY ANEMIA SECONDARY TO BLOO 06/30/2019 OJ, LAURA N Ot D69.6 THROMBOCYTOPENIA, UNSPECIFIED 06/30/2019 OJ, LAURA N Ot I12.9 HYPERTENSIVE CHRONIC KIDNEY DISEASE W ST 06/30/2019 OJELHAMELVIRA N Ot 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 06/30/2019 OJELHAMELVIRA N Ot M19.90 UNSPECIFIED OSTEOARTHRITIS, UNSPECIFIED 06/30/2019 OJ, ELHAMELVIRA N Ot N18.3 CHRONIC KIDNEY DISEASE, STAGE 3 (MODERAT 06/30/2019 LAURA MCWILLIAMS N Ot Z79.899 OTHER HRIS MANAGER (CURRENT) DRUG THERAPY 06/30/2019 GUANACO CHAN Ot M43.17 SPONDYLOLISTHESIS, LUMBOSACRAL REGION 06/30/2019 GUANACO CHAN Ot 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 OR RADICULOPA 06/30/2019 GUANACO CHAN Ot M48.06 1 SPINAL STENOSIS, LUMBAR REGION WITHOUT N 06/30/2019 GUANACO CHAN Ot M51.26 OTHER INTERVERTEBRAL DISC DISPLACEMENT, 06/30/2019 GUANACO CHAN Ot N28.1 CYST OF KIDNEY, ACQUIRED 06/30/2019 GUANACO CHAN Ot Z98.1 ARTHRODESIS STATUS 06/30/2019 GUANACO CHAN Ot Z98.89 0 OTHER SPECIFIED POSTPROCEDURAL STATES 06/30/2019 ORENDER DO, BRIAN S Ot R10.13 EPIGASTRIC PAIN 06/30/2019 YAHAIRANDER DO, BRIAN S Ot R63.4 ABNORMAL WEIGHT LOSS 06/30/2019 OJELHAMELVIRA N Ot C85.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, UNSPECIFIED, UNSPE 06/30/2019 OJ LAURA N Ot D50.0 IRON DEFICIENCY ANEMIA SECONDARY TO BLOO 06/30/2019 OJELHAMELVIRA N Ot D69.6 THROMBOCYTOPENIA, UNSPECIFIED 06/30/2019 OJELHAMELVIRA Coy Ot I12.9 HYPERTENSIVE CHRONIC KIDNEY DISEASE W ST 06/30/2019 OJ, BOBAN N Ot 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 06/30/2019 OJ, BOBAN N Ot M19.90 UNSPECIFIED OSTEOARTHRITIS, UNSPECIFIED 06/30/2019 OJ, BOBAN N Ot N18.3 CHRONIC KIDNEY DISEASE, STAGE 3 (MODERAT 06/30/2019 OJ, BOBAN N Ot Z79.899 OTHER DETENTION (CURRENT) DRUG THERAPY 08/12/2019 OJ, BOBAN N Ot C85.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, UNSPECIFIED, UNSPE 08/12/2019 OJ, BOBAN N Ot D50.0 IRON DEFICIENCY ANEMIA SECONDARY TO BLOO 08/12/2019 OJ, BOBAN N Ot D69.6 THROMBOCYTOPENIA, UNSPECIFIED 08/12/2019 OJ, BOBAN N Ot I12.9 HYPERTENSIVE CHRONIC KIDNEY DISEASE W ST 08/12/2019 OJ, BOBAN N Ot 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 08/12/2019 OJ, BOBAN N Ot M19.90 UNSPECIFIED OSTEOARTHRITIS, UNSPECIFIED 08/12/2019 OJ, BOBAN N Ot N18.3 CHRONIC KIDNEY DISEASE, STAGE 3 (MODERAT 08/12/2019 OJ, BOBAN N Ot Z79.899 OTHER DETENTION (CURRENT) DRUG THERAPY 09/04/2019 OJ, BOBAN N Ot C85.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, UNSPECIFIED, UNSPE 09/04/2019 OJ, BOBAN N Ot D50.0 IRON DEFICIENCY ANEMIA SECONDARY TO BLOO 09/04/2019 OJ, BOBAN N Ot D69.6 THROMBOCYTOPENIA, UNSPECIFIED 09/04/2019 OJ, BOBAN N Ot I12.9 HYPERTENSIVE CHRONIC KIDNEY DISEASE W ST 09/04/2019 OJ, BOBAN N Ot 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 09/04/2019 OJ, BOBAN N Ot M19.90 UNSPECIFIED OSTEOARTHRITIS, UNSPECIFIED 09/04/2019 OJ, BOBAN N Ot N18.3 CHRONIC KIDNEY DISEASE, STAGE 3 (MODERAT 09/04/2019 OJ, BOBAN N Ot Z79.899 OTHER DETENTION (CURRENT) DRUG THERAPY 09/06/2019 OJ, BOBAN N Ot C85.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, UNSPECIFIED, UNSPE 09/06/2019 OJ, BOBAN N Ot D50.0 IRON DEFICIENCY ANEMIA SECONDARY TO BLOO 09/06/2019 OJ, LAURA N Ot D69.6 THROMBOCYTOPENIA, UNSPECIFIED 09/06/2019 OJ, BOBAN N Ot I12.9 HYPERTENSIVE CHRONIC KIDNEY DISEASE W ST 09/06/2019 OJ, BOBAN N Ot 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 09/06/2019 OJ, BOBAN N Ot M19.90 UNSPECIFIED OSTEOARTHRITIS, UNSPECIFIED 09/06/2019 OJ, BOBAN N Ot N18.3 CHRONIC KIDNEY DISEASE, STAGE 3 (MODERAT 09/06/2019 OJ, BOBAN N Ot Z79.899 OTHER HRIS MANAGER (CURRENT) DRUG THERAPY 09/08/2019 OJ, BOBAN N Ot C85.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, UNSPECIFIED, UNSPE 09/08/2019 OJ, BOBAN N Ot D50.0 IRON DEFICIENCY ANEMIA SECONDARY TO BLOO 09/08/2019 OJ, BOBAN N Ot D69.6 THROMBOCYTOPENIA, UNSPECIFIED 09/08/2019 OJ, BOBAN N Ot I12.9 HYPERTENSIVE CHRONIC KIDNEY DISEASE W ST 09/08/2019 OJ, LAURA N Ot 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 09/08/2019 OJ, BOBELVIRA N Ot M19.90 UNSPECIFIED OSTEOARTHRITIS, UNSPECIFIED 09/08/2019 OJ, BOBELVIRA N Ot N18.3 CHRONIC KIDNEY DISEASE, STAGE 3 (MODERAT 09/08/2019 OJ, LAURA N Ot Z79.899 OTHER DETENTION (CURRENT) DRUG THERAPY 09/09/2019 GUANACO CHAN Ot M43.17 SPONDYLOLISTHESIS, LUMBOSACRAL REGION 09/09/2019 GUANACO CHAN Ot 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 OR RADICULOPA 09/09/2019 GUANACO CHAN Ot M48.06 1 SPINAL STENOSIS, LUMBAR REGION WITHOUT N 09/09/2019 GUANACO CHAN Ot M51.26 OTHER INTERVERTEBRAL DISC DISPLACEMENT, 09/09/2019 GUANACO CHAN Ot N28.1 CYST OF KIDNEY, ACQUIRED 09/09/2019 GUANACO CHAN Ot Z98.1 ARTHRODESIS STATUS 09/09/2019 GUANACO CHAN Ot Z98.89 0 OTHER SPECIFIED POSTPROCEDURAL STATES 09/09/2019 ORENDER DO, BRIAN S Ot R10.13 EPIGASTRIC PAIN 09/09/2019 ORENDER DO, BRIAN S Ot R63.4 ABNORMAL WEIGHT LOSS 09/09/2019 OJ LAURA Coy Ot C85.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, UNSPECIFIED, UNSPE 09/09/2019 LAURA MCWILLIAMS N Ot D50.0 IRON DEFICIENCY ANEMIA SECONDARY TO BLOO 09/09/2019 OJLAURA N Ot D69.6 THROMBOCYTOPENIA, UNSPECIFIED 09/09/2019 OJLAURA N Ot I12.9 HYPERTENSIVE CHRONIC KIDNEY DISEASE W ST 09/09/2019 OJELHAMELVIRA N Ot 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 09/09/2019 OJELHAMELVIRA N Ot M19.90 UNSPECIFIED OSTEOARTHRITIS, UNSPECIFIED 09/09/2019 OJLAURA Ot N18.3 CHRONIC KIDNEY DISEASE, STAGE 3 (MODERAT 09/09/2019 OJLAURA DIAMOND Ot Z79.899 OTHER HRIS MANAGER (CURRENT) DRUG THERAPY 09/13/2019 GUANACO CHAN Ot M43.17 SPONDYLOLISTHESIS, LUMBOSACRAL REGION 09/13/2019 GUANACO CHAN Ot 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 OR RADICULOPA 09/13/2019 GUANACO CHAN Ot M48.06 1 SPINAL STENOSIS, LUMBAR REGION WITHOUT N 09/13/2019 GUANACO CHAN Ot M51.26 OTHER INTERVERTEBRAL DISC DISPLACEMENT, 09/13/2019 GUANACO CHAN Ot N28.1 CYST OF KIDNEY, ACQUIRED 09/13/2019 GUANACO CHAN Ot Z98.1 ARTHRODESIS STATUS 09/13/2019 GUANACO CHAN Ot Z98.89 0 OTHER SPECIFIED POSTPROCEDURAL STATES 09/13/2019 ORENDER DO, BRIAN S Ot R10.13 EPIGASTRIC PAIN 09/13/2019 YAHAIRANDER DO, BRIAN S Ot R63.4 ABNORMAL WEIGHT LOSS 09/13/2019 OJLAURA Ot C85.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, UNSPECIFIED, UNSPE 09/13/2019 OJELHAMELVIRA N Ot D50.0 IRON DEFICIENCY ANEMIA SECONDARY TO BLOO 09/13/2019 OJLAURA N Ot D69.6 THROMBOCYTOPENIA, UNSPECIFIED 09/13/2019 OJ, BOBAN N Ot I12.9 HYPERTENSIVE CHRONIC KIDNEY DISEASE W ST 09/13/2019 OJ, BOBAN N Ot 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 09/13/2019 OJ, BOBAN N Ot M19.90 UNSPECIFIED OSTEOARTHRITIS, UNSPECIFIED 09/13/2019 OJ, BOBAN N Ot N18.3 CHRONIC KIDNEY DISEASE, STAGE 3 (MODERAT 09/13/2019 OJ, BOBAN N Ot Z79.899 OTHER DETENTION (CURRENT) DRUG THERAPY 09/14/2019 OJ, BOBAN N Ot C85.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, UNSPECIFIED, UNSPE 09/14/2019 OJ, BOBAN N Ot D50.0 IRON DEFICIENCY ANEMIA SECONDARY TO BLOO 09/14/2019 JO, BOBAN N Ot D69.6 THROMBOCYTOPENIA, UNSPECIFIED 09/14/2019 OJ, BOBAN N Ot I12.9 HYPERTENSIVE CHRONIC KIDNEY DISEASE W ST 09/14/2019 OJ, BOBAN N Ot 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 09/14/2019 OJ, BOBAN N Ot M19.90 UNSPECIFIED OSTEOARTHRITIS, UNSPECIFIED 09/14/2019 OJ, BOBAN N Ot N18.3 CHRONIC KIDNEY DISEASE, STAGE 3 (MODERAT 09/14/2019 OJ, BOBAN N Ot Z79.899 OTHER HRIS MANAGER (CURRENT) DRUG THERAPY 09/15/2019 OJ, BOBAN N Ot C85.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, UNSPECIFIED, UNSPE 09/15/2019 OJ, BOBAN N Ot D50.0 IRON DEFICIENCY ANEMIA SECONDARY TO BLOO 09/15/2019 OJ, BOBAN N Ot D69.6 THROMBOCYTOPENIA, UNSPECIFIED 09/15/2019 OJ, BOBAN N Ot I12.9 HYPERTENSIVE CHRONIC KIDNEY DISEASE W ST 09/15/2019 OJ, BOBAN N Ot 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 Results There is no data. Encounters ACCT No. Visit Date/Time Discharge Status Pt. Type Provider Facility Loc./Unit Complaint [id number] 06/16/2019 08:54:00 00:01:00 DIS Outpatient LAURA MCWILLIAMS [facility] ONC [id number] 06/08/2019 22:52:00 01:09:00 DIS Outpatient ANA MIRAMONTES, VIKAS Hay [facility] ER NOSE BLEED [id number] 03/17/2019 08:49:00 23:59:59 CLS Outpatient PATSY MARTINEZ MD, [facility] ONC [id number] 01/04/2019 09:05:00 16:41:00 DIS Outpatient LAURA MCWILLIAMS [facility] ONC [id number] 12/07/2018 08:45:00 00:01:00 DIS Outpatient LAURA MCWILLIAMS [facility] ONC [id number] 12/08/2018 11:57:00 23:59:59 CLS Outpatient BRIAN SÁNCHEZ DO S [facility] RAD ABN WEIGHT LOSS ,EPIGASTRIC PAIN [id number] 06/17/2018 09:01:00 00:01:00 DIS Outpatient LAURA MCWILLIAMS [facility] ONC [id number] 08/11/2018 09:37:00 13:45:00 DIS Outpatient LUIS CARLOS OBRIEN MD [facility] ENDO SCREENING/HX POLYPS [id number] 08/09/2018 07:05:00 13:21:00 DIS Outpatient LUIS CARLOS OBRIEN MD [facility] PREOP COLONOSCOPY [id number] 04/08/2018 11:00:00 00:01:00 DIS Outpatient LAURA MCWILLIAMS [facility] ONC [id number] 04/29/2018 10:07:00 23:59:59 CLS Outpatient TOYA ALLISON [facility] RAD IMAGING STUDY TO RESTAG E NEOPLASM [id number] 12/18/2017 08:48:00 018 00:01:00 DIS Outpatient PATSY MARTINEZ MD, [facility] ONC [id number] 12/07/2017 09:09:00 018 16:16:00 DIS Outpatient LAURA MCWILLIAMS [facility] ONC [id number] 09/22/2017 08:51:00 018 08:59:00 DIS Outpatient LAURA MCWILLIAMS [facility] ONC [id number] 09/14/2017 08:20:00 018 00:01:00 DIS Outpatient LAURA MCWILLIAMS [facility] ONC [id number] 06/09/2017 11:11:00 018 23:59:59 CLS Outpatient GUANACO CHAN [facility] RAD BACK PAIN [id number] 04/21/2017 08:55:00 018 00:01:00 DIS Outpatient LAURA MCWILLIAMS [facility] ONC [id number] 12/18/2016 08:41:00 017 00:01:00 DIS Outpatient LAURA MCWILLIAMS [facility] ONC [id number] 08/01/2016 09:31:00 017 00:01:00 DIS Outpatient LAURA MCWILLIAMS [facility] ONC [id number] 07/30/2016 13:15:00 017 23:59:59 CLS Outpatient DEVIN MIRAMONTES, VIDAL [facility] CARD PALPITATION,NON-HODGKIN S LYMPHOMA,GERD, R00.2 [id number] 05/05/2016 10:21:00 017 00:01:00 DIS Outpatient LAURA MCWILLIAMS [facility] ONC [id number] 02/04/2016 08:58:00 017 00:01:00 DIS Outpatient LAURA MCWILLIAMS V [facility] ONC [id number] 12/20/2015 00:08:00 016 23:59:59 CLS Preadmit LAURA MCWILLIAMS [facility] ONC [id number] 10/25/2015 09:05:00 016 00:01:00 DIS Outpatient LAURA MCWILLIAMS V [facility] ONC [id number] 06/04/2015 09:27:00 016 00:01:00 DIS Outpatient LAURA MCWILLIAMS [facility] ONC [id number] 05/28/2015 08:49:00 23:59:59 CLS Outpatient TOYA ALLISON [employer] [facility] ONC [id number] 03/06/2015 10:15:00 23:59:59 CLS Outpatient LAURA MCWILLIAMS [facility] ONC [id number] 02/08/2015 17:04:00 015 19:42:00 DIS Emergency ALEJANDRO LOCKHART L [facility] ER HI BP W/NOSE BLEED [id number] 10/31/2014 08:28:00 015 00:01:00 DIS Outpatient LAURA MCWILLIAMS [facility] ONC [id number] 10/24/2014 13:47:00 015 23:59:59 CLS Outpatient TOYA ALLISON [facility] ONC [id number] 07/27/2014 11:04:00 015 00:01:00 DIS Outpatient OJ LAURA Mulligan [facility] ONC [id number] 07/24/2014 10:21:00 015 23:59:59 CLS Outpatient TOYA ALLISONP [facility] ONC [id number] 05/10/2014 09:55:00 015 23:59:59 CLS Outpatient BRIAN SÁNCHEZ DO [facility] LAB [id number] 03/14/2014 10:00:00 015 00:01:00 DIS Outpatient LAURA MCWILLIAMS [facility] ONC [id number] 02/02/2014 09:34:00 23:59:59 CLS Outpatient TOYA ALLISON [employer] [facility] ONC [id number] 01/26/2014 09:38:00 014 00:01:00 DIS Outpatient LAURA MCWILLIAMS [facility] ONC [id number] 11/02/2013 09:53:00 23:59:59 CLS Outpatient TOYA ALLISON [employer] [facility] ONC [id number] 10/27/2013 09:19:00 014 00:01:00 DIS Outpatient LAURA MCWILLIAMS [facility] ONC [id number] 08/17/2013 06:58:00 014 23:59:59 CLS Outpatient BRIAN SÁNCHEZ DO S [facility] RAD ABD PAIN,NAUSEA ,DJD LUMBAR [id number] 08/03/2013 10:20:00 23:59:59 CLS Outpatient TOYA ALLISON [employer] [facility] ONC [id number] 07/25/2013 09:35:00 014 00:01:00 DIS Outpatient LAURA MCWILLIAMS [facility] ONC [id number] 07/16/2013 08:03:00 014 09:40:00 DIS Emergency PATTI HILLIARD MD [facility] ER ABD PAIN NAUSEA [id number] 03/14/2013 14:29:00 014 00:01:00 DIS Outpatient LAURA MCWILLIAMS [facility] ONC [id number] 01/25/2013 09:31:00 013 23:59:59 CLS Outpatient TOYA ALLISON [employer] [facility] ONC [id number] 11/03/2012 09:22:00 013 00:01:00 DIS Outpatient LAURA MCWILLIAMS [facility] ONC [id number] 10/11/2012 08:51:00 013 00:01:00 DIS Outpatient LAURA MCWILLIAMS [facility] ONC [id number] 09/15/2019 08:49:[address] Outpatient LAURA MCWILLIAMS [facility] ONC [id number] 07/07/2012 13:19:00 Document Registration
[2019-09-17] MEDS ORDERED: LIDOCAINE/EPI 2% 1:100,00 (XYLOCAINE) 20 ML VIAL INJ ONE (13:30)
[2019-09-17] MEDS ORDERED: amLODIPine 5 MG (NORVASC) TAB PO ONE (13:30)
--- NOTE | 2019-09-17 14:05 | ED Integumentary General ---
General Chief Complaint: Skin/Wound Problems Stated Complaint: NECK BLEEDING Nursing Triage Note: Pt to ED with bleeding wound on L neck. Pt unsure how bleeding began. Pt believes there was a scab and when scratched the bleeding began. Bleeding controlled with dressing held in place. Source: patient Exam Limitations: no limitations History of Present Illness Date Seen by Provider: Sep 17, 2019 Time Seen by Provider: 13:14 Initial Comments This 74-year-old gentleman presents to the emergency room with a punctate area of hemorrhaging on his left neck. He reports scratching something off earlier which she thought was perhaps a scab. 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 He is noted to be hypertensive. He notes a history of bleeding lesions both on his skin and in the GI tract. These are presumably hemangiomas. I suspect he had a skin tag or other superficial skin lesion that he scratched off. He denies use of any blood thinning medications. Allergies and Home Medications Allergies Coded Allergies: No Known Drug Allergies (Unverified , 01/06/11) Home Medications Amlodipine Besylate 5 Mg Tablet, 5 MG PO DAILY Prescribed by: VIKAS FRAZIER on 06/08/19 7076 Patient Home Medication List Home Medication List Reviewed: Yes Review of Systems Review of Systems Constitutional: no symptoms reported EENTM: no symptoms reported Respiratory: no symptoms reported Cardiovascular: no symptoms reported Gastrointestinal: no symptoms reported Genitourinary: no symptoms reported Musculoskeletal: no symptoms reported Skin: see HPI Psychiatric/Neurological: No Symptoms Reported Endocrine: No Symptoms Reported Hematologic/Lymphatic: See HPI Past Iwthjft-Fodyiu-Plebiy Hx Past Med/Social Hx: Reviewed Nursing Past Med/Soc Hx Patient Social History Alcohol Use: Occasionally Uses Alcohol Beverage of Choice: Beer Recreational Drug Use: No Type Used: Cigarettes Former Smoker, Quit: August 09, 1989 2nd Hand Smoke Exposure: No Recent Foreign Travel: No Contact w/Someone Who Travel: No Recent Infectious Disease Expo: No Recent Hopitalizations: No Immunizations Up To Date Tetanus Booster (TDap): Unknown Date of Pneumonia Vaccine: Apr 13, 2018 Seasonal Allergies Seasonal Allergies: No Past Medical History Surgeries: Yes (knee sx, BACK, LT TOTAL KNEE, foot sx) Adenoidectomy, Orthopedic, Tonsillectomy Respiratory: No Currently Using CPAP: No Currently Using BIPAP: No Cardiac: Yes Hypertension Neurological: No Reproductive Disorders: No Sexually Transmitted Disease: No HIV/AIDS: No Genitourinary: No Gastrointestinal: Yes (COLON POLYPS, hemangiomas of the small intestines) Polyps Musculoskeletal: Yes Back Injury Endocrine: No HEENT: No Cancer: Yes Leukemia (questionable history of chronic leukemia and chronic thrombocytopenia) Psychosocial: Yes Anxiety Integumentary: No Blood Disorders: Yes (chronic leukemia) Family Medical History Hypertension, Vascular Disease Physical Exam Vital Signs Vital Signs - First Documented 09/17/19 13:10 Temp 36.2 Pulse 94 Resp 15 B/P (MAP) 172/99 (123) Pulse Ox 97 O2 Delivery Room Air Capillary Refill : Less Than 3 Seconds General Appearance: WD/WN, no apparent distress HEENT: normal ENT inspection Neck: other (area of punctate hemorrhage on the left lateral neck) Cardiovascular: regular rate, rhythm, no edema, no murmur Respiratory: lungs clear, normal breath sounds, no respiratory distress, no accessory muscle use 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, no motor/sensory deficits, alert, normal mood/affect, oriented x 3 Skin: normal color, warm/dry Progress/Results/Core Measures Results/Orders My Orders Orders - VIAKS PEREZ MD Amlodipine Tablet (Norvasc Tablet) (09/17/19 13:30) Lidocaine/Epi 2% 1:100,000 (Xylocaine/Ep (09/17/19 13:30) Medications Given in ED Vital Signs/I&O 09/17/19 09/17/19 13:10 14:09 Temp 36.2 36.2 Pulse 94 94 Resp 15 15 B/P (MAP) 172/99 (123) 172/99 (123) Pulse Ox 97 97 O2 Delivery Room Air Room Air Blood Pressure Mean: 123 Progress Progress Note : Progress Note The area of hemorrhage would not stop bleeding on its own with direct pressure. Patient's skin was cleaned with alcohol and approximately 2 mL of lidocaine with epinephrine was injected beneath the bleeding lesion. Again direct pressure was applied but the bleeding did not stop. The area was then cauterized with an electric Hyfrecator. Bleeding resolved. Wound was then glued over for added protection from disruption and further bleeding. Patient tolerated the procedure well. Blood pressure was trending down and did not require treatment. Departure Impression Primary Impression: Skin hemorrhage Additional Impression: Hypertension Qualified Codes: I10 - Essential (primary) hypertension Disposition: 01 HOME, SELF-CARE Condition: Improved Departure-Patient Inst. Decision time for Depature: 14:02 Referrals: BRIAN BALLESTEROS DO (PCP/Family) Primary Care Physician Patient Instructions: Hemangioma, Skin Tags (Acrochordon) Add. Discharge Instructions: The cause of your bleeding may have been related to a damaged skin tag or hem angioma. Avoid scratching or rubbing on this area. If bleeding returns, apply direct pressure for 20-30 minutes. If this does not resolve the bleeding, you may return to the emergency room. Follow-up with Dr. Ballesteros in the clinic next week to have a blood pressure check. All discharge instructions reviewed with patient and/or family. Voiced understanding. Copy Copies To 1: BRIAN BALLESTEROS DO Copies To 2: LAURA MCWILLIAMS JOSHUA T MD Sep 17, 2019 14:05
[2019-09-17 14:09] VITALS: BP 172/99
== END 2019-09-17 14:09 | disposition home or self-care (01) ==
LOC: EDUNIT# 13:09 → ER 13:11
DX: R23.3 Spontaneous ecchymoses (principal); I10 Essential (primary) hypertension; Z87.891 Personal history of nicotine dependence; Z82.49 Family history of ischemic heart disease and other diseases of the circulatory system
CPT/HCPCS: 99282

== ENCOUNTER → 2019-12-12 | Outpatient (RCR) | payer MEDICARE, OTHER ==
[2019-09-13 08:59] LABS: BASOPHILS % (AUTO) 0 % (0-10); EOSINOPHILS % (AUTO) 1 % (0-10); HEMATOCRIT 38 % (40-54); HEMOGLOBIN 13.7 G/DL (13.3-17.7); LYMPHOCYTES # (AUTO) 0.7 X 10^3 (1.0-4.0); LYMPHOCYTES % (AUTO) 20 % (12-44); MEAN CORPUSCULAR HEMOGLOBIN 31 PG (25-34); MEAN CORPUSCULAR HGB CONC 36 G/DL (32-36); MEAN CORPUSCULAR VOLUME 86 FL (80-99); MEAN PLATELET VOLUME 8.5 FL (7.4-10.4); MONOCYTES # (AUTO) 0.4 X 10^3 (0.0-1.0); MONOCYTES % (AUTO) 11 % (0-12); NEUTROPHILS # (AUTO) 2.5 X 10^3 (1.8-7.8); NEUTROPHILS % (AUTO) 68 % (42-75); PLATELET COUNT 124 10^3/uL (130-400); WHITE BLOOD COUNT 3.6 10^3/uL (4.3-11.0)
[2019-09-13 09:20] LABS: ALANINE AMINOTRANSFERASE 11 U/L (0-55); ALBUMIN 4.3 GM/DL (3.2-4.5); ALKALINE PHOSPHATASE 60 U/L (40-136); BILIRUBIN,TOTAL 1.4 MG/DL (0.1-1.0); BUN/CREATININE RATIO 8; CALCIUM 8.8 MG/DL (8.5-10.1); CARBON DIOXIDE 24 MMOL/L (21-32); CHLORIDE 99 MMOL/L (98-107); CREATININE SERUM 0.87 MG/DL (0.60-1.30); GFR ESTIMATED > 60; GLUCOSE 100 MG/DL (70-105); POTASSIUM 4.4 MMOL/L (3.6-5.0); SODIUM 130 MMOL/L (135-145); TOTAL PROTEIN 6.6 GM/DL (6.4-8.2)
[~2019-12-12] MED LIST changes: +FERRIC CARBOXYMALTOSE (CANCER) 750 MG in NS (IVPB) CANCER CENTER 250 ML IV SCH
[2019-12-12 09:12] LABS: BASOPHILS % (AUTO) 0 % (0-10); EOSINOPHILS # (AUTO) 0.1 10^3/uL (0.0-0.3); EOSINOPHILS % (AUTO) 1 % (0-10); HEMATOCRIT 41 % (40-54); HEMOGLOBIN 14.8 G/DL (13.3-17.7); LYMPHOCYTES # (AUTO) 0.6 X 10^3 (1.0-4.0); LYMPHOCYTES % (AUTO) 11 % (12-44); MEAN CORPUSCULAR HEMOGLOBIN 32 PG (25-34); MEAN CORPUSCULAR HGB CONC 36 G/DL (32-36); MEAN CORPUSCULAR VOLUME 89 FL (80-99); MEAN PLATELET VOLUME 8.3 FL (7.4-10.4); MONOCYTES # (AUTO) 0.4 X 10^3 (0.0-1.0); MONOCYTES % (AUTO) 7 % (0-12); NEUTROPHILS # (AUTO) 4.2 X 10^3 (1.8-7.8); NEUTROPHILS % (AUTO) 81 % (42-75); PLATELET COUNT 125 10^3/uL (130-400); WHITE BLOOD COUNT 5.3 10^3/uL (4.3-11.0)
[2019-12-12 09:29] LABS: ALANINE AMINOTRANSFERASE 13 U/L (0-55); ALBUMIN 4.4 GM/DL (3.2-4.5); ALKALINE PHOSPHATASE 65 U/L (40-136); BILIRUBIN,TOTAL 1.7 MG/DL (0.1-1.0); BUN/CREATININE RATIO 9; CALCIUM 8.9 MG/DL (8.5-10.1); CARBON DIOXIDE 24 MMOL/L (21-32); CHLORIDE 100 MMOL/L (98-107); GFR ESTIMATED > 60; GLUCOSE 100 MG/DL (70-105); POTASSIUM 4.3 MMOL/L (3.6-5.0); SODIUM 134 MMOL/L (135-145)
== END | disposition home or self-care (01) ==
LOC: ONC 09-13 08:48
PROVIDERS: ATTEND Internal Medicine Hematology & Oncology
DX: C85.90 Non-Hodgkin lymphoma, unspecified, unspecified site (principal); D50.0 Iron deficiency anemia secondary to blood loss (chronic); I78.0 Hereditary hemorrhagic telangiectasia; D69.6 Thrombocytopenia, unspecified; I12.9 Hypertensive chronic kidney disease with stage 1 through stage 4 chronic kidney disease, or unspecified chronic kidney disease; N18.3 Chronic kidney disease, stage 3 (moderate); M19.90 Unspecified osteoarthritis, unspecified site; Z79.899 Other long term (current) drug therapy
CPT/HCPCS: 80053; 82728; 83615; 85025; 96365

== ENCOUNTER 2020-01-16 08:32 | Emergency (ER) | payer MEDICARE, OTHER ==
[~2020-01-16] VITALS: Ht 177 cm; Wt 81.6 kg
[~2020-01-16 08:32] MED LIST changes: -FERRIC CARBOXYMALTOSE (CANCER) 750 MG in NS (IVPB) CANCER CENTER 250 ML IV SCH
[2020-01-16] MEDS ORDERED: OXYMETAZOLINE (AFRIN) 0.05% NA 30 ML BTL SCH (08:45)
[2020-01-16] MEDS ORDERED: TRANEXAMIC ACID 100 MG/ML 10 ML INJECTION IV ONE (09:17)
[2020-01-16 09:28] LABS: BASOPHILS % (AUTO) 0 % (0-10); EOSINOPHILS % (AUTO) 0 % (0-10); HEMATOCRIT 43 % (40-54); HEMOGLOBIN 15.3 g/dL (13.3-17.7); LYMPHOCYTES # (AUTO) 0.4 10^3/uL (1.0-4.0); LYMPHOCYTES % (AUTO) 9 % (12-44); MEAN CORPUSCULAR HEMOGLOBIN 33 pg (25-34); MEAN CORPUSCULAR HGB CONC 36 g/dL (32-36); MEAN CORPUSCULAR VOLUME 92 fL (80-99); MEAN PLATELET VOLUME 9.7 fL (9.0-12.2); MONOCYTES # (AUTO) 0.3 10^3/uL (0.0-1.0); MONOCYTES % (AUTO) 6 % (0-12); NEUTROPHILS # (AUTO) 3.8 10^3/uL (1.8-7.8); NEUTROPHILS % (AUTO) 83 % (42-75); PLATELET COUNT 74 10^3/uL (130-400); WHITE BLOOD COUNT 4.6 10^3/uL (4.3-11.0)
[2020-01-16 09:45] LABS: PROTHROMBIN TIME PATIENT 13.6 SEC (12.2-14.7)
[2020-01-16] MEDS ORDERED: CEFD300C3 PO (09:59)
--- NOTE | 2020-01-16 09:59 | ED EENT ---
History of Present Illness General Chief Complaint: Nasal Problems Stated Complaint: NOSE BLEED Nursing Triage Note: PT PRESENTS TO ED VIA EMS FROM HOME WITH COMPLAINTS OF R SIDED NASAL BLEED STARTING AT 0600 THIS AM WHEN SITTING AND DRINKING COFFEE. Source: patient (PT IS VERY POOR HISTORIAN) History of Present Illness Date Seen by Provider: Jan 16, 2020 Time Seen by Provider: 08:37 Initial Comments PT ARRIVES VIA EMS FROM HOME C/O RIGHT SIDED NOSEBLEED SINCE 0600 THIS MORNING, WHILE DRINKING COFFEE DENIES ANY INJURY OR BLOWING OR PICKING NOSE. STATES HE HAS HAD MINOR NOSEBLEEDS BUT NEVER ONE THIS BAD. HOWEVER, PT WAS HERE 06/08/19 FOR LEFT SIDED NOSEBLEED. 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 MCWILLIAMS. PCP: DR. SÁNCHEZ ONCOLOGY/HEMATOLOGY: DR. MCWILLIAMS Allergies and Home Medications Allergies Coded Allergies: No Known Drug Allergies (Unverified , 01/06/11) Home Medications Amlodipine Besylate 5 Mg Tablet, 5 MG PO DAILY Prescribed by: VIKAS FRAZIER on 06/08/19 2333 Cefdinir 300 Mg Capsule, 300 MG PO BID Prescribed by: FARZANA OLVERA on 01/16/20 0959 Patient Home Medication List Home Medication List Reviewed: Yes Review of Systems Review of Systems Constitutional: no symptoms reported; No dizziness Nose: see HPI Respiratory: no symptoms reported Cardiovascular: no symptoms reported Gastrointestinal: no symptoms reported Hematologic/Lymphatic: See HPI Immunological/Allergic: see HPI Past Luhtpks-Wpzmxy-[place] Hx Past Med/Social Hx: Reviewed and Corrections made Patient Social History Alcohol Use: Occasionally Uses Number of Drinks Today: AA Alcohol Beverage of Choice: Beer Recreational Drug Use: No Smoking Status: Former Smoker Type Used: Cigarettes Former Smoker, Quit: August 09, 1989 2nd Hand Smoke Exposure: No Recent Foreign Travel: No Contact w/Someone Who Travel: No Recent Infectious Disease Expo: No Recent Hopitalizations: No Physical Abuse: No Sexual Abuse: No Mistreated: No Fear: No Immunizations Up To Date Tetanus Booster (TDap): Unknown Date of Pneumonia Vaccine: Apr 13, 2018 Seasonal Allergies Seasonal Allergies: No Past Medical History Surgeries: Yes (knee sx, BACK, LT TOTAL KNEE, foot sx;) Adenoidectomy, Orthopedic, Tonsillectomy Respiratory: No Currently Using CPAP: No Currently Using BIPAP: No Cardiac: Yes Hypertension Neurological: No Reproductive Disorders: No Sexually Transmitted Disease: No HIV/AIDS: No Genitourinary: No Gastrointestinal: Yes (COLON POLYPS, hemangiomas of the small intestines) Polyps Musculoskeletal: Yes Back Injury Endocrine: No HEENT: No Cancer: Yes (MYELOPROLIFERATIVE DISORDER) Leukemia Psychosocial: Yes Anxiety Integumentary: No Blood Disorders: Yes (chronic leukemia;MYELOPROLIFERATIVE DISORDER;AV MALFORMATIONS/HEMANGIOMAS/) Family Medical History Hypertension, Vascular Disease Physical Exam Vital Signs Vital Signs - First Documented 01/16/20 08:37 Temp 36.6 Pulse 86 Resp 16 B/P (MAP) 170/114 (132) Pulse Ox 96 Height, Weight, BMI Height: 5'10.00" Weight: 191lbs. 0.0oz. 86.055289dz; 26.00 BMI Method:Stated General Appearance: WD/WN, no apparent distress, other (VERY ANXIOUS, TALKS NON-STOP) Nose: other (ACTIVE BLEEDING FROM RIGHT NARE, WITH CLOTS ) Neurologic/Psychiatric: no motor/sensory deficits, alert Skin: normal color, warm/dry Procedures/Interventions Nasal : Nasal Location: Right Clots Cleared from Nasal: Patient Blowing Nasal Drops Instilled: Afrin Inspection with: Otoscope Nasal Procedures: Rapid Rhino Progress RAPID RHINO 5.5. CM ANTERIOR PLACED. PT CONTINUED TO HAVE CONSTANT OOZING AROUND THE PACK, AND IT WAS REMOVED AND REPLACED WITH ANOTHER 5.5 CM RAPID RHINO, ALONG WITH TXA INSTILLED. BLEEDING STOPPED AT TIME OF DISMISSAL. Progress/Results/Core Measures Results/Orders Lab Results Laboratory Tests Test 01/16/20 09:18 Range/Units White Blood Count 4.6 4.3-11.0 10^3/uL Red Blood Count 4.71 4.30-5.52 10^6/uL Hemoglobin 15.3 13.3-17.7 g/dL Hematocrit 43 40-54 % Mean Corpuscular Volume 92 80-99 fL Mean Corpuscular Hemoglobin 33 25-34 pg Mean Corpuscular Hemoglobin Concent 36 32-36 g/dL Red Cell Distribution Width 13.6 10.0-14.5 % Platelet Count 74 L 130-400 10^3/uL Mean Platelet Volume 9.7 9.0-12.2 fL Immature Granulocyte % (Auto) 0 % Neutrophils (%) (Auto) 83 H 42-75 % Lymphocytes (%) (Auto) 9 L 12-44 % Monocytes (%) (Auto) 6 0-12 % Eosinophils (%) (Auto) 0 0-10 % Basophils (%) (Auto) 0 0-10 % Neutrophils # (Auto) 3.8 1.8-7.8 10^3/uL Lymphocytes # (Auto) 0.4 L 1.0-4.0 10^3/uL Monocytes # (Auto) 0.3 0.0-1.0 10^3/uL Eosinophils # (Auto) 0.0 0.0-0.3 10^3/uL Basophils # (Auto) 0.0 0.0-0.1 10^3/uL Immature Granulocyte # (Auto) 0.0 0.0-0.1 10^3/uL Prothrombin Time 13.6 12.2-14.7 SEC INR Comment 1.0 0.8-1.4 Activated Partial Thromboplast Time 27 24-35 SEC My Orders Orders - FARZANA OLVERA DO Oxymetazoline 0.05% Nasal Cu[place]z (Afrin 0. (01/16/20 08:45) Cbc With Automated Diff (01/16/20 08:41) Protime With Inr (01/16/20 08:41) Partial Thromboplastin Time (01/16/20 08:41) Tranexamic Acid Injection (Cyklokapron I (01/16/20 09:17) Cefdinir Capsule (Omnicef Capsule) (01/16/20 10:00) Medications Given in ED Current Medications Medications Dose Ordered Sig/Ra Route Start Time Stop Time Status Last Admin Dose Admin Cefdinir 300 mg ONCE ONCE PO 01/16/20 10:00 01/16/20 10:01 DC 01/16/20 10:12 300 MG Vital Signs/I&O 01/16/20 01/16/20 08:37 10:19 Temp 36.6 Pulse 86 70 Resp 16 16 B/P (MAP) 170/114 (132) 132/86 Pulse Ox 96 98 Blood Pressure Mean: 132 Progress Progress Note : Progress Note PT REMAINED EXTREMELY ANXIOUS ABOUT HIS NOSE BLEED AND WITH HAVING THE PACKING IN PLACE HE IS ALSO EXTREMELY ANXIOUS ABOUT GETTING HOME, WELL FOLLOWING UP WITH FELICITA BHATIA. REPEATEDLY EXPLAINED ANTICIPATED COURSE, NEED FOR FOLLOW UP , IMPORTANCE OF LEAVING PACKING IN PLACE, ETC. BY BOTH RN AND MYSELF. Departure Communication (Admissions) 2163--SPOKE WITH DR. MCWILLIAMS. HE ADVISES THAT PT HAS TELANGIECTASIAS / HEMANGIOMAS AND AV MALFORMATIONS ALL OVER. HE DOES NOT ADVISE ANY PLATELET TRANSFUSION AT THIS TIME. AND ADVISES TO HAVE PT FOLLOW UP WITH FELICITA BHATIA. Impression Primary Impression: Epistaxis Additional Impression: Thrombocytopenia Disposition: HOME, SELF-CARE Condition: Stable Departure-Patient Inst. Referrals: DAHLIA BURNETT MD, JACQUELINE S DO (PCP/Family) Primary Care Physician Patient Instructions: Essential Thrombocythemia, Nosebleeds (DC) Add. Discharge Instructions: LEAVE PACKING IN PLACE DO NOT RUB OR BLOW YOUR NOSE FOLLOW UP WITH DR. BURNETT, ENT PHYSICIAN, THIS WEEK FOR FURTHER CARE--CALL TODAY TO MAKE AN APPOINTMENT All discharge instructions reviewed with patient and/or family. Voiced understanding. Scripts Cefdinir (Cefdinir) 300 Mg Capsule 300 MG PO BID, #20 CAP Prov: FARZANA OLVERA DO 01/16/20 FARZANA OLVERA DO Jan 16, 2020 09:59
[2020-01-16] MEDS ORDERED: CEFDINIR 300 MG (OMNICEF) CAP PO ONE (10:00)
[2020-01-16 10:19] VITALS: BP 132/86
== END 2020-01-16 10:17 | disposition home or self-care (01) ==
LOC: EDUNIT# 08:32 → ER 08:33
DX: R04.0 Epistaxis (principal); D69.6 Thrombocytopenia, unspecified; F41.9 Anxiety disorder, unspecified; I10 Essential (primary) hypertension; Z82.49 Family history of ischemic heart disease and other diseases of the circulatory system; Z85.6 Personal history of leukemia; Z87.891 Personal history of nicotine dependence
CPT/HCPCS: 30901; 36415; 85025; 85610; 85730

== ENCOUNTER 2020-02-02 03:19 | Emergency (ER) | payer MEDICARE, OTHER ==
[~2020-02-02] VITALS: Ht 177 cm; Wt 77.0 kg
[~2020-02-02 03:19] MED LIST changes: +CEFD300C3 PO
[2020-02-02] MEDS ORDERED: PHENYLEPHRINE 0.25% NASAL SPR (NEO-SYNEPHRINE) 15 ML NS ONE (03:28)
[2020-02-02] MEDS ORDERED: PHENYLEPHRINE 0.5% NASAL SPR (NEO-SYNEPHRINE) REG ONE (03:30)
[2020-02-02] MEDS ORDERED: TRANEXAMIC ACID 100 MG/ML 10 ML INJECTION IV ONE (03:32)
--- NOTE | 2020-02-02 03:45 | NUR ---
Late entry: pt arrived with bleeding from his left nare; states it started several hours prior. Moderate bleeding noted from left nare, bright red in appearance. Pt spit out large blood clot. Pt states he has a hx of this. Dr. Luna to room and several attempts at bleeding control with rhino rocket failed due to possible deviated septum; nare packed with surgicel soaked with txa; bleeding noted to be controlled.
[2020-02-02 03:53] LABS: HEMOGLOBIN 14.9 g/dL (13.3-17.7); MEAN PLATELET VOLUME 8.4 fL (9.0-12.2); WHITE BLOOD COUNT 4.2 10^3/uL (4.3-11.0)
[2020-02-02] MEDS ORDERED: cloNIDine 0.1 MG (CATAPRES) TAB PO ONE (04:00)
--- NOTE | 2020-02-02 04:02 | ED EENT ---
History of Present Illness General Stated Complaint: NOSE BLEED Source: patient (VERY POOR HISTORIAN--KNOWS ESSENTIALLY NONE OF HIS PAST MEDICAL HISTORY OR ANY OF HIS MEDICATIONS. ) History of Present Illness Date Seen by Provider: Feb 02, 2020 Time Seen by Provider: 03:26 Initial Comments PT ARRIVES VIA POV FROM HOME C/O LEFT SIDED NOSEBLEED INITIALLY STATED IT HAS BEEN GOING OFF AND ON ALL DAY, THEN LATER STATES IT HAS BEEN GOING ON FOR 2 1/2 HOURS NO INJURY DENIES ASPIRIN OR OTHER BLOOD THINNERS STATES "I HAVE BLEEDERS" "IT'S INHERITED--MY MOM HAD THEM TOO" STATES HE HAS FREQUENT NOSE BLEEDS, BUT CANNOT STATE HOW OFTEN. DOES NOT KNOW IF HE HAS BEEN TO ER FOR NOSEBLEEDS IN THE PAST, OR IF HE HAS EVER BEEN TO AN ENT SPECIALIST, OR IF HE HAS EVER HAD SURGERY/PROCEDURES ON HIS NOSE FOR BLEEDING OR ANY OTHER NASAL PROCEDURES. STATES [facility] TO [facility], BUT DOES NOT KNOW WHY. LATER STATES HE HAS IRON INFUSIONS, BUT DOES NOT KNOW WHY. 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 MCWILLIAMS PCP: DR. SÁNCHEZ HEMATOLOGY/ONCOLOGY: DR. MCWILLIAMS Allergies and Home Medications Allergies Coded Allergies: No Known Drug Allergies (Unverified , 01/06/11) Home Medications Amlodipine Besylate 5 Mg Tablet, 5 MG PO DAILY Prescribed by: VIKAS FRAZIER on 06/08/19 2333 Cefdinir 300 Mg Capsule, 300 MG PO BID Prescribed by: FARZANA OLVERA on 01/16/20 0959 Patient Home Medication List Home Medication List Reviewed: Yes Review of Systems Review of Systems Constitutional: no symptoms reported Nose: see HPI, clots, epistaxis; denies pain Mouth: other (BLOOD FROM NOSE DRAINING INTO HIS THROAT) Past Ioefgsy-Xiosuu-Fwbwzl Hx Past Med/Social Hx: Reviewed and Corrections made Patient Social History Alcohol Use: Occasionally Uses Alcohol Beverage of Choice: Beer Recreational Drug Use: No Smoking Status: Former Smoker Type Used: Cigarettes Former Smoker, Quit: August 09, 1989 2nd Hand Smoke Exposure: No Recent Foreign Travel: No Contact w/Someone Who Travel: No Recent Hopitalizations: No Immunizations Up To Date Tetanus Booster (TDap): Unknown Date of Pneumonia Vaccine: Apr 13, 2018 Seasonal Allergies Seasonal Allergies: No Past Medical History Surgeries: Yes (knee sx, BACK, LT TOTAL KNEE, foot sx;) Adenoidectomy, Orthopedic, Tonsillectomy Respiratory: No Currently Using CPAP: No Currently Using BIPAP: No Cardiac: Yes Hypertension Neurological: No Reproductive Disorders: No Sexually Transmitted Disease: No HIV/AIDS: No Genitourinary: No Gastrointestinal: Yes (COLON POLYPS, hemangiomas AND AV MALFORMATIONS OF GI TRACT. ) Polyps Musculoskeletal: Yes Back Injury Endocrine: No HEENT: No Cancer: Yes (MYELOPROLIFERATIVE DISORDER) Leukemia Did You Recieve Any Treatments: No Psychosocial: Yes Anxiety Integumentary: No Blood Disorders: Yes (ANEMIA;MYELOPROLIFERATIVE DISORDER;AV MALFORMATIONS/HEMANGIOMAS/) Family Medical History Hypertension, Vascular Disease Physical Exam Vital Signs Vital Signs - First Documented 02/02/20 03:20 Temp 36.5 Pulse 92 Resp 20 B/P (MAP) 174/90 (118) Pulse Ox 100 O2 Delivery Room Air Height, Weight, BMI Height: 5'10.00" Weight: 191lbs. 0.0oz. 86.084025qc; 26.00 BMI Method:Stated General Appearance: WD/WN, no apparent distress, other (VERY ANXIOUS) Nose: other (MODERATE AMOUNT OF ACTIVE BLEEDING FROM LEFT NARE. ) Mouth/Throat: other (FRESH BLOOD AND CLOTS IN POSTERIOR PHARYNX) Neurologic/Psychiatric: alert, other (MILD CONFUSION; ANXIOUS) Skin: normal color, warm/dry Procedures/Interventions Nasal : Nasal Location: Left Clots Cleared from Nasal: Patient Blowing Nasal Drops Instilled: Toney-Synephrine Inspection with: Otoscope Progress UNABLE TO PASS RAPID RHINO 5.5 CM UNABLE TO PASS A NORMAL NASAL TAMPON/PACKING LEFT NARE PACKED WITH SURGICEL SATURATED WITH TXA. WITH GOOD HEMOSTASIS NO FURTHER BLEEDING ANTERIORLY OR POSTERIORLY BLOOD IN POSTERIOR PHARYNX CLEARED WITH GARGLING. Progress/Results/Core Measures Results/Orders Lab Results Laboratory Tests Test 02/02/20 03:05 Range/Units White Blood Count 4.2 L 4.3-11.0 10^3/uL Red Blood Count 4.62 4.30-5.52 10^6/uL Hemoglobin 14.9 13.3-17.7 g/dL Hematocrit 41 40-54 % Mean Corpuscular Volume 90 80-99 fL Mean Corpuscular Hemoglobin 32 25-34 pg Mean Corpuscular Hemoglobin Concent 36 32-36 g/dL Red Cell Distribution Width 13.3 10.0-14.5 % Platelet Count 111 L 130-400 10^3/uL Mean Platelet Volume 8.4 L 9.0-12.2 fL Prothrombin Time 12.8 12.2-14.7 SEC INR Comment 0.9 0.8-1.4 Activated Partial Thromboplast Time 29 24-35 SEC My Orders Orders - FARZANA OLVERA DO Phenylephrine 0.5% Nasal [place] (Toney-Syne (02/02/20 03:30) Cbc No Diff (02/02/20 03:29) Protime With Inr (02/02/20 03:29) Partial Thromboplastin Time (02/02/20 03:29) Phenylephrine 0.25% Nasal [place] (Toney-Syne (02/02/20 03:28) Tranexamic Acid Injection (Cyklokapron I (02/02/20 03:32) Clonidine Tablet (Catapres Tablet) (02/02/20 04:00) Medications Given in ED Vital Signs/I&O Progress Progress Note : Progress Note CBC AND PT/PTT ESSENTIALLY NORMAL. REPEATEDLY HAD TO REDIRECT PT AND RE-INSTRUCT HIM TO BREATHE THROUGH HIS MOUTH, HE IS EXTREMELY ANXIOUS ABOUT NOT BEING ABLE TO BREATHE THROUGH BOTH OF HIS NOSTRILS. PT OBSERVED IN ER FOR AN HOUR AFTER PACKING WAS PLACED, WITH NO FURTHER BLEEDING. GIVEN CLONIDINE FOR BLOOD PRESSURE WITH MUCH IMPROVEMENT PT IS EXTREMELY ANXIOUS. APPEARS CALMER AT DISMISSAL Departure Impression Primary Impression: Left-sided epistaxis Additional Impressions: HX OF ANEMIA AND MYELOPROLIFERATIVE DISORDER HX OF TELANGIECTASIAS, HEMANGIOMAS AND AV MALFORMATIONS HTN (hypertension) Disposition: 01 HOME, SELF-CARE Condition: Improved Departure-Patient Inst. Referrals: DAHLIA BURNETT MD, JACQUELINE S DO (PCP/Family) Primary Care Physician Patient Instructions: Nosebleeds (DC) Add. Discharge Instructions: LEAVE PACKING IN PLACE DO NOT RUB OR BLOW NOSE FOLLOW UP WITH DR. BURNETT THIS WEEK FOR FURTHER CARE, CALL THIS MORNING TO SCHEDULE AN APPOINTMENT RETURN TO ER IF SYMPTOMS RETURN FOLLOW UP WITH DR. SÁNCHEZ REGARDING YOUR BLOOD PRESSURE FARZANA OLVERA DO Feb 02, 2020 04:02
[2020-02-02 04:06] LABS: INR 0.9 (0.8-1.4); PROTHROMBIN TIME PATIENT 12.8 SEC (12.2-14.7)
--- NOTE | 2020-02-02 04:14 | NUR ---
Pt anxious and states he feels like he can't breathe due to packing in his nare; pt reassurance provided and this advised patient to breathe through his mouth. Pt sp02 100%.
[2020-02-02 05:17] VITALS: BP 143/80
== END 2020-02-02 05:20 | disposition home or self-care (01) ==
LOC: EDUNIT# 03:19 → ER 03:23
DX: R04.0 Epistaxis (principal); I10 Essential (primary) hypertension; D64.9 Anemia, unspecified; F41.9 Anxiety disorder, unspecified; Z85.6 Personal history of leukemia; Z87.891 Personal history of nicotine dependence; Z82.49 Family history of ischemic heart disease and other diseases of the circulatory system
CPT/HCPCS: 36415; 85027; 85610; 85730; 99284

== ENCOUNTER 2020-03-19 10:48 | Outpatient (RCR) | payer MEDICARE, OTHER ==
[~2020-03-19 10:48] MED LIST changes: +FERRIC CARBOXYMALTOSE (CANCER) 750 MG in NS (IVPB) CANCER CENTER 250 ML IV SCH
[2020-03-19 11:21] LABS: MEAN PLATELET VOLUME 8.8 fL (9.0-12.2)
[2020-03-19 11:23] LABS: BASOPHILS % (AUTO) 0 % (0-10); EOSINOPHILS % (AUTO) 0 % (0-10); HEMATOCRIT 42 % (40-54); HEMOGLOBIN 14.9 g/dL (13.3-17.7); LYMPHOCYTES # (AUTO) 0.7 10^3/uL (1.0-4.0); LYMPHOCYTES % (AUTO) 15 % (12-44); MEAN CORPUSCULAR HEMOGLOBIN 33 pg (25-34); MEAN CORPUSCULAR HGB CONC 35 g/dL (32-36); MEAN CORPUSCULAR VOLUME 93 fL (80-99); MONOCYTES # (AUTO) 0.4 10^3/uL (0.0-1.0); MONOCYTES % (AUTO) 9 % (0-12); NEUTROPHILS # (AUTO) 3.4 10^3/uL (1.8-7.8); NEUTROPHILS % (AUTO) 75 % (42-75); PLATELET COUNT 127 10^3/uL (130-400); WHITE BLOOD COUNT 4.5 10^3/uL (4.3-11.0)
[2020-03-19 11:45] LABS: ALANINE AMINOTRANSFERASE 11 U/L (0-55); ALBUMIN 4.5 GM/DL (3.2-4.5); ALKALINE PHOSPHATASE 67 U/L (40-136); BILIRUBIN,TOTAL 1.9 MG/DL (0.1-1.0); BUN/CREATININE RATIO 13; CALCIUM 9.2 MG/DL (8.5-10.1); CARBON DIOXIDE 30 MMOL/L (21-32); CHLORIDE 100 MMOL/L (98-107); CREATININE SERUM 0.87 MG/DL (0.60-1.30); GFR ESTIMATED > 60; GLUCOSE 83 MG/DL (70-105); SODIUM 136 MMOL/L (135-145); TOTAL PROTEIN 7.4 GM/DL (6.4-8.2)
== END 2020-03-20 | disposition home or self-care (01) ==
LOC: ONC 10:48
PROVIDERS: ATTEND Internal Medicine Hematology & Oncology
DX: Z51.11 Encounter for antineoplastic chemotherapy (principal); D50.9 Iron deficiency anemia, unspecified; I78.0 Hereditary hemorrhagic telangiectasia; I12.9 Hypertensive chronic kidney disease with stage 1 through stage 4 chronic kidney disease, or unspecified chronic kidney disease; N18.9 Chronic kidney disease, unspecified; K21.9 Gastro-esophageal reflux disease without esophagitis; Z85.72 Personal history of non-Hodgkin lymphomas
CPT/HCPCS: 96365; G0463; 80053; 82728; 83615; 85025

== ENCOUNTER 2020-03-21 09:09 | Outpatient (RCR) | payer MEDICARE, OTHER ==
[~2020-03-21 09:09] MED LIST changes: -FERRIC CARBOXYMALTOSE (CANCER) 750 MG in NS (IVPB) CANCER CENTER 250 ML IV SCH
== END 2020-04-06 14:49 | disposition home or self-care (01) ==
LOC: ONC 09:09
PROVIDERS: ATTEND Internal Medicine Hematology & Oncology
DX: Z51.11 Encounter for antineoplastic chemotherapy (principal); D50.9 Iron deficiency anemia, unspecified; I78.0 Hereditary hemorrhagic telangiectasia; I12.9 Hypertensive chronic kidney disease with stage 1 through stage 4 chronic kidney disease, or unspecified chronic kidney disease; N18.9 Chronic kidney disease, unspecified; K21.9 Gastro-esophageal reflux disease without esophagitis; Z85.72 Personal history of non-Hodgkin lymphomas
CPT/HCPCS: 99213

== ENCOUNTER 2020-04-29 21:29 | Emergency (ER) | payer MEDICARE, OTHER ==
[~2020-04-29 21:29] MED LIST changes: -ESCI10TA55 PO; +ESCI10TA64 PO; -ESCI5TAB12 PO; +ESCI5TAB25 PO
[2020-04-29] MEDS ORDERED: OXYMETAZOLINE (AFRIN) 0.05% NA 30 ML BTL ONE (21:41)
[2020-04-29] MEDS ORDERED: TRANEXAMIC ACID 100 MG/ML 10 ML INJECTION ONE (21:45)
[2020-04-29 21:50] VITALS: BP 157/90
[2020-04-29 22:08] LABS: BASOPHILS % (AUTO) 0 % (0-10); EOSINOPHILS # (AUTO) 0.1 10^3/uL (0.0-0.3); EOSINOPHILS % (AUTO) 2 % (0-10); HEMATOCRIT 42 % (40-54); HEMOGLOBIN 14.2 g/dL (13.3-17.7); LYMPHOCYTES % (AUTO) 23 % (12-44); MEAN CORPUSCULAR HEMOGLOBIN 31 pg (25-34); MEAN CORPUSCULAR HGB CONC 34 g/dL (32-36); MEAN CORPUSCULAR VOLUME 89 fL (80-99); MEAN PLATELET VOLUME 8.8 fL (9.0-12.2); MONOCYTES # (AUTO) 0.4 10^3/uL (0.0-1.0); MONOCYTES % (AUTO) 10 % (0-12); NEUTROPHILS # (AUTO) 2.6 10^3/uL (1.8-7.8); NEUTROPHILS % (AUTO) 64 % (42-75); PLATELET COUNT 101 10^3/uL (130-400); WHITE BLOOD COUNT 4.1 10^3/uL (4.3-11.0)
--- NOTE | 2020-04-29 22:30 | NUR ---
Mariana andrea in ED - 04/29/20 at 2302 by [id number] VERBAL ORDER TO HOLD DECADRON ADMIN AND EKG BY DR OLVERA.
--- NOTE | 2020-04-29 22:40 | ED EENT ---
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 Source: patient (VERY POOR HISTORIAN--ESSENTIALLY KNOWS NONE IF HIS PAST MEDICAL HISTORY OR ANY OF HIS MEDICATIONS AND VERY POOR MEMORY), old records History of Present Illness Date Seen by Provider: Apr 29, 2020 Time Seen by Provider: 21:39 Initial Comments PT ARRIVES VIA POV FROM HOME--DROVE SELF HERE C/O NOSEBLEED FROM LEFT NARE--BEGAN JUST PRIOR TO ARRIVAL STATES HE HAD A SMALL NOSEBLEED YESTERDAY BUT WENT AWAY DOES NOT RECALL IF HE RECENTLY BLEW HIS NOSE OR RUBBED HIS NOSE OR PICKED AT HIS NOSE NO PAIN NO NASAL CONGESTION OR RECENT URI SYMPTOMS DENIES ASPIRIN OR BLOOD THINNERS, BUT CANNOT STATE WHAT MEDICATIONS HE TAKES OR WHAT HE TAKES THEM FOR STATES "I HAVE BLEEDERS--I INHERITED THEM FROM MY MOTHER" UNABLE TO STATE HOW OFTEN HE GETS THEM--HE THINKS HIS LAST ONE WAS "A COUPLE OF YEARS AGO"--PT HAS BEEN HERE AT LEAST 3 OTHER TIMES FOR THIS SAME PROBLEM IN THE LAST YEAR PT DOES NOT KNOW IF HE HAS HAD ANY SURGERY/CAUTERIZATION TO NOSE FOR THIS OR IF HE HAS SEEN AN ENT FOR THIS PROBLEM ( PT HAS BEEN REFERRED TO DR. BURNETT FOR FOLLOW UP ON PRIOR VISITS) THIS IS A FREQUENT PROBLEM, AND IS MANY TIMES ON THE LEFT PT HAS MYELOPROLIFERARTIVE DISORDER AND GETS IRON INFUSIONS PT ADDITIONALLY HAS TELANGIECTASIAS AND HEMANGIOMAS AND AV MALFORMATIONS OF GI TRACT AND SKIN AND THROUGHOUT HIS BODY PER OLD RECORDS PCP: DR. SÁNCHEZ HEMATOLOGY/ONCOLOGY: DR. MCWILLIAMS Allergies and Home Medications Allergies Coded Allergies: No Known Drug Allergies (Unverified , 01/06/11) Home Medications Amlodipine Besylate 5 Mg Tablet, 5 MG PO DAILY Prescribed by: VIKAS FRAZIER on 06/08/19 2333 Cefdinir 300 Mg Capsule, 300 MG PO BID Prescribed by: FARZANA OLVERA on 01/16/20 0959 Cefuroxime Axetil 500 Mg Tablet, 500 MG PO BID Prescribed by: FARZANA OLVERA on 04/29/20 2258 Patient Home Medication List Home Medication List Reviewed: Yes Review of Systems Review of Systems Constitutional: no symptoms reported; No dizziness, No fever, No malaise, No weakness Eyes: No Symptoms Reported Ears: No Symptoms Reported Nose: see HPI; denies congestion; epistaxis; denies pain Mouth: no symptoms reported Throat: no symptoms reported Respiratory: no symptoms reported Cardiovascular: no symptoms reported Skin: no symptoms reported Neurological: No Symptoms Reported Hematologic/Lymphatic: See HPI Past Wjdfhoy-Vdglsd-Aqurxp Hx Patient Social History Alcohol Use: Occasionally Uses Number of Drinks Today: AA Alcohol Beverage of Choice: Beer Smoking Status: Former Smoker Type Used: Cigarettes Former Smoker, Quit: August 09, 1989 2nd Hand Smoke Exposure: No Recent Infectious Disease Expo: No Recent Hopitalizations: No Immunizations Up To Date Tetanus Booster (TDap): Unknown Date of Pneumonia Vaccine: Apr 13, 2018 Seasonal Allergies Seasonal Allergies: No Past Medical History Surgeries: Yes (knee sx, BACK, LT TOTAL KNEE, foot sx) Adenoidectomy, Orthopedic, Tonsillectomy Respiratory: No Currently Using CPAP: No Currently Using BIPAP: No Cardiac: Yes Hypertension Neurological: Yes (POOR MEMORY) Reproductive Disorders: No Sexually Transmitted Disease: No HIV/AIDS: No Genitourinary: No Gastrointestinal: Yes (COLON POLYPS, hemangiomas AND AV MALFORMATIONS OF GI TRACT. ) Polyps Musculoskeletal: Yes Back Injury Endocrine: No HEENT: Yes (FREQUENT NOSEBLEEDS) Cancer: Yes (MYELOPROLIFERATIVE DISORDER) Leukemia Did You Recieve Any Treatments: No Psychosocial: Yes Anxiety Integumentary: Yes (TELANGIECTASIAS OF SKIN) Blood Disorders: Yes (ANEMIA;MYELOPROLIFERATIVE DISORDER;AV MALFORMATIONS/HEMANGIOMAS/) Family Medical History Hypertension, Vascular Disease Physical Exam Vital Signs Vital Signs - First Documented 04/29/20 21:50 Temp 36.7 Pulse 73 Resp 16 B/P (MAP) 157/90 (112) O2 Delivery Room Air Height, Weight, BMI Height: 5'10.00" Weight: 191lbs. 0.0oz. 86.740592cd; 24.00 BMI Method:Stated General Appearance: WD/WN, no apparent distress, other (ANXIOUS) Procedures/Interventions Nasal : Nasal Location: Left Clots Cleared from Nasal: Patient Blowing Nasal Drops Instilled: Afrin Inspection with: Otoscope Nasal Procedures: Merocel Sponge Progress UNABLE TO PASS RAPID RHINO 5.5 CMIN LEFT NARE TRIMMED DOWN MEROCEL SPONGE, AND APPLIED TXA TO IT AND PLACED IN LEFT NARE NO FURTHER BLEEDING Progress/Results/Core Measures Results/Orders Lab Results Laboratory Tests Test 04/29/20 21:55 04/29/20 22:20 Range/Units White Blood Count 4.1 L 4.3-11.0 10^3/uL Red Blood Count 4.66 4.30-5.52 10^6/uL Hemoglobin 14.2 13.3-17.7 g/dL Hematocrit 42 40-54 % Mean Corpuscular Volume 89 80-99 fL Mean Corpuscular Hemoglobin 31 25-34 pg Mean Corpuscular Hemoglobin Concent 34 32-36 g/dL Red Cell Distribution Width 12.3 10.0-14.5 % Platelet Count 101 L 130-400 10^3/uL Mean Platelet Volume 8.8 L 9.0-12.2 fL Immature Granulocyte % (Auto) 0 % Neutrophils (%) (Auto) 64 42-75 % Lymphocytes (%) (Auto) 23 12-44 % Monocytes (%) (Auto) 10 0-12 % Eosinophils (%) (Auto) 2 0-10 % Basophils (%) (Auto) 0 0-10 % Neutrophils # (Auto) 2.6 1.8-7.8 10^3/uL Lymphocytes # (Auto) 1.0 1.0-4.0 10^3/uL Monocytes # (Auto) 0.4 0.0-1.0 10^3/uL Eosinophils # (Auto) 0.1 0.0-0.3 10^3/uL Basophils # (Auto) 0.0 0.0-0.1 10^3/uL Immature Granulocyte # (Auto) 0.0 0.0-0.1 10^3/uL Prothrombin Time 13.0 12.2-14.7 SEC INR Comment 1.0 0.8-1.4 Activated Partial Thromboplast Time 28 24-35 SEC My Orders Orders - FARZANA OLVERA DO Cbc With Automated Diff (04/29/20 21:38) Protime With Inr (04/29/20 21:38) Partial Thromboplastin Time (04/29/20 21:38) Oxymetazoline 0.05% Nasal [place] (Afrin 0. (04/30/20 09:00) Tranexamic Acid Injection (Cyklokapron I (04/29/20 21:45) Oxymetazoline 0.05% Nasal [place] (Afrin 0. (04/29/20 21:41) Medications Given in ED Current Medications Medications Dose Ordered Sig/Ra Route Start Time Stop Time Status Last Admin Dose Admin Tranexamic Acid ONCE ONCE NA 04/29/20 21:45 04/29/20 21:46 DC 04/29/20 21:46 1,000 MG Vital Signs/I&O 04/29/20 21:50 Temp 36.7 Pulse 73 Resp 16 B/P (MAP) 157/90 (112) O2 Delivery Room Air Blood Pressure Mean: 112 Departure Impression Primary Impression: Left-sided epistaxis Additional Impressions: HX OF ANEMIA AN MYELOPROLIFERATIVE DISORDER HX OF TELANGIECTASIS, AV MALFORMATIONS, AND HEMANGIOMAS HTN (hypertension) Disposition: 01 HOME, SELF-CARE Condition: Improved Departure-Patient Inst. Referrals: DAHLIA BURNETT MD, JACQUELINE S DO (PCP/Family) Primary Care Physician Patient Instructions: Nosebleeds (DC) Add. Discharge Instructions: LEAVE PACKING IN PLACE DO NOT RUB OR PICK AT OR BLOW NOSE ADMISSIONS CLINICIAN YOUR ANTIBIOTIC PRESCRIPTION IN THE MORNING AND TAKE DIRECTED FOLLOW UP WITH DR. BURNETT IN 2-3 DAYS FOR FURTHER CARE--CALL HIS OFFICE IN THE MORNING TO SCHEDULE AN APPOINTMENT RETURN TO ER IF SYMPTOMS WORSEN All discharge instructions reviewed with patient and/or family. Voiced understanding. Scripts Cefuroxime Axetil (Cefuroxime) 500 Mg Tablet 500 MG PO BID, #20 TAB Prov: FARZANA OLVERA DO 04/29/20 FARZANA OLVERA DO Apr 29, 2020 22:40
[2020-04-29] MEDS ORDERED: CEFU500T63 PO (22:53)
[2020-04-30] MEDS ORDERED: OXYMETAZOLINE (AFRIN) 0.05% NA 30 ML BTL SCH (09:00)
== END 2020-04-29 23:04 | disposition home or self-care (01) ==
LOC: EDUNIT# 21:29 → ER 21:31
DX: I10 Essential (primary) hypertension (principal); Z87.891 Personal history of nicotine dependence; Z96.652 Presence of left artificial knee joint; Z85.79 Personal history of other malignant neoplasms of lymphoid, hematopoietic and related tissues; Z86.2 Personal history of diseases of the blood and blood-forming organs and certain disorders involving the immune mechanism; Z87.898 Personal history of other specified conditions
CPT/HCPCS: 36415; 85025; 85610; 85730

== ENCOUNTER 2020-05-29 07:32 | Emergency (ER) | payer MEDICARE, OTHER ==
[~2020-05-29] VITALS: Ht 177.8 cm; Wt 75.0 kg
[~2020-05-29 07:32] MED LIST changes: +CEFU500T63 PO; +ESCI-2 PO; -ESCI10TA64 PO; +ESCI5TAB16 PO; -ESCI5TAB25 PO
[2020-05-29] MEDS ORDERED: cloNIDine 0.1 MG (CATAPRES) TAB PO ONE (08:00)
[2020-05-29 08:17] LABS: BASOPHILS % (AUTO) 0 % (0-10); EOSINOPHILS % (AUTO) 1 % (0-10); HEMATOCRIT 42 % (40-54); HEMOGLOBIN 15.2 g/dL (13.3-17.7); LYMPHOCYTES # (AUTO) 0.6 10^3/uL (1.0-4.0); LYMPHOCYTES % (AUTO) 17 % (12-44); MEAN CORPUSCULAR HEMOGLOBIN 32 pg (25-34); MEAN CORPUSCULAR HGB CONC 37 g/dL (32-36); MEAN CORPUSCULAR VOLUME 88 fL (80-99); MEAN PLATELET VOLUME 8.5 fL (9.0-12.2); MONOCYTES # (AUTO) 0.2 10^3/uL (0.0-1.0); MONOCYTES % (AUTO) 7 % (0-12); NEUTROPHILS # (AUTO) 2.5 10^3/uL (1.8-7.8); NEUTROPHILS % (AUTO) 75 % (42-75); PLATELET COUNT 86 10^3/uL (130-400); WHITE BLOOD COUNT 3.4 10^3/uL (4.3-11.0)
--- NOTE | 2020-05-29 08:20 | ED EENT ---
History of Present Illness General Chief Complaint: Nasal Problems Stated Complaint: NOSEBLEED Nursing Triage Note: AMB TO ED WITH NOSEBLEED REPORTS SAW FAMILY DR YESTERDAY BECAUSE HE HAS BEEN HAVNG NOSE BLEEDS . WAS TOLD TO GET AFRIN OTC AND ANOTHER MEDS HE CAN'T REMEMBER. NOSE CLAMP PLACED ON ADMIT. BLEEDING NOTED FROM L NARE NOTED. Source: patient Exam Limitations: no limitations (EVETTE THOMPSON,MED STUDENT) History of Present Illness Date Seen by Provider: May 29, 2020 Time Seen by Provider: 07:51 Initial Comments Patient is a 75 year old male with complaint of left nares bleeding. Initial bleeding began yesterday and was light. He was seen by ENT, Dr. Crandall, yesterday, the bleeding resolved and he was given a prescription for afrin. The patient states he used the affrin nasal spray this morning as prescribed and the bleeding started shortly after. He has been seen in the ED several times for similar symptoms in the past. His history is significant for MDD which he has received iron infusions for in the past. He states the last was 6 months ago. History is also significant for HTN, he denies current medication use. Timing/Duration: this morning Severity: moderate Location: nose (left nare) Prearrival Treatment: prescription meds, squeezing nostrils Modifying Factors: Worse With Lying Down Associated Symptoms: No cough, No facial pain/swelling, No fever, No nasal congestion/drainage, No sore throat (EVETTE THOMPSON,MED STUDENT) Timing/Duration: abrupt, intermittent, this morning Severity: moderate Location: nose (left nare) Prearrival Treatment: prescription meds, squeezing nostrils (ROSS FELTON MD) Allergies and Home Medications Allergies Coded Allergies: No Known Drug Allergies (Unverified , 01/06/11) Home Medications Amlodipine Besylate 5 Mg Tablet, 5 MG PO DAILY Prescribed by: VIKAS FRAZIER on 06/08/19 2333 Amlodipine Besylate 5 Mg Tablet, 5 MG PO DAILY Prescribed by: ROSS FELTON on 05/29/20 0957 Cefdinir 300 Mg Capsule, 300 MG PO BID Prescribed by: FARZANA OLVERA on 01/16/20 0959 Cefuroxime Axetil 500 Mg Tablet, 500 MG PO BID Prescribed by: FARZANA OLVERA on 04/29/20 2253 Patient Home Medication List Home Medication List Reviewed: Yes (EVETTE THOMPSON MED STUDENT) Home Medication List Reviewed: Yes (ROSS FELTON MD) Review of Systems Review of Systems Constitutional: No dizziness, No fever, No weakness Eyes: Denies Blurred Vision Ears: Denies Dizziness, Denies Pain Nose: denies clots; epistaxis Throat: denies pain, denies swelling Respiratory: No cough, No dyspnea on exertion Cardiovascular: No chest pain Gastrointestinal: No abdominal pain Neurological: Denies Headache (EVETTE THOMPSON MED STUDENT) Nose: denies pain Respiratory: No short of breath Gastrointestinal: No nausea, No vomiting (ROSS FELTON MD) Past Ueyoxvl-Vxwivv-Zfuest Hx Past Med/Social Hx: Reviewed Nursing Past Med/Soc Hx (ROSS FELTON MD) Patient Social History Alcohol Use: Denies Use Number of Drinks Today: AA Alcohol Beverage of Choice: Beer Smoking Status: Former Smoker Type Used: Cigarettes Former Smoker, Quit: August 09, 1989 2nd Hand Smoke Exposure: No Recent Infectious Disease Expo: No Recent Hopitalizations: No (EVETTE THOMPSON MED STUDENT) Immunizations Up To Date Tetanus Booster (TDap): Unknown Date of Pneumonia Vaccine: Apr 13, 2018 (EVETTE THOMPSON MED STUDENT) Seasonal Allergies Seasonal Allergies: No (EVETTE THOMPSON MED STUDENT) Past Medical History Surgeries: Yes (knee sx, BACK, LT TOTAL KNEE, foot sx) Adenoidectomy, Orthopedic, Tonsillectomy Respiratory: No Currently Using CPAP: No Currently Using BIPAP: No Cardiac: Yes Hypertension Neurological: Yes (POOR MEMORY) Reproductive Disorders: No Sexually Transmitted Disease: No HIV/AIDS: No Genitourinary: No Gastrointestinal: Yes (COLON POLYPS, hemangiomas AND AV MALFORMATIONS OF GI TRACT. ) Polyps Musculoskeletal: Yes Back Injury Endocrine: No HEENT: Yes (FREQUENT NOSEBLEEDS) Cancer: Yes (MYELOPROLIFERATIVE DISORDER) Leukemia Did You Recieve Any Treatments: No Psychosocial: Yes Anxiety Integumentary: Yes (TELANGIECTASIAS OF SKIN) Blood Disorders: Yes (ANEMIA;MYELOPROLIFERATIVE DISORDER;AV MALFORMATIONS/HEMANGIOMAS/) (EVETTE THOMPSON MED STUDENT) Family Medical History Reviewed Nursing Family Hx (ROSS FELTON MD) Hypertension, Vascular Disease (EVETTE THOMPSON MED STUDENT) Physical Exam Vital Signs Vital Signs - First Documented 05/29/20 05/29/20 07:37 08:37 Temp 36.0 Pulse 98 Resp 18 B/P (MAP) 172/100 (124) Pulse Ox 98 O2 Delivery Room Air (ROSS FELTON MD) Height, Weight, BMI Height: 5'10.00" Weight: 191lbs. 0.0oz. 86.630931la; 23.00 BMI Method:Stated General Appearance: WD/WN, mild distress Eyes: bilateral eye PERRL, bilateral eye EOMI Nose: active bleeding (drop of blood to left nares with calmp applied) Mouth/Throat: other (blood cleared posterior pharynx) Neck: full range of motion, supple Cardiovascular: regular rate, rhythm, no edema, no murmur Respiratory: lungs clear, normal breath sounds, no respiratory distress, no accessory muscle use Gastrointestinal: non tender, soft Neurologic/Psychiatric: alert, normal mood/affect, oriented x 3 Skin: normal color, warm/dry (EVETTE THOMPSON,MED STUDENT) General Appearance: WD/WN, mild distress, other (Somewhat anxious but typical he states) Nose: active bleeding (drop of blood to left nares with calmp applied, initially had blush of blood to the posterior pharynx that cleared with time.) Cardiovascular: regular rate, rhythm, no edema, no murmur Respiratory: lungs clear, normal breath sounds Neurologic/Psychiatric: alert, oriented x 3 Skin: normal color, warm/dry (ROSS FELTON MD) Progress/Results/Core Measures Results/Orders Lab Results Laboratory Tests Test 05/29/20 08:10 Range/Units White Blood Count 3.4 L 4.3-11.0 10^3/uL Red Blood Count 4.75 4.30-5.52 10^6/uL Hemoglobin 15.2 13.3-17.7 g/dL Hematocrit 42 40-54 % Mean Corpuscular Volume 88 80-99 fL Mean Corpuscular Hemoglobin 32 25-34 pg Mean Corpuscular Hemoglobin Concent 37 H 32-36 g/dL Red Cell Distribution Width 14.0 10.0-14.5 % Platelet Count 86 L 130-400 10^3/uL Mean Platelet Volume 8.5 L 9.0-12.2 fL Immature Granulocyte % (Auto) 0 % Neutrophils (%) (Auto) 75 42-75 % Lymphocytes (%) (Auto) 17 12-44 % Monocytes (%) (Auto) 7 0-12 % Eosinophils (%) (Auto) 1 0-10 % Basophils (%) (Auto) 0 0-10 % Neutrophils # (Auto) 2.5 1.8-7.8 10^3/uL Lymphocytes # (Auto) 0.6 L 1.0-4.0 10^3/uL Monocytes # (Auto) 0.2 0.0-1.0 10^3/uL Eosinophils # (Auto) 0.0 0.0-0.3 10^3/uL Basophils # (Auto) 0.0 0.0-0.1 10^3/uL Immature Granulocyte # (Auto) 0.0 0.0-0.1 10^3/uL (ROSS FELTON MD) My Orders Orders - ROSS FELTON MD Clonidine Tablet (Catapres Tablet) (05/29/20 08:00) Cbc With Automated Diff (05/29/20 08:00) Oxymetazoline 0.05% Nasal [place] (Afrin 0. (05/29/20 08:49) Amlodipine Tablet (Norvasc Tablet) (05/29/20 10:00) (ROSS FELTON MD) Medications Given in ED Current Medications Medications Dose Ordered Sig/Ra Route Start Time Stop Time Status Last Admin Dose Admin Clonidine HCl 0.1 mg ONCE ONCE PO 05/29/20 08:00 05/29/20 08:01 DC 05/29/20 08:04 0.1 MG (ROSS FELTON MD) Vital Signs/I&O 05/29/20 05/29/20 07:37 08:37 Temp 36.0 Pulse 98 82 Resp 18 18 B/P (MAP) 172/100 (124) 151/87 (108) Pulse Ox 98 99 O2 Delivery Room Air (ROSS FELTON MD) Blood Pressure Mean: 124 Progress Progress Note : Progress Note I have seen and evaluated the patient and agree with above except as indicated. I have directed the plan of care. Patient is here with nosebleed that restarted. Seen by Dr. Crandall yesterday and described what may have been cauterization. Did the Afrin nasal spray this morning and had rebleeding start. Returns today for that. He has been seen several times in the past. Patient does not tolerate nasal packing. Clamp applied and this seems to have helped. Blood pressure noted to be elevated. Clonidine 0.1 mg p.o. given. Monitor patient. 0836: Blood pressure improving and anterior bleeding seems to have stopped with clamp applied but still has occasional drip of blood posterior pharynx noted. We will continue to monitor. 1003: We did give Afrin nasal s pray as patient had a little continued bleeding. Clamp was reapplied. It has subsequently been removed. Blood pressure is improved and bleeding is stopped. We will give amlodipine 5 mg p.o. now and prescribed that outpatient. I have discussed the case with his primary care doctor, Dr. Ballesteros, who agrees with the plan. She will see him in follow-up. This was discussed with the patient. Discharged home with return precautions. Patient and family verbalized understanding of instructions and agreement with plan. I did discuss my concerns about patient's memory lapse with Dr. Ballesteros. (ROSS FELTON MD) Departure Impression Primary Impression: Epistaxis Additional Impression: Uncontrolled hypertension Disposition: 01 HOME, SELF-CARE Condition: Improved Departure-Patient Inst. Decision time for Depature: 10:04 (ROSS FELTON MD) Referrals: BRIAN BALLESTEROS DO (PCP/Family) Primary Care Physician Patient Instructions: High Blood Pressure (DC), Nosebleeds (DC) Add. Discharge Instructions: All discharge instructions reviewed with patient and/or family. Voiced understanding. Do not blow your nose or rub it. Continue medications as prescribed by Dr. Crandall and follow-up in his office for recheck and further evaluation. You need to take the blood pressure medicines that were started today. You need to follow-up with Dr. Ballesteros for further evaluation regarding your blood pressure and for changes as needed. Return for worse pain, fever, vomiting, weakness, breathing problems, persistent nosebleeds or other concerns as needed. If your bleeding restarts, place clamp on nose to hold pressure for 15 minutes and reassess. If bleeding persists then return to the emergency department. Scripts Amlodipine Besylate (Amlodipine Besylate) 5 Mg Tablet 5 MG PO DAILY, #30 TAB Prov: ROSS FELTON MD 05/29/20 Copy Copies To 1: BRIAN BALLESTEROSRICHMOND,MED STUDENT May 29, 2020 08:20 ROSS FELTON MD May 29, 2020 08:36
[2020-05-29] MEDS ORDERED: OXYMETAZOLINE (AFRIN) 0.05% NA 30 ML BTL STA (08:49)
[2020-05-29] MEDS ORDERED: AMLO-250 PO (09:57)
[2020-05-29] MEDS ORDERED: amLODIPine 5 MG (NORVASC) TAB PO ONE (10:00)
[2020-05-29 10:19] VITALS: BP 155/83
== END 2020-05-29 10:19 | disposition home or self-care (01) ==
LOC: EDUNIT# 07:32 → ER 07:34
DX: R04.0 Epistaxis (principal); I10 Essential (primary) hypertension; Z86.010 Personal history of colon polyps; Z85.6 Personal history of leukemia; Z86.011 Personal history of benign neoplasm of the brain; Z87.891 Personal history of nicotine dependence; Z79.899 Other long term (current) drug therapy
CPT/HCPCS: 36415; 85025

== ENCOUNTER → 2020-06-15 | Outpatient (CLI) | payer MEDICARE, OTHER ==
[~2020-06-15] MED LIST changes: +AMLO-250 PO; +BARIUM SUSPENSION 2.1% (VANILLA SILQ) 450 ML PO ONE; +CATHETER FLUSH 10 ML SYR IV PRN; +HOLD METFORMIN - RECEIVED CONTRAST 20 ML VIAL IV SCH; +IOHEXOL 350 MG/ML 100 ML (OMNIPAQUE 350) VIAL IV ONE; +NS 100 ML (IVPB) BAG IV ONE
[2020-06-15] MEDS: CATHETER FLUSH 10 ML SYR IV PRN ×3 (11:08→12:12)
--- NOTE | 2020-06-15 12:14 | Diagnostic Imaging Report ---
PROCEDURE: CT chest with contrast, CT abdomen and pelvis with and without contrast. TECHNIQUE: Pre and post intravenous contrast axial imaging of the abdomen and pelvis and post contrast axial imaging of the chest were performed. Auto Exposure Controls were utilized during the CT exam to meet ALARA standards for radiation dose reduction. INDICATION: History of lymphoma, weight loss. Compared with abdominal pelvic CT 12/08/[address] the most recent chest CT was performed 04/29/2018. FINDINGS: CHEST: There is no thoracic lymphadenopathy. No pleural or pericardial effusion. Some scattered benign parenchymal granulomatous residua stable. No noncalcified or suspicious chest nodule. No edema or pneumonia. No chest wall pathology. Abdomen and pelvis: There is a very minimal residual mild hazy stranding and increased density of the fat along the mesenteric root. This has significantly decreased from prior and the small scattered lymph nodes within this process have resolved. No abdominal pelvic mesenteric or retroperitoneal lymphadenopathy. The nonfocal spleen normal in size. Liver, gallbladder, bile ducts, adrenals and pancreas negative. Benign exophytic cyst off the upper pole right kidney chronic. No hydronephrosis. No suspicious renal pathology. There is noninflamed diverticulosis of the sigmoid. There is no bowel, biliary or urinary tract obstruction. There are degenerative and postsurgical changes to the lumbar spine. No acute appearing bony abnormality. IMPRESSION: CHEST: Stable negative chest. Abdomen and pelvis: Near resolution of nonspecific stranding and induration of the fat along the mesenteric root, resolution of mild mesenteric root adenopathy. No suspicious lymph nodes, organomegaly, mass obstruction, fluid collection or acute abnormalities. Dictated by: Dictated on workstation # [id number]
--- NOTE | 2020-06-15 16:26 | Diagnostic Imaging Report ---
INDICATION: Abnormal weight loss. TECHNIQUE: Patient received intravenous dose 24.4 mCi Tc 99m MDP and after 3 hours whole-body planar imaging performed. COMPARISON: It is correlated with CT of the chest, abdomen and pelvis of the same date and compared directly with whole-body bone scan of 04/29/2018. FINDINGS: Arthritic pattern of uptake about the right greater than left AC joints present. The left knee replaced. The right showed mild sonographic degenerative sequelae. Soft tissue uptake and excretion by urinary tracts, stable. There is no suspicious uptake in the patient's axial or appendicular skeleton that was felt to suggest scintigraphic evidence for formation of bony metastases. IMPRESSION: Stable negative whole-body bone scan. Dictated by: Dictated on workstation # [id number]
== END ==
LOC: CARD 10:48
PROVIDERS: ATTEND Nurse Practitioner Adult Health
DX: R63.4 Abnormal weight loss (principal); M89.8X9 Other specified disorders of bone, unspecified site; Z85.72 Personal history of non-Hodgkin lymphomas
CPT/HCPCS: 71260; 74178; 78306; A9503

== ENCOUNTER 2020-07-12 07:39 | Emergency (ER) | payer MEDICARE, OTHER ==
[~2020-07-12] VITALS: Ht 177 cm; Wt 60.0 kg
[~2020-07-12 07:39] MED LIST changes: -BARIUM SUSPENSION 2.1% (VANILLA SILQ) 450 ML PO ONE; -CATHETER FLUSH 10 ML SYR IV PRN; -HOLD METFORMIN - RECEIVED CONTRAST 20 ML VIAL IV SCH; -IOHEXOL 350 MG/ML 100 ML (OMNIPAQUE 350) VIAL IV ONE; -NS 100 ML (IVPB) BAG IV ONE; +ONDANSETRON 4 MG (ZOFRAN) ORAL DISSOLVE TAB ONE; +OXYMETAZOLINE (AFRIN) 0.05% NA 30 ML BTL ONE
[2020-07-12 08:10] LABS: BASOPHILS % (AUTO) 0 % (0-10); EOSINOPHILS % (AUTO) 1 % (0-10); HEMATOCRIT 40 % (40-54); LYMPHOCYTES # (AUTO) 0.5 10^3/uL (1.0-4.0); LYMPHOCYTES % (AUTO) 14 % (12-44); MEAN CORPUSCULAR HEMOGLOBIN 32 pg (25-34); MEAN CORPUSCULAR HGB CONC 35 g/dL (32-36); MEAN CORPUSCULAR VOLUME 92 fL (80-99); MEAN PLATELET VOLUME 8.6 fL (9.0-12.2); MONOCYTES # (AUTO) 0.3 10^3/uL (0.0-1.0); MONOCYTES % (AUTO) 9 % (0-12); NEUTROPHILS # (AUTO) 2.6 10^3/uL (1.8-7.8); NEUTROPHILS % (AUTO) 75 % (42-75); PLATELET COUNT 96 10^3/uL (130-400); WHITE BLOOD COUNT 3.4 10^3/uL (4.3-11.0)
[2020-07-12] MEDS ORDERED: ONDANSETRON 4 MG (ZOFRAN) ORAL DISSOLVE TAB SL ONE (08:15)
[2020-07-12 08:20] LABS: PROTHROMBIN TIME PATIENT 13.4 SEC (12.2-14.7)
--- NOTE | 2020-07-12 08:44 | ED EENT ---
History of Present Illness General Chief Complaint: Nasal Problems Stated Complaint: NOSE BLEED Nursing Triage Note: PT TO [facility] BY [facility] WITH CC OF NOSE BLEED FOR ABOUT AN HOUR. STATES THIS HAS HAPPENED ONCE IN THE PAST. DENIES TAKING BLOOD THINNERS. DENIES ANY TRAUMA TO THE NOSE. Source: patient, EMS, old records Exam Limitations: no limitations History of Present Illness Date Seen by Provider: Jul 12, 2020 Time Seen by Provider: 07:40 Initial Comments This is 75-year-old gentleman presents to the emergency room via EMS with epistaxis. He has a history of recurrent episodes of epistaxis for which he has sought treatment in the emergency room. He has had follow-up with Dr. Crandall previously as well. He has history of myelodysplastic syndrome with thrombocytopenia and hypertension. Patient seems to be a poor historian and is easily confused neither he nor EMS is applying pressure to the nose upon arrival to the emergency room. He has been instructed in the past to use Afrin and direct pressure to treat acute episodes of epistaxis but he panics in the situation and does not follow these instructions. Patient does have a documented history of poor memory. He believes he is supposed to have an appointment with Dr. Ballesteros this morning but does not know what time. He has moderate hypertension. 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 It is unclear if he has been compliant with his blood pressure medications and he cannot remember if he took any medication this morning. He has a "lady friend" in [facility] and his son comes to visit from the [place] area and helps him out as well. He reports of nausea. Allergies and Home Medications Allergies Coded Allergies: No Known Drug Allergies (Unverified , 01/06/11) Home Medications Amlodipine Besylate 5 Mg Tablet, 5 MG PO DAILY Prescribed by: VIKAS FRAZIER on 06/08/19 2333 Amlodipine Besylate 5 Mg Tablet, 5 MG PO DAILY Prescribed by: ROSS FELTON on 05/29/20 0957 Cefdinir 300 Mg Capsule, 300 MG PO BID Prescribed by: FARZANA OLVERA on 01/16/20 0959 Cefuroxime Axetil 500 Mg Tablet, 500 MG PO BID Prescribed by: FARZANA OLVERA on 04/29/20 2253 Patient Home Medication List Home Medication List Reviewed: Yes Review of Systems Review of Systems Constitutional: no symptoms reported Eyes: No Symptoms Reported Ears: No Symptoms Reported Nose: see HPI Mouth: no symptoms reported Throat: no symptoms reported Respiratory: no symptoms reported Cardiovascular: no symptoms reported Gastrointestinal: no symptoms reported Musculoskeletal: no symptoms reported Skin: no symptoms reported Neurological: See HPI Hematologic/Lymphatic: See HPI Immunological/Allergic: see HPI Past Elhrcgf-Yufrko-Qsbahx Hx Past Med/Social Hx: Reviewed Nursing Past Med/Soc Hx Patient Social History Alcohol Use: Occasionally Uses Number of Drinks Today: AA Alcohol Beverage of Choice: Beer Smoking Status: Former Smoker Type Used: Cigarettes Former Smoker, Quit: August 09, 1989 2nd Hand Smoke Exposure: No Recent Infectious Disease Expo: No Recent Hopitalizations: No Immunizations Up To Date Tetanus Booster (TDap): Unknown Date of Pneumonia Vaccine: Apr 13, 2018 Seasonal Allergies Seasonal Allergies: No Past Medical History Surgeries: Yes (knee sx, BACK, LT TOTAL KNEE, foot sx) Adenoidectomy, Orthopedic, Tonsillectomy Respiratory: No Currently Using CPAP: No Currently Using BIPAP: No Cardiac: Yes Hypertension Neurological: Yes (POOR MEMORY) Reproductive Disorders: No Sexually Transmitted Disease: No HIV/AIDS: No Genitourinary: No Gastrointestinal: Yes (COLON POLYPS, hemangiomas AND AV MALFORMATIONS OF GI TRACT. ) Polyps Musculoskeletal: Yes Back Injury Endocrine: No HEENT: Yes (FREQUENT NOSEBLEEDS) Cancer: Yes (MYELOPROLIFERATIVE DISORDER) Leukemia Did You Recieve Any Treatments: No Psychosocial: Yes Anxiety Integumentary: Yes (TELANGIECTASIAS OF SKIN) Blood Disorders: Yes (ANEMIA;MYELOPROLIFERATIVE DISORDER;AV MALFORMATIONS/HEMANGIOMAS/) Family Medical History Hypertension, Vascular Disease Physical Exam Vital Signs Vital Signs - First Documented 07/12/20 07:47 Temp 36.1 Pulse 87 Resp 20 B/P (MAP) 146/93 (110) Pulse Ox 100 O2 Delivery Room Air Height, Weight, BMI Height: 5'10.00" Weight: 191lbs. 0.0oz. 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 He is a poor historian.) Skin: normal color, warm/dry Progress/Results/Core Measures Results/Orders Lab Results Laboratory Tests Test 07/12/20 08:00 Range/Units White Blood Count 3.4 L 4.3-11.0 10^3/uL Red Blood Count 4.36 4.30-5.52 10^6/uL Hemoglobin 14.0 13.3-17.7 g/dL Hematocrit 40 40-54 % Mean Corpuscular Volume 92 80-99 fL Mean Corpuscular Hemoglobin 32 25-34 pg Mean Corpuscular Hemoglobin Concent 35 32-36 g/dL Red Cell Distribution Width 13.9 10.0-14.5 % Platelet Count 96 L 130-400 10^3/uL Mean Platelet Volume 8.6 L 9.0-12.2 fL Immature Granulocyte % (Auto) 0 % Neutrophils (%) (Auto) 75 42-75 % Lymphocytes (%) (Auto) 14 12-44 % Monocytes (%) (Auto) 9 0-12 % Eosinophils (%) (Auto) 1 0-10 % Basophils (%) (Auto) 0 0-10 % Neutrophils # (Auto) 2.6 1.8-7.8 10^3/uL Lymphocytes # (Auto) 0.5 L 1.0-4.0 10^3/uL Monocytes # (Auto) 0.3 0.0-1.0 10^3/uL Eosinophils # (Auto) 0.0 0.0-0.3 10^3/uL Basophils # (Auto) 0.0 0.0-0.1 10^3/uL Immature Granulocyte # (Auto) 0.0 0.0-0.1 10^3/uL Prothrombin Time 13.4 12.2-14.7 SEC INR Comment 1.0 0.8-1.4 Activated Partial Thromboplast Time 28 24-35 SEC My Orders Orders - VIKAS PEREZ MD Ondansetron Oral Dissolve Tab (Zofran (07/12/20 07:38) Cbc With Automated Diff (07/12/20 07:49) Protime With Inr (07/12/20 07:49) Partial Thromboplastin Time (07/12/20 07:49) Ed Iv/Invasive Line Start (07/12/20 07:49) Ondansetron Oral Dissolve Tab (Zofran (07/12/20 08:15) Medications Given in ED Current Medications Medications Dose Ordered Sig/Ra Route Start Time Stop Time Status Last Admin Dose Admin Ondansetron HCl 8 mg ONCE ONCE SL 07/12/20 08:15 07/12/20 08:16 DC 07/12/20 08:17 8 MG Vital Signs/I&O 07/12/20 07:47 Temp 36.1 Pulse 87 Resp 20 B/P (MAP) 146/93 (110) Pulse Ox 100 O2 Delivery Room Air Blood Pressure Mean: 110 Progress Progress Note : Progress Note 3 sprays of Afrin were administered in each nostril and nasal clamp was applied. Clamp was left in place for approximately 30 minutes and this resolved the epistaxis. Blood pressure was initially elevated but trended down after patient calmed down. Since it was unclear if he took any blood pressure medications this morning, we did not administer any medications to further drop his pressures. The Afrin and nasal clamp were sent home with the patient with discharge instructions. I did offer to call his significant other and his son but he declined. I discussed the situation with Dr. Ballesteros and discussed my concerns about compliance and patient's ability to manage hypertension and epistaxis at home. She has been in contact with his son and is aware of his situation. I contacted Dr. Ballesteros's office as well. Patient has an appointment at 10:45, and he was encouraged to keep that appointment. Departure Impression Primary Impression: Epistaxis Additional Impressions: HTN (hypertension) Qualified Codes: I10 - Essential (primary) hypertension Poor memory Disposition: 01 HOME, SELF-CARE Condition: Improved Departure-Patient Inst. Decision time for Depature: 08:41 Referrals: BRIAN BALLESTEROS DO (PCP/Family) Primary Care Physician Patient Instructions: Nosebleeds (DC) Add. Discharge Instructions: You have an appointment with Dr. Ballesteros at 10:45 today. Please keep that appointment. Please be sure you take your blood pressure medicine every day as prescribed. Use a pill organizer if needed to help you remember. If nosebleed returns, use 2-4 squirts of Afrin in each nostril and apply direct pressure with your hand or the nasal clamp for 20 to 30 minutes. If this does not resolve your nosebleed, return to the emergency room. Follow-up with Dr. Crandall is also advised. Call with questions or concerns. Return to the emergency room if you have other concerns or urgent issues. Please share these discharge instructions with your family and your significant other. All discharge instructions reviewed with patient and/or family. Voiced understanding. Copy Copies To 1: BRIAN BALLESTEROS DO Copies To 2: DAHLIA CRANDALL MD, JOSHUA T MD Jul 12, 2020 08:44
[2020-07-12 09:01] VITALS: BP 128/69
== END 2020-07-12 09:01 | disposition home or self-care (01) ==
LOC: EDUNIT# 07:39 → ER 07:40
DX: R04.0 Epistaxis (principal); I10 Essential (primary) hypertension; R41.3 Other amnesia; Z87.891 Personal history of nicotine dependence
CPT/HCPCS: 36415; 85025; 85610; 85730

== ENCOUNTER 2020-07-13 09:45 | Outpatient (RCR) | payer MEDICARE, OTHER ==
[2020-04-19 08:09] LABS: BASOPHILS % (AUTO) 0 % (0-10); HEMOGLOBIN 15.5 g/dL (13.3-17.7); MEAN PLATELET VOLUME 9.1 fL (9.0-12.2)
[2020-04-19 08:11] LABS: EOSINOPHILS % (AUTO) 1 % (0-10); HEMATOCRIT 45 % (40-54); LYMPHOCYTES # (AUTO) 0.6 10^3/uL (1.0-4.0); LYMPHOCYTES % (AUTO) 13 % (12-44); MEAN CORPUSCULAR HEMOGLOBIN 31 pg (25-34); MEAN CORPUSCULAR HGB CONC 35 g/dL (32-36); MEAN CORPUSCULAR VOLUME 90 fL (80-99); MONOCYTES # (AUTO) 0.4 10^3/uL (0.0-1.0); MONOCYTES % (AUTO) 8 % (0-12); NEUTROPHILS # (AUTO) 3.5 10^3/uL (1.8-7.8); NEUTROPHILS % (AUTO) 78 % (42-75); PLATELET COUNT 122 10^3/uL (130-400); WHITE BLOOD COUNT 4.4 10^3/uL (4.3-11.0)
[2020-06-11 12:22] LABS: BASOPHILS % (AUTO) 0 % (0-10); EOSINOPHILS % (AUTO) 1 % (0-10); HEMATOCRIT 43 % (40-54); HEMOGLOBIN 15.7 g/dL (13.3-17.7); MEAN CORPUSCULAR HGB CONC 36 g/dL (32-36)
[2020-06-11 12:23] LABS: LYMPHOCYTES # (AUTO) 0.7 10^3/uL (1.0-4.0); LYMPHOCYTES % (AUTO) 14 % (12-44); MEAN CORPUSCULAR HEMOGLOBIN 32 pg (25-34); MEAN CORPUSCULAR VOLUME 88 fL (80-99); MEAN PLATELET VOLUME 8.6 fL (9.0-12.2); MONOCYTES # (AUTO) 0.5 10^3/uL (0.0-1.0); MONOCYTES % (AUTO) 9 % (0-12); NEUTROPHILS # (AUTO) 3.8 10^3/uL (1.8-7.8); NEUTROPHILS % (AUTO) 76 % (42-75); PLATELET COUNT 120 10^3/uL (130-400); WHITE BLOOD COUNT 5.1 10^3/uL (4.3-11.0)
[2020-06-11 12:39] LABS: ALANINE AMINOTRANSFERASE 12 U/L (0-55); ALBUMIN 4.5 GM/DL (3.2-4.5); ALKALINE PHOSPHATASE 67 U/L (40-136); BUN/CREATININE RATIO 8; CALCIUM 8.7 MG/DL (8.5-10.1); CARBON DIOXIDE 25 MMOL/L (21-32); CHLORIDE 96 MMOL/L (98-107); CREATININE SERUM 0.85 MG/DL (0.60-1.30); GFR ESTIMATED > 60; GLUCOSE 90 MG/DL (70-105); POTASSIUM 3.7 MMOL/L (3.6-5.0); SODIUM 131 MMOL/L (135-145); TOTAL PROTEIN 6.9 GM/DL (6.4-8.2)
[~2020-07-13 09:45] MED LIST changes: +FERRIC CARBOXYMALTOSE (CANCER) 750 MG in NS (IVPB) CANCER CENTER 250 ML IV SCH; -ONDANSETRON 4 MG (ZOFRAN) ORAL DISSOLVE TAB ONE; -OXYMETAZOLINE (AFRIN) 0.05% NA 30 ML BTL ONE
[2020-07-13 09:55] LABS: EOSINOPHILS % (AUTO) 1 % (0-10); HEMOGLOBIN 13.9 g/dL (13.3-17.7)
[2020-07-13 09:57] LABS: BASOPHILS % (AUTO) 0 % (0-10); HEMATOCRIT 40 % (40-54); LYMPHOCYTES # (AUTO) 0.6 10^3/uL (1.0-4.0); LYMPHOCYTES % (AUTO) 14 % (12-44); MEAN CORPUSCULAR HEMOGLOBIN 32 pg (25-34); MEAN CORPUSCULAR HGB CONC 35 g/dL (32-36); MEAN CORPUSCULAR VOLUME 94 fL (80-99); MEAN PLATELET VOLUME 8.6 fL (9.0-12.2); MONOCYTES # (AUTO) 0.4 10^3/uL (0.0-1.0); MONOCYTES % (AUTO) 8 % (0-12); NEUTROPHILS # (AUTO) 3.6 10^3/uL (1.8-7.8); NEUTROPHILS % (AUTO) 77 % (42-75); PLATELET COUNT 130 10^3/uL (130-400); WHITE BLOOD COUNT 4.7 10^3/uL (4.3-11.0)
== END 2020-07-18 | disposition home or self-care (01) ==
LOC: ONC 09:45
PROVIDERS: ATTEND Internal Medicine Hematology & Oncology
DX: D50.9 Iron deficiency anemia, unspecified (principal); I78.0 Hereditary hemorrhagic telangiectasia; I12.9 Hypertensive chronic kidney disease with stage 1 through stage 4 chronic kidney disease, or unspecified chronic kidney disease; N18.9 Chronic kidney disease, unspecified; K21.9 Gastro-esophageal reflux disease without esophagitis; Z85.72 Personal history of non-Hodgkin lymphomas
CPT/HCPCS: 80053; 82728; 85025; 96365; 99213

== ENCOUNTER 2020-09-12 10:50 | Outpatient (RCR) | payer MEDICARE, OTHER ==
[2020-08-08 14:00] LABS: BASOPHILS % (AUTO) 0 % (0-10); HEMOGLOBIN 12.8 g/dL (13.3-17.7); MEAN CORPUSCULAR VOLUME 91 fL (80-99); MONOCYTES # (AUTO) 0.4 10^3/uL (0.0-1.0)
[2020-08-08 14:01] LABS: EOSINOPHILS % (AUTO) 1 % (0-10); HEMATOCRIT 37 % (40-54); LYMPHOCYTES # (AUTO) 0.8 10^3/uL (1.0-4.0); LYMPHOCYTES % (AUTO) 20 % (12-44); MEAN CORPUSCULAR HEMOGLOBIN 32 pg (25-34); MEAN CORPUSCULAR HGB CONC 35 g/dL (32-36); MEAN PLATELET VOLUME 8.8 fL (9.0-12.2); MONOCYTES % (AUTO) 9 % (0-12); NEUTROPHILS # (AUTO) 2.8 10^3/uL (1.8-7.8); NEUTROPHILS % (AUTO) 69 % (42-75); PLATELET COUNT 113 10^3/uL (130-400)
[2020-09-05 09:16] LABS: BASOPHILS % (AUTO) 0 % (0-10); HEMATOCRIT 41 % (40-54)
[2020-09-05 09:18] LABS: EOSINOPHILS # (AUTO) 0.1 10^3/uL (0.0-0.3); EOSINOPHILS % (AUTO) 1 % (0-10); HEMOGLOBIN 14.2 g/dL (13.3-17.7); LYMPHOCYTES # (AUTO) 0.8 10^3/uL (1.0-4.0); LYMPHOCYTES % (AUTO) 22 % (12-44); MEAN CORPUSCULAR HEMOGLOBIN 31 pg (25-34); MEAN CORPUSCULAR HGB CONC 35 g/dL (32-36); MEAN CORPUSCULAR VOLUME 88 fL (80-99); MONOCYTES # (AUTO) 0.3 10^3/uL (0.0-1.0); MONOCYTES % (AUTO) 9 % (0-12); NEUTROPHILS # (AUTO) 2.4 10^3/uL (1.8-7.8); NEUTROPHILS % (AUTO) 67 % (42-75); PLATELET COUNT 101 10^3/uL (130-400); WHITE BLOOD COUNT 3.6 10^3/uL (4.3-11.0)
[2020-09-05 09:34] LABS: ALANINE AMINOTRANSFERASE 11 U/L (0-55); ALBUMIN 4.3 GM/DL (3.2-4.5); ALKALINE PHOSPHATASE 56 U/L (40-136); BILIRUBIN,TOTAL 1.2 MG/DL (0.1-1.0); BUN/CREATININE RATIO 11; CARBON DIOXIDE 28 MMOL/L (21-32); CHLORIDE 101 MMOL/L (98-107); CREATININE SERUM 0.85 MG/DL (0.60-1.30); GFR ESTIMATED > 60; GLUCOSE 88 MG/DL (70-105); POTASSIUM 3.7 MMOL/L (3.6-5.0); SODIUM 135 MMOL/L (135-145); TOTAL PROTEIN 6.7 GM/DL (6.4-8.2)
== END 2020-11-06 | disposition home or self-care (01) ==
LOC: ONC 10:50
PROVIDERS: ATTEND Internal Medicine Hematology & Oncology
DX: D50.9 Iron deficiency anemia, unspecified (principal); I78.0 Hereditary hemorrhagic telangiectasia; I12.9 Hypertensive chronic kidney disease with stage 1 through stage 4 chronic kidney disease, or unspecified chronic kidney disease; N18.30 Chronic kidney disease, stage 3 unspecified; R63.4 Abnormal weight loss; K21.9 Gastro-esophageal reflux disease without esophagitis; Z85.72 Personal history of non-Hodgkin lymphomas; Z87.891 Personal history of nicotine dependence; Z79.899 Other long term (current) drug therapy
CPT/HCPCS: 80053; 82728; 83615; 85025; 96365; 99213

== ENCOUNTER 2020-12-24 12:53 | Outpatient (RCR) | payer MEDICARE, OTHER ==
[2020-12-04 13:02] LABS: HEMOGLOBIN 13.4 g/dL (13.3-17.7)
[2020-12-04 13:04] LABS: BASOPHILS % (AUTO) 0 % (0-10); EOSINOPHILS % (AUTO) 1 % (0-10); HEMATOCRIT 39 % (40-54); LYMPHOCYTES # (AUTO) 0.8 10^3/uL (1.0-4.0); LYMPHOCYTES % (AUTO) 18 % (12-44); MEAN CORPUSCULAR HEMOGLOBIN 32 pg (25-34); MEAN CORPUSCULAR HGB CONC 34 g/dL (32-36); MEAN CORPUSCULAR VOLUME 93 fL (80-99); MEAN PLATELET VOLUME 9.2 fL (9.0-12.2); MONOCYTES # (AUTO) 0.4 10^3/uL (0.0-1.0); MONOCYTES % (AUTO) 9 % (0-12); NEUTROPHILS # (AUTO) 3.4 10^3/uL (1.8-7.8); NEUTROPHILS % (AUTO) 72 % (42-75); PLATELET COUNT 111 10^3/uL (130-400); WHITE BLOOD COUNT 4.7 10^3/uL (4.3-11.0)
[2020-12-04 13:26] LABS: ALBUMIN 4.3 GM/DL (3.2-4.5); BILIRUBIN,TOTAL 1.3 MG/DL (0.1-1.0); CALCIUM 9.6 MG/DL (8.5-10.1); CREATININE SERUM 0.94 MG/DL (0.60-1.30); POTASSIUM 4.2 MMOL/L (3.6-5.0); TOTAL PROTEIN 6.6 GM/DL (6.4-8.2)
== END 2021-03-04 | disposition home or self-care (01) ==
LOC: ONC 12:53
PROVIDERS: ATTEND Internal Medicine Hematology & Oncology
DX: D50.9 Iron deficiency anemia, unspecified (principal); I78.0 Hereditary hemorrhagic telangiectasia; I10 Essential (primary) hypertension; E66.9 Obesity, unspecified; Z85.72 Personal history of non-Hodgkin lymphomas; Z68.1 Body mass index [BMI] 19.9 or less, adult
CPT/HCPCS: 80053; 82728; 85025; 96365; 99213

== ENCOUNTER → 2023-02-10 | Outpatient (CLI) | payer MEDICARE, OTHER ==
[~2023-02-10] MED LIST changes: -FERRIC CARBOXYMALTOSE (CANCER) 750 MG in NS (IVPB) CANCER CENTER 250 ML IV SCH
--- NOTE | 2023-02-10 18:18 | Diagnostic Imaging Report ---
INDICATION: Fall and left knee pain. Time of Exam: 5:15 PM 3 views of the left knee demonstrate postoperative changes total knee arthroplasty. The prosthetic elements are in good position. No fracture or loosening is identified. The bony structures are intact. There is some mild suprapatellar fullness suggestive of a small joint effusion. IMPRESSION: Postop changes total knee arthroplasty with small joint effusion. No other significant abnormality is detected. Dictated by: Dictated on workstation # [id number]
== END ==
LOC: RAD 16:59
PROVIDERS: ATTEND Internal Medicine
DX: M25.462 Effusion, left knee (principal); Z96.652 Presence of left artificial knee joint; R29.6 Repeated falls
CPT/HCPCS: 73562